=== PATIENT | female | born 1970 | race Hispanic/Latino ===

== ENCOUNTER 2018-12-07 20:52 | Emergency (ER) | payer BC, SELFPAY ==
[2018-12-07] MEDS ORDERED: ONDANSETRON 4 MG/2 ML VIAL ONE (22:19)
[2018-12-07] MEDS ORDERED: FENTANYL CITR 100 MCG/2 ML ONE (22:19)
[2018-12-07] MEDS ORDERED: NA CHLORIDE 0.9% 1,000 ML ONE (22:20)
[2018-12-07] MEDS ORDERED: FAMOTIDINE 20 MG/2 ML VIAL IV ONE (22:20)
[2018-12-07 22:30] LABS: Absolute Lymphocytes (CBC) 0.3 K/uL (0.7-4.9); Absolute Monocytes 0.6 K/uL (0.1-1.3); Absolute Neutrophil 9.1 K/uL (1.8-8.0); Basophils % 0.4 % (0-1.3); Eosinophils % 0.3 % (0-4.4); Hematocrit 34.6 % (36.0-45.0); MPV 9.3 fL (7.6-11.3); Monocytes % 6.3 % (3.3-12.3); RBC Red Blood Cell Count 4.16 M/uL (3.86-4.86)
[2018-12-07 22:50] LABS: Albumin 3.2 g/dL (3.4-5.0); Bilirubin Direct 0.2 mg/dL (0-0.2); Bilirubin Total 0.8 mg/dL (0.2-1.0); Potassium 3.6 mmol/L (3.5-5.1); Protein, Total 7.6 g/dL (6.4-8.2)
[2018-12-08] MEDS ORDERED: ONDANSETRON 4 MG/2 ML VIAL ONE (00:06)
[2018-12-08] MEDS ORDERED: FENTANYL CITR 100 MCG/2 ML ONE ×2 (00:06→05:44)
[2018-12-08 00:37] LABS: Urine Bacteria 20-50 /HPF (<20); Urine RBC NONE SEEN /HPF (NONE SEEN)
[2018-12-08 00:38] LABS: Urine Culture Reflex Order NOT NEEDED; Urine Mucus HEAVY /HPF (NONE SEEN)
[2018-12-08 00:49] LABS: Blood Morphology Comment NOT SEEN (NOT SEEN); Platelet Estimate ADEQ; Urine White Blood Cell Casts OK
[2018-12-08] MEDS ORDERED: NA CHLORIDE 0.9% 500 ML ONE (01:39)
[2018-12-08] MEDS ORDERED: NACHLORIDE 0.45% 1,000 ML IV ONE (01:39)
--- NOTE | 2018-12-08 02:53 | ER ---
Nurse's Notes [facility] Name: Marcela Jamison Age: 48 yrs Sex: Female : 1970 Arrival Date: 12/07/2018 Time: 20:58 Bed 7 Private MD: Diagnosis: Small bowel obstruction Presentation: 12/07 21:12 Presenting complaint: Patient states: Abd bloating, unable to pass gas or have BM since la1 hysterectomy on Sunday. Transition of care: patient was not received from another setting of care. Onset of symptoms was December 07, 2018. Risk Assessment: Do you want to hurt yourself or someone else? Patient reports no desire to harm self or others. Initial Sepsis Screen: Does the patient meet any 2 criteria? No. Patient's initial sepsis screen is negative. Does the patient have a suspected source of infection? No. Patient's initial sepsis screen is negative. Care prior to arrival: None. 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 - Social history:: Smoking status: Patient/guardian denies using tobacco. - Ebola Screening: : No symptoms or risks identified at this time. Screenin:27 Abuse screen: Denies threats or abuse. Nutritional screening: No deficits noted. ea Tuberculosis screening: No symptoms or risk factors identified. Fall Risk IV access (20 points). Assessment: 22:27 General: Appears uncomfortable, Behavior is calm, cooperative, appropriate for age. ea Pain: Complains of pain in abdomen. Neuro: Level of Consciousness is awake, alert, obeys commands, Oriented to person, place, time, situation. Cardiovascular: Patient's skin is warm and dry. Respiratory: Airway is patent Respiratory effort is even, unlabored, Respiratory pattern is regular, symmetrical. GI: Abdomen is distended, Bowel sounds present X 4 quads. Abdomen is tender to palpation X 4 quads. Derm: Skin is dry, Skin is pale, Skin temperature is warm. 23:35 Reassessment: complaints of severe abdominal pain. ED provider aware with order made rr5 and carried out. 23:35 Pain: Complains of pain in abdomen Pain does not radiate. Pain currently is 10 out of rr5 10 on a pain scale. Quality of pain is described as aching, Pain began gradually, Is intermittent. GI: Abdomen is distended. 12/08 00:35 Reassessment: Patient appears in no apparent distress at this time. Patient is alert, rr5 oriented x 3, equal unlabored respirations, skin warm/dry/pink. went to CT scan Patient states symptoms have improved. 01:30 Reassessment: Patient appears in no apparent distress at this time. No changes from rr5 previously documented assessment. Patient is alert, oriented x 3, equal unlabored respirations, skin warm/dry/pink. 01:45 Reassessment: inserted NGT at left nares draining bilus fluid connected to suction rr5 drain. 02:20 Reassessment: Patient appears in no apparent distress at this time. Patient is alert, rr5 oriented x 3, equal unlabored respirations, skin warm/dry/pink. Patient states feeling better. Patient states symptoms have improved. 03:13 Reassessment: Patient and/or family updated on plan of care and expected duration. Pain ea level reassessed. Patient is alert, oriented x 3, equal unlabored respirations, skin warm/dry/pink. 03:23 Reassessment: Report called to Francisco JONES at [facility]. ea 04:50 Reassessment: Patient and/or family updated on plan of care and expected duration. Pain ea level reassessed. Patient is alert, oriented x 3, equal unlabored respirations, skin warm/dry/pink. Awaiting for transport. 05:38 Reassessment: Report given to [facility]. Pt left ED via stretcher per EMS, pt ea tolerating well, pt accompanied by . Vital Signs: 12/07 21:15 Weight 53.07 kg; Height 5 ft. 1 in. (154.94 cm); la1 21:15 BP 104 / 64; la1 21:15 Pulse 60; Resp 16; Temp 97.0; Pulse Ox 98% on R/A; la1 22:30 BP 126 / 78; Pulse 64; Resp 18; Pulse Ox 99% on R/A; Pain 10/10; rr5 23:30 BP 124 / 87; Pulse 70; Resp 19; Temp 98; Pulse Ox 99% on R/A; rr5 12/08 00:00 BP 127 / 78; Pulse 60; Resp 16; Pulse Ox 98% on R/A; rr5 01:00 BP 128 / 74; Pulse 57; Resp 16; Pulse Ox 100% on R/A; rr5 02:00 BP 118 / 81; Pulse 60; Resp 15; Pulse Ox 98% on R/A; rr5 02:48 BP 142 / 83; Pulse 62; Resp 17; Temp 97.9; Pulse Ox 99% on R/A; rr5 03:30 BP 139 / 70; Pulse 63; Resp 16; Temp 98; Pulse Ox 98% on R/A; rr5 04:10 BP 135 / 88; Pulse 66; Resp 14; Temp 98.5; Pulse Ox 100% on 3 lpm NC; rr5 05:30 BP 128 / 72; Pulse 60; Resp 18; Temp 98.2; Pulse Ox 100% on 3 lpm NC; ea 12/07 21:15 Body Mass Index 22.11 (53.07 kg, 154.94 cm) la1 ED Course: 12/07 20:58 Patient arrived in ED. es 21:12 Arm band placed on left wrist. la1 21:13 Triage completed. la1 21:43 Shahid Angel PA is PHCP. cp 21:43 Maco Herzog MD is Attending Physician. cp 22:13 Gladys Small, ROBERT is Primary Nurse. ea 22:25 Inserted saline lock: 20 gauge in right antecubital area, using aseptic technique. ea Blood collected. 22:26 Patient has correct armband on for positive identification. Bed in low position. Call ea light in reach. Side rails up X2. Pulse ox on. NIBP on. 23:20 Radiology exam delayed due to Patient has been nauseous and has not been able to finish az oral contrast for CT exam. 12/08 01:06 Radiology exam delayed due to Patient did not finish oral contrast until 2340 due to az nausea. Will scan \T\ 0100. 01:16 CT Abd/Pelvis - W/Contrast In Process Unspecified. EDMS 01:18 X-ray completed. Portable x-ray completed in exam room. Patient tolerated procedure mh1 well. 01:19 XRAY Chest (1 view) In Process Unspecified. EDMS 01:45 NGT: inserted 14 Fr. via left nare. verified placement of air over stomach, verified rr5 return of gastric contents, to continuous suction. Returned gastric contents. Returned bile. Patient tolerated well. 03:39 No provider procedures requiring assistance completed. Patient transferred, IV remains ea in place. Administered Medications: 12/07 22:23 Drug: Zofran 4 mg Route: IVP; Site: right antecubital; ea 23:30 Follow up: Response: No adverse reaction rr5 22:25 Drug: NS 0.9% 1000 ml Route: IV; Rate: 1 bolus; Site: right antecubital; ea 23:30 Follow up: Response: No adverse reaction; IV Status: Completed infusion; IV Intake: rr5 1000ml 22:25 Drug: fentaNYL (PF) 25 mcg Route: IVP; Site: right antecubital; ea 23:30 Follow up: Response: No adverse reaction rr5 22:26 Drug: Pepcid 20 mg Route: IVP; Site: right antecubital; ea 23:30 Follow up: Response: No adverse reaction rr5 23:52 Drug: Zofran 4 mg Route: IVP; Site: right antecubital; rr5 12/08 01:00 Follow up: Response: No adverse reaction rr5 12/07 23:55 Drug: fentaNYL (PF) 25 mcg Route: IVP; Site: right antecubital; rr5 12/08 01:00 Follow up: Response: No adverse reaction rr5 01:14 CANCELLED (Physician Discretion): NS 0.9% 1000 ml IV at 1 bolus Per protocol; 1000 mL cp bolus 01:50 Drug: NS 0.9% 500 ml Route: IV; Rate: bolus; Site: right antecubital; rr5 03:00 Follow up: Response: No adverse reaction; IV Status: Completed infusion; IV Intake: rr5 500ml 01:50 Drug: NS 0.45 % 1000 ml Route: IV; Rate: 100 ml/hr; Site: right antecubital; rr5 03:29 Follow up: Response: No adverse reaction; IV Status: Infusion continued upon transfer; rr5 IV Intake: 150ml 03:04 Drug: metroNIDAZOLE 500 mg Volume: 100 ml; Route: IVPB; Infused Over: 30 mins; Site: ea right antecubital; 04:07 Follow up: Response: No adverse reaction; IV Status: Completed infusion ea 04:07 Drug: Ciprofloxacin 400 mg Volume: 200 ml; Route: IVPB; Infused Over: 60 mins; Site: ea right antecubital; 05:17 Follow up: Response: No adverse reaction; IV Status: Completed infusion ea 04:10 Drug: fentaNYL (PF) 25 mcg Route: IVP; Site: right antecubital; rr5 05:00 Follow up: Response: No adverse reaction; Pain is decreased ea 05:35 Drug: fentaNYL (PF) 25 mcg Route: IVP; Site: right antecubital; ea 05:38 Follow up: Response: medication administered at transfer ea Intake: 12/07 23:30 IV: 1000ml; Total: 1000ml. rr5 12/08 03:00 IV: 500ml; Total: 1500ml. rr5 03:29 IV: 150ml; Total: 1650ml. rr5 Output: 05:25 Gastric: 600ml (NGT); Total: 600ml. rr5 Outcome: 02:52 ER care complete, transfer ordered by MD. cp 03:00 Instructed on the need for transfer. ea 05:21 Transferred by ground EMS to [facility], Transfer form completed. ea 05:21 Condition: stable 05:40 Patient left the ED. ea Signatures: Dispatcher [employer] Hilda Null Martha [facility] Phill Neal RN RN serina1 Shahid Angel PA PA cp Antunez, Elena, RN RN ea Zavala, Araceli az Roque, Raymond RN RN rr5 Corrections: (The following items were deleted from the chart) 12/07 21:16 21:12 Acuity: KAMI 3 la1 la1 12/08 03:29 02:50 Response: No adverse reaction; IV Status: Completed infusion; IV Intake: 500ml [id number] 05:40 05:31 Reassessment: Report given to [facility]. Pt left ED via stretcher per EMS, ea pt tolerating well, pt accompanied by ea
--- NOTE | 2018-12-08 02:54 | EDPHYS ---
Physician Documentation [facility] Name: Marcela Jamison Age: 48 yrs Sex: Female : 1970 Arrival Date: 12/07/2018 Time: 20:58 Bed 7 Private MD: ED Physician Maco Herzog HPI: 12/07 21:55 This 48 yrs old Female presents to ER via Wheelchair with complaints of cp Constipation, Fever, Weakness. 21:55 The patient presents with abdominal pain that is diffuse, abdominal distention that is cp diffuse. 21:55 Onset: The symptoms/episode began/occurred gradually, and became worse today. cp Associated signs and symptoms: Pertinent positives: constipation, fever, nausea, vomiting, Pertinent negatives: blood in stools, vomiting blood. Patient reports having total hysterectomy performed by DR Lehman \T\[facility] in [place] this past Sunday. Patient reports she was discharged from hospital on . Patient c/o constipation and no bowel movement since surgery. 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 - Social history:: Smoking status: Patient/guardian denies using tobacco. - Ebola Screening: : No symptoms or risks identified at this time. ROS: 22:00 Constitutional: Negative for body aches, chills, fever, poor PO intake. cp 22:00 Eyes: Negative for injury, pain, redness, and discharge. cp 22:00 ENT: Negative for drainage from ear(s), ear pain, sore throat, difficulty swallowing, difficulty handling secretions. 22:00 Cardiovascular: Negative for chest pain, edema, palpitations. 22:00 Respiratory: Negative for cough, shortness of breath, wheezing. 22:00 Abdomen/GI: Positive for abdominal pain, nausea, constipation, abdominal distension. 22:00 Back: Negative for pain at rest, pain with movement, radiated pain. 22:00 : Negative for urinary symptoms. 22:00 Neuro: Positive for general weakness, Negative for altered mental status, headache. 22:00 All other systems are negative. Exam: 22:10 Constitutional: The patient appears in no acute distress, alert, awake, cp non-diaphoretic, non-toxic, well developed, well nourished. 22:10 Head/Face: Normocephalic, atraumatic. cp 22:10 Eyes: Periorbital structures: appear normal, Conjunctiva: normal, no exudate, no injection, Sclera: no appreciated abnormality, Lids and lashes: appear normal, bilaterally. 22:10 ENT: External ear(s): are unremarkable, Nose: is normal, Mouth: Lips: moist, Oral mucosa: dry, Posterior pharynx: Airway: no evidence of obstruction, patent. 22:10 Neck: ROM/movement: is normal, is supple, without pain, no range of motions limitations, no nuchal rigidity. 22:10 Chest/axilla: Inspection: normal, Palpation: is normal, no crepitus, no tenderness. 22:10 Cardiovascular: Rate: normal, Rhythm: regular, Edema: is not appreciated, JVD: is not appreciated. 22:10 Respiratory: the patient does not display signs of respiratory distress, Respirations: normal, no use of accessory muscles, no retractions, no splinting, no tachypnea, labored breathing, is not present, Breath sounds: are clear throughout, no decreased breath sounds, no stridor, no wheezing. 22:10 Abdomen/GI: Inspection: distension, that is moderate, Bowel sounds: active, all quadrants, Palpation: soft, in all quadrants, moderate abdominal tenderness, in the abdomen diffusely, rebound tenderness, is not appreciated, involuntary guarding, is elicited in all quadrants. 22:10 Skin: no rash present. 22:10 Neuro: Orientation: to person, place \T\ time. Mentation: is normal, Motor: moves all fours, strength is normal. Vital Signs: 21:15 Weight 53.07 kg; Height 5 ft. 1 in. (154.94 cm); la1 21:15 BP 104 / 64; la1 21:15 Pulse 60; Resp 16; Temp 97.0; Pulse Ox 98% on R/A; la1 22:30 BP 126 / 78; Pulse 64; Resp 18; Pulse Ox 99% on R/A; Pain 10/10; rr5 23:30 BP 124 / 87; Pulse 70; Resp 19; Temp 98; Pulse Ox 99% on R/A; rr5 12/08 00:00 BP 127 / 78; Pulse 60; Resp 16; Pulse Ox 98% on R/A; rr5 01:00 BP 128 / 74; Pulse 57; Resp 16; Pulse Ox 100% on R/A; rr5 02:00 BP 118 / 81; Pulse 60; Resp 15; Pulse Ox 98% on R/A; rr5 02:48 BP 142 / 83; Pulse 62; Resp 17; Temp 97.9; Pulse Ox 99% on R/A; rr5 03:30 BP 139 / 70; Pulse 63; Resp 16; Temp 98; Pulse Ox 98% on R/A; rr5 04:10 BP 135 / 88; Pulse 66; Resp 14; Temp 98.5; Pulse Ox 100% on 3 lpm NC; rr5 05:30 BP 128 / 72; Pulse 60; Resp 18; Temp 98.2; Pulse Ox 100% on 3 lpm NC; ea 12/07 21:15 Body Mass Index 22.11 (53.07 kg, 154.94 cm) la1 MDM: 12/07 21:43 Patient medically screened. cp 22:00 Differential diagnosis: bowel obstruction, non-specific abd pain, Ureterolithiasis, cp urinary tract infection, pneumonia. 12/08 02:30 Data reviewed: vital signs, nurses notes, lab test result(s), radiologic studies, CT cp scan, plain films, I have discussed the patient's presentation/case with the attending Emergency Department Physician;. 02:30 Response to treatment: the patient's symptoms have markedly improved after treatment. cp 12/07 21:50 Order name: Basic Metabolic Panel cp 12/07 21:50 Order name: CBC with Diff; Complete Time: 02:28 cp 12/07 21:50 Order name: Hepatic Function; Complete Time: 00:09 cp 12/07 21:50 Order name: Lipase; Complete Time: 00:09 cp 12/07 21:50 Order name: Urine Microscopic Only; Complete Time: 02:28 cp 12/07 21:50 Order name: CT Abd/Pelvis - W/Contrast cp 12/07 21:53 Order name: Basic Metabolic Panel; Complete Time: 00:09 EDMS 12/08 00:31 Order name: XRAY Chest (1 view) cp 12/08 00:49 Order name: CBC Smear Scan; Complete Time: 02:28 EDMS 12/07 21:50 Order name: IV Saline Lock; Complete Time: 22:29 cp 12/07 21:50 Order name: Labs collected and sent; Complete Time: 22:29 cp 12/07 21:50 Order name: Urine Dipstick-Ancillary (obtain specimen); Complete Time: 00:10 cp 12/08 01:07 Order name: NG Tube; Complete Time: 02:04 cp 12/08 02:44 Order name: Vital Signs: please update; Complete Time: 02:50 cp Administered Medications: 12/07 22:23 Drug: Zofran 4 mg Route: IVP; Site: right antecubital; ea 23:30 Follow up: Response: No adverse reaction rr5 22:25 Drug: NS 0.9% 1000 ml Route: IV; Rate: 1 bolus; Site: right antecubital; ea 23:30 Follow up: Response: No adverse reaction; IV Status: Completed infusion; IV Intake: rr5 1000ml 22:25 Drug: fentaNYL (PF) 25 mcg Route: IVP; Site: right antecubital; ea 23:30 Follow up: Response: No adverse reaction rr5 22:26 Drug: Pepcid 20 mg Route: IVP; Site: right antecubital; ea 23:30 Follow up: Response: No adverse reaction rr5 23:52 Drug: Zofran 4 mg Route: IVP; Site: right antecubital; rr5 12/08 01:00 Follow up: Response: No adverse reaction rr5 12/07 23:55 Drug: fentaNYL (PF) 25 mcg Route: IVP; Site: right antecubital; rr5 12/08 01:00 Follow up: Response: No adverse reaction rr5 01:14 CANCELLED (Physician Discretion): NS 0.9% 1000 ml IV at 1 bolus Per protocol; 1000 mL cp bolus 01:50 Drug: NS 0.9% 500 ml Route: IV; Rate: bolus; Site: right antecubital; rr5 03:00 Follow up: Response: No adverse reaction; IV Status: Completed infusion; IV Intake: rr5 500ml 01:50 Drug: NS 0.45 % 1000 ml Route: IV; Rate: 100 ml/hr; Site: right antecubital; rr5 03:29 Follow up: Response: No adverse reaction; IV Status: Infusion continued upon transfer; rr5 IV Intake: 150ml 03:04 Drug: metroNIDAZOLE 500 mg Volume: 100 ml; Route: IVPB; Infused Over: 30 mins; Site: ea right antecubital; 04:07 Follow up: Response: No adverse reaction; IV Status: Completed infusion ea 04:07 Drug: Ciprofloxacin 400 mg Volume: 200 ml; Route: IVPB; Infused Over: 60 mins; Site: ea right antecubital; 05:17 Follow up: Response: No adverse reaction; IV Status: Completed infusion ea 04:10 Drug: fentaNYL (PF) 25 mcg Route: IVP; Site: right antecubital; rr5 05:00 Follow up: Response: No adverse reaction; Pain is decreased ea 05:35 Drug: fentaNYL (PF) 25 mcg Route: IVP; Site: right antecubital; ea 05:38 Follow up: Response: medication administered at transfer ea Disposition: 06:30 Co-signature as Attending Physician, Maco Herzog MD. [email or web address] Disposition: 12/08/18 02:52 Transfer ordered to Other Acute Care Facility. Diagnosis is Small bowel obstruction. - Reason for transfer: Higher level of care. - Accepting physician is DR Monroy. - Condition is Stable. - Problem is new. - Symptoms have improved. Signatures: Dispatcher [employer] EDRI Maco Herzog MD MD pkl Phill Neal RN RN la1 Shahid Angel PA PA cp Antunez, Elena, Marito Lopez RN, ea, RN RN rr5 Corrections: (The following items were deleted from the chart) 12/07 23:15 21:53 Creatinine for Radiology+C.LAB.BRZ ordered. [facility] EDRI 12/08 00:30 12/07 22:00 This 48 yrs old Female presents to ER via Wheelchair with cp complaints of Constipation, Fever, Weakness. cp 12/08 01:14 01:13 NS 0.9% 1000 ml IV at 1 bolus Per protocol; 1000 mL bolus ordered. cp cp 05:40 02:52 12/08/2018 02:52 Transfer ordered to Other Acute Care Facility. Diagnosis is ea Small bowel obstruction. Reason for transfer: Higher level of care. Accepting physician is DR Monroy. Condition is Stable. Problem is new. Symptoms have improved. cp
[2018-12-08] MEDS ORDERED: CIPROFLOXACIN 400mg IV 400 MG/200 ML BAG IV ONE (03:06)
[2018-12-08] MEDS ORDERED: METRONIDAZOLE 500mg IVPB 500 MG/100 ML BAG IV ONE (03:06)
[2018-12-08 06:12] VITALS: O2SAT 100
[2018-12-08 06:14] VITALS: BP 128/72; TEMP 98.2
--- NOTE | 2018-12-08 08:17 | RAD REPORT ---
EXAM DESCRIPTION: RAD - Chest Single View - 12/08/2018 1:17 am CLINICAL HISTORY: Abdominal bloating, abdominal pain and distention COMPARISON: None. TECHNIQUE: AP portable chest image was obtained 0116 hours . FINDINGS: Lung volumes are low. No focal lung parenchymal process. Heart and vasculature are normal. No measurable pleural effusion and no pneumothorax. No acute bony abnormality seen. No acute aortic findings suspected. IMPRESSION: No acute cardiopulmonary process.
--- NOTE | 2018-12-10 10:56 | RAD REPORT ---
EXAM DESCRIPTION: CT - Abdomen Pelvis W Contrast - 12/08/2018 1:15 am CLINICAL HISTORY: The patient is 48 years old and is Female; Abdominal distention;Abd pain;Constipat ion TECHNIQUE: Axial computed tomography images of the abdomen and pelvis with intravenous contrast. S agittal and coronal reformatted images were created and reviewed. This CT exam was performed using one or more of the following dose reduction techniques: automated exposure control, adjustment of t he mA and/or kV according to patient size, and/or use of iterative reconstruction technique. COMPARISON: No relevant prior studies available. FINDINGS: LUNG BASES: Unremarkable. No mass. No consolidation. ABDOMEN: LIVER: Unremarkable. No mass. GALLBLADDER AND BILE DUCTS: No calcified stones. No ductal dilation. PANCREAS: No ductal dilation. No mass. SPLEEN: Unremarkable. ADRENALS: Unremarkable. No mass. KIDNEYS AND URETERS: Unremarkable. No solid mass. No hydronephrosis. STOMACH AND BOWEL: The stomach is significantly distended with oral contrast. Multiple dilated f luid-filled small bowel loops are present throughout majority of the abdomen. A definite transition p oint is not seen; however, is felt to be in the right lower quadrant. The distal small bowel is tameka l in caliber. Stool is present throughout the colon. PELVIS: APPENDIX: The appendix is normal in caliber without surrounding inflammation. BLADDER: Unremarkable. No mass. REPRODUCTIVE: Unremarkable as visualized. ABDOMEN and PELVIS: INTRAPERITONEAL SPACE: Free fluid is present within the right upper quadrant. Fluid and edema throughout the mesentery and within the right upper quadrant is present. No free air. BONES/JOINTS: No acute fracture. SOFT TISSUES: The soft tissues are normal. VASCULATURE: Unremarkable. No abdominal aortic aneurysm. LYMPH NODES: Unremarkable. No enlarged lymph nodes. IMPRESSION: Findings consistent with a small bowel obstruction. Reactive inflammatory changes with f at stranding and fluid throughout the abdomen and pelvis is noted. Electronically signed by: Cecilia Sifuentes MD 12/08/2018 1:24 AM CDT Due to temporary technical issues with the PACS/Fluency reporting system, reports are being signed by the in house radiologist as a courtesy to ensure prompt reporting. The interpreting radiologist is f quangly responsible for the content of the report.
== END 2018-12-08 05:40 ==
LOC: ER 20:52
DX: K56.609 Unspecified intestinal obstruction, unspecified as to partial versus complete obstruction (principal)
CPT/HCPCS: 36415; 71045; 74177; 80048; 80076; 81015; 83690; 85025; 96361; 96365; 96367; 96375; 99285; J0744; J2405; J3010; J7030; Q9967

== ENCOUNTER 2018-12-28 11:10 | Emergency (ER) | payer BC ==
--- OUTSIDE RECORDS SUMMARY | 2018-12-28 11:18 | XMS REPORT | Continuity of Care Document ---
:1970 Author Organization Interface Problems Problem Status Onset Classification Date Comments Source Date Reported HPI Active 12/08/19 [facility] 19 [place] SBO Active 12/08/19 [facility] 19 [place] UNK Active 10/16/19 [facility] 19 [place] TOTAL ABD Active 10/16/19 [facility] HYSTERECTOMY 19 [place] UTERINE Active 10/16/19 [facility] FIBROIDE, 19 [place] MEORRHAGIA R92.8 - OTH ABN Active 11/02/19 [facility] INCONCLUSIVE 18 [place] FINDI Encounter for 10/28/19 01/31/2018 [facility] screening 18 [place] mammogram for malignant neoplasm of breast Z12.31 - ENCNTR Active 09/12/19 [facility] SCREEN MAMMOGRAM [address] [place] [address] FOR [place] Chicken pox Resolved Problem 10/22/2018 [facility] Chicken pox Resolved Problem 12/23/2018 [facility] 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 of water, X Solution 7 day, # 255 gm, [Miralax] 1 Refill(s), Pharmacy: [facility] [id number] Dicyclomine 20 mg=1 tab, PO, Active Hydrochloride 20 QID-Before 2019 [place] MG Oral Tablet Meals, PRN [Bentyl] Abdominal Pain, # 15 tab, 0 Refill(s), Pharmacy: [facility] [place] [id number] simethicone 80 mg 160 mg=2 tab, Active oral tablet, CHEW, TID, PRN 2019 [place] chewable Gas, X 5 day, # 15 tab, 0 Refill(s), Pharmacy: [facility] [id number] Bentyl 20 mg, 1 tab, Inactive Route: PO, Drug 2019 [place] form: TAB, ONCE, Dosing Weight 50, kg, Priority: NOW, Start date: 12/21/18 11:10:00 CDT, Stop date: 12/21/18 11:10:00 CDTNotes: (Same as: Bentyl) Simethicone 160 mg, 2 tab, Inactive Route: CHEW, 2019 [place] Drug form: CHEWTAB, TID, Dosing Weight 50, kg, PRN Gas, Priority: NOW, Start date: 12/21/18 11:10:00 CDT, Duration: 30 day, Stop date: 01/20/19 11:09:00 CDTNotes: (Same as: Mylicon) Adult Parenteral 1,850 mL, Rate: No Longer Nutrition Custom 75 ml/hr, Infuse Active 2018 [place] - [facility] ([facility]) over: 24.7 hr, 1,850 mL Dosing Weight 50, kg, Route: IV, Total Volume: 1,850 mL, Start Date: 12/19/18 22:00:00 CDT, Duration: 24 hr, Stop date: 12/20/18 21:59:00 CDT, Replace Every: 24 hrNotes: Central line only Must use 1.2 micron filter AND Lipids should not be administered to patients who are allergic to soy, fish, egg or peanuts. Protonix 40 mg, Route: Inactive IVP, Drug form: 2019 [place] INJ, Before Dinner, Start date: 12/19/18 17:23:00 CDT, Duration: 1 doses or times, Stop date: 12/19/18 17:23:00 CDTNotes: For IV push reconstitute with 10 ml 0.9% sodium chloride and push over 2 minutes. (Same as: Protonix) Acetaminophen 650 mg, 2 tab, No Longer Route: PO, Drug Active 2018 [place] form: TAB, Q6H, Dosing Weight 50, kg, PRN Pain 1-3/Temp > 100.4 F, Start date: 12/19/18 14:52:00 CDT, Duration: 30 day, Stop date: 01/18/19 14:51:00 CDTNotes: Do not exceed 4 gm/day. (Same as: Tylenol) Adult Parenteral 2,050 mL, Rate: No Longer Nutrition Custom 83.3ml/hr, Active 2019 [place] - [facility] ([facility]) Dosing Weight 2,050 mL 50, kg, Route: IV, Total Volume: 2,050 mL, Start Date: 12/18/18 22:00:00 CDT, Duration: 24 hr, Stop date: 12/19/18 21:59:00 CDT, Replace Every: 24 hrNotes: Central line only Must use 1.2 micron filter AND Lipids should not be administered to patients who are allergic to soy, fish, egg or peanuts. Adult Parenteral 2,050 mL, Rate: No Longer Nutrition Custom 83.3 ml/hr, Active 2019 [place] - [facility] ([facility]) Infuse over: 2,050 mL 24.6 hr, Dosing Weight 50, kg, Route: IV, Total Volume: 2,050 mL, Start Date: 12/17/18 22:00:00 CDT, Duration: 24 hr, Stop date: 12/18/18 21:59:00 CDT, Replace Every: 24 hrNotes: Central line only Must use 1.2 micron filter AND Lipids should not be administered to patients who are allergic to soy, fish, egg or peanuts. Adult Parenteral 2,050 mL, Rate: No Longer Nutrition Custom 83.3 ml/hr, Active 2019 [place] - [facility] ([facility]) Infuse over: 2,050 mL 24.6 hr, Dosing Weight 50, kg, Route: IV, Total Volume: 2,050 mL, Start Date: 12/16/18 22:00:00 CDT, Duration: 24 hr, Stop date: 12/17/18 21:59:00 CDT, Replace Every: 24 hrNotes: Central line only Must use 1.2 micron filter AND Lipids should not be administered to patients who are allergic to soy, fish, egg or peanuts. Molasses AR Molasses AR, 240 Inactive mL, Drug form: 2019 [place] MISC, Route: AR, ONCE, 12/16/18 12:21:00 CDT, Stop date: 12/16/18 12:21:00 CDT molasses 240 mL, Route: Inactive AR, Dosing 2019 [place] Weight 50, kg, ONCE, Milk of Molasses Enema, Start date: 12/16/18 12:08:00 CDT, Stop date: 12/16/18 12:08:00 CDT Adult Parenteral 1 mL, Rate: No Longer Nutrition Custom Titrate, Dosing Active 2019 [place] - Central (TPN) 1 Weight 50, kg, mL Route: IV, Total Volume: 1 mL, Start Date: 12/15/18 22:00:00 CDT, Duration: 24 hr, Stop date: 12/16/18 21:59:00 CDT, Replace Every: 24 hrNotes: Central line only Must use 1.2 micron filter AND Lipids should not be administered to patients who are allergic to soy, fish, egg or peanuts. Adult Parenteral 2,050 mL, Rate: No Longer Nutrition Custom 83.3, Dosing Active 2019 [facility] Central (TPN) Weight 50, kg, 2,050 mL Route: IV, Total Volume: 2,050 mL, Start Date: 12/14/18 22:00:00 CDT, Duration: 24 hr, Stop date: 12/15/18 21:59:00 CDT, Replace Every: 24 hrNotes: Central line only Must use 1.2 micron filter AND Lipids should not be administered to patients who are allergic to soy, fish, egg or peanuts. Potassium 20 mEq, 100 mL, Inactive Chloride Route: IVPB, 2019 [place] Drug form: INJ, Q2H, Dosing Weight 50, kg, Total dose=60 mEq, Start date: 12/14/18 8:00:00 CDT, Duration: 3 doses or times, Stop date: 12/14/18 12:00:00 CDT, Central LineNotes: (Same as: KCL) Infuse no faster than 10 mEq/hr if given peripherally. Adult Parenteral 2,050 mL, Rate: No Longer Nutrition Custom 83.3 ml/hr, Active 2019 [place] - Central (TPN) Infuse over: 2,050 mL 24.6 hr, Dosing Weight 50, kg, Route: IV, Total Volume: 2,050 mL, Start Date: 12/13/18 22:00:00 CDT, Duration: 24 hr, Stop date: 12/14/18 21:59:00 CDT, Replace Every: 24 hrNotes: Central line only Must use 1.2 micron filter AND Lipids should not be administered to patients who are allergic to soy, fish, egg or peanuts. tramadol 50 mg, 1 tab, No Longer hydrochloride 50 Route: PO, Drug Active 2019 [place] MG Oral Tablet form: TAB, Q6H, [Ultram] Dosing Weight 50, kg, PRN Pain Score 1-3, Start date: 12/13/18 21:50:00 CDT, Duration: 30 day, Stop date: 01/12/19 21:49:00 CDTNotes: Not to exceed 400mg/day. (Same As: Ultram) Protonix 40 mg, Route: No Longer IVP, Drug form: Active 2019 [place] INJ, Before Dinner, Start date: 12/13/18 16:30:00 CDT, Duration: 7 day, Stop date: 12/19/18 16:30:00 CDTNotes: For IV push reconstitute with 10 ml 0.9% sodium chloride and push over 2 minutes. (Same as: Protonix) Nexium 40 mg, Route: Inactive IVP, Daily, 2018 [place] Dosing Weight 50, kg, Start date: 12/13/18 12:00:00 CDT, Duration: 7 day, Stop date: 12/20/18 9:00:00 CDT acetaminophen 1,000 mg, 100 Inactive mL, Route: IV, 2019 [place] Drug form: INJ, Q8Hnow, Dosing Weight 50, kg, Start date: 12/13/18 8:00:00 CDT, Duration: 2 doses or times, Stop date: 12/13/18 16:00:00 CDTNotes: Infuse over 15 minutes Do not exceed 4gm/day of acetaminophen MEDICATION WASTE Product Size: 1000 mg Product Wasted: ___ mg Potassium 20 mEq, 100 mL, Inactive Chloride Route: IVPB, 2018 [place] Drug form: INJ, Q2H, Dosing Weight 50, kg, Total dose=60 mEq, Start date: 12/13/18 8:00:00 CDT, Duration: 3 doses or times, Stop date: 12/13/18 12:00:00 CDT, Central LineNotes: (Same as: KCL) Infuse no faster than 10 mEq/hr if given peripherally. Phenergan 12.5 mg, 0.5 mL, No Longer Route: IVPB, Active 2018 [place] Q4H, Dosing Weight 50, kg, PRN Nausea & Vomiting, Start date: 12/12/18 18:52:00 CDT, Duration: 30 day, Stop date: 01/11/19 18:51:00 CDTNotes: Do not give IV push. (Same as: Phenergan) Phenergan 12.5 mg, 0.5 mL, Inactive Route: IVPB, 2018 [place] Q6H, Dosing Weight 50, kg, PRN Nausea & Vomiting, Start date: 12/12/18 18:03:00 CDT, Duration: 30 day, Stop date: 01/11/19 18:02:00 CDTNotes: Do not give IV push. (Same as: Phenergan) Saline Flush 0.9% 10 mL, Route: No Longer IVP, Drug Form: Active 2018 [place] INJ, Dosing Weight 50, kg, Q8H, Start date: 12/12/18 16:00:00 CDT, Duration: 30 day, Stop date: 01/11/19 8:00:00 CDTNotes: Same as: BD Posiflush Sterile Lidocaine 5 mL, Route: No Longer Hydrochloride 10 INTRADERM, Drug Active 2018 [place] MG/ML Injectable Form: INJ, Solution Dosing Weight 50, kg, ONCALL, For PICC line insertion., Start date: 12/12/18 14:00:00 CDT, Duration: 30 day, Stop date: 01/11/19 13:59:00 CDTNotes: Preservative free. (Same as: Xylocaine MPF) Saline Flush 0.9% 10 mL, Route: No Longer IVP, Drug Form: Active 2019 [place] INJ, Dosing Weight 50, kg, PRN, PRN Line Flush, Start date: 12/12/18 13:57:00 CDT, Duration: 30 day, Stop date: 01/11/19 13:56:00 CDTNotes: preservative free. Lovenox 40 mg, 0.4 mL, No Longer Route: SUB-Q, Active 2019 [place] Drug form: INJ, [id number], Dosing Weight 50, kg, Start date: 12/12/18 13:00:00 CDT, Duration: 30 day, Stop date: 01/10/19 13:00:00 CDTNotes: (Same as: Lovenox) potassium 40 mEq, 2 tab, Inactive chloride 20 mEq Route: PO, Drug 2019 [place] oral tablet, form: ERTAB, extended release Q4H, Dosing Weight 50, kg, Start date: 12/12/18 8:00:00 CDT, Duration: 2 doses or times, Stop date: 12/12/18 12:00:00 CDT Potassium 10 mEq, 100 mL, Inactive Chloride Route: IVPB, 2019 [place] Drug form: INJ, Q1H, Dosing Weight 50, kg, Total Dose=60 meq, Start date: 12/12/18 6:00:00 CDT, Duration: 6 doses or times, Stop date: 12/12/18 11:00:00 CDT, Peripheral LineNotes: Infuse at a rate of 10 mEq/hr. (Same as: KCL) potassium 2 pkt, Route: No Longer phosphate-sodium PO, Drug Form: Active 2019 [place] phosphate 250 PDR/REC, Dosing mg-280 mg-160 mg Weight 50, kg, oral powder for PRN, PRN reconstitution Abnormal Lab Result, For NON-ICU Patients Only, Start date: 12/11/18 8:02:00 CDT, Duration: 30 day, Stop date: 01/10/19 8:01:00 CDTNotes: (Same as: Phos-NaK) Each 1.5 gm pkt has 250mg phosphorous. Mix w/2.5oz water and stir. potassium 15 mmol, 5 mL, No Longer phosphate Route: IVPB, Active 2018 [place] PRN, Dosing Weight 50, kg, PRN Abnormal Lab Result, For NON-ICU Patients Only., Start date: 12/11/18 8:02:00 CDT, Duration: 30 day, Stop date: 01/10/19 8:01:00 CDTNotes: (Same as: K Phosphate.) Do not infuse phosphorous concurrently in the same line as TPN or IVF that contains calcium. For double lumen central lines, phosphorous may be infused in a separate lumen from TPN. 1 mMol phoshate has 1.47 mEq potassium Infuse over 4 hours sodium phosphate 15 mmol, 5 mL, No Longer Route: IVPB, Active 2018 [place] PRN, Dosing Weight 50, kg, PRN Abnormal Lab Result, For NON-ICU Patients Only., Start date: 12/11/18 8:02:00 CDT, Duration: 30 day, Stop date: 01/10/19 8:01:00 CDTNotes: Infuse over 4 hour. Do not infuse phosphorous concurrently in the same line as TPN or IVF that contains calcium. For double lumen central lines, phosphorous may be infused in a separate lumen from TPN. Magnesium Sulfate 1 gm, 100 mL, No Longer Route: IVPB, Active 2018 [place] Drug form: INJ, PRN, Dosing Weight 50, kg, PRN Abnormal Lab Result, For NON-ICU Patients Only., Start date: 12/11/18 8:02:00 CDT, Duration: 30 day, Stop date: 01/10/19 8:01:00 CDTNotes: WASTE: F/P - Sink; E - Municipal Trash Bin Magnesium Oxide 800 mg, 2 tab, No Longer Route: PO, Drug Active 2018 [place] form: TAB, PRN, Dosing Weight 50, kg, PRN Abnormal Lab Result, For NON-ICU Patients Only., Start date: 12/11/18 8:02:00 CDT, Duration: 30 day, Stop date: 01/10/19 8:01:00 CDTNotes: (Same as: Mag-Ox 400) Magnesium oxide [id number] elemental magnesium Dose=____mg magnesium oxide (___mg elemental magnesium) Calcium Gluconate 2 gm, 20 mL, No Longer Route: IVPB, Active 2018 [place] PRN, Dosing Weight 50, kg, PRN Abnormal Lab Result, For NON-ICU Patients Only., Start date: 12/11/18 8:02:00 CDT, Duration: 30 day, Stop date: 01/10/19 8:01:00 CDTNotes: WASTE: F/P - Sink; E - Municipal Trash Bin Potassium 20 mEq, 1 tab, No Longer Chloride Route: PO, Drug Active 2018 [place] form: ERTAB, PRN, Dosing Weight 50, kg, PRN Abnormal Lab Result, For NON-ICU Patients Only, Start date: 12/11/18 8:02:00 CDT, Duration: 30 day, Stop date: 01/10/19 8:01:00 CDTNotes: (Same as: K-Dur 20) "Do Not Crush" Give with food and full glass of water For patients unable to swallow tablet, dissolve in one half glass of water. Allow about 2 minutes for the tablets to disintegrate. Stir before giving to prepare slurry and administer. Please exclude Patients with feeding tube less than 14 Japanese (Dobhoff, J-tube etc) and pediatric and patients. Dextrose 50% in 50 mL, Route: Inactive Water IV IVP, Start date: 2018 [place] 12/11/18 6:44:00 CDT, Stop date: 12/11/18 6:44:00 CDT Dextrose 5% with 1,000 mL, Rate: No Longer 0.9% NaCl IV 125 ml/hr, Active 2018 [place] 1,000 mL Infuse over: 8 hr, Route: IV, Dosing Weight 50 kg, Total Volume: 1,000, Start date: 12/11/18 6:38:00 CDT, Duration: 30 day, Stop date: 01/10/19 6:37:00 CDT, 1.49, m2 Dextrose 25 gm, Route: Inactive IVPB, ONCE, 2018 [place] Dosing Weight 50, kg, Start date: 12/11/18 6:38:00 CDT, Stop date: 12/11/18 6:38:00 CDT D50W (bolus) IV 25 gm, 50 mL, No Longer Route: IVP, Drug Active 2018 [place] Form: INJ, Dosing Weight 50, kg, PRN, PRN Blood Glucose Results, Start date: 12/11/18 6:38:00 CDT, Duration: 30 day, Stop date: 01/10/19 6:37:00 CDT, Pediatric dosing Acetaminophen 1,000 mg, 100 No Longer mL, Route: IV, Active 2018 [place] Drug form: INJ, Q8Hnow, Dosing Weight 50, kg, Start date: 12/10/18 14:00:00 CDT, Duration: 3 day, Stop date: 12/13/18 6:00:00 CDTNotes: Infuse over 15 minutes Do not exceed 4gm/day of acetaminophen MEDICATION WASTE Product Size: 1000 mg Product Wasted: ___ mg Acetaminophen 1,000 mg, Route: Inactive IV, Drug form: 2018 [place] INJ, Q8Hnow, Dosing Weight 50, kg, Priority: NOW, Start date: 12/10/18 10:10:00 CDT, Duration: 3 day, Stop date: 12/13/18 2:10:00 CDT Morphine 2 mg, 1 mL, No Longer Route: IV, Drug Active 2018 [place] form: SOLN, Q4H, Dosing Weight 50, kg, PRN Pain Score 7-10, Start date: 12/09/18 11:21:00 CDT, Duration: 30 day, Stop date: 01/08/19 11:20:00 CDT Acetaminophen 1,000 mg, 100 No Longer mL, Route: IV, Active 2018 [place] Drug form: INJ, Q8Hnow, Dosing Weight 50, kg, Start date: 12/09/18 11:00:00 CDT, Duration: 1 day, Stop date: 12/10/18 3:00:00 CDTNotes: Infuse over 15 minutes Do not exceed 4gm/day of acetaminophen MEDICATION WASTE Product Size: 1000 mg Product Wasted: ___ mg Miralax 17 gm, 1 pkt, No Longer Route: PO, Drug Active 2018 [place] form: PWDR, Q12H, Dosing Weight 50, kg, Start date: 12/08/18 21:00:00 CDT, Duration: 30 day, Stop date: 01/07/19 9:00:00 CDTNotes: Dissolve in 8 oz of water or juice. (Same as: Miralax) Dulcolax Laxative 10 mg, 1 supp, No Longer Route: AR, Drug Active 2018 [place] form: SUPP, Bedtime, Dosing Weight 50, kg, Start date: 12/08/18 21:00:00 CDT, Duration: 30 day, Stop date: 01/06/19 21:00:00 CDTNotes: (Same As: Dulcolax, Bisco-Lax) Xylocaine Viscous 15 mL, Route: No Longer 2% mucous PO, Q4H, Drug Active 2018 [place] membrane solution form: SOLN, PRN Sore Throat, Start date: 12/08/18 11:04:00 CDT, Duration: 30 day, Stop date: 01/07/19 11:03:00 CDTNotes: (Same as: Xylocaine) Al hydroxide/Mg 30 mL, Route: No Longer hydroxide/simethi PO, Drug Form: Active 2019 [place] cone SUSP, Q4H, PRN Sore Throat, Start date: 12/08/18 11:03:00 CDT, Duration: 30 day, Stop date: 01/07/19 11:02:00 CDTNotes: (aluminum hydroxide-magnes ium hyd-simethicone [id number]/5ml 30 ml ud REMBERTO) GI cocktail 30 ml, Route: Inactive (aluminum PO, Drug Form: 2019 [place] hydroxide/magnesi SUSP, Dosing um Weight 50, kg, hydroxide/lidocai Q4H, PRN Sore ne/simethicone) Throat, Routine, Start date: 12/08/18 10:52:00 CDT, Duration: 30 day, Stop date: 01/07/19 10:51:00 CDT phenol 1 spray, Route: No Longer TOP, Q4H, Drug Active 2018 [place] form: SPRY, PRN Sore Throat, Start date: 12/08/18 10:52:00 CDT, Duration: 30 day, Stop date: 01/07/19 10:51:00 CDTNotes: Chloraseptic [place] (Same as: Chloraseptic, Sore Throat [place]) WASTE: F/P - Black; E - Municipal Trash Bin Morphine 2 mg, 1 mL, No Longer Route: IVP, Drug Active 2019 [place] form: SOLN, Q4H, Dosing Weight 53.182, kg, PRN Pain Score 7-10, Start date: 12/08/18 7:56:00 CDT, Duration: 30 day, Stop date: 01/07/19 7:55:00 CDT Sodium Chloride 1,000 mL, Rate: No Longer 0.9% IV 1,000 mL 125 ml/hr, Active 2019 [place] Infuse over: 8 hr, Route: IV, Dosing Weight 53.182 kg, Total Volume: 1,000, Start date: 12/08/18 7:56:00 CDT, Duration: 30 day, Stop date: 01/07/19 7:55:00 CDT, 1.54, m2 Ondansetron 4 mg, 2 mL, No Longer Route: IVP, Drug Active 2019 [place] form: INJ, Q4H, Dosing Weight 53.182, kg, PRN Nausea & Vomiting, Start date: 12/08/18 7:56:00 CDT, Duration: 30 day, Stop date: 01/07/19 7:55:00 CDTNotes: (Same as: Jeanettefran) MEDICATION WASTE Product Size: 4 mg Product Wasted: ___ mg Acetaminophen 650 mg, 1 supp, No Longer Route: AR, Drug Active 2019 [place] form: SUPP, Q4H, Dosing Weight 53.182, kg, PRN For Temp > 100.4 F, Start date: 12/08/18 7:56:00 CDT, Duration: 30 day, Stop date: 01/07/19 7:55:00 CDTNotes: Max acetaminophen=40 00 mg/day (4 gm/day). (Same as: Tylenol) Acetaminophen 325 1 tab, Route: No Longer MG / Hydrocodone PO, Drug Form: Active 2019 [place] Bitartrate 5 MG TAB, Dosing Oral Tablet Weight 53.182, kg, Q4H, PRN Pain Score 1-3, Start date: 12/08/18 7:56:00 CDT, Duration: 30 day, Stop date: 01/07/19 7:55:00 CDTNotes: (Same as: [place] 325/5) Do not exceed 4gm/day of acetaminophen. ibuprofen 600 mg 600 mg=1 tab, Active oral tablet PO, Q6H, PRN 2019 [place] Pain Score 1-3, # 30 tab, 0 Refill(s) Docusate Sodium 100 mg=1 cap, Active 100 MG Oral PO, BID, PRN 2019 [place] Capsule Constipation, # 60 cap, 0 Refill(s) Acetaminophen 300 1 tab, PO, Q6H, Active MG / Codeine PRN Pain 2019 [place] Phosphate 30 MG 4-6/Temp > 100.4 Oral Tablet F, # 28 tab, 0 [Tylenol with Refill(s) Codeine #3] sennosides, [facility] 17.2 mg=2 tab, Active 8.6 MG Oral PO, Bedtime, PRN 2019 [place] Tablet Constipation, X 10 day, # 20 tab, 0 Refill(s) Simethicone 80 mg, 1 tab, No Longer Route: CHEW, Active 2019 [place] Drug form: CHEWTAB, TID, Dosing Weight 53.182, kg, PRN Gas, Start date: 12/04/18 8:29:00 CDT, Duration: 30 day, Stop date: 01/03/19 8:28:00 CDTNotes: (Same as: Mylicon) Docusate 100 mg, 1 cap, No Longer Route: PO, Drug Active 2019 [place] form: CAP, BID, Dosing Weight 53.182, kg, PRN Constipation, Start date: 12/04/18 8:29:00 CDT, Duration: 30 day, Stop date: 01/03/19 8:28:00 CDTNotes: (Same as: Colace) (Do Not Crush) Acetaminophen 300 2 tab, Route: No Longer MG / Codeine PO, Drug Form: Active 2019 [place] Phosphate 30 MG TAB, Dosing Oral Tablet Weight 53.182, [Tylenol with kg, Q6H, PRN Codeine #3] Pain 4-6/Temp > 100.4 F, Start date: 12/04/18 8:22:00 CDT, Duration: 30 day, Stop date: 01/03/19 8:21:00 CDTNotes: Do not exceed 4gm/day of acetaminophen. (Same as: Tylenol with Codeine # 3) Ibuprofen 600 mg, 1 tab, No Longer Route: PO, Drug Active 2019 [place] form: TAB, Q6H, Dosing Weight 53.182, kg, PRN Pain Score 1-3, Start date: 12/04/18 8:22:00 CDT, Duration: 30 day, Stop date: 01/03/19 8:21:00 CDTNotes: (Same as: Motrin) "Do Not Crush" Take with food. acetaminophen 1,000 mg, 2 tab, Inactive Route: PO, Drug 2019 [place] form: TAB, Q6H, Start date: 12/04/18 4:00:00 CDT, Duration: 3 doses or times, Stop date: 12/04/18 18:00:00 CDTNotes: Max acetaminophen 4000 mg/day (4 gm/day). (Same as: Tylenol Extra Strength) Saline Flush 0.9% 5 ml, Route: No Longer IVP, Drug Form: Active 2019 [place] INJ, Dosing Weight 53.324, kg, Q12H, Start date: 12/03/18 21:00:00 CDT, Duration: 30 day, Stop date: 01/02/19 9:00:00 CDTNotes: Same as: BD Posiflush Sterile Zofran 4 mg, 1 tab, No Longer Route: PO, Drug Active 2019 [place] form: TAB, Q8H, Dosing Weight 53.324, kg, PRN Nausea, Start date: 12/03/18 16:06:00 CDT, Duration: 30 day, Stop date: 01/02/19 16:05:00 CDTNotes: (Same as: Zofran) Ofirmev 1,000 mg, 100 Inactive 05/21/ MH mL, Route: IV, 2019 [place] Drug form: INJ, Q6H, Dosing Weight 53.324, kg, for > or=50 kg, Start date: 12/03/18 12:00:00 CDT, Duration: 1 doses or times, Stop date: 12/03/18 12:00:00 CDTNotes: Infuse over 15 minutes Do not exceed 4gm/day of acetaminophen MEDICATION WASTE Product Size: 1000 mg Product Wasted: ___ mg Acetaminophen 1,000 mg, 100 No Longer mL, Route: IVPB, Active 2018 [place] Drug form: INJ, Q6Hnow, Dosing Weight 53.324, kg, Start date: 12/03/18 10:00:00 CDT, Duration: 30 day, Stop date: 01/02/19 4:00:00 CDTNotes: Infuse over 15 minutes Do not exceed 4gm/day of acetaminophen MEDICATION WASTE Product Size: 1000 mg Product Wasted: ___ mg Ketorolac 30 mg, 1 mL, Active Route: IVP, Drug 2018 [place] form: INJ, Q6Hnow, Dosing Weight 53.324, kg, Start date: 12/03/18 10:00:00 CDT, Duration: 24 hr, Stop date: 12/04/18 4:00:00 CDTNotes: (Same as:Toradol) IV bolus must be given >15 seconds. Give IM administration slowly and deeply into the muscle. Not for use > 4 days MEDICATION WASTE Product Size: 30 mg Product Wasted: ___ mg neostigmine Route: IV, Drug Inactive (ANES) form: INJ, ONCE, 2018 [place] Stop date: 12/03/18 9:36:00 CDT ketOROLAC (ANES) IV, ONCE Inactive 2018 [place] glycopyrrolate Route: IV, Drug Inactive (ANES) form: INJ, ONCE, 2018 [place] Stop date: 12/03/18 9:36:00 CDT ondansetron Route: IV, Drug Inactive (ANES) form: INJ, ONCE, 2018 [place] Stop date: 12/03/18 9:30:00 CDT Dilaudid (ANES) Route: IV, Drug Inactive form: INJ, ONCE, 2019 [place] Stop date: 12/03/18 9:30:00 CDT Oxycodone 10 mg, 2 tab, No Longer Hydrochloride 5 Route: PO, Drug Active 2019 [place] MG Oral Tablet form: TAB, Q4H, Dosing Weight 53.324, kg, PRN Pain Score 7-10, Start date: 12/03/18 9:07:00 CDT, Duration: 30 day, Stop date: 01/02/19 9:06:00 CDTNotes: (Same as: Roxicodone) Morphine 30 mg, 30 mL, No Longer Route: IV, MAJOR [employer]IF[employer] DIRECTOR Active 2018 [place] Dose: 1 mg, MAJOR GIFTS DIRECTOR Lockout: 15 minutes, Continuous Basal Rate: 0 mg, 4 Hour Limit (In MG): 16, Drug Form: INJ, Continuous, Start date: 12/03/18 9:07:00 CDT, Duration: 30 day, Stop date: 01/02/19 9:06:00 CDTNotes: Dose: Delay: Basal rate: 4hr limit: (Same as:Gutierrez) Naloxone 0.04 mg, 0.1 mL, No Longer Route: IVP, Drug Active 2018 [place] form: INJ, Q2MIN, Dosing Weight 53.324, kg, PRN Narcotic Reversal, Start date: 12/03/18 9:07:00 CDT, Duration: 30 day, Stop date: 01/02/19 9:06:00 CDTNotes: Same as Narcan Saline Flush 0.9% 5 ml, Route: No Longer IVP, Drug Form: Active 2019 [place] INJ, Dosing Weight 53.324, kg, PRN, PRN Line Flush, Start date: 12/03/18 9:07:00 CDT, Duration: 30 day, Stop date: 01/02/19 9:06:00 CDTNotes: Same as: BD Posiflush Sterile Calcium Chloride 1,000 mL, Rate: No Longer 0.002 MEQ/ML / 125 ml/hr, Active 2019 [place] Glucose 50 MG/ML Infuse over: 8 / Potassium hr, Route: IV, Chloride 0.004 Dosing Weight MEQ/ML / Sodium 53.324 kg, Total Chloride 0.147 Volume: 1,000, MEQ/ML Injectable Start date: Solution 12/03/18 9:07:00 CDT, Duration: 30 day, Stop date: 01/02/19 9:06:00 CDT, 1.54, m2 Meperidine 12.5 mg, Route: Inactive 12/[facility] IVP, Q30Min, 2019 [place] Dosing Weight 53.324, kg, PRN Other -See Comment, For shivering, Start date: 12/03/18 8:44:00 CDT, Duration: 2 doses or times, Stop date: Limited # of times Naloxone 0.1 mg, Route: Inactive SUB-Q, Q6H, 2019 [place] Dosing Weight 53.324, kg, PRN Itching, Start date: 12/03/18 8:44:00 CDT, Duration: 30 day, Stop date: 01/02/19 8:43:00 CDT Promethazine 6.25 mg, Route: Inactive IVPB, ONCE, 2019 [place] Dosing Weight 53.324, kg, PRN Nausea & Vomiting, Start date: 12/03/18 8:44:00 CDT Ondansetron 4 mg, Route: Inactive IVP, ONCE, 2019 [place] Dosing Weight 53.324, kg, PRN Nausea & Vomiting, Start date: 12/03/18 8:44:00 CDT Diphenhydramine 12.5 mg, Route: Inactive 12/03[facility] IVP, Drug form: 2019 [place] INJ, Q6H, Dosing Weight 53.324, kg, PRN Itching, Start date: 12/03/18 8:44:00 CDT, Duration: 30 day, Stop date: 01/02/19 8:43:00 CDT Albuterol 0.83 2.49 mg, Route: Inactive MG/ML Inhalant NEB, Q20Min, 2019 [place] Solution Dosing Weight 53.324, kg, PRN Wheezing, Priority: Routine, Start date: 12/03/18 8:44:00 CDT, Duration: 30 day, Stop date: 01/02/19 8:43:00 CDT Hydromorphone 0.5 mg, Route: Inactive IVP, Q5Min, 2019 [place] Dosing Weight 53.324, kg, PRN Pain Score 7-10, Start date: 12/03/18 8:44:00 CDT, Duration: 4 doses or times, Stop date: Limited # of times Flumazenil 0.2 mg, Route: Inactive IVP, PRN, Dosing 2019 [place] Weight 53.324, kg, PRN Benzodiazepine Reversal, Initial dose, Start date: 12/03/18 8:44:00 CDT, Duration: 30 day, Stop date: 01/02/19 8:43:00 CDT Fentanyl 50 microgram, Inactive Route: IVP, 2018 [place] Q5Min, Dosing Weight 53.324, kg, PRN Pain Score 7-10, Priority: Routine, Start date: 12/03/18 8:44:00 CDT, Duration: 2 doses or times, Stop date: Limited # of times Acetaminophen 1,000 mg, Route: Inactive PO, Drug form: [address] [place] [address] TAB, ONCE, Dosing Weight 53.324, kg, PRN Pain Score 1-3, Start date: 12/03/18 8:44:00 CDT Oxycodone 5 mg, Route: PO, Inactive Drug form: TAB, 2019 [place] Q4H, Dosing Weight 53.324, kg, PRN Pain Score 4-6, Start date: 12/03/18 8:44:00 CDT, Duration: 30 day, Stop date: 01/02/19 8:43:00 CDT Labetalol 10 mg, Route: Inactive IVP, Q5Min, 2019 [place] Dosing Weight 53.324, kg, PRN Elevated BP, Start date: 12/03/18 8:44:00 CDT, Duration: 5 doses or times, Stop date: Limited # of times Hydralazine 10 mg, Route: Inactive IVP, Q20Min, 2019 [place] Dosing Weight 53.324, kg, PRN Elevated BP, Start date: 12/03/18 8:44:00 CDT, Duration: 2 doses or times, Stop date: Limited # of times Ketorolac 30 mg, Route: Inactive IVP, ONCE, 2018 [place] Dosing Weight 53.324, kg, Start date: 12/03/18 8:44:00 CDT, Stop date: 12/03/18 8:44:00 CDT ceFAZolin (ANES) Route: IV, Drug Inactive form: INJ, ONCE, 2018 [place] Stop date: 12/03/18 8:21:00 CDT dexamethasone Route: IV, Drug Inactive (ANES) form: INJ, ONCE, 2018 [place] Stop date: 12/03/18 8:21:00 CDT propofol (ANES) Route: IV, Drug Inactive form: INJ, ONCE, 2018 [place] Stop date: 12/03/18 8:15:00 CDT rocuronium (ANES) Route: IV, Drug Inactive form: INJ, ONCE, 2018 [place] Stop date: 12/03/18 8:15:00 CDT fentaNYL (ANES) Route: IV, Drug Inactive form: INJ, ONCE, 2018 [place] Stop date: 12/03/18 8:15:00 CDT midazolam (ANES) Route: IV, Drug Inactive form: SOLN, 2018 [place] ONCE, Stop date: 12/03/18 8:10:00 CDT ceFAZolin + 1 gm, Route: IV, No Longer sterile water 10 ONCALL, Start Active 2018 [place] mL date: 12/03/18 7:00:00 CDT, Duration: 1 day, Stop date: 12/04/18 6:59:00 CDT, ABX Indication: Surgical ProphylaxisNotes : (Same As: Ancef, Kefzol) MEDICATION WASTE Product Size: 1000 mg Product Wasted: ___ mg Lactated Ringers Route: IV, Total Inactive Injection IV Volume: 1,000, 2018 [place] (ANES) 1000 mL Start date: 12/03/18 6:15:00 CDT, Stop date: 12/03/18 7:15:00 CDT Sodium Chloride 1,000 mL, Rate: Inactive 0.9% IV 1,000 mL 25 ml/hr, Infuse 2019 [place] over: 40 hr, Route: IV, Dosing Weight 53.835 kg, Total Volume: 1,000, Start date: 12/03/18 5:42:00 CDT, Duration: 30 day, Stop date: 01/02/19 5:41:00 CDT, 1.55, m2 Calcium Chloride 1,000 mL, Rate: Inactive 0.0014 MEQ/ML / 25 ml/hr, Infuse 2018 [place] Potassium over: 40 hr, Chloride 0.004 Route: IV, MEQ/ML / Sodium Dosing Weight Chloride 0.103 53.835 kg, Total MEQ/ML / Sodium Volume: 1,000, Lactate 0.028 Start date: MEQ/ML Injectable 12/03/18 5:42:00 Solution CDT, Duration: 30 day, Stop date: 01/02/19 5:41:00 CDT, 1.55, m2 Vitamin C Daily, 0 Active Refill(s) 2018 [place] Iron Chews 15 mg, PO, Active Daily, 0 2019 [place] Refill(s) Allergies, Adverse Reactions, Alerts Substance Category Reaction Severity Reaction Status Date Comments Source type Reported No Known Assertion Drug Medication allergy [place] Allergies Immunizations Immunization Date Site Status Last Comments Source Given Updated influenza virus Left completed Esquivel Result Comment: [facility] [address]- 417-88 LOT# [id number] EXP 01/12/2018 IM needle 25 G 1" sanofi pasteur left deltoid OPID vaccine, 8 Deltoid [facility] inactivated<sup> no adverse reaction at time of visit Medical 1</sup> Group influenza virus Left completed Esquivel Result Comment: [facility] [address]17- 417-88 LOT# [id number] EXP 01/12/2018 IM needle 25 G 1" sanofi pasteur left deltoid OPID vaccine, 8 Deltoid [facility] inactivated<sup> no adverse reaction at time of visit [place] 1</sup> influenza virus Right completed [place] Result OPID vaccine, 6 Deltoid Comment: [place]: [facility] inactivated<sup> [id number] Medical 2</sup> Group influenza virus Right completed [place] Result OPID vaccine, 6 Deltoid Comment: N[facility]: Shweta, inactivated<sup> [id number] [place] 2</sup> Results Order Name Results Value Reference Date Interpretation Comments Source Range CHEM PANEL Phosphorus 2.9 mg/dL 2.5 - 4.5 12/20 [place] CHEM PANEL Magnesium 2.1 mg/dL 1.8 - 2.4 12/20 Lv [place] ELECTROLYTE AGAP 9.6 meq/L 10.0 - 12/20 S 20.0 [place] ELECTROLYTE eGFR 110 12/20 Result Comment: The eGFR is calculated using the CKD-EPI formula. In most young, healthy individuals the eGFR will be > 90 mL/min/1.73m2. The eGFR declines with age. An eGFR of 60-89 may be normal in S mL/min/1.7 some populations, particularly the elderly, for whom the CKD-EPI formula has not been extensively validated. Use of the eGFR is not recommended in the following populations: [address] Individuals with unstable creatinine concentrations, including patients and those with serious co-morbid conditions. Patients with extremes in muscle mass or diet. The data above are obtained from the National Kidney Disease Education Program (NKDEP) which additionally recommends that when the eGFR is used in patients with extremes of body mass index for purposes of drug dosing, the eGFR should be multiplied by the estimated BMI. ELECTROLYTE CO2 28 meq/L 24 - 32 12/20 S [place] ELECTROLYTE Calcium Lvl 9.1 mg/dL 8.5 - 10.5 12/20 S [place] ELECTROLYTE BUN 12 mg/dL 7 - 22 12/20 S [place] ELECTROLYTE Glucose Lvl 105 mg/dL 70 - 99 12/20 S [place] ELECTROLYTE Potassium 3.6 meq/L 3.5 - 5.1 12/20 S Lvl [place] ELECTROLYTE Sodium Lvl 139 meq/L 135 - 145 12/20 S [place] ELECTROLYTE Creatinine 0.57 mg/dL 0.50 - 12/20 S Lvl 1.40 [place] ELECTROLYTE Chloride Lvl 105 meq/L 95 - 109 12/20 S [place] HEMATOLOGY MCV 81.3 fL 80.0 - 12/20 MH 98.0 [place] HEMATOLOGY MCH 26.5 pg 27.0 - 12/20 MH 31.0 [place] HEMATOLOGY MPV 7.9 fL 7.4 - 10.4 12/20 [place] HEMATOLOGY MCHC 32.7 g/dL 32.0 - 12/20 MH 36.0 [place] HEMATOLOGY Platelet 560 K/CMM 133 - 450 12/20 [place] HEMATOLOGY RDW 14.3 % 11.5 - 12/20 MH 14.5 [place] HEMATOLOGY RBC 3.61 M/CMM 4.20 - 12/20 MH 5.40 [place] HEMATOLOGY Hgb 9.6 g/dL 12.0 - 12/20 MH 16.0 [place] HEMATOLOGY Hct 29.4 % 36.0 - 12/20 MH 48.0 [place] HEMATOLOGY WBC 5.2 K/CMM 3.7 - 10.4 12/20 [place] HEMATOLOGY Eosinophils 0.3 K/CMM 0.0 - 0.5 12/20 MH # [place] HEMATOLOGY Basophils # 0.1 K/CMM 0.0 - 0.2 12/20 [place] HEMATOLOGY Segs 60.2 % 45.0 - 06 MH 75.0 [place] HEMATOLOGY Monocytes # 0.7 K/CMM 0.0 - 0.8 12/20 [place] HEMATOLOGY Neutrophils 3.1 K/CMM 1.5 - 8.1 12/20 MH [place] HEMATOLOGY Lymphocytes 20.0 % 20.0 - 12/20 MH 40.0 [place] HEMATOLOGY Lymphocytes 1.0 K/CMM 1.0 - 5.5 12/20 MH [place] HEMATOLOGY Basophils 2.1 % 0.0 - 1.0 12/20 [place] HEMATOLOGY Monocytes 12.8 % 2.0 - 12.0 / [place] HEMATOLOGY Eosinophils 4.9 % 0.0 - 4.0 12/20 [place] CHEM PANEL Magnesium 2.2 mg/dL 1.8 - 2.4 12/19 Lvl [place] CHEM PANEL eGFR 107 12/19 Result Comment: The eGFR is calculated using the CKD-EPI formula. In most young, healthy individuals the eGFR will be >90 mL/ min/1.73m2. The eGFR declines with age. An eGFR of 60-89 may be normal in MH mL/min/1.7 some populations, particularly the elderly, for whom the CKD-EPI formula has not been extensively validated. Use of the eGFR is not recommended in the following populations: [place] [address] Individuals with unstable creatinine concentrations, including patients and those with serious co-morbid conditions. Patients with extremes in muscle mass or diet. The data above are obtained from the National Kidney Disease Education Program (NKDEP) which additionally recommends that when the eGFR is used in patients with extremes of body mass index for purposes of drug dosing, the eGFR should be multiplied by the estimated BMI. CHEM PANEL CO2 26 meq/L 24 - 32 12/19 [place] CHEM PANEL Chloride Lvl 104 meq/L 95 - 109 12/19 [place] CHEM PANEL Potassium 3.8 meq/L 3.5 - 5.1 12/19 Lvl [place] CHEM PANEL Sodium Lvl 139 meq/L 135 - 145 12/19 [place] CHEM PANEL Creatinine 0.61 mg/dL 0.50 - 12/19 MH Lvl 1. [place] CHEM PANEL Calcium Lvl 9.7 mg/dL 8.5 - 10.5 12/19 [place] CHEM PANEL BUN 16 mg/dL 7 - 22 12/19 [place] CHEM PANEL Glucose Lvl 104 mg/dL 70 - 99 12/19 [place] CHEM PANEL AGAP 12.8 meq/L 10.0 - 12/19 MH 20. [place] CHEM PANEL Phosphorus 4.4 mg/dL 2.5 - 4.5 12/19 [place] HEMATOLOGY WBC 6.7 K/CMM 3.7 - 10.4 12/19 [place] HEMATOLOGY MPV 7.7 fL 7.4 - 10.4 12/19 [place] HEMATOLOGY RBC 3.81 M/CMM 4.20 - 12/19 MH 5. [place] HEMATOLOGY Hgb 10.2 g/dL 12.0 - 12/19 MH 16. [place] HEMATOLOGY MCH 26.8 pg 27.0 - 12/19 MH 31.0 [place] HEMATOLOGY Hct 30.7 % 36.0 - 12/19 MH 48.0 [place] HEMATOLOGY MCV 80.6 fL 80.0 - 12/19 MH 98.0 [place] HEMATOLOGY MCHC 33.3 g/dL 32.0 - 12/19 MH 36.0 [place] HEMATOLOGY RDW 14.7 % 11.5 - 06 MH 14.5 [place] HEMATOLOGY Platelet 588 K/CMM 133 - 450 12/19 [place] HEMATOLOGY Neutrophils 4.5 K/CMM 1.5 - 8.1 12/19 MH [place] HEMATOLOGY Lymphocytes 1.1 K/CMM 1.0 - 5.5 12/19 MH [place] HEMATOLOGY Monocytes # 0.8 K/CMM 0.0 - 0.8 12/19 [place] HEMATOLOGY Eosinophils 0.2 K/CMM 0.0 - 0.5 12/19 [place] HEMATOLOGY Basophils # 0.1 K/CMM 0.0 - 0.2 12/19 [place] HEMATOLOGY Segs 66.7 % 45.0 - 12/19 MH 75.0 [place] HEMATOLOGY Monocytes 11.8 % 2.0 - 12.0 12/19 [place] HEMATOLOGY Eosinophils 3.7 % 0.0 - 4.0 12/19 [place] HEMATOLOGY Basophils 1.4 % 0.0 - 1.0 12/19 [place] HEMATOLOGY Lymphocytes 16.4 % 20.0 - 12/19 MH 40.0 [place] CHEM PANEL Glucose Lvl 101 mg/dL 70 - 99 12/18 [place] CHEM PANEL BUN 11 mg/dL 7 - 22 12/18 [place] CHEM PANEL Creatinine 0.60 mg/dL 0.50 - 12/18 MH Lvl 1.40 [place] CHEM PANEL Chloride Lvl 105 meq/L 95 - 109 12/18 [place] CHEM PANEL CO2 27 meq/L 24 - 32 12/18 [place] CHEM PANEL Calcium Lvl 9.2 mg/dL 8.5 - 10.5 12/18 [place] CHEM PANEL Potassium 3.9 meq/L 3.5 - 5.1 12/18 MH Lvl /2018 [place] CHEM PANEL Sodium Lvl 138 meq/L 135 - 145 12/18 [place] CHEM PANEL eGFR 108 12/18 Result Comment: The eGFR is calculated using the CKD-EPI formula. In most young, healthy individuals the eGFR will be >90 mL/ min/1.73m2. The eGFR declines with age. An eGFR of 60-89 may be normal in MH mL/min/1.7 some populations, particularly the elderly, for whom the CKD-EPI formula has not been extensively validated. Use of the eGFR is not recommended in the following populations: [place] [address] Individuals with unstable creatinine concentrations, including patients and those with serious co-morbid conditions. Patients with extremes in muscle mass or diet. The data above are obtained from the National Kidney Disease Education Program (NKDEP) which additionally recommends that when the eGFR is used in patients with extremes of body mass index for purposes of drug dosing, the eGFR should be multiplied by the estimated BMI. CHEM PANEL AGAP 9.9 meq/L 10.0 - 06 MH 20.0 [place] HEMATOLOGY Basophils # 0.1 K/CMM 0.0 - 0.2 12/18 [place] HEMATOLOGY Eosinophils 0.2 K/CMM 0.0 - 0.5 12/18 [place] HEMATOLOGY Monocytes # 0.7 K/CMM 0.0 - 0.8 12/18 [place] HEMATOLOGY Lymphocytes 0.8 K/CMM 1.0 - 5.5 12/18 [place] HEMATOLOGY Neutrophils 4.1 K/CMM 1.5 - 8.1 12/18 [place] HEMATOLOGY Basophils 1.3 % 0.0 - 1.0 12/18 [place] HEMATOLOGY Eosinophils 3.9 % 0.0 - 4.0 12/18 [place] HEMATOLOGY Lymphocytes 14.1 % 20.0 - 06 MH 40.0 [place] HEMATOLOGY Segs 68.9 % 45.0 - 06 MH 75.0 [place] HEMATOLOGY Monocytes 11.8 % 2.0 - 12.0 12/18 [place] HEMATOLOGY MCH 27.4 pg 27.0 - 06 MH 31.0 [place] HEMATOLOGY MCV 80.5 fL 80.0 - 12/18 MH 98.0 [place] HEMATOLOGY Hct 28.0 % 36.0 - 06 MH 48.0 [facility] MCHC 34.0 g/dL 32.0 - 06 MH 36.0 [place] HEMATOLOGY RDW 14.4 % 11.5 - 12/18 14.5 [place] HEMATOLOGY Hgb 9.5 g/dL 12.0 - 12/18 16.0 [place] HEMATOLOGY Platelet 493 K/CMM 133 - 450 12/18 [place] HEMATOLOGY MPV 7.9 fL 7.4 - 10.4 12/18 [place] HEMATOLOGY WBC 6.0 K/CMM 3.7 - 10.4 12/18 [place] HEMATOLOGY RBC 3.47 M/CMM 4.20 - 12/18 5.40 /2018 [place] Small bowel Small bowel Patient Name: FRAN SUTTON 12/18 - [facility] series DX series DX - [place] : 1970; Age: 48 years Female MR: [id number] Read by: Bc Valentin MD Dictated Date/time: 12/18/18 13:47 Study: Small bowel series DX Order Time: 12/18/2018 8:17 CDT Electronically Signed by: Bc Valentin MD 12/18/18 13 :54 FINAL REPORT CLINICAL HISTORY: -Small bowel obstruction; COMPARISON: None TECHNIQUE: Serial overhead images of the abdomen were performed at 15 to 30 minute intervals following ingestion of water-soluble contrast (Omnipaque). 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 Nasogastric tube projects over the stomach body. No delay in passage of contrast from the stomach into the small bowel and subsequently into the colon. The normal feathery pattern of the jejunum is preserved. The ileum demonstrates normal morphology. No obstructing masses, strictures or other significant mucosal abnormality is noted. Contrast is seen within the colon within 90 minutes. IMPRESSION: Unremarkable small bowel series. SL: [id number] CHEM PANEL Magnesium 2.2 mg/dL 1.8 - 2.4 12/17 Lv [place] CHEM PANEL Phosphorus 3.5 mg/dL 2.5 - 4.5 12/17 [place] Abdomen AP Abdomen AP Patient Name: FRAN SUTTON 12/17 - [facility] DX DX /2018 - [place] : 1970; Age: 48 years Female MR: [id number] Read by: Bc Valentin MD Dictated Date/time: 12/17/18 08:11 Study: Abdomen AP DX 12/17/2018 3:00 CDT Electronically Signed by: Bc Valentin MD 12/17/18 08:11 FINAL REPORT CLINICAL INDICATION: - Small bowel obstruction COMPARISON: 12/16/2018 FINDINGS: Nonspecific bowel gas pattern without evidence of dilatation, pneumatosis, or pneumoperitoneum. Nasogastric tube tip projects over the stomach body. No significant osseous abnormalities. IMPRESSION: Nonobstructive bowel gas pattern. SL: [id number] Abdomen AP Abdomen AP Patient Name: FRAN SUTTON 12/16 - [facility] DX DX - [place] : 1970; Age: 48 years Female MR: [id number] Read by: Bc Valentin MD Dictated Date/time: 12/16/18 08:13 Study: Abdomen AP DX 12/16/2018 3:00 CDT Electronically Signed by: Bc Valentin MD 12/16/18 08:15 FINAL REPORT CLINICAL INDICATION: - sbo COMPARISON: 12/15/2018 FINDINGS: Few dilated loops of small bowel within the upper abdomen. Contrast from the earlier CT opacifies the colon. Nasogastric tube tip projects over the stomach body. No significant osseous abnormalities. IMPRESSION: Few dilated loops of small bowel within the upper abdomen may represent partial small bowel obstruction or ileus. SL: [id number] Abdomen AP Abdomen AP Patient Name: FRAN SUTTON 12/15 - [facility] DX DX - [place] : 1970; Age: 48 years y/o Female MR: [id number] Read by: Eric Aguayo MD Dictated Date/time: 12/15/18 12:03 Electronically Signed by: Eric Aguayo MD 12/15/18 12:05 FINAL REPORT Study: Abdomen AP DX 12/15/2018 3:00 CDT Ordering Physician: Bernie Ortega MD Clinical Indication: - sbo; Comparison: 12/14/2018 Abdomen one view Nasogastric tube terminates within the stomach. Nearly gasless abdomen, as before. A single nonpathologically dilated small bowel loop is seen in the upper abdomen. No pathologic calcifications are seen. IMPRESSION: Nasogastric tube in place. Nearly gasless abdomen as before. Correlate clinically for persistent small bowel obstruction. SL: [id number] Abdomen AP Abdomen AP ABDOMEN, ONE VIEW 12/14 [facility] DX /2018 - [place] HISTORY: Small bowel obstruction; - sbo; Read by: Lanre Marr MD Dictated Date/time: 12/14/18 16:36 Electronically Signed by: Lanre Marr MD 12/14/18 16:38 FINAL REPORT COMPARISON: Abdominal radiography dated 12/13/2018, 12/12/2018, and [address] abdomen/pelvis dated 12/10/2018 FINDINGS: Single frontal view of the abdomen submitted. Evaluation for persistent bowel obstruction severely limited due to lack of bowel gas; similar to prior radiographic examinations. No evidence of pneumoperitoneum on this limited single probable supine image. Nasogastric tube terminates in the stomach. Osseous structures normal. IMPRESSION: Evaluation for persistent bowel obstruction severely limited due to lack of bowel gas; similar to prior radiographic examinations. SL: [id number] LIPIDS Trig 143 mg/dL <=149 12/13 MH mg/dL /2018 [place] Abdomen AP Abdomen AP Patient Name: FRAN SUTTON 12/13 - [facility] DX - [place] : 1970; Age: 48 years y/o Female MR: [id number] Read by: Perry Patel MD Dictated Date/time: 12/13/18 09:43 Electronically Signed by: Perry Patel MD 12/13/18 09:45 FINAL REPORT * ABDOMEN, 1 view HISTORY: Small bowel obstruction. COMPARISON: Yesterday. Studies of 12/11/2018, 12/09/2018, and 12/08/2018 and a computed tomography scan of the abdomen and pelvis from 12/02/2018 were reviewed. TECHNIQUE: A supine radiograph of the abdomen was obtained. IMPRESSION: 1. The abdomen is essentially gasless. Therefore, the bowel gas pattern is difficult to evaluate. However, as noted the abdominal CT scan of 12/10/2018 demonstrated dilated fluid-filled small bowel loop s with decompressed loops distally consistent with a small bowel obstruction. There is suggestion that some of these dilated loops can be visualized on this study but again, the study is limited due to essentially complete absence of bowel gas. 2. No gas or fecal material is appreciated in the colon. 3. The nasogastric tube extends into the stomach. 4. The regional skeleton is unremarkable. SL: [id number] Abdomen AP Abdomen AP CLINICAL INDICATION: Nasogastric tube placement. - [facility] DX DX - [place] COMPARISON: None. Read by: Wilberto Freed MD Dictated Date/time: 12/12/18 18:43 Electronically Signed by: Wilberto Freed MD 12/12/18 18:44 FINAL REPORT FINDINGS: The AP supine view of the abdomen shows a nonspecific bowel gas pattern. The nasogastric tube terminates in the fundus of the stomach. Central line is partially imaged terminating at the atriocaval junction. IMPRESSION: The nasogastric tube terminates in the fundus of the stomach. SL: IRIS Chest 1 v Chest 1 v Chest 1 v for Placement DX 12/12/2018 13:45 CDT 12/12 - [facility] for - [place] Placement Placement DX Ordering Physician: Esteban Richards DO DX Read by: Porfirio Dias MD Dictated Date/time: 12/12/18 14:15 CLINICAL HISTORY: - PICC placement confirmation; Electronically Signed by: Porfirio Dias MD 12/12/18 14:16 FINAL REPORT TECHNIQUE: A single AP view of the chest was obtained. COMPARISON: 03/10/2019. FINDINGS: No focal consolidation or pleural effusion is seen. No radiographically detectable pneumothorax is present. The cardiomediastinal silhouette and its contours are normal. Right arm PICC line tip is at the cavoatrial junction. NG tube side port is at the stomach. No acute osseous abnormality is evident. IMPRESSION: 1. Right arm PICC line tip at the cavoatrial junction. 2. NG tube side port at the stomach. SL: [id number] HEMATOLOGY PT 15.7 s 12.0 - 12/12 MH 14.7 /2019 [place] HEMATOLOGY INR 1.28 0.85 - 12/12 MH 1.17 [place] Abdomen AP Abdomen AP Patient Name: FRAN SUTTON : 1970 12/11 - [facility] DX DX - [place] Age: 48 years, Female MR: [id number] Read by: Gurpreet Boyer MD Dictated Date/time: 12/11/18 10:28 Study: Abdomen AP DX 12/11/2018 9:16 CDT Electronically Signed by: Gurpreet Boyer MD 12/11/18 10:31 FINAL REPORT Indication: - SBO vs ileus. Comparison: CT abdomen and pelvis 12/10/2018 Findings: Lines/tubes: Enteric feeding catheter is present with the tip projecting over the expected region of the gastric fundus. Bowel: No air-fluid levels. Multiple fluid-filled loops of small bowel are present. No pneumoperitoneum. Moderate amount of retained feces and air are noted in the colon and rectum. Calcifications: No calcifications project over the renal shadows, expected course of the ureters bilaterally, and urinary bladder. Soft tissues: Normal. Bones: No acute osseous abnormality. IMPRESSION: Multiple fluid-filled loops of small bowel may represent an ileus versus partial small bowel obstruction. SL: [id number] CHEM PANEL Lipase Lvl 104 unit/L 73 - 393 12/11 [place] CHEM PANEL Amylase Lvl 40 unit/L 25 - 115 12/11 [place] Abdomen/Pel Abdomen/Pelv PROCEDURE: 12/10 - [facility] - [place] contrast CT contrast CT CT abdomen pelvis with contrast. Reconstruction images. Read by: Porfirio Dias MD Dictated Date/time: 12/10/18 15:32 INDICATION: Hysterectomy one week prior, now with nausea. Electronically Signed by: Porfirio Dias MD 12/10/18 15 :41 FINAL REPORT TECHNIQUE: GI CONTRAST: 50 cc of standard Omnipaque 300 contrast mixture. IV CONTRAST: 100 cc of Omnipaque-300 Axial post-contrast images were obtained from the lower chest to the symphysis pubis. Coronal and sagittal reconstruction images were performed. CT imaging performed at this location utilizes radiation dose optimization techniques which include one or more of the following: -Automated exposure control -Adjustment of the mA and/or kV according to patient size -Use of iterative reconstruction technique Total CT radiation dose: ROR=324.77 mGy-cm COMPARISON: Outside CT 12/08/2018. FINDINGS: LOWER CHEST: Trace bilateral pleural effusions are seen with bilateral lower lobe subsegmental atelectasis. SOLID ORGANS: No focal hepatic lesion or intrahepatic biliary ductal dilatation is seen. No calcified gallstone is noted. The spleen, pancreas, and adrenal glands are normal in appearance. Both kidneys demonstrate normal corticomedullary phase of enhancement. Small nonobstructing left renal calculus is seen. No ureteral calculus or hydronephrosis is noted. No renal mass or cyst is identified. BOWEL: Mild dilatation of the small bowel is noted measuring up to 2.8 cm. Transition point to normal caliber distal small bowel is seen in the mid pelvis on series 2, image 118. No pneumatosis or kvng l venous gas is seen. NG tube is within the stomach. No bowel contrast is seen within the distal small bowel. The distal small bowel and colon are normal in caliber without wall thickening. A normal appendix is identified. PERITONEUM: No free intraperitoneal air is seen. Mild ascites is noted. No ventral wall defects. RETROPERITONEUM: Normal caliber of the abdominal aorta is noted. No lymphadenopathy is seen. PELVIS: The visualized urinary bladder wall is normal thickness. The uterus is absent. 2.5 x 1.5 cm heterogeneous collection is seen with tiny air bubbles is noted. MUSCULOSKELETAL: No acute osseous abnormality is seen. No destructive lytic or blastic osseous lesion is noted. IMPRESSION: 1. Small bowel obstruction with transition point identified at the mid pelvis. 2. NG tube within the stomach. 3. Small heterogeneous collection at the hysterectomy bed measuring 2.5 x 1.5 cm, not significant changed since outside CT of 12/08/2018. Given the hysterectomy performed one week prior, this may be postoperative in etiology. 4. Trace bilateral pleural effusions with bilateral lower lobe subsegmental atelectasis. 5. Mild amount of ascites. 6. Nonobstructing left nephrolithiasis. SL: [id number] CHEM PANEL Lipase Lvl 94 unit/L 73 - 393 12/10 [place] CHEM PANEL Amylase Lvl 34 unit/L 25 - 115 12/10 [place] CHEM PANEL A/G Ratio 0.7 0.7 - 1.6 12/10 [place] CHEM PANEL Globulin 3.5 g/dL 2.7 - 4.2 12/10 [place] CHEM PANEL B/C Ratio 19 6 - 25 12/10 [place] CHEM PANEL Bili Total 0.4 mg/dL 0.2 - 1.3 12/10 [place] CHEM PANEL Total 5.9 g/dL 6.4 - 8.4 12/10 [place] CHEM PANEL Alk Phos 42 unit/L 39 - 136 12/10 [place] CHEM PANEL ALT 11 unit/L 0 - 65 12/10 [place] CHEM PANEL Albumin Lvl 2.4 g/dL 3.5 - 5.0 12/10 [place] CHEM PANEL AST 9 unit/L 0 - 37 12/10 [place] Abdomen 1 v Abdomen 1 v Clinical Indication: - NG Tube placement verification 12/09 [facility] - [place] Placement Placement DX Comparison: None DX Read by: Christie Sorensen MD Dictated Date/time: 12/09/18 23:38 FINDINGS: Electronically Signed by: Christie Sorensen MD 12/09/18 23:39 FINAL REPORT The AP supine view of the abdomen shows a non-obstructive bowel gas pattern. There is no abnormal dilatation of bowel loops. There is no pneumatosis or mass effect. There is no gross evidence for pneumo peritoneum. There are no radiopaque densities noted. There are no clinically significant osseous abnormalities noted. There is a nasogastric tube terminates in the left upper quadrant of the abdomen. IMPRESSION: 1. Nasogastric tube terminates overlying the gastric air bubble. SL: [id number] CHEM PANEL Lipase Lvl 50 unit/L 73 - 393 12/09 [place] CHEM PANEL Globulin 3.6 g/dL 2.7 - 4.2 12/09 [place] CHEM PANEL A/G Ratio 0.6 0.7 - 1.6 12/09 [place] CHEM PANEL B/C Ratio 17 6 - 25 12/09 [place] CHEM PANEL Alk Phos 46 unit/L 39 - 136 12/09 [place] CHEM PANEL AST 11 unit/L 0 - 37 12/09 [place] CHEM PANEL Bili Total 0.4 mg/dL 0.2 - 1.3 12/09 [place] CHEM PANEL Total 5.9 g/dL 6.4 - 8.4 12/09 [place] CHEM PANEL ALT 13 unit/L 0 - 65 12/09 [place] CHEM PANEL Albumin Lvl 2.3 g/dL 3.5 - 5.0 12/09 [place] CHEM PANEL Amylase Lvl 24 unit/L 25 - 115 12/09 [place] Abdomen AP Abdomen AP Study: Abdomen AP DX portable 12/09/2018 0503 hours 12/09 - [facility] /2018 - [place] Clinical Indication: -Abdominal pain and SBO; Read by: David Suarez MD Dictated Date/time: 12/09/18 08:45 Comparison: Abdomen 12/08/2018 Electronically Signed by: David Suarez MD 12/09/18 08:46 FINAL REPORT FINDINGS: Supine image was obtained. Nasogastric tube has been removed. There is a small amount of gas within the intestinal tract. Slightly prominent small bowel segment is noted in the left mid abdomen. No gross abnormal soft tissue mass or calcification is seen. SL: [id number] HEMATOLOGY PTT 35.7 s 22.9 - 12/08 MH 35.8 /2018 [place] HEMATOLOGY PT 14.4 s 12.0 - 12/08 MH 14.7 /2018 [place] HEMATOLOGY INR 1.14 0.85 - 12/08 MH 1.17 /2018 [place] Abdomen AP Abdomen AP Abdomen AP DX 12/08 - [facility] [place] Female 48 years old Read by: Chemo Duque MD Dictated Date/time: 12/08/18 13:15 Clinical Indication: - advanced the NG to 70cm; Electronically Signed by: Chemo Duque MD 12/08/18 13:16 FINAL REPORT Comparison: None FINDINGS: The AP supine view of the abdomen shows a non-obstructive bowel gas pattern.. There is no abnormal dilatation of bowel loops. There is no pneumatosis or mass effect. The NG tube is advanced with the tip extending to the distal stomach. There are no clinically significant osseous abnormalities noted. IMPRESSION: NG tube now in the distal stomach. SL: [id number] Abdomen AP Abdomen AP Exam: Abdomen AP DX 12/08 - [facility] [place] Clinical Indication: - check placement of NGT. Comparison: None. Read by: Tj Mueller MD Dictated Date/time: 12/08/18 12:27 Electronically Signed by: Tj Mueller MD 12/08/18 12:28 FINAL REPORT FINDINGS: AP supine view of the abdomen is performed. NG tube in place with tip in the proximal stomach and side port at the GE junction. Nonobstructive bowel gas pattern. No abnormal dilatation of bowel loops. No pneumatosis or mass effect. No suspicious calcifications noted. No acute osseous abnormalities noted. IMPRESSION: NG tube in place with tip in the proximal stomach and side port at the GE junction. Further advancement into the stomach is advised. SL: [id number] HEMATOLOGY WBC 7.4 K/CMM 3.7 - 10.4 12/04 [place] HEMATOLOGY Hgb 9.8 g/dL 12.0 - 12/04 MH 16.0 [place] HEMATOLOGY RBC 3.51 M/CMM 4.20 - 12/04 MH 5.40 [place] HEMATOLOGY Hct 29.2 % 36.0 - 12/04 MH 48.0 [place] HEMATOLOGY Platelet 202 K/CMM 133 - 450 12/04 [place] HEMATOLOGY MPV 9.1 fL 7.4 - 10.4 12/04 [place] HEMATOLOGY MCHC 33.4 g/dL 32.0 - 12/04 36.0 [place] HEMATOLOGY MCH 27.8 pg 27.0 - 12/04 MH 31.0 [place] HEMATOLOGY RDW 13.9 % 11.5 - 12/04 MH 14. [place] HEMATOLOGY MCV 83.2 fL 80.0 - 12/04 MH 98.0 [place] HEMATOLOGY Lymphocytes 14.5 % 20.0 - 12/04 MH 40.0 [place] HEMATOLOGY Basophils 0.7 % 0.0 - 1.0 12/04 [place] HEMATOLOGY Neutrophils 5.6 K/CMM 1.5 - 8.1 12/04 [place] HEMATOLOGY Eosinophils 0.4 % 0.0 - 4.0 12/04 [place] HEMATOLOGY Monocytes 8.8 % 2.0 - 12.0 12/04 [place] HEMATOLOGY Monocytes # 0.7 K/CMM 0.0 - 0.8 12/04 [place] HEMATOLOGY Lymphocytes 1.1 K/CMM 1.0 - 5.5 12/04 [place] HEMATOLOGY Basophils # 0.1 K/CMM 0.0 - 0.2 12/04 [place] HEMATOLOGY Segs 75.6 % 45.0 - 12/04 MH 75.0 [place] HEMATOLOGY RDW 13.6 % 11.5 - 12/03 MH 14. [place] HEMATOLOGY Platelet 254 K/CMM 133 - 450 12/03 [place] HEMATOLOGY MPV 9.0 fL 7.4 - 10.4 05 MH /2018 [place] HEMATOLOGY WBC 5.0 K/CMM 3.7 - 10.4 12/03 MH /2018 [place] HEMATOLOGY Hgb 11.2 g/dL 12.0 - 12/03 MH 16.0 [place] HEMATOLOGY RBC 4.02 M/CMM 4.20 - 12/03 MH 5.40 /2018 [place] HEMATOLOGY MCV 81.5 fL 80.0 - 12/03 MH 98.0 [place] HEMATOLOGY Hct 32.8 % 36.0 - 12/03 MH 48.0 [place] HEMATOLOGY MCH 27.7 pg 27.0 - 12/03 MH 31.0 [place] HEMATOLOGY MCHC 34.0 g/dL 32.0 - 12/03 MH 36.0 [place] HEMATOLOGY Eosinophils 0.1 K/CMM 0.0 - 0.5 12/03 MH # /2018 [place] HEMATOLOGY Monocytes # 0.4 K/CMM 0.0 - 0.8 12/03 [place] HEMATOLOGY Lymphocytes 1.1 K/CMM 1.0 - 5.5 12/03 MH # /2018 [place] HEMATOLOGY Basophils # 0.1 K/CMM 0.0 - 0.2 12/03 /2018 [place] HEMATOLOGY Lymphocytes 21.5 % 20.0 - 12/03 MH 40.0 [place] HEMATOLOGY Segs 66.5 % 45.0 - 12/03 MH 75.0 [place] HEMATOLOGY Monocytes 9.0 % 2.0 - 12.0 12/03 [place] HEMATOLOGY Eosinophils 1.9 % 0.0 - 4.0 12/03 [place] HEMATOLOGY Basophils 1.1 % 0.0 - 1.0 12/03 [place] HEMATOLOGY Neutrophils 3.3 K/CMM 1.5 - 8.1 12/03 MH # /2018 [place] URINE CHEM U Preg Negative Negative 12/03 [place] (12/03/18 5:45 AM) BLOOD BANK Antibody Negative 11/27 RESULTS Scrn [place] (11/27/18 11:13 AM) BLOOD BANK ABO/Rh AB POS 11/27 RESULTS /2018 [place] ENDOCRINOLO S Preg Negative Negative 11/27 MH GY [place] *NA* (5/15/19 11:13 AM) Breast Breast Mammo 11/13 - [facility] Mammo Diag Diag UNI /2017 - [facility] incl incl CAD MA CAD MA Read by: Luana Fisher MD Dictated Date/time: 11/13/17 11:49 UNILATERAL RIGHT DIGITAL DIAGNOSTIC MAMMOGRAM: 11/13/2017 Electronically Signed by: Luana Fisher MD 11/13/17 11 :49 FINAL REPORT CLINICAL: R92.8 Other Abnormal And Inconclusive Findings On Diagnostic Imaging Of Breast/R92.8 Other Abnormal And Inconclusive Findings On Diagnostic Imaging Of Breast. COMPARISON:Comparison is made to exam dated: 10/25/2017 mammogram - [facility]. TECHNIQUE: Mammographic views were obtained using digital acquisition. FINDINGS: The tissue of right breast is heterogeneously dense, which could obscure detection of small masses. There is an 0.8 cm round mass in the right breast at 3 o'clock middle depth 5 cm from the nipple. No other significant masses or calcifications are seen in the breast. IMPRESSION: INCOMPLETE: NEEDS ADDITIONAL IMAGING EVALUATION RECOMMENDATION:The 0.8 cm round mass in the right breast is indeterminate. An ultrasound is recommended. This exam was interpreted at [id number] for Shweta, SL 15. SUMMARY: Ultrasound will be performed at this time; please see dedicated separate report. Professional services are provided by the [facility] of Diagnostic Imaging. Luana triplett/stefani:11/13/2017 11:49:14 Reed Maker(s): Soraya Pierson, [facility] Mammogram BI-RADS: 0 Indeterminate Breast Breast 11/13 - [facility] Complete Complete Uni - [facility] US US Read by: Luana Fisher MD Dictated Date/time: 11/13/17 11:51 COMPLETE ULTRASOUND OF RIGHT BREAST AND AXILLA: 11/13/2017 Electronically Signed by: Luana Fisher MD 11/13/17 11 :51 FINAL REPORT CLINICAL: R92.8 Other Abnormal And Inconclusive Findings On Diagnostic Imaging Of Breast/R92.8 Other Abnormal And Inconclusive Findings On Diagnostic Imaging Of Breast. COMPARISON:Comparison is made to exams dated: 11/13/2017 mammogram and 2017 mammogram - [facility]. TECHNIQUE: Ultrasound of the right breast four quadrants, retroareolar, and axilla regions was performed. FINDINGS: There is a benign 0.8 cm oval cyst in the right breast at 4 o'clock middle depth 3 cm from the nipple. This oval cyst is anechoic. This correlates with mammography findings. A few additional scattered cysts are noted throughout the right breast. No suspicious sonographic findings are identified. IMPRESSION: BENIGN RECOMMENDATION:There is no sonographic evidence of malignancy. The 0.8 cm oval cyst in the right breast is benign. Return to annual mammogram screening schedule is recommended.(10/25/2018) This exam was interpreted at [id number] for SABINE Rock, 15. SUMMARY: Dr. Fisher discussed the above findings with the patient at the time of the examination. Professional services [facility]. Luana triplett/stefani:11/13/2017 11:51:45 Reed Maker(s): Lorelei Leigh letter sent: BI-RADS 1/2 Ultrasound BI-RADS: 2 Benign Breast Breast Mammo 10/25 - [facility] Mammo Scrn Scrn VERO /2017 - [place] VERO incl incl CAD MA CAD MA Read by: Lyric Montenegro MD Dictated Date/time: 10/26/17 08:37 BILATERAL DIGITAL SCREENING MAMMOGRAM WITH CAD: 10/25/2017 Electronically Signed by: Lyric Montenegro MD 10/26/17 08 :37 FINAL REPORT Current study was evaluated with a Computer Aided Detection (CAD) system. COMPARISON:No prior exams were available for comparison. TECHNIQUE: Mammographic views were obtained using digital acquisition. Current study was also evaluated with a Computer Aided Detection (CAD) system. FINDINGS: The tissue of both breasts is heterogeneously dense, which could obscure detection of small masses. There is an 8 mm round nodule with an indistinct margin in the right breast at 3 o'clock middle depth 5 cm from the nipple. No other significant masses, calcifications, or other findings are seen in either breast. IMPRESSION: INCOMPLETE: NEEDS ADDITIONAL IMAGING EVALUATION RECOMMENDATION:The 8 mm round nodule in the right breast is indeterminate. Diagnostic mammography with possible ultrasound are recommended. This exam was interpreted at [id number] at [facility] [place] Location. Professional services are provided by the [facility] Diagnostic Imaging. Lyric mandel/penrad:10/26/2017 08:37:23 Reed Maker(s): Lorelei [place] letter sent: BI-RADS 0 Mammogram BI-RADS: 0 Indeterminate Vital Signs Vital Sign Value Date Comments Source Respitory Rate 16 12/22/2018 [facility] Systolic (mm Hg) 124 12/22/2018 [facility] Diastolic (mm Hg) 78 12/22/2018 [facility] Heart Rate 74 12/22/2018 [facility] Temperature Oral (F) 98.2 F 12/22/2018 [facility] Temperature Oral (F) 98.7 F 12/21/2018 [facility] Systolic (mm Hg) 96 12/21/2018 [facility] Diastolic (mm Hg) 60 12/21/2018 [facility] Heart Rate 69 12/21/2018 [facility] Respitory Rate 16 12/21/2018 [facility] Temperature Oral (F) 98.2 F 12/21/2018 [facility] Systolic (mm Hg) 110 12/21/2018 [facility] Diastolic (mm Hg) 60 12/21/2018 [facility] Heart Rate 71 12/21/2018 [facility] Respitory Rate 15 12/21/2018 [facility] Height 157.48 cm 12/08/2018 [facility] Weight 50 12/08/2018 [facility] BMI Calculated 20.16 12/08/2018 [facility] Respitory Rate 18 12/05/2018 [facility] Systolic (mm Hg) 113 12/05/2018 [facility] Diastolic (mm Hg) 66 12/05/2018 [facility] Temperature Oral (F) 98.0 F 12/05/2018 [facility] Heart Rate 56 12/05/2018 [facility] Respitory Rate 20 12/05/2018 [facility] Systolic (mm Hg) 90 12/05/2018 [facility] Diastolic (mm Hg) 52 12/05/2018 [facility] Respitory Rate 16 12/05/2018 [facility] Temperature Oral (F) 98.1 F 12/05/2018 [facility] Heart Rate 54 12/05/2018 [facility] Systolic (mm Hg) 108 12/05/2018 [facility] Diastolic (mm Hg) 69 12/05/2018 [facility] Heart Rate 65 12/05/2018 [facility] Temperature Oral (F) 98.7 F 12/05/2018 [facility] BMI Calculated 21.44 12/03/2018 [facility] Height 157.48 cm 12/03/2018 [facility] Weight 53.182 12/03/2018 [facility] BMI Calculated 21.5 12/03/2018 [facility] Weight 53.324 12/03/2018 [facility] Height 157.48 cm 11/27/2018 [facility] Systolic (mm Hg) 125 04/04/2018 [facility] Diastolic (mm Hg) 88 04/04/2018 [facility] Heart Rate 65 04/04/2018 [facility] BMI Calculated 21.85 04/04/2018 [facility] Weight 52.455 04/04/2018 [facility] Temperature Oral (F) 98.2 F 04/04/2018 [facility] Height 154.94 cm 04/04/2018 [facility] Height 157.48 cm 09/10/2017 [facility] Weight 51 09/10/2017 [facility] BMI Calculated 20.56 09/10/2017 [facility] Temperature Oral (F) 98.0 F 09/10/2017 [facility] Heart Rate 56 09/10/2017 [facility] Systolic (mm Hg) 113 09/10/2017 [facility] Diastolic (mm Hg) 61 09/10/2017 [facility] Encounters Location Location Encounter Encounter Reason Attending ADM DC Status Source Details Type Number For Provider Date Date Visit Outpatient [id number] 08/01 [facility] Ambulatory [id number] 08/01 [facility] Outpatient [id number] 09/10 [facility] Outpatient [id number] 09/10 [facility] Outpt Diag [id number] Wilberto 10/25 10/26 [facility] Outpt Diag [id number] Wilberto 11/13 11/14 [facility] Outpatient [id number] WILBERTO04/04 [facility] Outpatient [id number] Wilberto 04/04 04/05 Primary [place] /2017 [facility] [id number] Christal 12/03 12/05 Patrick Quevedo /2018 [facility] Inpatient [id number] Bernie 12/08 12/22 Patrick Ortega /2018 [facility] Outpatient [id number] Barbie 01/02 [facility] [place] Outpatient [id number] 01/10 [facility] [place] Procedures Procedure Code Date Perfomer Comments Source Bilateral tubal [id number] [facility] ligation [place] Bilateral tubal [id number] [facility] Bilateral tubal [id number] [facility] ligation Caesarean [id number] [facility] section
--- OUTSIDE RECORDS SUMMARY | 2018-12-28 11:19 | XMS REPORT | Summary of Care ---
:1970 Author Organization [facility] Address [address] [place] [id number] Encounter HQ Eric(TODD) [id number] Date(s): 12/08/18 - 12/21/[address] [phone] Discharge Disposition: Home or Self Care Attending Physician: Damian Clifford MD Admitting Physician: Damian Clifford MD Referring Physician: Bernie Ortega MD Referring Physician: Nayeli Thacker MD Vital Signs Most recent to oldest 1 2 3 [Reference Range]: Height 157.48 cm (12/08/18 10:06 AM) Temperature Oral [96.4-99.1 98.2 DegF 98.7 DegF 98.2 DegF DegF] (12/21/18 7:14 PM) (12/21/18 4:24 PM) (12/21/18 12:29 PM) Blood Pressure [90-140/60-90 124/78 mmHg 96/60 mmHg 110/60 mmHg mmHg] (12/21/18 7:14 PM) (12/21/18 4:24 PM) (12/21/18 12:29 PM) Respiratory Rate [14-20 BRMIN] 16 BRMIN 16 BRMIN 15 BRMIN (12/21/18 7:14 PM) (12/21/18 4:24 PM) (12/21/18 12:29 PM) Peripheral Pulse Rate [60-100 74 bpm 69 bpm 71 bpm bpm] (12/21/18 7:14 PM) (12/21/18 4:24 PM) (12/21/18 12:29 PM) Weight 50 kg (5/26/19 10:06 AM) Body Mass Index 20.16 m2 (12/08/18 10:06 AM) Problem List Condition Effective Dates Status Health Status Informant Chicken pox(Confirmed) Resolved Allergies, Adverse Reactions, Alerts No Known Medication Allergies Medications acetaminophen 650 mg, 1 supp, Route: OK, Drug form: SUPP, Q4H, Dosing Weight 53.182, kg, PRN For Temp > 100.4 F, Start date: 12/08/18 7:56:00 CDT, Duration: 30 day, Stop date: 01/07/19 7:55:00 CDT Notes: Max adktmumrfjbrc=6871 mg/day (4 gm/day). (Same as: Tylenol) Start Date: 12/08/18 Stop Date: 12/09/18 Status: Discontinuedacetaminophen 1,000 mg, 100 mL, Route: IV, Drug form: INJ, Q8Hnow, Dosing Weight 50, kg, Start date: 12/10/18 14:00:00 CDT, Duration: 3 day, Stop date: 12/13/18 6:00:00 CDT Notes: Infuse over 15 minutesDo not exceed 4gm/day of acetaminophen MEDICATION WASTE ProductSize: 1000 mgProduct Wasted: ___ mg Start Date: 12/10/18 Stop Date: 12/13/18 Status: Completedacetaminophen 1,000 mg, 100 mL, Route: IV, Drug form: INJ, Q8Hnow, Dosing Weight 50, kg, Start date: 12/13/18 8:00:00 CDT, Duration: 2 doses or times, Stop date: 16:00:00 CDT Notes: Infuse over 15 minutesDo not exceed 4gm/day of acetaminophen MEDICATION WASTE ProductSize: 1000 mgProduct Wasted: ___ mg Start Date: 12/13/18 Stop Date: 12/13/18 Status: Completedacetaminophen 650 mg, 2 tab, Route: PO, Drug form: TAB, Q6H, Dosing Weight 50, kg, PRN Pain 1- 3/Temp > 100.4 F,Start date: 12/19/18 14:52:00 CDT, Duration: 30 day, Stop date: 01/18/19 14:51:00 CDT Notes: Do not exceed 4 gm/day. (Same as: Tylenol) Start Date: 12/19/18 Stop Date: 12/21/18 Status: Discontinuedacetaminophen 1,000 mg, Route: IV, Drug form: INJ, Q8Hnow, Dosing Weight 50, kg, Priority: NOW , Start date: 12/10/18 10:10:00 CDT, Duration: 3 day, Stop date: 12/13/18 2:10: 00 CDT Start Date: 12/10/18 Stop Date: 12/10/18 Status: Discontinuedacetaminophen 1,000 mg, 100 mL, Route: IV, Drug form: INJ, Q8Hnow, Dosing Weight 50, kg, Start date: 12/09/18 11:00:00 CDT, Duration: 1 day, Stop date: 12/10/18 3:00:00 CDT Notes: Infuse over 15 minutesDo not exceed 4gm/day of acetaminophen MEDICATION WASTE ProductSize: 1000 mgProduct Wasted: ___ mg Start Date: 12/09/18 Stop Date: 12/10/18 Status: Completedacetaminophen-hydrocodone 325 mg-5 mg oral tablet 1 tab, Route: PO, Drug Form: TAB, Dosing Weight 53.182, kg, Q4H, PRN Pain Score 1-3, Start date: 12/08/18 7:56:00 CDT, Duration: 30 day, Stop date: 01/07/19 7: 55:00 CDT Notes: (Same as: Malone 325/5) Do not exceed 4gm/day of acetaminophen. Start Date: 12/08/18 Stop Date: 12/09/18 Status: DiscontinuedAdult Parenteral Nutrition Custom - Central (TPN) 1 mL 1 mL, Rate: Titrate, Dosing Weight 50, kg, Route: IV, Total Volume: 1 mL, Start Date: 12/15/18 22:00:00 CDT, Duration: 24 hr, Stop date: 12/16/18 21:59:00 CDT, Replace Every: 24 hr Notes: Central line only Must use 1.2 micron filter AND Lipids should not be administered to patients who are allergic to soy, fish, egg or peanuts. Start Date: 12/15/18 Stop Date: 12/16/18 Status: CompletedAdult Parenteral Nutrition Custom - Central (TPN) 1,850 mL 1,850 mL, Rate: 75 ml/hr, Infuse over: 24.7 hr, Dosing Weight 50, kg, Route: IV , Total Volume: 1,850mL, Start Date: 12/19/18 22:00:00 CDT, Duration: 24 hr, Stop date: 12/20/18 21:59:00 CDT, Replace Every: 24 hr Notes: Central line only Must use 1.2 micron filter AND Lipids should not be administered to patients who are allergic to soy, fish, egg or peanuts. Start Date: 12/19/18 Stop Date: 12/20/18 Status: CompletedAdult Parenteral Nutrition Custom - Central (TPN) 2,050 mL 2,050 mL, Rate: 83.3 ml/hr, Infuse over: 24.6 hr, Dosing Weight 50, kg, Route: IV, Total Volume: 2,050 mL, Start Date: 12/16/18 22:00:00 CDT, Duration: 24 hr, Stop date: 12/17/18 21:59:00 CDT, Replace Every: 24 hr Notes: Central line only Must use 1.2 micron filter AND Lipids should not be administered to patients who are allergic to soy, fish, egg or peanuts. Start Date: 12/16/18 Stop Date: 12/17/18 Status: CompletedAdult Parenteral Nutrition Custom - Central (TPN) 2,050 mL 2,050 mL, Rate: 83.3 ml/hr, Infuse over: 24.6 hr, Dosing Weight 50, kg, Route: IV, Total Volume: 2,050 mL, Start Date: 12/13/18 22:00:00 CDT, Duration: 24 hr, Stop date: 12/14/18 21:59:00 CDT, Replace Every: 24 hr Notes: Central line only Must use 1.2 micron filter AND Lipids should not be administered to patients who are allergic to soy, fish, egg or peanuts. Start Date: 12/13/18 Stop Date: 12/14/18 Status: CompletedAdult Parenteral Nutrition Custom - Central (TPN) 2,050 mL 2,050 mL, Rate: 83.3, Dosing Weight 50, kg, Route: IV, Total Volume: 2,050 mL, Start Date: 12/14/18 22:00:00 CDT, Duration: 24 hr, Stop date: 12/15/18 21:59: 00 CDT, Replace Every: 24 hr Notes: Central line only Must use 1.2 micron filter AND Lipids should not be administered to patients who are allergic to soy, fish, egg or peanuts. Start Date: 12/14/18 Stop Date: 12/15/18 Status: DiscontinuedAdult Parenteral Nutrition Custom - Central (TPN) 2,050 mL 2,050 mL, Rate: 83.3 ml/hr, Infuse over: 24.6 hr, Dosing Weight 50, kg, Route: IV, Total Volume: 2,050 mL, Start Date: 12/17/18 22:00:00 CDT, Duration: 24 hr, Stop date: 12/18/18 21:59:00 CDT, Replace Every: 24 hr Notes: Central line only Must use 1.2 micron filter AND Lipids should not be administered to patients who are allergic to soy, fish, egg or peanuts. Start Date: 12/17/18 Stop Date: 12/18/18 Status: CompletedAdult Parenteral Nutrition Custom - Central (TPN) 2,050 mL 2,050 mL, Rate: 83.3ml/hr, Dosing Weight 50, kg, Route: IV, Total Volume: 2,050 mL, Start Date: 12/18/18 22:00:00 CDT, Duration: 24 hr, Stop date: 12/19/18 21: 59:00 CDT, Replace Every: 24 hr Notes: Central line only Must use 1.2 micron filter AND Lipids should not be administered to patients who are allergic to soy, fish, egg or peanuts. Start Date: 12/18/18 Stop Date: 12/19/18 Status: CompletedAl hydroxide/Mg hydroxide/simethicone 30 mL, Route: PO, Drug Form: SUSP, Q4H, PRN Sore Throat, Start date: 12/08/18 11 :03:00 CDT, Duration: 30 day, Stop date: 01/07/19 11:02:00 CDT Notes: (aluminum hydroxide-magnesium hyd-simethicone [id number]/5ml 30 ml ud REMBERTO) Start Date: 12/08/18 Stop Date: 12/21/18 Status: DiscontinuedBentyl 20 mg, 1 tab, Route: PO, Drug form: TAB, ONCE, Dosing Weight 50, kg, Priority: NOW, Start date: 12/21/18 11:10:00 CDT, Stop date: 12/21/18 11:10:00 CDT Notes: (Same as: Bentyl) Start Date: 12/21/18 Stop Date: 12/21/18 Status: CompletedBentyl 20 mg oral tablet 20 mg=1 tab, PO, QID-Before Meals, PRN Abdominal Pain, # 15 tab, 0 Refill(s), Pharmacy: [facility] [id number] Start Date: 12/21/18 Status: Orderedcalcium gluconate + Sodium Chloride 0.9% IV 100 mL 2 gm, 20 mL, Route: IVPB, PRN, Dosing Weight 50, kg, PRN Abnormal Lab Result, For NON-ICU Patients Only., Start date: 12/11/18 8:02:00 CDT, Duration: 30 day, Stop date: 01/10/19 8:01:00 CDT Notes: WASTE: F/P - Sink; E - Municipal Trash Bin Start Date: 12/11/18 Stop Date: 12/21/18 Status: Discontinuedcalcium gluconate + Sodium Chloride 0.9% IV 100 mL 3 gm, 30 mL, Route: IVPB, PRN, Dosing Weight 50, kg, PRN Abnormal Lab Result, For NON-ICU Patients Only., Start date: 12/11/18 8:02:00 CDT, Duration: 30 day, Stop date: 01/10/19 8:01:00 CDT Notes: WASTE: F/P - Sink; E - Municipal Trash Bin Start Date: 12/11/18 Stop Date: 12/21/18 Status: DiscontinuedChloraseptic 1.4% spray 1 spray, Route: TOP, Q4H, Drug form: SPRY, PRN Sore Throat, Start date: 10:52:00 CDT, Duration: 30 day, Stop date: 01/07/19 10:51:00 CDT Notes: Chloraseptic [facility](Same as: Chloraseptic, Sore Throat [facility])WASTE: F/P - Black; E - MunicipalTrash Bin Start Date: 12/08/18 Stop Date: 12/21/18 Status: [id number] (bolus) IV 25 gm, 50 mL, Route: IVP, Drug Form: INJ, Dosing Weight 50, kg, PRN, PRN Blood Glucose Results, Start date: 12/11/18 6:38:00 CDT, Duration: 30 day, Stop date: 01/10/19 6:37:00 CDT, Pediatric dosing Start Date: 12/11/18 Stop Date: 12/21/18 Status: DiscontinuedDextrose 25 gm, Route: IVPB, ONCE, Dosing Weight 50, kg, Start date: 12/11/18 6:38:00 CDT , Stop date: 12/11/18 6:38:00 CDT Start Date: 12/11/18 Stop Date: 12/11/18 Status: DeletedDextrose 5% with 0.9% NaCl IV 1,000 mL 1,000 mL, Rate: 125 ml/hr, Infuse over: 8 hr, Route: IV, Dosing Weight 50 kg, Total Volume: 1,000, Start date: 12/11/18 6:38:00 CDT, Duration: 30 day, Stop date: 01/10/19 6:37:00 CDT, 1.49, m2 Start Date: 12/11/18 Stop Date: 12/21/18 Status: DiscontinuedDextrose 50% in Water IV 50 mL, Route: IVP, Start date: 12/11/18 6:44:00 CDT, Stop date: 12/11/18 6:44: 00 CDT Start Date: 12/11/18 Stop Date: 12/11/18 Status: Completeddocusate sodium 100 mg oral capsule 100 mg=1 cap, PO, BID, # 60 cap, 0 Refill(s), Pharmacy: [facility] [id number] Start Date: 12/21/18 Status: OrderedDulcolax Laxative 10 mg, 1 supp, Route: OK, Drug form: SUPP, Bedtime, Dosing Weight 50, kg, Start date: 12/08/18 21:00:00 CDT, Duration: 30 day, Stop date: 01/06/19 21:00:00 CDT Notes: (Same As: Dulcolax, Bisco-Lax) Start Date: 12/08/18 Stop Date: 12/21/18 Status: DiscontinuedGI cocktail (aluminum hydroxide/magnesium hydroxide/ lidocaine/simethicone) 30 ml, Route: PO, Drug Form: SUSP, Dosing Weight 50, kg, Q4H, PRN Sore Throat, Routine, Start date: 12/08/18 10:52:00 CDT, Duration: 30 day, Stop date: 10:51:00 CDT Start Date: 12/08/18 Stop Date: 12/08/18 Status: Deletedlidocaine 1% 5 mL, Route: INTRADERM, Drug Form: INJ, Dosing Weight 50, kg, ONCALL, For PICC line insertion., Start date: 12/12/18 14:00:00 CDT, Duration: 30 day, Stop date : 01/11/19 13:59:00 CDT Notes: Preservative free. (Same as: Xylocaine MPF) Start Date: 12/12/18 Stop Date: 12/21/18 Status: DiscontinuedLovenox 40 mg, 0.4 mL, Route: SUB-Q, Drug form: INJ, [id number], Dosing Weight 50, kg, Start date: 12/12/18 13:00:00 CDT, Duration: 30 day, Stop date: 01/10/19 13:00: 00 CDT Notes: (Same as: Lovenox) Start Date: 12/12/18 Stop Date: 12/21/18 Status: Discontinuedmagnesium oxide 800 mg, 2 tab, Route: PO, Drug form: TAB, PRN, Dosing Weight 50, kg, PRN Abnormal Lab Result, For NON-ICU Patients Only., Start date: 12/11/18 8:02:00 CDT, Duration: 30 day, Stop date: 01/10/19 8:01:00CDT Notes: (Same as: Mag-Ox 400)Magnesium oxide [id number] elemental magnesiumDose= ____mg magnesium oxide (___mg elemental magnesium) Start Date: 12/11/18 Stop Date: 12/21/18 Status: Discontinuedmagnesium sulfate 1 gm, 100 mL, Route: IVPB, Drug form: INJ, PRN, Dosing Weight 50, kg, PRN Abnormal Lab Result, For NON-ICU Patients Only., Start date: 12/11/18 8:02:00 CDT, Duration: 30 day, Stop date: 01/10/19 8:01:00 CDT Notes: WASTE: F/P - Sink; E - Municipal Trash Bin Start Date: 12/11/18 Stop Date: 12/21/18 Status: Discontinuedmagnesium sulfate 2 gm, 50 mL, Route: IVPB, Drug form: INJ, PRN, Dosing Weight 50, kg, PRN Abnormal Lab Result, For NON-ICU Patients Only., Start date: 12/11/18 8:02:00 CDT, Duration: 30 day, Stop date: 01/10/19 8:01:00CDT Notes: WASTE: F/P - Sink; E - Municipal Trash Bin Start Date: 12/11/18 Stop Date: 12/21/18 Status: DiscontinuedMiraLax 17 gm, 1 pkt, Route: PO, Drug form: PWDR, Q12H, Dosing Weight 50, kg, Start date : 12/08/18 21:00:00 CDT, Duration: 30 day, Stop date: 01/07/19 9:00:00 CDT Notes: Dissolve in 8 oz of water or juice.(Same as: Miralax) Start Date: 12/08/18 Stop Date: 12/21/18 Status: DiscontinuedMiraLax oral powder for reconstitution 17 gm, PO, BID, Dissolve in 8 oz. of water, X 7 day, # 255 gm, 1 Refill(s), Pharmacy: [facility] [id number] Start Date: 12/21/18 Stop Date: 01/04/19 Status: Orderedmolasses 240 mL, Route: OK, Dosing Weight 50, kg, ONCE, Milk of Molasses Enema, Start date: 12/16/18 12:08:00CDT, Stop date: 12/16/18 12:08:00 CDT Start Date: 12/16/18 Stop Date: 12/16/18 Status: DeletedMolasses OK Molasses OK, 240 mL, Drug form: MISC, Route: OK, ONCE, 12/16/18 12:21:00 CDT, Stop date: 12/16/18 12:21:00 CDT Start Date: 12/16/18 Stop Date: 12/16/18 Status: Completedmorphine Sulfate 2 mg, 1 mL, Route: IVP, Drug form: SOLN, Q4H, Dosing Weight 53.182, kg, PRN Pain Score 7-10, Start date: 12/08/18 7:56:00 CDT, Duration: 30 day, Stop date: 01/07/19 7:55:00 CDT Start Date: 12/08/18 Stop Date: 12/09/18 Status: Discontinuedmorphine Sulfate 2 mg, 1 mL, Route: IV, Drug form: SOLN, Q4H, Dosing Weight 50, kg, PRN Pain Score 7-10, Start date: 12/09/18 11:21:00 CDT, Duration: 30 day, Stop date: 11:20:00 CDT Start Date: 12/09/18 Stop Date: 12/21/18 Status: DiscontinuedNexIUM 40 mg, Route: IVP, Daily, Dosing Weight 50, kg, Start date: 12/13/18 12:00:00 CDT, Duration: 7 day, Stop date: 12/20/18 9:00:00 CDT Start Date: 12/13/18 Stop Date: 12/13/18 Status: Deletedondansetron 4 mg, 2 mL, Route: IVP, Drug form: INJ, Q4H, Dosing Weight 53.182, kg, PRN Nausea & Vomiting, Start date: 12/08/18 7:56:00 CDT, Duration: 30 day, Stop date: 01/07/19 7:55:00 CDT Notes: (Same as: Zofran) MEDICATION WASTE Product Size: 4 mgProduct Wasted: ___ mg Start Date: 12/08/18 Stop Date: 12/21/18 Status: DiscontinuedPhenergan + Sodium Chloride 0.9% IV 50 mL 12.5 mg, 0.5 mL, Route: IVPB, Q6H, Dosing Weight 50, kg, PRN Nausea & Vomiting, Start date: 12/12/18 18:03:00 CDT, Duration: 30 day, Stop date: 18:02:00 CDT Notes: Do not give IV push. (Same as: Phenergan) Start Date: 12/12/18 Stop Date: 12/12/18 Status: DiscontinuedPhenergan + Sodium Chloride 0.9% IV 50 mL 12.5 mg, 0.5 mL, Route: IVPB, Q4H, Dosing Weight 50, kg, PRN Nausea & Vomiting, Start date: 12/12/18 18:52:00 CDT, Duration: 30 day, Stop date: 18:51:00 CDT Notes: Do not give IV push. (Same as: Phenergan) Start Date: 12/12/18 Stop Date: 12/21/18 Status: Discontinuedpotassium chloride 10 mEq, 100 mL, Route: IVPB, Drug form: INJ, Q1H, Dosing Weight 50, kg, Total Dose=60 meq, Start date: 12/12/18 6:00:00 CDT, Duration: 6 doses or times, Stop date: 12/12/18 11:00:00 CDT, Peripheral Line Notes: Infuse at a rate of 10 mEq/hr.(Same as: KCL) Start Date: 12/12/18 Stop Date: 12/12/18 Status: Completedpotassium chloride 20 mEq, 1 tab, Route: PO, Drug form: ERTAB, PRN, Dosing Weight 50, kg, PRN Abnormal Lab Result, For NON-ICU Patients Only, Start date: 12/11/18 8:02:00 CDT , Duration: 30 day, Stop date: 01/10/19 8:01:00 CDT Notes: (Same as: K-Dur 20)"Do Not Crush" Give with food and full glass of waterFor patients unable to swallow tablet, dissolve in one half glass of water. Allow about 2 minutes for the tablets to disintegrate. Stir before giving to prepare slurry and administer.Please exclude Patients with feedingtube less than 14 Upper [place] (Dobhoff, J-tube etc) and pediatric and patients. Start Date: 12/11/18 Stop Date: 12/21/18 Status: Discontinuedpotassium chloride 10 mEq, 100 mL, Route: IVPB, Drug form: INJ, PRN, Dosing Weight 50, kg, PRN Abnormal Lab Result, ForNON-ICU Patients Only, Start date: 12/11/18 8:02:00 CDT , Duration: 30 day, Stop date: 01/10/19 8:01:00 CDT Notes: Infuse at a rate of 10 mEq/hr.(Same as: KCL) Start Date: 12/11/18 Stop Date: 12/21/18 Status: Discontinuedpotassium chloride 20 mEq, 1 tab, Route: NJ, Drug form: ERTAB, PRN, Dosing Weight 50, kg, PRN Abnormal Lab Result, For NON-ICU Patients Only, Start date: 12/11/18 8:02:00 CDT , Duration: 30 day, Stop date: 01/10/19 8:01:00 CDT Notes: (Same as: K-Dur 20)"Do Not Crush" Give with food and full glass of waterFor patients unable to swallow tablet, dissolve in one half glass of water. Allow about 2 minutes for the tablets to disintegrate. Stir before giving to prepare slurry and administer.Please exclude Patients with feedingtube less than 14 [place] (Dobhoff, J-tube etc) and pediatric and patients. Start Date: 12/11/18 Stop Date: 12/21/18 Status: Discontinuedpotassium chloride 20 mEq, 100 mL, Route: IVPB, Drug form: INJ, Q2H, Dosing Weight 50, kg, Total dose=60 mEq, Start date: 12/13/18 8:00:00 CDT, Duration: 3 doses or times, Stop date: 12/13/18 12:00:00 CDT, Central Line Notes: (Same as: KCL) Infuse no faster than 10 mEq/hr if given peripherally. Start Date: 12/13/18 Stop Date: 12/13/18 Status: Completedpotassium chloride 20 mEq, 100 mL, Route: IVPB, Drug form: INJ, Q2H, Dosing Weight 50, kg, Total dose=60 mEq, Start date: 12/14/18 8:00:00 CDT, Duration: 3 doses or times, Stop date: 12/14/18 12:00:00 CDT, Central Line Notes: (Same as: KCL) Infuse no faster than 10 mEq/hr if given peripherally. Start Date: 12/14/18 Stop Date: 12/14/18 Status: Completedpotassium chloride 20 mEq oral tablet, extended release 40 mEq, 2 tab, Route: PO, Drug form: ERTAB, Q4H, Dosing Weight 50, kg, Start date: 12/12/18 8:00:00 CDT, Duration: 2 doses or times, Stop date: 12/12/18 12: 00:00 CDT Start Date: 12/12/18 Stop Date: 12/12/18 Status: Canceledpotassium phosphate + Sodium Chloride 0.9% IV 250 mL 15 mmol, 5 mL, Route: IVPB, PRN, Dosing Weight 50, kg, PRN Abnormal Lab Result, For NON-ICU PatientsOnly., Start date: 12/11/18 8:02:00 CDT, Duration: 30 day, Stop date: 01/10/19 8:01:00 CDT Notes: (Same as: K Phosphate.)Do not infuse phosphorous concurrently in the same line as TPN or IVF that contains calcium. For double lumen central lines, phosphorous may be infused in a separate lumenfrom TPN. 1 mMol phoshate has 1.47 mEq potassium Infuse over 4 hours Start Date: 12/11/18 Stop Date: 12/21/18 Status: Discontinuedpotassium phosphate + Sodium Chloride 0.9% IV 250 mL 30 mmol, 10 mL, Route: IVPB, PRN, Dosing Weight 50, kg, PRN Abnormal Lab Result , For NON-ICU Patients Only., Start date: 12/11/18 8:02:00 CDT, Duration: 30 day , Stop date: 01/10/19 8:01:00 CDT Notes: (Same as: K Phosphate.)Do not infuse phosphorous concurrently in the same line as TPN or IVF that contains calcium. For double lumen central lines, phosphorous may be infused in a separate lumenfrom TPN. 1 mMol phoshate has 1.47 mEq potassium Infuse over 4 hours Start Date: 12/11/18 Stop Date: 12/21/18 Status: Discontinuedpotassium phosphate-sodium phosphate 250 mg-280 mg-160 mg oral powder for reconstitution 2 pkt, Route: PO, Drug Form: PDR/REC, Dosing Weight 50, kg, PRN, PRN Abnormal Lab Result, For NON-ICU Patients Only, Start date: 12/11/18 8:02:00 CDT, Duration: 30 day, Stop date: 01/10/19 8:01:00 CDT Notes: (Same as: Phos-NaK) Each 1.5 gm pkt has 250mg phosphorous. Mix w/2.5oz water and stir. Start Date: 12/11/18 Stop Date: 12/21/18 Status: DiscontinuedProtonix 40 mg, Route: IVP, Drug form: INJ, Before Dinner, Start date: 12/19/18 17:23:00 CDT, Duration: 1 doses or times, Stop date: 12/19/18 17:23:00 CDT Notes: For IV push reconstitute with 10 ml 0.9% sodium chloride and push over 2 minutes. (Same as: Protonix) Start Date: 12/19/18 Stop Date: 12/19/18 Status: CompletedProtonix 40 mg, Route: IVP, Drug form: INJ, Before Dinner, Start date: 12/13/18 16:30:00 CDT, Duration: 7 day, Stop date: 12/19/18 16:30:00 CDT Notes: For IV push reconstitute with 10 ml 0.9% sodium chloride and push over 2 minutes. (Same as: Protonix) Start Date: 12/13/18 Stop Date: 12/19/18 Status: CompletedSaline Flush 0.9% 10 mL, Route: IVP, Drug Form: INJ, Dosing Weight 50, kg, Q8H, Start date: 16:00:00 CDT, Duration: 30 day, Stop date: 01/11/19 8:00:00 CDT Notes: Same as: BD Posiflush Sterile Start Date: 12/12/18 Stop Date: 12/21/18 Status: DiscontinuedSaline Flush 0.9% 10 mL, Route: IVP, Drug Form: INJ, Dosing Weight 50, kg, PRN, PRN Line Flush, Start date: 12/12/18 13:57:00 CDT, Duration: 30 day, Stop date: 01/11/19 13:56: 00 CDT Notes: preservative free. Start Date: 12/12/18 Stop Date: 12/21/18 Status: Discontinuedsimethicone 160 mg, 2 tab, Route: CHEW, Drug form: CHEWTAB, TID, Dosing Weight 50, kg, PRN Gas, Priority: NOW, Start date: 12/21/18 11:10:00 CDT, Duration: 30 day, Stop date: 01/20/19 11:09:00 CDT Notes: (Same as: Mylicon) Start Date: 12/21/18 Stop Date: 12/21/18 Status: Discontinuedsimethicone 80 mg oral tablet, chewable 160 mg=2 tab, CHEW, TID, PRN Gas, X 5 day, # 15 tab, 0 Refill(s), Pharmacy: [facility] [id number] Start Date: 12/21/18 Stop Date: 12/26/18 Status: OrderedSodium Chloride 0.9% IV 1,000 mL 1,000 mL, Rate: 125 ml/hr, Infuse over: 8 hr, Route: IV, Dosing Weight 53.182 kg , Total Volume: 1,000, Start date: 12/08/18 7:56:00 CDT, Duration: 30 day, Stop date: 01/07/19 7:55:00 CDT, 1.54, m2 Start Date: 12/08/18 Stop Date: 12/21/18 Status: Discontinuedsodium phosphate + Dextrose 5% in Water IV 250 mL 15 mmol, 5 mL, Route: IVPB, PRN, Dosing Weight 50, kg, PRN Abnormal Lab Result, For NON-ICU PatientsOnly., Start date: 12/11/18 8:02:00 CDT, Duration: 30 day, Stop date: 01/10/19 8:01:00 CDT Notes: Infuse over 4 hour. Do not infuse phosphorous concurrently in the same line as TPN or IVF that contains calcium. For double lumen central lines, phosphorous may be infused in a separate lumen from TPN. Start Date: 12/11/18 Stop Date: 12/21/18 Status: Discontinuedsodium phosphate + Dextrose 5% in Water IV 250 mL 30 mmol, 10 mL, Route: IVPB, PRN, Dosing Weight 50, kg, PRN Abnormal Lab Result , For NON-ICU Patients Only., Start date: 12/11/18 8:02:00 CDT, Duration: 30 day , Stop date: 01/10/19 8:01:00 CDT Notes: Infuse over 4 hour. Do not infuse phosphorous concurrently in the same line as TPN or IVF that contains calcium. For double lumen central lines, phosphorous may be infused in a separate lumen from TPN. Start Date: 12/11/18 Stop Date: 12/21/18 Status: DiscontinuedUltram 50 mg oral tablet 50 mg, 1 tab, Route: PO, Drug form: TAB, Q6H, Dosing Weight 50, kg, PRN Pain Score 1-3, Start date: 12/13/18 21:50:00 CDT, Duration: 30 day, Stop date: 01/12 21:49:00 CDT Notes: Not to exceed 400mg/day. (Same As: Ultram) Start Date: 12/13/18 Stop Date: 12/21/18 Status: DiscontinuedXylocaine Viscous 2% mucous membrane solution 15 mL, Route: PO, Q4H, Drug form: SOLN, PRN Sore Throat, Start date: 12/08/18 11 :04:00 CDT, Duration: 30 day, Stop date: 01/07/19 11:03:00 CDT Notes: (Same as: Xylocaine) Start Date: 12/08/18 Stop Date: 12/21/18 Status: Discontinued Results Most recent to oldest 1 2 3 [Reference Range]: Neutrophils # [1.5-8.1 3.1 K/CMM 4.5 K/CMM 4.1 K/CMM K/CMM] (12/20/18 4:33 AM) (12/19/18 4:36 AM) (12/18/18 6:27 AM) Lymphocytes # [1.0-5.5 1.0 K/CMM 1.1 K/CMM 0.8 K/CMM K/CMM] (12/20/18 4:33 AM) (12/19/18 4:36 AM) *LOW* (12/18/18 6:27 AM) Monocytes # [0.0-0.8 K/CMM] 0.7 K/CMM 0.8 K/CMM 0.7 K/CMM (12/20/18 4:33 AM) (12/19/18 4:36 AM) (12/18/18 6:27 AM) Eosinophils # [0.0-0.5 0.3 K/CMM 0.2 K/CMM 0.2 K/CMM K/CMM] (12/20/18 4:33 AM) (12/19/18 4:36 AM) (12/18/18 6:27 AM) Basophils # [0.0-0.2 K/CMM] 0.1 K/CMM 0.1 K/CMM 0.1 K/CMM (12/20/18 4:33 AM) (12/19/18 4:36 AM) (12/18/18 6:27 AM) eGFR 110 mL/min/1.73m2 1 107 mL/min/1.73m2 2 108 mL/min/1.73m2 3 *NA* *NA* *NA* (12/20/18 4:33 AM) (12/19/18 4:36 AM) (12/18/18 6:27 AM) A/G Ratio [0.7-1.6] 0.7 0.6 (12/10/18 4:23 AM) *LOW* (12/09/18 4:50 AM) Albumin Lvl [3.5-5.0 g/dL] 2.4 g/dL 2.3 g/dL *LOW* *LOW* (12/10/18 4:23 AM) (12/09/18 4:50 AM) Alk Phos [39-136 unit/L] 42 unit/L 46 unit/L (12/10/18 4:23 AM) (12/09/18 4:50 AM) ALT [0-65 unit/L] 11 unit/L 13 unit/L (12/10/18 4:23 AM) (12/09/18 4:50 AM) Amylase Lvl [25-115 unit/L] 40 unit/L 34 unit/L 24 unit/L (12/11/18 3:44 AM) (12/10/18 4:23 AM) *LOW* (12/09/18 4:50 AM) AGAP [10.0-20.0 mEq/L] 9.6 mEq/L 12.8 mEq/L 9.9 mEq/L *LOW* (12/19/18 4:36 AM) *LOW* (12/20/18 4:33 AM) (12/18/18 6:27 AM) AST [0-37 unit/L] 9 unit/L 11 unit/L (12/10/18 4:23 AM) (12/09/18 4:50 AM) B/C Ratio [6-25] 19 17 (12/10/18 4:23 AM) (12/09/18 4:50 AM) Basophils [0.0-1.0 %] 2.1 % 1.4 % 1.3 % *HI* *HI* *HI* (12/20/18 4:33 AM) (12/19/18 4:36 AM) (12/18/18 6:27 AM) BUN [7-22 mg/dL] 12 mg/dL 16 mg/dL 11 mg/dL (12/20/18 4:33 AM) (12/19/18 4:36 AM) (12/18/18 6:27 AM) Calcium Lvl [8.5-10.5 9.1 mg/dL 9.7 mg/dL 9.2 mg/dL mg/dL] (12/20/18 4:33 AM) (12/19/18 4:36 AM) (12/18/18 6:27 AM) Chloride Lvl [95-109 mEq/L] 105 mEq/L 104 mEq/L 105 mEq/L (12/20/18 4:33 AM) (12/19/18 4:36 AM) (12/18/18 6:27 AM) CO2 [24-32 mEq/L] 28 mEq/L 26 mEq/L 27 mEq/L (12/20/18 4:33 AM) (12/19/18 4:36 AM) (12/18/18 6:27 AM) Creatinine Lvl [0.50-1.40 0.57 mg/dL 0.61 mg/dL 0.60 mg/dL mg/dL] (12/20/18 4:33 AM) (12/19/18 4:36 AM) (12/18/18 6:27 AM) Eosinophils [0.0-4.0 %] 4.9 % 3.7 % 3.9 % *HI* (12/19/18 4:36 AM) (12/18/18 6:27 AM) (12/20/18 4:33 AM) Globulin [2.7-4.2 g/dL] 3.5 g/dL 3.6 g/dL (12/10/18 4:23 AM) (12/09/18 4:50 AM) Glucose Lvl [70-99 mg/dL] 105 mg/dL 104 mg/dL 101 mg/dL *HI* *HI* *HI* (12/20/18 4:33 AM) (12/19/18 4:36 AM) (12/18/18 6:27 AM) Hct [36.0-48.0 %] 29.4 % 30.7 % 28.0 % *LOW* *LOW* *LOW* (12/20/18 4:33 AM) (12/19/18 4:36 AM) (12/18/18 6:27 AM) Hgb [12.0-16.0 g/dL] 9.6 g/dL 10.2 g/dL 9.5 g/dL *LOW* *LOW* *LOW* (12/20/18 4:33 AM) (12/19/18 4:36 AM) (12/18/18 6:27 AM) INR [0.85-1.17] 1.28 1.14 *HI* (12/08/18 10:29 AM) (12/12/18 3:51 AM) Potassium Lvl [3.5-5.1 3.6 mEq/L 3.8 mEq/L 3.9 mEq/L mEq/L] (12/20/18 4:33 AM) (12/19/18 4:36 AM) (12/18/18 6:27 AM) Lipase Lvl [73-393 unit/L] 104 unit/L 94 unit/L 50 unit/L (12/11/18 3:44 AM) (12/10/18 4:23 AM) *LOW* (12/09/18 4:50 AM) Lymphocytes [20.0-40.0 %] 20.0 % 16.4 % 14.1 % (12/20/18 4:33 AM) *LOW* *LOW* (12/19/18 4:36 AM) (12/18/18 6:27 AM) MCH [27.0-31.0 pg] 26.5 pg 26.8 pg 27.4 pg *LOW* *LOW* (12/18/18 6:27 AM) (12/20/18 4:33 AM) (12/19/18 4:36 AM) MCHC [32.0-36.0 g/dL] 32.7 g/dL 33.3 g/dL 34.0 g/dL (12/20/18 4:33 AM) (12/19/18 4:36 AM) (12/18/18 6:27 AM) MCV [80.0-98.0 fL] 81.3 fL 80.6 fL 80.5 fL (12/20/18 4:33 AM) (12/19/18 4:36 AM) (12/18/18 6:27 AM) Magnesium Lvl [1.8-2.4 2.1 mg/dL 2.2 mg/dL 2.2 mg/dL mg/dL] (12/20/18 4:33 AM) (12/19/18 4:36 AM) (12/17/18 4:25 AM) Monocytes [2.0-12.0 %] 12.8 % 11.8 % 11.8 % *HI* (12/19/18 4:36 AM) (12/18/18 6:27 AM) (12/20/18 4:33 AM) MPV [7.4-10.4 fL] 7.9 fL 7.7 fL 7.9 fL (12/20/18 4:33 AM) (12/19/18 4:36 AM) (12/18/18 6:27 AM) Sodium Lvl [135-145 mEq/L] 139 mEq/L 139 mEq/L 138 mEq/L (12/20/18 4:33 AM) (12/19/18 4:36 AM) (12/18/18 6:27 AM) Phosphorus [2.5-4.5 mg/dL] 2.9 mg/dL 4.4 mg/dL 3.5 mg/dL (12/20/18 4:33 AM) (12/19/18 4:36 AM) (12/17/18 4:25 AM) Platelet [133-450 K/CMM] 560 K/CMM 588 K/CMM 493 K/CMM *HI* *HI* *HI* (12/20/18 4:33 AM) (12/19/18 4:36 AM) (12/18/18 6:27 AM) Segs [45.0-75.0 %] 60.2 % 66.7 % 68.9 % (12/20/18 4:33 AM) (12/19/18 4:36 AM) (12/18/18 6:27 AM) Total Protein [6.4-8.4 5.9 g/dL 5.9 g/dL g/dL] *LOW* *LOW* (12/10/18 4:23 AM) (12/09/18 4:50 AM) PT [12.0-14.7 seconds] 15.7 seconds 14.4 seconds *HI* (12/08/18 10:29 AM) (12/12/18 3:51 AM) PTT [22.9-35.8 seconds] 35.7 seconds (12/08/18 10:29 AM) RBC [4.20-5.40 M/CMM] 3.61 M/CMM 3.81 M/CMM 3.47 M/CMM *LOW* *LOW* *LOW* (12/20/18 4:33 AM) (12/19/18 4:36 AM) (12/18/18 6:27 AM) RDW [11.5-14.5 %] 14.3 % 14.7 % 14.4 % (12/20/18 4:33 AM) *HI* (12/18/18 6:27 AM) (12/19/18 4:36 AM) Bili Total [0.2-1.3 mg/dL] 0.4 mg/dL 0.4 mg/dL (12/10/18 4:23 AM) (12/09/18 4:50 AM) Trig [<=149 mg/dL] 143 mg/dL (12/13/18 5:25 AM) WBC [3.7-10.4 K/CMM] 5.2 K/CMM 6.7 K/CMM 6.0 K/CMM (12/20/18 4:33 AM) (12/19/18 4:36 AM) (12/18/18 6:27 AM) 1Result Comment: The eGFR is calculated using the CKD-EPI formula. In most young , healthy individualsthe eGFR will be >90 mL/min/1.73m2. The eGFR declines with age. An eGFR of 60-89 may be normal insome populations, particularly the elderly, for whom the CKD-EPI formula has not been extensively validated. Use of the eGFR is not recommended in the following populations: Individuals with unstable creatinine concentrations, including patients and those with serious co-morbid conditions. Patients with extremes in muscle mass or diet. The data above are obtained from the National Kidney Disease Education Program ( NKDEP) which additionally recommends that when the eGFR is used in patients with extremes of body mass index for purposesof drug dosing, the eGFR should be multiplied by the estimated BMI.2Result Comment: The eGFR is calculated using the CKD-EPI formula. In most young, healthy individualsthe eGFR will be >90 mL/min/1.73m2. The eGFR declines with age. An eGFR of 60-89 may be normal insome populations, particularly the elderly, for whom the CKD-EPI formula has not been extensively validated. Use of the eGFR is not recommended in the following populations: Individuals with unstable creatinine concentrations, including patients and those with serious co-morbid conditions. Patients with extremes in muscle mass or diet. The data above are obtained from the National Kidney Disease Education Program ( NKDEP) which additionally recommends that when the eGFR is used in patients with extremes of body mass index for purposesof drug dosing, the eGFR should be multiplied by the estimated BMI.3Result Comment: The eGFR is calculated using the CKD-EPI formula. In most young, healthy individualsthe eGFR will be >90 mL/min/1.73m2. The eGFR declines with age. An eGFR of 60-89 may be normal insome populations, particularly the elderly, for whom the CKD-EPI formula has not been extensively validated. Use of the eGFR is not recommended in the following populations: Individuals with unstable creatinine concentrations, including patients and those with serious co-morbid conditions. Patients with extremes in muscle mass or diet. The data above are obtained from the National Kidney Disease Education Program ( NKDEP) which additionally recommends that when the eGFR is used in patients with extremes of body mass index for purposesof drug dosing, the eGFR should be multiplied by the estimated BMI. Immunizations Given and Recorded Vaccine Date Status Refusal Reason influenza virus vaccine, inactivated1 09/10/17 Given influenza virus vaccine, inactivated2 05/01/16 Given 1Result Comment: [facility] 70376-555-65 LOT# [id number] EXP 01/12/2018 IM needle 25 G 1" sanofi pasteur left deltoid no adverse reaction at time of [id number] Comment: [facility]: [id number] Procedures Procedure Date Related Diagnosis Body Site Status Bilateral tubal ligation Completed Caesarean section Completed Social History Social History Type Response Substance Abuse Use: None. Exercise Exercise frequency: 3-4 times/week. Exercise type: Walking, Yoga. Alcohol Current, Type Wine. Frequency: 1-2 times per month. Smoking Status Never smoker; Exposure to Tobacco Smoke None; Cigarette Smoking Last 365 Days No; Reg Smoking Cessation Counseling No1 entered on: 12/08/18 1pt denies smoking Assessment and Plan Extracted from: Title: Discharge Summary * Author: Damian Clifford MD Date: 12/21/18 Discharge Plan Discharge Summary Plan Discharge Status: improved. Discharge instructions given: to patient. Discharge disposition: discharge to home self care. Prescriptions: continue same medications, written and given to patient. Diagnosis Anemia (XOI74-CP D64.9, Working, Medical). Hypokalemia (CAS92-GF E87.6, Working, Medical). SBO (small bowel obstruction) (CNP50-NC K56.609, Working, Medical). Course Improving. Education and Follow-up Counseled: patient. Extracted from: Title: [facility] HOSP Progress Note * Author: Damian Clifford MD Date: 12/21/18 Impression and Plan Patient is a 48-year-old female with past medical history of hysterectomy presented to the ED with complaints of significant abdominal pain. Patient recently had a hysterectomy performed earlier in the week since then has not had a bowel movement. She is been feeling nauseous and has been vomiting for the past few days and not even passing gas. Patient had a CAT scan done of the abdomen and pelvis which showed signs of a small bowel obstruction with dilation back to the stomach. Patient was seen by surgery started conservative measures management for the time being with NG tube to decompress and recommended patient to ambulate. Patient still with persistent small bowel obstruction and undergone small bowel follow-through today. Continue conservative management as recommended by surgery. Vag inal bleeding which DENITRATOR was consulted at which time no concern for any acute pathology. Assessment: Persistent small bowel obstruction Recent total abdominal hysterectomy with bilateral salpingectomy History of dysfunctional uterine bleeding Hypophosphatemia Hypokalemia Anemia Plan: FLD advance as tolerated once pt passes flatus PRN pain medications Transfuse to maintain hemoglobin levels greater than 7 IV fluid hydration with TPN; will stop TPN tomorrow if able to tolerate FLD today PRN antiemetics DVT prophylaxis: Ambulation Disposition: Continue current management follow clinical course; possible dc today Extracted from: Title: Consult Note Author: Barbie Srinivasan MD Date: 12/08/18 48-year-old female with recent hysterectomytransabdominalnow with postop ileus versus small bowel obstruction. CT from OSH reviewed. Given the Patient is afebrile, no leukocytosis, we will hold of on repeat CT for now as postop complications (ex: abscess) is unlikely with normal vital signs and labs and benign abdominal exam. Continue with NG decompression, NPO, IVF. OOB, PT/OT Minimize narcotics If fails to improve over the next 24 hours or if clinically worsen then will repeat the CT and obtain IV and PO contrast. SBO (small bowel obstruction)(K56.609)
--- OUTSIDE RECORDS SUMMARY | 2018-12-28 11:19 | XMS REPORT | Summary of Care ---
:1970 Author Organization [facility] [place] Address [address] [place] [address]- Encounter HQ Encntr_alidaev(FIN) [id number] Date(s): 08/01/17 - 08/01/17 [facility] [address] [place] [address] [phone] Attending Physician: Wilberto Robin MD Vital Signs No data available for this section Problem List Condition Effective Dates Status Health Status Informant Chicken pox(Confirmed) Resolved Allergies, Adverse Reactions, Alerts Substance Reaction Severity Status NKDA Active Medications No data available for this section Results No data available for this section Immunizations Given and Recorded Vaccine Date Status Refusal Reason influenza virus vaccine, inactivated1 09/10/17 Given influenza virus vaccine, inactivated2 05/01/16 Given 1Result Comment: [facility] 85183-355-96 LOT# [id number] EXP 01/12/2018 IM needle 25 G 1" sanofi pasteur left deltoid no adverse reaction at time of [id number] Comment: [facility]: [id number] Procedures Procedure Date Related Diagnosis Body Site Status Bilateral tubal ligation Completed Social History Social History Type Response Substance Abuse Use: None. Exercise Exercise frequency: 3-4 times/week. Exercise type: Walking, Yoga. Alcohol Current, Type Wine. Frequency: 1-2 times per month. Smoking Status Never smoker; Exposure to Tobacco Smoke None; Cigarette Smoking Last 365 Days No; Reg Smoking Cessation Counseling No entered on: 09/10/17 Assessment and Plan No data available for this section
--- OUTSIDE RECORDS SUMMARY | 2018-12-28 11:19 | XMS REPORT | Summary of Care ---
:1970 Author Organization [facility] [place] Address [address] [place] [address]- Encounter HQ Shonar_jennifer(FIN) [id number] Date(s): 09/10/17 - 09/10/17 [facility] [place] [address] [place] [address] [phone] Discharge Disposition: Home or Self Care Attending Physician: Wilberto Robin MD Vital Signs Most recent to oldest [Reference Range]: 1 Height 157.48 cm (09/10/17 10:39 AM) Temperature Oral [96.4-99.1 DegF] 98.0 DegF (09/10/17 10:39 AM) Blood Pressure [90-140/60-90 mmHg] 113/61 mmHg (09/10/17 10:39 AM) Peripheral Pulse Rate [60-100 bpm] 56 bpm *LOW* (09/10/17 10:39 AM) Weight 51 kg (09/10/17 10:39 AM) Body Mass Index 20.56 m2 (09/10/17 10:39 AM) Problem List Condition Effective Dates Status Health Status Informant Chicken pox(Confirmed) Resolved Allergies, Adverse Reactions, Alerts Substance Reaction Severity Status NKDA Active Medications No Known Medications Results No data available for this section Immunizations Given and Recorded Vaccine Date Status Refusal Reason influenza virus vaccine, inactivated1 09/10/17 Given influenza virus vaccine, inactivated2 05/01/16 Given 1Result Comment: [facility] 67196-480-52 LOT# [id number] EXP 01/12/2018 IM needle 25 G 1" sanofi pasteur left deltoid no adverse reaction at time of [id number] Comment: [facility]: [id number] Procedures Procedure Date Related Diagnosis Body Site [...]
--- OUTSIDE RECORDS SUMMARY | 2018-12-28 11:19 | XMS REPORT | Summary of Care ---
:1970 Author Organization [facility] [place] Address [address] [place], [place] [address]- Encounter HQ Encntr_alias(FIN) [id number] Date(s): 11/13/17 - 11/13/17 [facility] Outpatient Imaging [address], [address] [place] [phone] Discharge Disposition: Home or Self Care Attending [...] Given 1Result Comment: [facility] 44280-008-84 LOT# [id number] EXP 01/12/2018 IM needle 25 G 1" sanofi pasteur left deltoid no adverse reaction at time of [id number] Comment: [facility]: [id number] Procedures Procedure Date Related Diagnosis Body Site [...]
--- OUTSIDE RECORDS SUMMARY | 2018-12-28 11:19 | XMS REPORT | Summary of Care ---
:1970 Author Organization [facility] [place] Address [address] [place] [address]- Encounter HQ Encntr_alias(FIN) [id number] Date(s): 10/25/17 - 10/25/17 [facility] Outpatient Imaging [address], [facility] [address] [place] [address]- [phone] Encounter Diagnosis Encounter for screening mammogram for malignant neoplasm of breast (Final) - Discharge Disposition: Home or Self Care Attending [...] vaccine, inactivated2 05/01/16 Given 1Result Comment: [facility] 55268-279-99 LOT# [id number] EXP 01/12/2018 IM needle 25 G 1" sanofi pasteur left deltoid no adverse reaction at time of [id number] Comment: [facility]: [id number] Procedures Procedure Date Related Diagnosis Body Site [...]
--- OUTSIDE RECORDS SUMMARY | 2018-12-28 11:19 | XMS REPORT | Summary of Care ---
:1970 Author Organization [facility] Out[facility] [place] Address [address] [place], [place] [address]- Encounter HQ Encntr_alias(FIN) [id number] Date(s): 10/25/17 - 10/25/17 [facility] Outpatient Imaging [address], [address] [place] [address]- [phone] Encounter Diagnosis Encounter for screening mammogram for [...] virus vaccine, inactivated2 05/01/16 Given 1Result Comment: [facility] 47842-164-84 LOT# [id number] EXP 01/12/2018 IM needle 25 G 1" sanofi pasteur left deltoid no adverse reaction at time of [id number] Comment: [facility]: [id number] Procedures Procedure Date Related Diagnosis Body Site [...]
--- OUTSIDE RECORDS SUMMARY | 2018-12-28 11:19 | XMS REPORT | Summary of Care ---
:1970 Author Organization [facility] [place] Address [address] [place] [address]- Encounter HQ Shonar_jennifer(FIN) [id number] Date(s): 04/04/18 - 04/04/18 [facility] [place] [address] [place] [address]- Discharge Disposition: Home or Self Care Attending Physician: Wilberto Robin MD Vital Signs Most recent to oldest [Reference Range]: 1 Height 154.94 cm (04/04/18 3:23 PM) Temperature Oral [96.4-99.1 DegF] 98.2 DegF (04/04/18 3:23 PM) Blood Pressure [90-140/60-90 mmHg] 125/88 mmHg (04/04/18 3:23 PM) Peripheral Pulse Rate [60-100 bpm] 65 bpm (04/04/18 3:23 PM) Weight 52.455 kg (04/04/18 3:23 PM) Body Mass Index 21.85 m2 (04/04/18 3:23 PM) Problem List Condition Effective Dates Status Health Status Informant Chicken pox(Confirmed) Resolved Allergies, Adverse Reactions, Alerts Substance Reaction Severity Status NKDA Active Medications No Known Medications Results No data available for this section Immunizations Given and Recorded Vaccine Date Status Refusal Reason influenza virus vaccine, inactivated1 09/10/17 Given influenza virus vaccine, inactivated2 05/01/16 Given 1Result Comment: [facility] 31942-195-61 LOT# [id number] EXP 01/12/2018 IM needle 25 G 1" sanofi pasteur left deltoid no adverse reaction at time of [id number] Comment: [facility]: [id number] Procedures Procedure Date Related Diagnosis Body Site Status Bilateral tubal ligation Completed Social History Social History Type Response Substance Abuse Use: None. Exercise Exercise frequency: 3-4 times/week. Exercise type: Walking, Yoga. Alcohol Current, Type Wine. Frequency: 1-2 times per month. Smoking Status Never smoker; Exposure to Tobacco Smoke None; Cigarette Smoking Last 365 Days No; Reg Smoking Cessation Counseling No entered on: 04/04/18 Assessment and Plan No data available for this section
--- OUTSIDE RECORDS SUMMARY | 2018-12-28 11:20 | XMS REPORT | Summary of Care ---
:1970 Author Organization [facility] Address [address] [place] [id number] Encounter HQ Eric(TODD) [id number] Date(s): 12/03/18 - 12/05/[address] [phone] [phone] Discharge Disposition: Home or Self Care Attending Physician: Christal Quevedo MD Admitting Physician: Christal Quevedo MD Referring Physician: Christal Quevedo MD Vital Signs Most recent to oldest 1 2 3 [Reference Range]: Height 157.48 cm 157.48 cm (12/03/18 5:55 PM) (11/27/18 11:09 AM) Temperature Oral [96.4-99.1 98.0 DegF 98.1 DegF 98.7 DegF DegF] (12/05/18 7:49 AM) (12/05/18 3:15 AM) (12/04/18 11:27 PM) Blood Pressure [90-140/60-90 113/66 mmHg 90/52 mmHg 108/69 mmHg mmHg] (12/05/18 7:49 AM) (12/05/18 3:15 AM) (12/04/18 11:27 PM) Respiratory Rate [14-20 18 BRMIN 20 BRMIN 16 BRMIN BRMIN] (12/05/18 7:49 AM) (12/05/18 7:45 AM) (12/05/18 3:15 AM) Peripheral Pulse Rate [60-100 56 bpm 54 bpm 65 bpm bpm] *LOW* *LOW* (12/04/18 11:27 PM) (12/05/18 7:49 AM) (12/05/18 3:15 AM) Weight 53.182 kg 53.324 kg (12/03/18 5:55 PM) (12/03/18 6:00 AM) Body Mass Index 21.44 m2 21.5 m2 (12/03/18 5:55 PM) (12/03/18 6:00 AM) Problem List Condition Effective Dates Status Health Status Informant Chicken pox(Confirmed) Resolved Allergies, Adverse Reactions, Alerts No Known Medication Allergies Medications acetaminophen 1,000 mg, 100 mL, Route: IVPB, Drug form: INJ, Q6Hnow, Dosing Weight 53.324, kg , Start date: 12/03/18 10:00:00 CDT, Duration: 30 day, Stop date: 01/02/19 4:00: 00 CDT Notes: Infuse over 15 minutesDo not exceed 4gm/day of acetaminophen MEDICATION WASTE ProductSize: 1000 mgProduct Wasted: ___ mg Start Date: 12/03/18 Stop Date: 12/04/18 Status: Discontinuedacetaminophen 1,000 mg, 2 tab, Route: PO, Drug form: TAB, Q6H, Start date: 12/04/18 4:00:00 CDT, Duration: 3 dosesor times, Stop date: 12/04/18 18:00:00 CDT Notes: Max acetaminophen 4000 mg/day (4 gm/day). (Same as: Tylenol Extra Strength) Start Date: 12/04/18 Stop Date: 12/04/18 Status: CompletedANES acetaminophen 1,000 mg, Route: PO, Drug form: TAB, ONCE, Dosing Weight 53.324, kg, PRN Pain Score 1-3, Start date:12/03/18 8:44:00 CDT Start Date: 12/03/18 Stop Date: 12/03/18 Status: DiscontinuedANES albuterol 0.083% inhalation solution 2.49 mg, Route: NEB, Q20Min, Dosing Weight 53.324, kg, PRN Wheezing, Priority: Routine, Start date: 12/03/18 8:44:00 CDT, Duration: 30 day, Stop date: 8:43:00 CDT Start Date: 12/03/18 Stop Date: 12/03/18 Status: DiscontinuedANES diphenhydrAMINE 12.5 mg, Route: IVP, Drug form: INJ, Q6H, Dosing Weight 53.324, kg, PRN Itching , Start date: 12/03/18 8:44:00 CDT, Duration: 30 day, Stop date: 01/02/19 8:43: 00 CDT Start Date: 12/03/18 Stop Date: 12/03/18 Status: DiscontinuedANES fentaNYL 50 microgram, Route: IVP, Q5Min, Dosing Weight 53.324, kg, PRN Pain Score 7-10, Priority: Routine, Start date: 12/03/18 8:44:00 CDT, Duration: 2 doses or times , Stop date: Limited # of times Start Date: 12/03/18 Stop Date: 12/03/18 Status: DiscontinuedANES fentaNYL 25 microgram, Route: IVP, Q5Min, Dosing Weight 53.324, kg, PRN Pain Score 4-6, Priority: Routine, Start date: 12/03/18 8:44:00 CDT, Duration: 4 doses or times , Stop date: Limited # of times Start Date: 12/03/18 Stop Date: 12/03/18 Status: DiscontinuedANES flumazenil 0.2 mg, Route: IVP, PRN, Dosing Weight 53.324, kg, PRN Benzodiazepine Reversal, Initial dose, Start date: 12/03/18 8:44:00 CDT, Duration: 30 day, Stop date: 8:43:00 CDT Start Date: 12/03/18 Stop Date: 12/03/18 Status: DiscontinuedANES hydrALAZINE 10 mg, Route: IVP, Q20Min, Dosing Weight 53.324, kg, PRN Elevated BP, Start date : 12/03/18 8:44:00 CDT, Duration: 2 doses or times, Stop date: Limited # of times Start Date: 12/03/18 Stop Date: 12/03/18 Status: DiscontinuedANES HYDROmorphone 0.5 mg, Route: IVP, Q5Min, Dosing Weight 53.324, kg, PRN Pain Score 7-10, Start date: 12/03/18 8:44:00 CDT, Duration: 4 doses or times, Stop date: Limited # of times Start Date: 12/03/18 Stop Date: 12/03/18 Status: DiscontinuedANES ketOROLAC 30 mg, Route: IVP, ONCE, Dosing Weight 53.324, kg, Start date: 12/03/18 8:44:00 CDT, Stop date: 12/03/18 8:44:00 CDT Start Date: 12/03/18 Stop Date: 12/03/18 Status: DiscontinuedANES labetalol 10 mg, Route: IVP, Q5Min, Dosing Weight 53.324, kg, PRN Elevated BP, Start date : 12/03/18 8:44:00 CDT, Duration: 5 doses or times, Stop date: Limited # of times Start Date: 12/03/18 Stop Date: 12/03/18 Status: DiscontinuedANES meperidine 12.5 mg, Route: IVP, Q30Min, Dosing Weight 53.324, kg, PRN Other -See Comment, For shivering, Start date: 12/03/18 8:44:00 CDT, Duration: 2 doses or times, Stop date: Limited # of times Start Date: 12/03/18 Stop Date: 12/03/18 Status: DiscontinuedANES naloxone 0.1 mg, Route: SUB-Q, Q6H, Dosing Weight 53.324, kg, PRN Itching, Start date: 8:44:00 CDT, Duration: 30 day, Stop date: 01/02/19 8:43:00 CDT Start Date: 12/03/18 Stop Date: 12/03/18 Status: DiscontinuedANES naloxone 0.4 mg, Route: IVP, Q2MIN, Dosing Weight 53.324, kg, PRN Narcotic Reversal, Start date: 12/03/18 8:44:00 CDT, Duration: 8 doses or times, Stop date: Limited # of times Start Date: 12/03/18 Stop Date: 12/03/18 Status: DiscontinuedANES ondansetron 4 mg, Route: IVP, ONCE, Dosing Weight 53.324, kg, PRN Nausea & Vomiting, Start date: 12/03/18 8:44:00 CDT Start Date: 12/03/18 Stop Date: 12/03/18 Status: DiscontinuedANES oxyCODONE 5 mg, Route: PO, Drug form: TAB, Q4H, Dosing Weight 53.324, kg, PRN Pain Score 4 -6, Start date: 12/03/18 8:44:00 CDT, Duration: 30 day, Stop date: 01/02/19 8:43 :00 CDT Start Date: 12/03/18 Stop Date: 12/03/18 Status: DiscontinuedANES oxyCODONE 10 mg, Route: PO, Drug form: TAB, Q4H, Dosing Weight 53.324, kg, PRN Pain Score 7-10, Start date: 12/03/18 8:44:00 CDT, Duration: 30 day, Stop date: 01/02/19 8: 43:00 CDT Start Date: 12/03/18 Stop Date: 12/03/18 Status: DiscontinuedANES promethazine 6.25 mg, Route: IVPB, ONCE, Dosing Weight 53.324, kg, PRN Nausea & Vomiting , Start date: 12/03/18 8:44:00 CDT Start Date: 12/03/18 Stop Date: 12/03/18 Status: DiscontinuedceFAZolin (ANES) Route: IV, Drug form: INJ, ONCE, Stop date: 12/03/18 8:21:00 CDT Start Date: 12/03/18 Stop Date: 12/03/18 Status: CompletedceFAZolin + sterile water 10 mL 1 gm, Route: IV, ONCALL, Start date: 12/03/18 7:00:00 CDT, Duration: 1 day, Stop date: 12/04/18 6:59:00 CDT, ABX Indication: Surgical Prophylaxis Notes: (Same As: Gilberto Melissa) MEDICATION WASTE Product Size: 1000 mgProduct Wasted: ___ mg Start Date: 12/03/18 Stop Date: 12/05/18 Status: Discontinueddexamethasone (ANES) Route: IV, Drug form: INJ, ONCE, Stop date: 12/03/18 8:21:00 CDT Start Date: 12/03/18 Stop Date: 12/03/18 Status: CompletedDextrose 5% in Lactated Ringers IV 1,000 mL 1,000 mL, Rate: 125 ml/hr, Infuse over: 8 hr, Route: IV, Dosing Weight 53.324 kg , Total Volume: 1,000, Start date: 12/03/18 9:07:00 CDT, Duration: 30 day, Stop date: 01/02/19 9:06:00 CDT, 1.54, m2 Start Date: 12/03/18 Stop Date: 12/05/18 Status: DiscontinuedDilaudid (ANES) Route: IV, Drug form: INJ, ONCE, Stop date: 12/03/18 9:30:00 CDT Start Date: 12/03/18 Stop Date: 12/03/18 Status: Completeddocusate 100 mg, 1 cap, Route: PO, Drug form: CAP, BID, Dosing Weight 53.182, kg, PRN Constipation, Start date: 12/04/18 8:29:00 CDT, Duration: 30 day, Stop date: 8:28:00 CDT Notes: (Same as: Colace) (Do Not Crush) Start Date: 12/04/18 Stop Date: 12/05/18 Status: Discontinueddocusate sodium 100 mg oral capsule 100 mg=1 cap, PO, BID, PRN Constipation, # 60 cap, 0 Refill(s) Start Date: 12/05/18 Status: OrderedfentaNYL (ANES) Route: IV, Drug form: INJ, ONCE, Stop date: 12/03/18 8:15:00 CDT Start Date: 12/03/18 Stop Date: 12/03/18 Status: Completedglycopyrrolate (ANES) Route: IV, Drug form: INJ, ONCE, Stop date: 12/03/18 9:36:00 CDT Start Date: 12/03/18 Stop Date: 12/03/18 Status: Completedibuprofen 600 mg, 1 tab, Route: PO, Drug form: TAB, Q6H, Dosing Weight 53.182, kg, PRN Pain Score 1-3, Start date: 12/04/18 8:22:00 CDT, Duration: 30 day, Stop date: 01/03/19 8:21:00 CDT Notes: (Same as: Motrin)"Do Not Crush" Take with food. Start Date: 12/04/18 Stop Date: 12/05/18 Status: Discontinuedibuprofen 600 mg oral tablet 600 mg=1 tab, PO, Q6H, PRN Pain Score 1-3, # 30 tab, 0 Refill(s) Start Date: 12/05/18 Stop Date: 12/28/18 Status: OrderedIron Chews 15 mg, PO, Daily, 0 Refill(s) Start Date: 11/27/18 Status: OrderedketOROLAC 30 mg, 1 mL, Route: IVP, Drug form: INJ, Q6Hnow, Dosing Weight 53.324, kg, Start date: 12/03/18 10:00:00 CDT, Duration: 24 hr, Stop date: 12/04/18 4:00:00 CDT Notes: (Same as:Toradol) IV bolus must be given >15 seconds. Give IM administration slowly and deeply into the muscle.Not for use > 4 days MEDICATION WASTE Product Size: 30 mgProduct Wasted: ___ mg Start Date: 12/03/18 Stop Date: 12/04/18 Status: Pending CompleteketOROLAC (ANES) IV, ONCE Start Date: 12/03/18 Stop Date: 12/03/18 Status: CompletedLactated Ringers Injection IV (ANES) 1000 mL Route: IV, Total Volume: 1,000, Start date: 12/03/18 6:15:00 CDT, Stop date: 7:15:00 CDT Start Date: 12/03/18 Stop Date: 12/03/18 Status: CompletedLactated Ringers Injection IV 1,000 mL 1,000 mL, Rate: 25 ml/hr, Infuse over: 40 hr, Route: IV, Dosing Weight 53.835 kg , Total Volume: 1,000, Start date: 12/03/18 5:42:00 CDT, Duration: 30 day, Stop date: 01/02/19 5:41:00 CDT, 1.55, m2 Start Date: 12/03/18 Stop Date: 12/03/18 Status: Discontinuedmidazolam (ANES) Route: IV, Drug form: SOLN, ONCE, Stop date: 12/03/18 8:10:00 CDT Start Date: 12/03/18 Stop Date: 12/03/18 Status: Completedmorphine 1 mg/ml CREW ATTENDANT (30 mg/30 mL) INJ Syringe 30 mg 30 mg, 30 mL, Route: IV, CREW ATTENDANT Dose: 1 mg, CREW ATTENDANT Lockout: 15 minutes, Continuous Basal Rate: 0 mg, 4 Hour Limit (In MG): 16, Drug Form: INJ, Continuous, Start date: 12/03/18 9:07:00 CDT, Duration: 30 day,Stop date: 01/02/19 9:06:00 CDT Notes: Dose: Delay: Basal rate: 4hr limit:( Same as:Gutierrez) Start Date: 12/03/18 Stop Date: 12/04/18 Status: Discontinuedmorphine 1 mg/ml CREW ATTENDANT (30 mg/30 mL) INJ Syringe 30 mg 30 mg, 30 mL, Route: IV, Initial Loading Dose: 2 mg, CREW ATTENDANT Dose: 1 mg, CREW ATTENDANT Lockout: 10 minutes, Continuous Basal Rate: 0 mg, 4 Hour Limit (In MG): 30, Drug Form: INJ, Continuous, Start date: 12/03/18 9:07:00 CDT, Duration: 30 day, Stop date: 01/02/19 9... Notes: Dose: Delay: Basal rate: 4hr limit:( Same as:Gutierrez) Start Date: 12/03/18 Stop Date: 12/04/18 Status: Discontinuednaloxone 0.04 mg, 0.1 mL, Route: IVP, Drug form: INJ, Q2MIN, Dosing Weight 53.324, kg, PRN Narcotic Reversal,Start date: 12/03/18 9:07:00 CDT, Duration: 30 day, Stop date: 01/02/19 9:06:00 CDT Notes: Same as Narcan Start Date: 12/03/18 Stop Date: 12/05/18 Status: Discontinuedneostigmine (ANES) Route: IV, Drug form: INJ, ONCE, Stop date: 12/03/18 9:36:00 CDT Start Date: 12/03/18 Stop Date: 12/03/18 Status: CompletedOfirmev 1,000 mg, 100 mL, Route: IV, Drug form: INJ, Q6H, Dosing Weight 53.324, kg, for > or=50 kg, Startdate: 12/03/18 12:00:00 CDT, Duration: 1 doses or times, Stop date: 12/03/18 12:00:00 CDT Notes: Infuse over 15 minutesDo not exceed 4gm/day of acetaminophen MEDICATION WASTE ProductSize: 1000 mgProduct Wasted: ___ mg Start Date: 12/03/18 Stop Date: 12/03/18 Status: Deletedondansetron (ANES) Route: IV, Drug form: INJ, ONCE, Stop date: 12/03/18 9:30:00 CDT Start Date: 12/03/18 Stop Date: 12/03/18 Status: CompletedoxyCODONE 5 mg immediate release 10 mg, 2 tab, Route: PO, Drug form: TAB, Q4H, Dosing Weight 53.324, kg, PRN Pain Score 7-10, Start date: 12/03/18 9:07:00 CDT, Duration: 30 day, Stop date: 01/02/19 9:06:00 CDT Notes: (Same as: Roxicodone) Start Date: 12/03/18 Stop Date: 12/05/18 Status: DiscontinuedoxyCODONE 5 mg immediate release 5 mg, 1 tab, Route: PO, Drug form: TAB, Q4H, Dosing Weight 53.324, kg, PRN Pain Score 4-6, Start date: 12/03/18 9:07:00 CDT, Duration: 30 day, Stop date: 9:06:00 CDT Notes: (Same as: Roxicodone) Start Date: 12/03/18 Stop Date: 12/05/18 Status: Discontinuedpropofol (ANES) Route: IV, Drug form: INJ, ONCE, Stop date: 12/03/18 8:15:00 CDT Start Date: 12/03/18 Stop Date: 12/03/18 Status: Completedrocuronium (ANES) Route: IV, Drug form: INJ, ONCE, Stop date: 12/03/18 8:15:00 CDT Start Date: 12/03/18 Stop Date: 12/03/18 Status: CompletedSaline Flush 0.9% 5 ml, Route: IVP, Drug Form: INJ, Dosing Weight 53.324, kg, PRN, PRN Line Flush , Start date: 12/03/18 9:07:00 CDT, Duration: 30 day, Stop date: 01/02/19 9:06: 00 CDT Notes: Same as: BD Posiflush Sterile Start Date: 12/03/18 Stop Date: 12/05/18 Status: DiscontinuedSaline Flush 0.9% 5 ml, Route: IVP, Drug Form: INJ, Dosing Weight 53.324, kg, Q12H, Start date: 21:00:00 CDT,Duration: 30 day, Stop date: 01/02/19 9:00:00 CDT Notes: Same as: BD Posiflush Sterile Start Date: 12/03/18 Stop Date: 12/05/18 Status: Discontinuedsenna 8.6 mg oral tablet 17.2 mg=2 tab, PO, Bedtime, PRN Constipation, X 10 day, # 20 tab, 0 Refill(s) Start Date: 12/05/18 Stop Date: 12/15/18 Status: Orderedsimethicone 80 mg, 1 tab, Route: CHEW, Drug form: CHEWTAB, TID, Dosing Weight 53.182, kg, PRN Gas, Start date: 12/04/18 8:29:00 CDT, Duration: 30 day, Stop date: 8:28:00 CDT Notes: (Same as: Mylicon) Start Date: 12/04/18 Stop Date: 12/05/18 Status: DiscontinuedSodium Chloride 0.9% IV 1,000 mL 1,000 mL, Rate: 25 ml/hr, Infuse over: 40 hr, Route: IV, Dosing Weight 53.835 kg , Total Volume: 1,000, Start date: 12/03/18 5:42:00 CDT, Duration: 30 day, Stop date: 01/02/19 5:41:00 CDT, 1.55, m2 Start Date: 12/03/18 Stop Date: 12/03/18 Status: DiscontinuedTylenol with Codeine #3 oral tablet 2 tab, Route: PO, Drug Form: TAB, Dosing Weight 53.182, kg, Q6H, PRN Pain 4-6/ Temp > 100.4 F, Start date: 12/04/18 8:22:00 CDT, Duration: 30 day, Stop date : 01/03/19 8:21:00 CDT Notes: Do not exceed 4gm/day of acetaminophen. (Same as: Tylenol with Codeine # 3) Start Date: 12/04/18 Stop Date: 12/05/18 Status: DiscontinuedTylenol with Codeine #3 oral tablet 1 tab, PO, Q6H, PRN Pain 4-6/Temp > 100.4 F, # 28 tab, 0 Refill(s) Start Date: 12/05/18 Stop Date: 12/28/18 Status: OrderedVitamin C Daily, 0 Refill(s) Start Date: 11/27/18 Status: OrderedZofran 4 mg, 1 tab, Route: PO, Drug form: TAB, Q8H, Dosing Weight 53.324, kg, PRN Nausea, Start date: 12/03/18 16:06:00 CDT, Duration: 30 day, Stop date: 16:05:00 CDT Notes: (Same as: Zofran) Start Date: 12/03/18 Stop Date: 12/05/18 Status: DiscontinuedZofran 4 mg, 2 mL, Route: IVP, Drug form: INJ, ONCE, Dosing Weight 53.324, kg, Start date: 12/03/18 16:06:00 CDT, Stop date: 12/03/18 16:06:00 CDT Notes: (Same as: Zofran) MEDICATION WASTE Product Size: 4 mgProduct Wasted: ___ mg Start Date: 12/03/18 Stop Date: 12/03/18 Status: Completed Results Most recent to oldest [Reference Range]: 1 2 Neutrophils # [1.5-8.1 K/CMM] 5.6 K/CMM 3.3 K/CMM (12/04/18 3:20 AM) (12/03/18 7:07 AM) Lymphocytes # [1.0-5.5 K/CMM] 1.1 K/CMM 1.1 K/CMM (12/04/18 3:20 AM) (12/03/18 7:07 AM) Monocytes # [0.0-0.8 K/CMM] 0.7 K/CMM 0.4 K/CMM (12/04/18 3:20 AM) (12/03/18 7:07 AM) Eosinophils # [0.0-0.5 K/CMM] 0.1 K/CMM (12/03/18 7:07 AM) Basophils # [0.0-0.2 K/CMM] 0.1 K/CMM 0.1 K/CMM (12/04/18 3:20 AM) (12/03/18 7:07 AM) ABO/Rh AB POS *Unknown* (11/27/18 11:13 AM) Antibody Scrn Negative (11/27/18 11:13 AM) Basophils [0.0-1.0 %] 0.7 % 1.1 % (12/04/18 3:20 AM) *HI* (12/03/18 7:07 AM) Eosinophils [0.0-4.0 %] 0.4 % 1.9 % (12/04/18 3:20 AM) (12/03/18 7:07 AM) Hct [36.0-48.0 %] 29.2 % 32.8 % *LOW* *LOW* (12/04/18 3:20 AM) (12/03/18 7:07 AM) Hgb [12.0-16.0 g/dL] 9.8 g/dL 11.2 g/dL *LOW* *LOW* (12/04/18 3:20 AM) (12/03/18 7:07 AM) Lymphocytes [20.0-40.0 %] 14.5 % 21.5 % *LOW* (12/03/18 7:07 AM) (12/04/18 3:20 AM) MCH [27.0-31.0 pg] 27.8 pg 27.7 pg (12/04/18 3:20 AM) (12/03/18 7:07 AM) MCHC [32.0-36.0 g/dL] 33.4 g/dL 34.0 g/dL (12/04/18 3:20 AM) (12/03/18 7:07 AM) MCV [80.0-98.0 fL] 83.2 fL 81.5 fL (12/04/18 3:20 AM) (12/03/18 7:07 AM) Monocytes [2.0-12.0 %] 8.8 % 9.0 % (12/04/18 3:20 AM) (12/03/18 7:07 AM) MPV [7.4-10.4 fL] 9.1 fL 9.0 fL (12/04/18 3:20 AM) (12/03/18 7:07 AM) Platelet [133-450 K/CMM] 202 K/CMM 254 K/CMM (12/04/18 3:20 AM) (12/03/18 7:07 AM) Segs [45.0-75.0 %] 75.6 % 66.5 % *HI* (12/03/18 7:07 AM) (12/04/18 3:20 AM) RBC [4.20-5.40 M/CMM] 3.51 M/CMM 4.02 M/CMM *LOW* *LOW* (12/04/18 3:20 AM) (12/03/18 7:07 AM) RDW [11.5-14.5 %] 13.9 % 13.6 % (12/04/18 3:20 AM) (12/03/18 7:07 AM) S Preg [Negative] Negative *NA* (11/27/18 11:13 AM) U Preg [Negative] Negative (12/03/18 5:45 AM) WBC [3.7-10.4 K/CMM] 7.4 K/CMM 5.0 K/CMM (12/04/18 3:20 AM) (12/03/18 7:07 AM) Immunizations Given and Recorded Vaccine Date Status Refusal Reason influenza virus vaccine, inactivated1 09/10/17 Given influenza virus vaccine, inactivated2 05/01/16 Given 1Result Comment: [facility] [id number] LOT# [id number] EXP 01/12/2018 IM needle 25 G 1" sanofi pasteur left deltoid no adverse reaction at time of [id number] Comment: [facility]: [id number] Procedures Procedure Date Related Diagnosis Body Site [...] Reg Smoking Cessation Counseling No entered on: 12/03/18 Assessment and Plan Extracted from: Title: Gynecology Progress Note *POD#2 Author: Bernie Ortega MD Date: Impression and Plan Diagnosis: Fibroid, uterine ([id number] D25.9, Working, Medical), Menorrhagia ( [id number] N92.0, Working, Medical), Menorrhagia with irregular cycle ([id number] N92.0, Working, Medical), S/P total abdominal h ysterectomy ([id number] Z90.710, Working, Medical), Uterine leiomyoma ([id number] D25.9, Working, Medical). Course: Progressing as expected. Educated pt regarding incision care as well as the importance of adhering to a bowel regimen postoperatively. All questions answered. Plan on discharge to home today with follow-up in two weeks. Extracted from: Title: JEB/salpingectomy Procedure note Author: Christal Quevedo MD Date: ligasure Impression and Plan Diagnosis Menorrhagia with irregular cycle ([id number]-SK N92.0, Working, Medical). S/P total abdominal hysterectomy ([id number] Z90.710, Working, Medical). Uterine leiomyoma ([id number] D25.9, Working, Medical). Orders Christal Quevedo MD. Course: Progressing as expected. Orders Admit to 3 L and D for postooperative care. Extracted from: Title: Preop History and Physical Author: Christal Quevedo MD Date: 12/03/18 CC: Scheduled surgery HPI: 47 yo here for scheduled ysterectomy due to symptomatic fibroids and menorrhagia, plan for total abdominal hysterectomy with bilateral salpingectomy. Pelvic usg showed large multifibroid ut erus 15cm with two largest fibroids measuring 7cm. MRI lumbosacral area also done and showed moderate compromise of spinal canal L4-L5. Pt continues to have lower pelvic pain and pressure with mild reli ef from OTC midol. Irregular heavy cycles lasting 10 days with fatigue and weakness. Pt is sexually active but c.o discomfort w/ coitus ,Pt also reports hx of right sided lower back pain with radiation to her right leg. Denies any hx of back injury denies vaginal discharge. ROS: Standard: GENERAL/ CONSTITUTIONAL: weight gain, weight loss, denies fever, chills. HEENT denies headaches, visual changes, tinitus, neck lumps, denies congestion, rhinorrhea, dysphagia. RESPIRATORY: milad es cough, denies wheezing, denies shortness of breath. BREAST: denies skin changes, lumps, and retractions. CARDIOVASCULAR: denies chest pain and palpitations. GASTROINTESTINAL: denies changes in bow el movements, pain, or masses. GENITOURINARY: SEE A/P and HPI. MUSCULOSKELETAL: denies joint swelling, pain, or stiffness, denies muscle aches , no loss of motor strength. SKIN: denies edema, erythema , or rashes. NEURO Denies headaches, neuralgia, paresthesia, pain. PSYCH Denies feeling depressed, anxious, disoriented. EYES Denies visual changes, double vision, ocular halos, loss of vision, Denie s ocular lesions or masses, Denies abnl discharge or irritation. Medical History: Uterine fibroid, Dysmenorrhea, Menorrhagia. Audiology Assistant History: Menstruation: Menarche 10, Duration: 7 Days, Intervals: regularly/ monthly, Character of period: normal. marital status Marital status . STD History: No. Contraception: Method : BTL, Yes. Pap History: Hx Abnormal Pap: no, Last pap smear: 07/2017. Health Maintenance: Last Mammogram: 11/07/2017, LMP: 09/12/2018. Sexual activity Current Number of Partners: 1, Sexual Preference: Men, Currently sexually active Yes. OB History: # 1: 1987, Spontaneous . # 2: 1988 , Primary ft female. # 3 1993, ft male. / Para : G 3, P 2011. Surgical History: 1988, bilateral tubal ligation (BTL) 2001. Hospitalization/Major Diagnostic Procedure: Denies Past Hospitalization. Family History: Mother: alive, diabetes. Father: alive. Maternal Grandmother: 68 yrs, breast cancer, diagnosed with Malignant neoplasm. Social History: Alcohol: socially . no Drugs . no Regular exercise . New since last visit: none. Occupation: unemployed. no Travel outside [place]. Tobacco Use Are you a: never smoker. Medications: None Allergies: N.K.D.A. Objective: Vitals: Ht 62, Wt 117, BMI 21.40, BP 116/62. Examination: complete exam: GENERAL APPEARANCE: No acute distress, Well nourished, Well developed . NEURO: no focal deficits, Normal sensation to touch . HEENT: Unremarkable. Normocephalic, atraumatic. EOMI, cranial nerves grossly intact. No conjunctival injection or scleral icterus. . NECK: supple without masses . CHEST: symmetrical . LUNGS: Respirations unlabored on room air . ABDOMEN: soft, no masses palpated, non-tender/non-distended, normal active bowel sounds, no hepatosplenomegaly, no CVA tenderness, no abdominal hernia . EXTREMITIES: no clubbing, cyanosis, edema, +2 distal pulses throughout, normal gait, normal range of motion bilat upper ext and bilat lower ext, normal muscle strength and tone all 4 extremities . SKIN: no rashes, no lesions, no induration or subcut nodules . External genitalia Normal external female genitalia . VAGINA Lookout, well rugated, normal estrogen effect, no lesions, no cystocele or rectocele, normal pelvic support . CERVIX 2X2 cm, no lesions, no CMT, no discharge . UTERUS Enlarged 14-15cm irregular shape with fibroids palp, ant fibroid palp, large post fibroid filling post cul de sac, discomfort to post movement and palpation.. Adenexa No adnexal masses or tenderness, no lympadenopathy or nodularity . Rectum no hemorrhoids, no lesions, normal sphincer tone, no masses, no fissures . PSYCH Alert and oriented to time, place, person, Normal mood and affect . Assessment: Assessment: 1. Uterine fibroid - D25.9 (Primary) 2. Menorrhagia - N92.0 3. Dysmenorrhea - N94.6 4. Back pain - M54.9 5. Encounter to discuss x-ray results - Z71.2 Plan: 1. Uterine fibroid Notes: Scheduled to Total abdominal hysterectomy with bilateral salpingectomy. Discussed risks/benefits/alternatives to procedure. Discussed risk of pain, infection, bleeding possibly requiring blood tr ansfusion, VTE, , injury to surrounding structures (nerves, blood vessels , muscles, bowel, bladder, ureters, vagina), risk of ex-lap/open incision infection, wound breakdown, wound seroma,, risk of incision extension due to size of uterus, vaginal cuff infection, denovo abdominal and vaginal cuff adhesions, postop of dyspareunia. All patient's questions answered; she verbalized understanding and desires to proceed
--- OUTSIDE RECORDS SUMMARY | 2018-12-28 11:20 | XMS REPORT ---
:1970 [facility] Address [address] [place] [address] [place] [id number] Care Team Providers Name Role Phone Unavailable Unavailable Unavailable Problems This patient has no known problems. Allergies, Adverse Reactions, Alerts This patient has no known allergies or adverse reactions. Medications This patient has no known medications. Encounters Start End Encounter Admission Attending Care Care Encounter Date/Time Date/Time Type Type Clinicians Facility Department ID 2018-12-08 Inpatient [id number] 06:40:00 2018-12-03 Inpatient [id number] 05:30:00
--- NOTE | 2018-12-28 12:05 | RAD REPORT ---
EXAM DESCRIPTION: CT - Head Brain Wo Cont - 12/28/2018 11:56 am CLINICAL HISTORY: SYNCOPE Headache, drowsiness, syncope COMPARISON: No comparisons TECHNIQUE: All CT scans are performed using dose optimization technique as appropriate and may inclu de automated exposure control or mA/KV adjustment according to patient size. FINDINGS: No intracranial hemorrhage, hydrocephalus or extra-axial fluid collection.No areas of brai n edema or evidence of midline shift. The paranasal sinuses and mastoids are clear. The calvarium is intact. IMPRESSION: No acute intracranial abnormality.
--- NOTE | 2018-12-28 12:10 | RAD REPORT ---
EXAM DESCRIPTION: CT - Abdomen Pelvis Wo Contrast - 12/28/2018 12:00 pm CLINICAL HISTORY: Abdominal pain. ABD PAIN COMPARISON: Abdomen Pelvis W Contrast dated 12/08/2018 TECHNIQUE: CT imaging of the abdomen and pelvis was performed without contrast. Solid organ, bowel a nd vascular assessment is limited due to lack of IV and oral contrast. All CT scans are performed using dose optimization technique as appropriate and may include automated exposure control or mA/KV adjustment according to patient size. FINDINGS: The lower lung jacques are clear. The liver, spleen, pancreas, adrenal glands and right kidney are within normal limits for a limited n on-contrast examination.Punctate calculus is present in left kidney inferiorly. Multiple dilated small bowel loops are seen in the central abdomen compatible with moderately severe mechanical small bowel obstruction. A clear point of transition is not seen. No free air or abscess. The appendix is normal. The osseous structures are within normal limits. IMPRESSION: Moderate mechanical small-bowel obstruction. A limited non-contrast examination was performed as detailed.
--- NOTE | 2018-12-28 12:22 | RAD REPORT ---
EXAM DESCRIPTION: RAD - Chest Single View - 12/28/2018 12:17 pm CLINICAL HISTORY: syncope Chest pain. COMPARISON: Chest Single View dated 12/08/2018 FINDINGS: Portable technique limits examination quality. The lungs are grossly clear. The heart is normal in size. No displaced fractures. IMPRESSION: No acute intrathoracic process suspected.
[2018-12-28] MEDS ORDERED: NA CHLORIDE 0.9% 1,000 ML ONE ×2 (12:24→14:56)
[2018-12-28 12:27] LABS: Absolute Lymphocytes (CBC) 0.9 K/uL (0.7-4.9); Absolute Monocytes 0.4 K/uL (0.1-1.3); Absolute Neutrophil 6.9 K/uL (1.8-8.0); Hematocrit 38.8 % (36.0-45.0); MPV 8.7 fL (7.6-11.3); Monocytes % 4.9 % (3.3-12.3); RBC Red Blood Cell Count 4.81 M/uL (3.86-4.86)
[2018-12-28 12:29] LABS: Protime INR 1.15
[2018-12-28 12:46] LABS: ALT/SGPT 29 U/L (12-78); AST/SGOT 15 U/L (15-37); Albumin 4.2 g/dL (3.4-5.0); Alkaline Phosphatase 85 U/L (45-117); BUN Blood Urea Nitrogen 6 mg/dL (7-18); Bicarbonate 27 mmol/L (21-32); Bilirubin Direct 0.2 mg/dL (0-0.2); Bilirubin Total 0.8 mg/dL (0.2-1.0); Glucose Level 99 mg/dL (74-106); Magnesium 2.2 mg/dL (1.8-2.4); NT PRO-BNP 45 pg/mL (<125); Potassium 4.2 mmol/L (3.5-5.1); Protein, Total 8.8 g/dL (6.4-8.2); Sodium Level 140 mmol/L (136-145); Troponin (Emerg Dept Use Only) < 0.02 ng/mL (0.0-0.045)
[2018-12-28] MEDS ORDERED: FENTANYL CITR 100 MCG/2 ML ONE ×2 (12:52→13:50)
[2018-12-28] MEDS ORDERED: ONDANSETRON 4 MG/2 ML VIAL ONE ×2 (12:53→16:20)
--- NOTE | 2018-12-28 14:03 | ER ---
Nurse's Notes [facility] Name: Marcela Jamison Age: 48 yrs Sex: Female : 1970 Arrival Date: 12/28/2018 Time: 11:12 Bed 3 Private MD: out of town, doctor Diagnosis: Other intestinal obstruction;Postprocedural intestinal obstruction Presentation: 12/28 11:31 Presenting complaint: Child states: pt has hx of recent hysterectomy and bowel iw obsturction s/p surgery, was at [facility] 2 weeks for treatment, has been feeling very nauseous, not able to eat, upper abd pain, almost fainted today, appears drowsy, weak, able to stand with assistance to get into stretcher. Transition of care: patient was not received from another setting of care. Onset of symptoms was December 25, 2018. Risk Assessment: Do you want to hurt yourself or someone else? Patient reports no desire to harm self or others. Initial Sepsis Screen: Does the patient meet any 2 criteria? No. Patient's initial sepsis screen is negative. Does the patient have a suspected source of infection? No. Patient's initial sepsis screen is negative. Care prior to arrival: None. 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 - Social history:: The patient lives with family, at home, Smoking status: Patient/guardian denies using tobacco. - Ebola Screening: : Patient negative for fever greater than or equal to 101.5 degrees Fahrenheit, and additional compatible Ebola Virus Disease symptoms Patient denies exposure to infectious person Patient denies travel to an Ebola-affected area in the 21 days before illness onset No symptoms or risks identified at this time. Screenin:52 Abuse screen: Denies threats or abuse. Denies injuries from another. Nutritional ph screening: No deficits noted. Tuberculosis screening: No symptoms or risk factors identified. Fall Risk None identified. Assessment: 11:45 General: Appears in no apparent distress. uncomfortable, slender, well groomed, ph Behavior is cooperative, appropriate for age, anxious, crying. Pain: Complains of pain in abdomen Pain currently is 10 out of 10 on a pain scale. Neuro: Level of Consciousness is awake, alert, obeys commands, Oriented to person, place, time, situation. Cardiovascular: Capillary refill < 3 seconds in bilateral fingers Patient's skin is warm and dry. Respiratory: Airway is patent Respiratory effort is even, unlabored, Respiratory pattern is regular, symmetrical. GI: Abdomen is flat, Bowel sounds present X 4 quads. Abdomen is tender to palpation X 4 quads. Reports lower abdominal pain, upper abdominal pain, nausea, Patient currently denies constipation, diarrhea, vomiting. Derm: Skin is intact, is healthy with good turgor, Skin is pink, warm \T\ dry. Musculoskeletal: Circulation, motion, and sensation intact. Range of motion: intact in all extremities. 12:59 Reassessment: Patient appears in no apparent distress at this time. Patient and/or ph family updated on plan of care and expected duration. Pain level reassessed. Patient is alert, oriented x 3, equal unlabored respirations, skin warm/dry/pink. Pt reports that pain has decreased to 2/10 after IV pain medication. 13:00 Reassessment: Patient appears in no apparent distress at this time. No changes from previously documented assessment. Patient and/or family updated on plan of care and expected duration. Pain level reassessed. Patient is alert, oriented x 3, equal unlabored respirations, skin warm/dry/pink. 14:00 Reassessment: Patient appears in no apparent distress at this time. Patient and/or ph family updated on plan of care and expected duration. Pain level reassessed. Patient is alert, oriented x 3, equal unlabored respirations, skin warm/dry/pink. Pt again complaining of pain in abdomen 03/25, ERP notified, explained to pt need to place NGT to decompress stomach, pt agrees to NGT placement, family at bedside, VSS. 15:10 Reassessment: Patient appears in no apparent distress at this time. Patient and/or ph family updated on plan of care and expected duration. Pain level reassessed. Patient is alert, oriented x 3, equal unlabored respirations, skin warm/dry/pink. NGT placed per ERP order, pt tolerated well, approx 400 cc gastric contents to bedside suction, pt reports that pain has improved to 5/10, family at bedside, awaiting transfer. 15:45 Reassessment: Patient appears in no apparent distress at this time. No changes from ph previously documented assessment. Patient and/or family updated on plan of care and expected duration. Pain level reassessed. Patient is alert, oriented x 3, equal unlabored respirations, skin warm/dry/pink. Report called to Byron at [facility], awaiting EMS. 16:05 Reassessment: Patient appears in no apparent distress at this time. Patient is alert, ph oriented x 3, equal unlabored respirations, skin warm/dry/pink. [facility] at bedside, report given to EMT-P, pt medicated for pain and nausea prior to transfer, see AR. Vital Signs: 11:30 BP 112 / 83; Pulse 71; Resp 16; Temp 97.7(O); Pulse Ox 100% on R/A; iw 12:59 BP 106 / 80; Pulse 62; Resp 18; Pulse Ox 98% on R/A; Pain 2/10; ph 14:00 BP 104 / 78; Pulse 74; Resp 18; Pulse Ox 99% on R/A; ph 15:18 BP 124 / 94; Pulse 80; Resp 18; Temp 98.4; Pulse Ox 99% on R/A; ph 16:00 BP 123 / 87; Pulse 82; Resp 18; Temp 97.9; Pulse Ox 99% on R/A; ph ED Course: 11:12 Patient arrived in ED. dl4 11:13 out of town, doctor is Private Physician. dl4 11:30 Rosas Escobedo MD is Attending Physician. gs 11:38 Triage completed. iw 11:40 Arm band placed on. iw 11:43 Kerrie Michaels, RN is Primary Nurse. ph 11:57 Head Brain Wo Cont CT In Process Unspecified. EDMS 11:59 CT completed. Patient tolerated procedure well. mw3 12:02 CT Abd/Pelvis - Without Contrast In Process Unspecified. EDMS 12:03 Patient moved to radiology. mw3 12:15 Inserted saline lock: 20 gauge in right antecubital area, using aseptic technique. ph Blood collected. 12:19 XRAY Chest (1 view) In Process Unspecified. EDMS 12:30 Patient has correct armband on for positive identification. Placed in gown. Bed in low ph position. Call light in reach. Side rails up X2. Pulse ox on. NIBP on. Door closed. Noise minimized. Warm blanket given. Head of bed elevated. 12:59 EKG done, by ED staff, reviewed by Rosas Escobedo MD. kj1 15:00 NGT: inserted 16 Fr. via left nare. verified placement of air over stomach, verified ph return of gastric contents, Placement verified by X-ray, to intermittent suction. Returned gastric contents. Amount of gastric contents removed by suction 400ml. Patient tolerated well. 15:11 Abdomen 1 View XRAY In Process Unspecified. EDMS 16:00 No provider procedures requiring assistance completed. Patient transferred, IV remains ph in place. Administered Medications: 12:30 Drug: NS 0.9% 1000 ml Route: IV; Rate: 1 bolus; Site: right antecubital; ph 13:30 Follow up: Response: No adverse reaction; IV Status: Completed infusion ph 12:45 Drug: fentaNYL (PF) 50 mcg Route: IVP; Site: right antecubital; ph 13:30 Follow up: Response: No adverse reaction; Pain is decreased ph 13:40 Drug: fentaNYL (PF) 50 mcg Route: IVP; Site: right antecubital; ph 14:15 Follow up: Response: No adverse reaction; Pain is decreased ph 15:18 Drug: NS 0.9% 1000 ml Route: IV; Rate: 175 ml/hr; Site: right antecubital; ph 20:10 Follow up: Response: No adverse reaction; IV Status: Infusion continued upon transfer ph 16:07 Drug: Zofran 4 mg Route: IVP; Site: right antecubital; ph 16:10 Follow up: Response: No adverse reaction ph 16:09 Drug: fentaNYL (PF) 50 mcg Route: IVP; Site: right antecubital; ph 16:10 Follow up: Response: No adverse reaction; Pain is decreased ph Point of Care Testing: Blood Glucose: 11:30 Blood Glucose: 93 mg/dL; iw Ranges: Outcome: 14:03 ER care complete, transfer ordered by . 16:11 Patient left the ED. ph 16:11 Transferred by ground EMS [place]. to [facility], Transfer form ph completed. X-rays sent w/ patient. 16:11 Condition: stable 16:11 Instructed on the need for transfer. Signatures: Dispatcher [employer] Carolina Garvin RN RN Kerrie Michaels RN RN Rosas Escobedo MD MD gs Willis, Michelle mw3 Randy Xiao dl4 Socorro Valle kj1 Corrections: (The following items were deleted from the chart) 11:40 11:31 Presenting complaint: Child states: pt has hx of recent bowel obsturction, has iw been feeling very nauseous, not able to eat, upper abd pain iw 11:41 11:31 Presenting complaint: Child states: pt has hx of recent hysterectomy and bowel iw obsturction s/p surgery, was at [facility] 2 weeks for treatment, has been feeling very nauseous, not able to eat, upper abd pain iw 11:52 11:39 Home Meds: None; iw 12:04 11:59 Patient moved back from [place]. mw3 mw3 15:34 15:24 Inserted ph ph
--- NOTE | 2018-12-28 14:03 | EDPHYS ---
Physician Documentation [facility] Name: Marcela Jamison Age: 48 yrs Sex: Female : 1970 Arrival Date: 12/28/2018 Time: 11:12 Bed 3 Private MD: out of town, doctor ED Physician Rosas Escobedo HPI: 12/28 13:53 This 48 yrs old Female presents to ER via Wheelchair with complaints of gs Abdominal Pain. 13:53 The patient presents with abdominal pain abdominal distention. Onset: The gs symptoms/episode began/occurred yesterday. The symptoms do not radiate. Associated signs and symptoms: Pertinent positives: nausea. The symptoms are described as crampy, sharp. Modifying factors: The symptoms are alleviated by nothing, the symptoms are aggravated by food. Severity of pain: At its worst the pain was severe in the emergency department the pain is unchanged. The patient has experienced similar episodes in the past, a few times. The patient has been recently seen by a physician: pablo. 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 - Social history:: The patient lives with family, at home, Smoking status: Patient/guardian denies using tobacco. - Ebola Screening: : Patient negative for fever greater than or equal to 101.5 degrees Fahrenheit, and additional compatible Ebola Virus Disease symptoms Patient denies exposure to infectious person Patient denies travel to an Ebola-affected area in the 21 days before illness onset No symptoms or risks identified at this time. ROS: 13:53 All other systems are negative. gs Exam: 13:53 Head/Face: Normocephalic, atraumatic. Eyes: Pupils equal round and reactive to light, gs extra-ocular motions intact. Lids and lashes normal. Conjunctiva and sclera are non-icteric and not injected. Cornea within normal limits. Periorbital areas with no swelling, redness, or edema. ENT: Nares patent. No nasal discharge, no septal abnormalities noted. Tympanic membranes are normal and external auditory canals are clear. Oropharynx with no redness, swelling, or masses, exudates, or evidence of obstruction, uvula midline. Mucous membranes moist. Neck: Trachea midline, no thyromegaly or masses palpated, and no cervical lymphadenopathy. Supple, full range of motion without nuchal rigidity, or vertebral point tenderness. No Meningismus. Chest/axilla: Normal chest wall appearance and motion. Nontender with no deformity. No lesions are appreciated. Cardiovascular: Regular rate and rhythm with a normal S1 and S2. No gallops, murmurs, or rubs. Normal PMI, no JVD. No pulse deficits. Respiratory: Lungs have equal breath sounds bilaterally, clear to auscultation and percussion. No rales, rhonchi or wheezes noted. No increased work of breathing, no retractions or nasal flaring. Back: No spinal tenderness. No costovertebral tenderness. Full range of motion. Skin: Warm, dry with normal turgor. Normal color with no rashes, no lesions, and no evidence of cellulitis. MS/ Extremity: Pulses equal, no cyanosis. Neurovascular intact. Full, normal range of motion. Neuro: Awake and alert, GCS 15, oriented to person, place, time, and situation. Cranial nerves II-XII grossly intact. Motor strength 5/5 in all extremities. Sensory grossly intact. Cerebellar exam normal. Normal gait. 13:53 Constitutional: The patient appears alert, awake. 13:53 Abdomen/GI: Inspection: distension, that is moderate, Palpation: moderate abdominal tenderness, in all quadrants. Vital Signs: 11:30 BP 112 / 83; Pulse 71; Resp 16; Temp 97.7(O); Pulse Ox 100% on R/A; iw 12:59 BP 106 / 80; Pulse 62; Resp 18; Pulse Ox 98% on R/A; Pain 2/10; ph 14:00 BP 104 / 78; Pulse 74; Resp 18; Pulse Ox 99% on R/A; ph 15:18 BP 124 / 94; Pulse 80; Resp 18; Temp 98.4; Pulse Ox 99% on R/A; ph 16:00 BP 123 / 87; Pulse 82; Resp 18; Temp 97.9; Pulse Ox 99% on R/A; ph MDM: 11:30 Patient medically screened. 13:53 Differential diagnosis: bowel obstruction, diverticulitis, gastritis, pancreatitis. Data reviewed: vital signs, nurses notes, lab test result(s). Counseling: I had a detailed discussion with the patient and/or guardian regarding: the historical points, exam findings, and any diagnostic results supporting the discharge/admit diagnosis. Response to treatment: the patient's symptoms have mildly improved after treatment. ED course: pt request transfer continuity of care. 12/28 11:33 Order name: Basic Metabolic Panel 12/28 11:33 Order name: CBC with Diff 12/28 11:33 Order name: LFT's 12/28 11:33 Order name: Magnesium; Complete Time: 13:04 12/28 11:33 Order name: NT PRO-BNP 12/28 11:33 Order name: PT-INR; Complete Time: 13:04 12/28 11:33 Order name: Troponin (emerg Dept Use Only); Complete Time: 13:04 12/28 11:33 Order name: XRAY Chest (1 view); Complete Time: 12:28 12/28 11:33 Order name: Head Brain Wo Cont CT; Complete Time: 12:28 12/28 11:34 Order name: Basic Metabolic Panel; Complete Time: 13:04 [facility] 12/28 11:35 Order name: CBC with Automated Diff; Complete Time: 12:28 [facility] 12/28 11:35 Order name: Liver (Hepatic) Function; Complete Time: 13:04 [facility] 12/28 11:35 Order name: NT PRO-BNP; Complete Time: 13:04 [facility] 12/28 11:46 Order name: CT Abd/Pelvis - Without Contrast; Complete Time: 12:28 12/28 11:33 Order name: EKG; Complete Time: 11:35 12/28 11:33 Order name: Cardiac monitoring; Complete Time: 12:44 12/28 11:33 Order name: EKG - Nurse/Tech; Complete Time: 12:45 12/28 11:33 Order name: IV Saline Lock; Complete Time: 12:06 12/28 11:33 Order name: Labs collected and sent; Complete Time: 12: 12/28 11:33 Order name: O2 Per Protocol; Complete Time: 12: 12/28 11:33 Order name: O2 Sat Monitoring; Complete Time: 12: 12/28 14:03 Order name: NG Tube; Complete Time: 15:09 12/28 14:57 Order name: Abdomen 1 View XRAY gs Administered Medications: 12:30 Drug: NS 0.9% 1000 ml Route: IV; Rate: 1 bolus; Site: right antecubital; ph 13:30 Follow up: Response: No adverse reaction; IV Status: Completed infusion ph 12:45 Drug: fentaNYL (PF) 50 mcg Route: IVP; Site: right antecubital; ph 13:30 Follow up: Response: No adverse reaction; Pain is decreased ph 13:40 Drug: fentaNYL (PF) 50 mcg Route: IVP; Site: right antecubital; ph 14:15 Follow up: Response: No adverse reaction; Pain is decreased ph 15:18 Drug: NS 0.9% 1000 ml Route: IV; Rate: 175 ml/hr; Site: right antecubital; ph 20:10 Follow up: Response: No adverse reaction; IV Status: Infusion continued upon transfer ph 16:07 Drug: Zofran 4 mg Route: IVP; Site: right antecubital; ph 16:10 Follow up: Response: No adverse reaction ph 16:09 Drug: fentaNYL (PF) 50 mcg Route: IVP; Site: right antecubital; ph 16:10 Follow up: Response: No adverse reaction; Pain is decreased ph Point of Care Testing: Blood Glucose: 11:30 Blood Glucose: 93 mg/dL; iw Ranges: Critical Glucose Levels:Adult <50 mg/dl or >400 mg/dl <40 mg/dl or >180 mg/dl Disposition: 12/28/18 14:03 Transfer ordered to Other Acute Care Facility. Diagnosis are Other intestinal obstruction, Postprocedural intestinal obstruction. - Reason for transfer: Higher level of care. - Accepting physician is paula. - Condition is Stable. - Problem is an acute exacerbation. - Symptoms are unchanged. Critical care time excluding procedures: 13:53 Critical care time: Bedside Care: 10 minutes, Consultation: 10 minutes, Family gs Intervention: 10 minutes. Total time: 30 minutes Signatures: Dispatcher [employer] Carolina Garvin RN RN Kerrie Michaels RN RN EscobedoRosas MD MD gs Corrections: (The following items were deleted from the chart) 11:52 11:39 Home Meds: None; [facility] 16:11 14:03 12/28/2018 14:03 Transfer ordered to Other Acute Care Facility. Diagnosis is ph Other intestinal obstruction; Postprocedural intestinal obstruction. Reason for transfer: Higher level of care. Accepting physician is paula. Condition is Stable. Problem is an acute exacerbation. Symptoms are unchanged. gs
[2018-12-28] MEDS ORDERED: LIDOCAINE VISCOUS 2% SOLN 15 ML UDC ONE (14:56)
--- NOTE | 2018-12-28 16:14 | RAD REPORT ---
EXAM DESCRIPTION: RAD - Abdomen Single View - 12/28/2018 3:11 pm CLINICAL HISTORY: POST NG PLACEMENT Pain COMPARISON: <Comparisons> FINDINGS: The enteric tube tip is in the stomach.
[2018-12-28 16:53] VITALS: BP 124/94; TEMP 98.4; O2SAT 99
--- NOTE | 2018-12-29 10:38 | EKG ---
Test Date: 2018-12-28 Test Time: 12:55:05 Payroll Human Resources Assistant: KAYA MEASUREMENT RESULTS: Intervals: Rate: 59 WY: 156 QRSD: 78 QT: 424 QTc: 419 [place]: P: 66 WY: 156 QRS: 75 T: 62 INTERPRETIVE STATEMENTS: Sinus bradycardia Otherwise normal ECG No previous ECG available for comparison Electronically Signed On 12-29-18 10:37:28 CDT by Benoit Delgadillo
== END 2018-12-28 16:11 ==
LOC: ER 11:10
DX: K91.30 Postprocedural intestinal obstruction, unspecified as to partial versus complete (principal)
CPT/HCPCS: 36415; 70450; 71045; 74018; 74176; 80048; 80076; 82962; 83735; 83880; 84484; 85025; 85610; 93005; 96361; 96374; 96375; 99285; J2405; J3010; J7030

== ENCOUNTER 2019-06-24 18:09 | Emergency (ER) | payer BC ==
--- OUTSIDE RECORDS SUMMARY | 2019-06-24 18:13 | XMS REPORT ---
:1970 [facility] Address [address] [place] [address] [place] [id number] Care Team Providers Name Role Phone Unavailable Unavailable Unavailable Problems This patient has no known problems. Allergies, Adverse Reactions, Alerts This patient has no known allergies or adverse reactions. Medications This patient has no known medications. Encounters Start End Encounter Admission Attending Care Care Encounter Date/Time Date/Time Type Type Clinicians Facility Department ID 2018-12-28 Inpatient [facility] [id number] 17:06:00 2018-12-08 Inpatient [facility] [id number] 06:40:00 2018-12-03 Inpatient [id number] 05:30:00 2019-05-28 2019-05-28 Emergency E [facility] [id number] 12:11:00 12:11:00 2019-02-14 2019-02-14 Outpatient [facility] [id number] 08:04:00 08:04:00
[2019-06-24] MEDS ORDERED: NA CHLORIDE 0.9% 1,000 ML ONE (19:31)
[2019-06-24] MEDS ORDERED: MAGNE/ALUM HYDROXD 30 ML UCUP ONE (19:31)
[2019-06-24] MEDS ORDERED: LIDOCAINE VISCOUS 2% SOLN 15 ML UDC ONE (19:32)
[2019-06-24 19:49] LABS: Absolute Lymphocytes (CBC) 1.4 K/uL (0.7-4.9); Hematocrit 40.3 % (36.0-45.0); Lymphocytes % 28.1 % (15.3-44.8); MPV 9.2 fL (7.6-11.3); RBC Red Blood Cell Count 4.55 M/uL (3.86-4.86)
[2019-06-24 20:04] LABS: Albumin 3.9 g/dL (3.4-5.0); Bilirubin Total 1.1 mg/dL (0.2-1.0); Potassium 3.7 mmol/L (3.5-5.1); Protein, Total 7.3 g/dL (6.4-8.2)
--- NOTE | 2019-06-24 21:01 | RAD REPORT ---
EXAM DESCRIPTION: CT - Abdomen Pelvis W Contrast - 06/24/2019 8:27 pm CLINICAL HISTORY: Abdominal pain COMPARISON: December 2018 TECHNIQUE: Computed axial tomography of the abdomen pelvis was obtained. 100 cc Isovue-300 was admin istered intravenously. Oral contrast was not requested which limits evaluation of bowel. All CT scans are performed using dose optimization technique as appropriate and may include automated exposure control or mA/KV adjustment according to patient size. FINDINGS: The liver, spleen, pancreas, adrenal and left kidney appear unremarkable Small right renal cyst is present .. There is no evidence of diverticulitis. Normal appendix Fluid is present within nondilated small bowel. The wall of the distal stomach appears mildly thickened IMPRESSION: Fluid in nondilated small bowel may indicate an enteritis Apparent mild thickening of the wall of the stomach may indicate a gastritis or be secondary to incom plete distention
--- NOTE | 2019-06-24 21:30 | ER ---
Nurse's Notes [facility] Name: Marcela Jamison Age: 48 yrs Sex: Female : 1970 Arrival Date: 06/24/2019 Time: 18:12 Bed 6 Private MD: Diagnosis: Enteritis;Peptic ulcer disease Presentation: 06/24 18:14 Presenting complaint: Patient states: left sided abd pain x 2 weeks, nausea, dizziness sv x 2 days. Transition of care: patient was not received from another setting of care. Onset of symptoms was May 2019. Risk Assessment: Do you want to hurt yourself or someone else? Patient reports no desire to harm self or others. Care prior to arrival: Medication(s) given: Motrin, taken this morning. 18:14 Method Of Arrival: Ambulatory sv 18:14 Acuity: KAMI 3 sv 21:40 Initial Sepsis Screen: Does the patient meet any 2 criteria? No. Patient's initial ak1 sepsis screen is negative. Does the patient have a suspected source of infection? No. Patient's initial sepsis screen is negative. Historical: - Allergies: 18:15 No Known Allergies; sv - PMHx: 18:15 fibroids; bowel obstruction; sv - PSHx: 18:15 Hysterectomy; sv - Immunization history:: Adult Immunizations up to date. - Social history:: Smoking status: unknown. - Ebola Screening: : No symptoms or risks identified at this time. Screenin:28 Abuse screen: Denies threats or abuse. Denies injuries from another. Nutritional aj1 screening: No deficits noted. Tuberculosis screening: No symptoms or risk factors identified. 21:40 Fall Risk None identified. ak1 Assessment: 18:28 General: Appears in no apparent distress. uncomfortable, Behavior is calm, cooperative, aj1 appropriate for age. Pain: Complains of pain in epigastric area and right lower quadrant. Neuro: Level of Consciousness is awake, alert, obeys commands, Oriented to person, place, time, situation. Cardiovascular: Patient's skin is warm and dry. Respiratory: Airway is patent Respiratory effort is even, unlabored, Respiratory pattern is regular, symmetrical. GI: Abdomen is flat, non-distended, Bowel sounds present X 4 quads. Abd is soft X 4 quads Abdomen is tender to palpation in epigastric area Reports nausea, Patient currently denies diarrhea, vomiting. : No signs and/or symptoms were reported regarding the genitourinary system. EENT: No signs and/or symptoms were reported regarding the EENT system. Derm: No signs and/or symptoms reported regarding the dermatologic system. Skin is pink, warm \T\ dry. normal. Musculoskeletal: No signs and/or symptoms reported regarding the musculoskeletal system. Circulation, motion, and sensation intact. 19:15 Reassessment: Patient appears in no apparent distress at this time. Patient and/or cc3 family updated on plan of care and expected duration. Pain level reassessed. Patient is alert, oriented x 3, equal unlabored respirations, skin warm/dry/pink. Received this female patient from morning shift RN Ml as a case of abdominal pain, nausea, dizziness. No IV cannula in situ. General: Appears in no apparent distress. uncomfortable, Behavior is calm, cooperative, appropriate for age. Pain: Complains of pain in epigastric area. Neuro: Level of Consciousness is awake, alert, obeys commands, Oriented to person, place, time, situation, Appropriate for age. Cardiovascular: Denies chest pain, Heart tones S1 S2 present Capillary refill < 3 seconds in bilateral fingers Patient's skin is warm and dry. Respiratory: Airway is patent Respiratory effort is even, unlabored, Respiratory pattern is regular, symmetrical, Breath sounds are clear bilaterally. GI: Abdomen is flat, Bowel sounds present X 4 quads. Abd is soft X 4 quads Abdomen is tender to palpation in epigastric area. : No signs and/or symptoms were reported regarding the genitourinary system. EENT: No signs and/or symptoms were reported regarding the EENT system. Derm: Skin is intact, is healthy with good turgor, Skin is pink, warm \T\ dry. normal. Musculoskeletal: Circulation, motion, and sensation intact. Range of motion: intact in all extremities. 20:12 Reassessment: Patient appears in no apparent distress at this time. Patient and/or cc3 family updated on plan of care and expected duration. Pain level reassessed. Patient is alert, oriented x 3, equal unlabored respirations, skin warm/dry/pink. 21:40 Reassessment: Patient appears in no apparent distress at this time. Patient and/or cc3 family updated on plan of care and expected duration. Pain level reassessed. Patient is alert, oriented x 3, equal unlabored respirations, skin warm/dry/pink. Dr. France discharged the patient home with prescriptions given. IV cannula removed and patient left Er vitally stable and ambulatory. No valuables left in the patient's room. Patient denies pain at this time. Patient states feeling better. Patient states symptoms have improved. Vital Signs: 18:15 BP 132 / 88; Pulse 63; Resp 16; Temp 98.5(O); Pulse Ox 100% ; Weight 47.17 kg; Height 5 sv ft. 2 in. (157.48 cm); 19:20 BP 129 / 87; Pulse 61; Resp 15 S; Temp 98.3(O); Pulse Ox 100% on R/A; cc3 20:25 BP 130 / 80; Pulse 63; Resp 16 S; Pulse Ox 99% on R/A; cc3 21:39 BP 132 / 81; Pulse 56; Resp 16; Temp 98.5; Pulse Ox 100% on R/A; ak1 18:15 Body Mass Index 19.02 (47.17 kg, 157.48 cm) sv ED Course: 18:12 Patient arrived in ED. mr 18:14 Triage completed. sv 18:16 Arm band placed on. sv 18:28 Ml Gomez, RN is Primary Nurse. aj1 18:28 Patient has correct armband on for positive identification. Bed in low position. Call aj1 light in reach. Side rails up X 1. 18:28 No provider procedures requiring assistance completed. aj1 18:30 Ash France MD is Attending Physician. ps1 19:20 Inserted saline lock: 20 gauge in right antecubital area, using aseptic technique. cc3 Blood collected. 20:28 CT Abd/Pelvis - IV Contrast Only In Process Unspecified. EDMS 21:41 IV discontinued, intact, bleeding controlled, No redness/swelling at site. Pressure ak1 dressing applied. Administered Medications: 19:20 Drug: NS 0.9% 1000 ml Route: IV; Rate: 1 bolus; Site: right antecubital; cc3 21:41 Follow up: IV Status: Completed infusion; IV Intake: 1000ml ak1 19:25 Drug: GI Cocktail without - (Maalox Suspension 30 ml, Lidocaine Liquid 2 % 15 cc3 ml) Route: PO; 21:41 Follow up: Response: No adverse reaction ak1 Intake: 21:41 IV: 1000ml; Total: 1000ml. ak1 Outcome: 21:29 Discharge ordered by . ps1 21:40 Discharged to home ambulatory, with family. ak1 21:40 Condition: improved 21:40 Discharge instructions given to patient, Instructed on discharge instructions, follow up and referral plans. no drinking with medication, no driving heavy equipment, medication usage, safe sex practices, Demonstrated understanding of instructions, follow-up care, medications, Prescriptions given X 3. 21:54 Patient left the ED. ak1 Signatures: Dispatcher [employer] EDMS Ml Gomez RN RN ajToshia Moncada RN Gabriela Mendoza, Gena RN RN ak1 Ash France MD MD ps1 Cordel, Charlene cc3 Corrections: (The following items were deleted from the chart) 18:16 18:14 Care prior to arrival: None. sv sv 18:16 18:15 Pulse 63bpm; Resp 16bpm; Pulse Ox 100%; Temp 98.5F Oral; 47.17 kg; Height 5 ft. 2 sv in.; BMI: 19.0; sv
--- NOTE | 2019-06-24 21:30 | EDPHYS ---
Physician Documentation [facility] Name: Marcela Jamison Age: 48 yrs Sex: Female : 1970 Arrival Date: 06/24/2019 Time: 18:12 Bed 6 Private MD: ED Physician Ash France HPI: 06/24 18:44 This 48 yrs old Female presents to ER via Ambulatory with complaints of ps1 Abdominal Pain, Nausea, Dizziness. 18:44 patient has a 4 day history of abdominal pain localized to epigastric area and LLQ no ps1 blood in stools. Patient has a complicated history of small bowel obstructions and adhesions from hyst additionally had a cervical dehiscence requiring revision. Since then has been ok. Started having pain and taking ibuprofen but now has epigastric pain. Pain rated as moderate to severe. Had a BM today, loose. No vomiting or fever. . Historical: - Allergies: 18:15 No Known Allergies; sv - PMHx: 18:15 fibroids; bowel obstruction; sv - PSHx: 18:15 Hysterectomy; sv - Immunization history:: Adult Immunizations up to date. - Social history:: Smoking status: unknown. - Ebola Screening: : No symptoms or risks identified at this time. ROS: 18:44 Constitutional: Negative for fever, chills, and weight loss, Eyes: Negative for injury, ps1 pain, redness, and discharge, Cardiovascular: Negative for chest pain, palpitations, and edema, Respiratory: Negative for shortness of breath, cough, wheezing, and pleuritic chest pain, MS/Extremity: Negative for injury and deformity, Skin: Negative for injury, rash, and discoloration, Neuro: Negative for headache, weakness, numbness, tingling, and seizure. 18:44 Abdomen/GI: Positive for abdominal pain, diarrhea, abdominal cramps. Exam: 18:55 Constitutional: This is a well developed, well nourished patient who is awake, alert, ps1 and in no acute distress. Head/Face: Normocephalic, atraumatic. Eyes: Pupils equal round and reactive to light, extra-ocular motions intact. Lids and lashes normal. Conjunctiva and sclera are non-icteric and not injected. Chest/axilla: Normal chest wall appearance and motion. Nontender with no deformity. No lesions are appreciated. Cardiovascular: Regular rate and rhythm. No gallops, murmurs, or rubs. Normal PMI, no JVD. No pulse deficits. Respiratory: Lungs have equal breath sounds bilaterally, clear to auscultation and percussion. No rales, rhonchi or wheezes noted. No increased work of breathing, no retractions or nasal flaring. Skin: Warm, dry with normal turgor. Normal color with no rashes, no lesions, and no evidence of cellulitis. MS/ Extremity: Pulses equal, no cyanosis. Neurovascular intact. Full, normal range of motion. Neuro: Awake and alert, GCS 15, oriented to person, place, time, and situation. Cranial nerves II-XII grossly intact. Sensory grossly intact. 18:55 Abdomen/GI: Inspection: abdomen appears normal, Bowel sounds: normal, Palpation: mild abdominal tenderness, in the left lower quadrant. Vital Signs: 18:15 BP 132 / 88; Pulse 63; Resp 16; Temp 98.5(O); Pulse Ox 100% ; Weight 47.17 kg; Height 5 sv ft. 2 in. (157.48 cm); 19:20 BP 129 / 87; Pulse 61; Resp 15 S; Temp 98.3(O); Pulse Ox 100% on R/A; cc3 20:25 BP 130 / 80; Pulse 63; Resp 16 S; Pulse Ox 99% on R/A; cc3 21:39 BP 132 / 81; Pulse 56; Resp 16; Temp 98.5; Pulse Ox 100% on R/A; ak1 18:15 Body Mass Index 19.02 (47.17 kg, 157.48 cm) sv MDM: 18:56 Patient medically screened. ps1 21:32 Data reviewed: vital signs, nurses notes, lab test result(s), radiologic studies, and ps1 as a result, I will discharge patient. Counseling: I had a detailed discussion with the patient and/or guardian regarding: the historical points, exam findings, and any diagnostic results supporting the discharge/admit diagnosis, lab results, radiology results, the need for outpatient follow up, to return to the emergency department if symptoms worsen or persist or if there are any questions or concerns that arise at home. 06/24 18:44 Order name: CBC with Diff; Complete Time: 20:02 ps1 06/24 18:44 Order name: CMP; Complete Time: 20:22 ps1 06/24 18:44 Order name: CT Abd/Pelvis - IV Contrast Only; Complete Time: 21:13 ps1 06/24 18:44 Order name: Urine Dipstick-Ancillary (obtain specimen); Complete Time: 20:05 ps1 Administered Medications: 19:20 Drug: NS 0.9% 1000 ml Route: IV; Rate: 1 bolus; Site: right antecubital; cc3 21:41 Follow up: IV Status: Completed infusion; IV Intake: 1000ml ak1 19:25 Drug: GI Cocktail without - (Maalox Suspension 30 ml, Lidocaine Liquid 2 % 15 cc3 ml) Route: PO; 21:41 Follow up: Response: No adverse reaction ak1 Disposition: 06/24/19 21:29 Discharged to Home. Impression: Enteritis, Peptic ulcer disease. - Condition is Stable. - Discharge Instructions: Peptic Ulcer, Viral Gastroenteritis, Adult, Fjel-re-Liox, Food Choices for Peptic Ulcer Disease. - Prescriptions for Bentyl 10 mg Oral Capsule - take 1 capsule by ORAL route every 6 hours As needed; 40 capsule. Protonix 40 mg Oral Tablet - take 1 tablet by ORAL route once daily; 30 tablet. Carafate 1 gram Oral Tablet - take 2 tablet by ORAL route every 12 hours take on an empty stomach, beginning on waking and last dose at bedtime; 100 tablet. - Medication Reconciliation Form, Thank You Letter, Antibiotic Education, Prescription Opioid Use form. - Follow up: Private Physician; When: As needed; Reason: Further diagnostic work-up, Recheck today's complaints, Continuance of care, Re-evaluation by your physician. Follow up: Emergency Department; When: As needed; Reason: Fever > 102 F, Worsening of condition. - Problem is new. - Symptoms have improved. Signatures: Dispatcher [employer] EDMl Hammond RN RN [email or web address] Toshia Evans RN RN Gena Colindres RN RN ak1 Ash France MD MD ps1 Apple Lerma cc3 Corrections: (The following items were deleted from the chart) 21:54 21:29 06/24/2019 21:29 Discharged to Home. Impression: Enteritis; Peptic ulcer disease. ak1 Condition is Stable. Forms are Medication Reconciliation Form, Thank You Letter, Antibiotic Education, Prescription Opioid Use. Follow up: Private Physician; When: As needed; Reason: Further diagnostic work-up, Recheck today's complaints, Continuance of care, Re-evaluation by your physician. Follow up: Emergency Department; When: As needed; Reason: Fever > 102 F, Worsening of condition. Problem is new. Symptoms have improved. ps1
[2019-06-24 22:39] VITALS: TEMP 98.5; O2SAT 100
[2019-06-24 23:01] VITALS: BP 130/72
== END 2019-06-24 21:54 | disposition home or self-care (01) ==
LOC: ER 18:09
DX: K52.9 Noninfective gastroenteritis and colitis, unspecified (principal); K27.9 Peptic ulcer, site unspecified, unspecified as acute or chronic, without hemorrhage or perforation
CPT/HCPCS: 96361; 85025; 36415; 80053; 74177; 96360; 99284; Q9967; J7030

== ENCOUNTER 2019-07-13 04:06 | Emergency (ER) | payer BC ==
--- OUTSIDE RECORDS SUMMARY | 2019-07-13 04:09 | XMS REPORT ---
:1970 [facility] Address [address] [place] [address] [place] [id number] Care Team Providers Name Role Phone Unavailable [...]
[2019-07-13] MEDS ORDERED: HYDROCODONE/CHLORPHEN 5 ML/OSYR ONE (04:26)
--- NOTE | 2019-07-13 05:43 | ER ---
Nurse's Notes [facility] Name: Marcela Jamison Age: 48 yrs Sex: Female : 1970 Arrival Date: 07/13/2019 Time: 04:07 Bed 4 Private MD: Diagnosis: Acute laryngopharyngitis Presentation: 07/13 04:19 Presenting complaint: Patient states: dry cough x 5 days. Denies fever. Transition of aa1 care: patient was not received from another setting of care. Onset of symptoms was July 07, 2019. Risk Assessment: Do you want to hurt yourself or someone else? Patient reports no desire to harm self or others. Initial Sepsis Screen: Does the patient meet any 2 criteria? No. Patient's initial sepsis screen is negative. Does the patient have a suspected source of infection? No. Patient's initial sepsis screen is negative. Care prior to arrival: None. 04:19 Method Of Arrival: Ambulatory aa1 04:19 Acuity: KAMI 3 aa1 Triage Assessment: 04:20 General: Appears in no apparent distress. uncomfortable, Behavior is calm, cooperative, aa1 appropriate for age. 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 - Social history:: Smoking status: Patient/guardian denies using tobacco. - Ebola Screening: : No symptoms or risks identified at this time. - Family history:: not pertinent. - Hospitalizations: : No recent hospitalization is reported. Screenin:18 Abuse screen: Denies threats or abuse. Denies injuries from another. Nutritional lp1 screening: No deficits noted. Tuberculosis screening: No symptoms or risk factors identified. Fall Risk None identified. Assessment: 04:16 General: Appears in no apparent distress. Behavior is appropriate for age. Pain: lp1 Complains of pain in chest Pain does not radiate. Pain began gradually, Aggravated by Coughing. Neuro: No deficits noted. Cardiovascular: Patient's skin is warm and dry. Respiratory: Reports cough that is dry, persistent Airway is patent Trachea midline Respiratory effort is even, Respiratory pattern is regular, symmetrical, Breath sounds are clear bilaterally. GI: No signs and/or symptoms were reported involving the gastrointestinal system. : No signs and/or symptoms were reported regarding the genitourinary system. EENT: No signs and/or symptoms were reported regarding the EENT system. Derm: Skin is pink, warm \T\ dry. Musculoskeletal: No deficits noted. 05:10 Reassessment: Patient appears in no apparent distress at this time. Patient and/or rr5 family updated on plan of care and expected duration. Pain level reassessed. awaiting for results. 05:50 Reassessment: Patient appears in no apparent distress at this time. Patient is alert, rr5 oriented x 3, equal unlabored respirations, skin warm/dry/pink. discharge instruction given and explained without complaints made. verbalized understanding. Patient states feeling better. Patient states symptoms have improved. Vital Signs: 04:20 BP 103 / 83; Pulse 105; Resp 18; Temp 98.2; Pulse Ox 100% on R/A; Weight 47.63 kg; aa1 Height 5 ft. 2 in. (157.48 cm); Pain 7/10; 05:00 BP 103 / 75; Pulse 85; Resp 19; Pulse Ox 98% on R/A; rr5 05:50 BP 102 / 85; Pulse 95; Resp 17; Temp 98; Pulse Ox 99% on R/A; rr5 04:20 Body Mass Index 19.20 (47.63 kg, 157.48 cm) aa1 ED Course: 04:07 Patient arrived in ED. ds1 04:10 Marito Garcia, ROBERT is Primary Nurse. rr5 04:15 Dandre Navarrete MD is Attending Physician. rn 04:17 Patient has correct armband on for positive identification. Placed in gown. Bed in low lp1 position. Pulse ox on. NIBP on. 04:18 Patient maintains SpO2 saturation greater than 95% on room air. lp1 04:20 Triage completed. aa1 04:20 Arm band placed on right wrist. aa1 04:31 Flu and/or RSV swab sent to lab. Strep swab sent to lab. rr5 04:33 XRAY Chest (1 view) In Process Unspecified. EDMS Administered Medications: 04:30 Drug: Tussionex Pennkinetic ER 5 ml Route: PO; lp1 05:40 Follow up: Response: Marked relief of symptoms lp1 Outcome: 05:42 Discharge ordered by . rn 05:57 Patient left the ED. rr5 Signatures: Dispatcher [employer] EDMS Naila De Leon RN RN aa1 Corrie Flannery ds1 Dandre Navarrete MD MD rn Pena, Laura, RN RN lp1 Marito Garcia RN RN rr5
--- NOTE | 2019-07-13 05:44 | EDPHYS ---
Physician Documentation [facility] – [place], [place] Name: Marcela Jamison Age: 48 yrs Sex: Female : 1970 Arrival Date: 07/13/2019 Time: 04:07 Bed 4 Private MD: ED Physician Dandre Navarrete HPI: 07/13 05:39 This 48 yrs old Female presents to ER via Ambulatory with complaints of Cough, rn Chest Wall Pain. 05:39 The patient or guardian reports cough, flu symptoms. rn 05:39 Onset: The symptoms/episode began/occurred 5 day(s) ago. Severity of symptoms: At their rn worst the symptoms were moderate, in the emergency department the symptoms are unchanged. Associated signs and symptoms: Pertinent positives: chest pain, fever, rhinorrhea, sore throat, Pertinent negatives: diarrhea, ear ache, nausea, vomiting. The patient has not experienced similar symptoms in the past. The patient has not recently seen a physician. 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 - Social history:: Smoking status: Patient/guardian denies using tobacco. - Ebola Screening: : No symptoms or risks identified at this time. - Family history:: not pertinent. - Hospitalizations: : No recent hospitalization is reported. 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 Exam: 05:39 Constitutional: This is a well developed, well nourished patient who is awake, alert, rn and in no acute distress. Ambulatory to room without difficulty or assistance Head/Face: Normocephalic, atraumatic. Eyes: Pupils equal round and reactive to light, extra-ocular motions intact. Lids and lashes normal. Conjunctiva and sclera are non-icteric and not injected. Cornea within normal limits. Periorbital areas with no swelling, redness, or edema. ENT: No stridor or oral swelling Neck: Trachea midline, no thyromegaly or masses palpated, and no cervical lymphadenopathy. Supple, full range of motion without nuchal rigidity, or vertebral point tenderness. No Meningismus. Cardiovascular: tachycardic, regular Respiratory: Lungs have equal breath sounds bilaterally, clear to auscultation. No increased work of breathing, no retractions or nasal flaring. Skin: Warm, dry with normal turgor. Normal color with no rashes, no lesions, and no evidence of cellulitis. MS/ Extremity: Pulses equal, no cyanosis. Neurovascular intact. Full, normal range of motion. Equal circumference. Neuro: Awake and alert, GCS 15, oriented to person, place, time, and situation. Cranial nerves II-XII grossly intact. Motor strength 5/5 in all extremities. Sensory grossly intact. Cerebellar exam normal. Normal gait. Vital Signs: 04:20 BP 103 / 83; Pulse 105; Resp 18; Temp 98.2; Pulse Ox 100% on R/A; Weight 47.63 kg; aa1 Height 5 ft. 2 in. (157.48 cm); Pain 7/10; 05:00 BP 103 / 75; Pulse 85; Resp 19; Pulse Ox 98% on R/A; rr5 05:50 BP 102 / 85; Pulse 95; Resp 17; Temp 98; Pulse Ox 99% on R/A; rr5 04:20 Body Mass Index 19.20 (47.63 kg, 157.48 cm) aa1 MDM: 04:15 Patient medically screened. rn 05:39 Differential Diagnosis: Bronchitis Influenza Upper Respiratory Infection Sinusitis rn Pharyngitis Viral Syndrome. Data reviewed: vital signs, nurses notes, lab test result(s), radiologic studies, plain films, and as a result, I will discharge patient. Counseling: I had a detailed discussion with the patient and/or guardian regarding: the historical points, exam findings, and any diagnostic results supporting the discharge/admit diagnosis, lab results, radiology results, the need for outpatient follow up, to return to the emergency department if symptoms worsen or persist or if there are any questions or concerns that arise at home. Response to treatment: the patient's symptoms have markedly improved after treatment, and as a result, I will discharge patient. Special discussion: I discussed with the patient/guardian in detail that at this point there is no indication for admission to the hospital. It is understood, however, that if the symptoms persist or worsen the patient needs to return immediately for re-evaluation. 07/13 04:20 Order name: Flu; Complete Time: 05:43 rn 07/13 04:20 Order name: Strep; Complete Time: 05:43 rn 07/13 04:20 Order name: XRAY Chest (1 view) rn 07/13 05:08 Order name: Throat Culture EDMS Administered Medications: 04:30 Drug: Tussionex Pennkinetic ER 5 ml Route: PO; lp1 05:40 Follow up: Response: Marked relief of symptoms lp1 Disposition: 07/13/19 05:42 Discharged to Home. Impression: Acute laryngopharyngitis. - Condition is Stable. - Discharge Instructions: Laryngitis, Pharyngitis. - Prescriptions for Zithromax Z- Norris 250 mg Oral Tablet - take 1 tablet by ORAL route as directed for 5 days Day 1 - take two (2) tablets one time. Day 2, 3, 4 , 5 take one (1) tablet once daily.; 6 tablet. Guaifenesin AC 10- 100 mg/5 mL Oral Liquid - take 10 milliliter by ORAL route every 4 hours As needed; 240 milliliter. - Medication Reconciliation Form, Thank You Letter, Antibiotic Education, Prescription Opioid Use form. - Follow up: Private Physician; When: As needed; Reason: Recheck today's complaints, Re-evaluation by your physician. - Problem is new. - Symptoms have improved. Signatures: Dispatcher [employer] EDMS Naila De Leon RN RN aa1 Dandre Navarrete MD MD rn Pena, Laura, RN RN lp1 Marito Garcia RN RN rr5 Corrections: (The following items were deleted from the chart) 05:57 05:42 07/13/2019 05:42 Discharged to Home. Impression: Acute laryngopharyngitis. rr5 Condition is Stable. Forms are Medication Reconciliation Form, Thank You Letter, Antibiotic Education, Prescription Opioid Use. Follow up: Private Physician; When: As needed; Reason: Recheck today's complaints, Re-evaluation by your physician. Problem is new. Symptoms have improved. rn
[2019-07-13 06:20] VITALS: BP 102/85; TEMP 98; O2SAT 99
--- NOTE | 2019-07-14 09:13 | RAD REPORT ---
EXAM DESCRIPTION: RAD - Chest Single View - 07/13/2019 4:34 am CLINICAL HISTORY: 48 years Female, COUGH COMPARISON: None. TECHNIQUE: Single portable x-ray view of the chest performed on 07/13/2019 at 4:30 AM FINDINGS: The lungs are well expanded and are clear. There is no evidence of a pneumothorax. The cardiac silhouette is normal in size and configuration. The mediastinal contours are normal. No acute osseous abnormality is identified. No focal soft tissue abnormalities are seen. Lines and tubes: None. IMPRESSION: No evidence of acute intrathoracic disease. Electronically signed by: Tonia Roy DO 07/13/2019 5:09 AM MARKER DELIVERY Due to temporary technical issues with the PACS/Fluency reporting system, reports are being signed by the in house radiologist as a courtesy to ensure prompt reporting. The interpreting radiologist is f ully responsible for the content of the report.
== END 2019-07-13 05:57 | disposition home or self-care (01) ==
LOC: ER 04:06
DX: J06.0 Acute laryngopharyngitis (principal)
CPT/HCPCS: 71045; 87070; 87081; 87804; 99284

== ENCOUNTER 2019-12-24 13:07 | Emergency (ER) | payer BC ==
--- OUTSIDE RECORDS SUMMARY | 2019-12-24 13:19 | XMS REPORT | Continuity of Care Document ---
:1970 Author Organization [facility] [employer] Information CoSchedule Care Team Providers Name Role Phone [facility] [place] Information CoSchedule Unavailable Un available Problems Problem Status Onset Classification Date Comments Sourc e Date Reported Unspecified 05/28/20 05/30/2019 [facility] land abdominal pain 19 LEFT SIDE PAIN Active 05/28/20 Mem[facility] ial 19 [place] UNK Active 02/06/20 [facility] 19 [place] LAPAROSCOPY Active 02/06/20 [facility] DIAGNOSTIC 19 [place] SBO Active 12/29/19 [facility] 19 [place] HPI Active 12/08/19 [place] [id number] Patrick TOTAL ABD Active 10/16/19 [facility] HYSTERECTOMY 19 [place] UTERINE Active 10/16/19 [facility] FIBROIDE, 19 [place] MEORRHAGIA R92.8 - OTH ABN Active 11/02/19 O PID AND INCONCLUSIVE 18 [place] FINDI Encounter for 10/28/19 01/31/2018 OP ID screening 18 [place] mammogram for malignant neoplasm of breast Z12.31 - ENCNTR Active 09/12/19 O PID SCREEN MAMMOGRAM 18 [place] FOR MA Varicella Resolved Problem 12/13/2019 [facility] l (disorder) Group, [place],M H OPID [place] Anemia Resolved Problem 12/13/2019 Medica l (disorder) Group,[facility] Dysfunctional Resolved Problem 12/13/2019 [facility] dical uterine bleeding Rashad up, (finding) [place] Small bowel Resolved Problem 12/13/2019 [facility] demond obstruction Group, (disorder) [place] LEIOMYOMA OF Active Memoria l UTERUS, [place] UNSPECIFIED EXCESSIVE AND Active Memori al FREQUENT Patrick MENSTRUATION WITH DYSMENORRHEA, Active Memori al UNSPECIFIED [place] OTHER INTESTNL Active Memor ial OBST UNSP TO Herm erum PARTIAL V Medications Medication Details Route Status Patient Ordering Order Source Instructions Provider Date sucralfate 1 g 1, Suppose every Active 12/02/ oral tablet 12 hours but now 2019 Med ical just taking when Group needed.., 0 Refill(s) Carbamide 5 drp, BID, 0 Active 11/21/ Peroxide Otic Refill(s) 2019 [facility] 6.5% solution Group Acetaminophen 300 1 tab, PO, Q6H, Active MG / Codeine PRN Pain, X 3 2019 [place] and Phosphate 30 MG day, # 9 tab, 0 Oral Tablet Refill(s) morphine 0.5 Notes: (Same Inactive mg/mL as:MORPhine 2019 [place] preservative-free Sulfate) injectable solution Saline Flush 0.9% Notes: (Same as: Inactive 05/16 BD Posiflush) 2019 [place] Dilaudid Notes: Same as: Inactive Dilaudid 2019 [place] Ondansetron Notes: (Same as: Inactive Zofran) 2019 [place] MEDICATION WASTE Product Size: 4 mg Product Wasted: ___ mg Fentanyl Notes: (Same as: Inactive Sublimaze) 2019 [place] Preservative free. Ketorolac 4 days Inactive MEDICATION WASTE 2019 [place] Product Size: 30 mg Product Wasted: ___ mg Flumazenil Notes: (Same as: Inactive Romazicon) 2019 [place] Naloxone Notes: Same as Inactive Narcan 2019 [place] Oxycodone Notes: (Same as: Inactive Hydrochloride 5 Roxicodone) 2019 [place] MG Oral Tablet ketOROLAC (ANES) IV, ONCE Inactive 2019 [place] tramadol 50 mg = 1 tab, Active hydrochloride 50 PO, Q6H, PRN 2019 [place] MG Oral Tablet Pain, X 5 day, # 20 tab, 0 Refill(s) ibuprofen 600 mg 600 mg = 1 tab, Active oral tablet PO, Q6H, X 14 2019 [place] day, # 56 tab, 1 Refill(s) dexamethasone Route: IV, Drug Inactive H (ANES) form: INJ, ONCE, 2018 [place] Stop date: 02/14/19 11:31:00 CDT glycopyrrolate Route: IV, Drug Inactive (ANES) form: INJ, ONCE, 2018 [place] Stop date: 02/14/19 11:31:00 CDT lidocaine (ANES) Route: IV, Drug Inactive form: INJ, ONCE, 2018 [place] Stop date: 02/14/19 11:21:00 CDT acetaminophen Route: IV, Drug Inactive 02/14/ M H (ANES) form: INJ, ONCE, 2018 [place] Stop date: 02/14/19 11:21:00 CDT ondansetron Route: IV, Drug Inactive MH (ANES) form: INJ, ONCE, 2018 [place] Stop date: 02/14/19 11:21:00 CDT rocuronium (ANES) Route: IV, Drug Inactive 02/14 form: INJ, ONCE, 2018 [place] Stop date: 02/14/19 11:16:00 CDT ePHEDrine (ANES) Route: IV, Drug Inactive form: INJ, ONCE, 2018 [place] Stop date: 02/14/19 11:11:00 CDT ceFAZolin (ANES) Route: IV, Drug Inactive form: INJ, ONCE, 2018 [place] Stop date: 02/14/19 11:01:00 CDT propofol (ANES) Route: IV, Drug Inactive form: INJ, ONCE, 2018 [place] Stop date: 02/14/19 11:01:00 CDT midazolam (ANES) Route: IV, Drug Inactive form: OLIVER 2019 [place] ONCE, Stop date: 02/14/19 11:01:00 CDT fentaNYL (ANES) Route: IV, Drug Inactive form: INJ, ONCE, 2018 [place] Stop date: 02/14/19 11:01:00 CDT Lactated Ringers Route: IV, Total Inactive 02/14 Injection IV Volume: 1,000, 2018 [place] (ANES) 1000 mL Start date: 02/14/19 10:24:00 CDT, Stop date: 02/14/19 11:24:00 CDT Calcium Chloride 1,000 mL, Rate: Inactive 0.0014 MEQ/ML / 75 ml/hr, Infuse 2018 [place] Potassium over: 13.3 hr, Chloride 0.004 Route: IV, MEQ/ML / Sodium Dosing Weight Chloride 0.103 46.818 kg, Total MEQ/ML / Sodium Volume: 1,000, Lactate 0.028 Start date: MEQ/ML Injectable 02/14/19 7:53:00 Solution CDT, Duration: 30 day, Stop date: 03/16/19 7:52:00 CDT, 1.44, m2, 0 Vitamin C Daily, 0 Active Refill(s) 2019 [place] Iron 100 Plus PO, Daily, 0 Active Refill(s) 2019 [place] Premarin PO, Daily, 0 Active Refill(s) 2019 [place] Amoxicillin 400 See Active MG / Clavulanate Instructions, 2019 [place] 57 MG Chewable 400 mg CHEW and G roup Tablet swallow one tablet by mouth three times a day until all taken, 0 Refill(s) Ondansetron 4 MG 4 mg = 1 tab, Active H Oral Tablet PO, Q8H, PRN 2019 [place] [Zofran] Nausea/vomiting, # 30 tab, 0 Refill(s), Pharmacy: [place] [address] POLYETHYLENE 17 gm, PO, BID, Active GLYCOL 3350 142 Dissolve in 8 2018 [place] MG/ML Oral oz. of water, X Solution 14 day, # 476 [Miralax] gm, 1 Refill(s), Pharmacy: [place] [address] Cefuroxime 500 MG PO, [id number], 0 Active Oral Tablet Refill(s) 2019 [place] Metronidazole Notes: (Same as: No Longer 0.0075 MG/MG Metrotop Active 2019 [place] Vaginal Gel GEL-Vaginal) Cefuroxime 500 MG Notes: (Do Not No Longer 12/30 Oral Tablet Crush) With Active 2018 [place] food. (Same As: Ceftin) Miralax Notes: Dissolve No Longer in 8 oz of water Active 2018 [place] or juice. (Same as: Miralax) Reglan Notes: (Same as: No Longer Reglan) Active 2019 [place] Pepcid Notes: (Same as: No Longer Pepcid) Can be Active 2018 [place] dilute in 5-10cc NS IVP: Slow IV push over at least 2 minutes. Lovenox Notes: (Same as: No Longer Lovenox) Active 2019 [place] Dextrose 50% 12.5 gm, 25 mL, No Longer H Syringe Route: IVP, Drug Active 2018 [facility] d Form: INJ, Dosing Weight 53.182, kg, PRN, PRN Blood Glucose Results, Start date: 12/28/18 21:08:00 CDT, Duration: 30 day, Stop date: 01/27/19 21:07:00 CDT Glucagon 1 mg, Route: IM, No Longer Drug form: Active 2018 [place] PDR/INJ, PRN, Dosing Weight 53.182, kg, PRN Blood Glucose Results, Start date: 12/28/18 21:08:00 CDT, Duration: 30 day, Stop date: 01/27/19 21:07:00 CDT Ondansetron Notes: (Same as: No Longer Zofran) Active 2018 [place] MEDICATION WASTE Product Size: 4 mg Product Wasted: ___ mg Bisacodyl Notes: (Same As: No Longer Dulcolax, Active 2019 [place] Bisco-Lax) Melatonin Notes: (Same as: No Longer Melatonin) Active 2019 [place] Acetaminophen Notes: Do not No Longer exceed 4 gm/day. Active 2018 [place] (Same as: Tylenol) Hydromorphone Notes: Same as: No Longer Dilaudid Active 2019 [place] Tramadol Notes: Not to No Longer exceed Active 2019 [place] 400mg/day. (Same As: Ultram) Calcium Gluconate Notes: WASTE: No Longer F/P - Sink; E - Active 2019 [place] [employer] Trash Bin potassium Notes: (Same as: No Longer phosphate-sodium Phos-NaK) Each Active 2019 [place] phosphate 250 1.5 gm pkt has mg-280 mg-160 mg 250mg oral powder for phosphorous. Mix reconstitution w/2.5oz water and stir. potassium Notes: (Same as: No Longer phosphate K Phosphate.) Active 2018 [place] Do not infuse phosphorous concurrently in the same line as TPN or IVF that contains calcium. For double lumen central lines, phosphorous may be infused in a separate lumen from TPN. 1 mMol phoshate has 1.47 mEq potassium Infuse over 4 hours sodium phosphate Notes: Infuse No Longer over 4 hour. Do Active 2018 [place] not infuse phosphorous concurrently in the same line as TPN or IVF that contains calcium. For double lumen central lines, phosphorous may be infused in a separate lumen from TPN. Magnesium Sulfate Notes: WASTE: No Longer F/P - Sink; E - Active 2018 [place] [employer] Trash [employer] Magnesium Oxide Notes: (Same as: No Longer 12/29 Mag-Ox 400) Active 2018 [place] Magnesium oxide [id number] elemental magnesium Dose=____mg magnesium oxide (___mg elemental magnesium) Potassium Notes: (Same as: No Longer Chloride Potassium Active 2018 [place] Chloride) LR IV 1,000 mL 1,000 mL, Rate: No Longer 80 ml/hr, Infuse Active 2018 [place] over: 12.5 hr, Route: IV, Dosing Weight 53.182 kg, Total Volume: 1,000, Start date: 12/28/18 21:05:00 CDT, Duration: 30 day, Stop date: 01/27/19 21:05:00 CDT, 1.54, m2 NS 1000 mL 1,000 mL, Rate: Inactive 100 ml/hr, 2018 [place] Infuse over: 10 hr, Route: IV, Dosing Weight 53.182 kg, Total Volume: 1,000, Start date: 12/28/18 21:04:00 CDT, Duration: 30 day, Stop date: 01/27/19 21:03:00 CDT, 1.54, m2 NS (Bolus) IV 1,000 mL, 1000 Inactive ml/hr, Infuse 2019 [place] Over: 1 hr, Route: IV, 1,000, Drug form: INJ, ONCE, Dosing Weight 53.182 kg, Start date: 12/28/18 21:02:00 CDT, Stop date: 12/28/18 21:02:00 CDT Axetil Axetil, 500 mg Active =, PO, BID, 2019 [place] Refill(s) 0 Morphine 2 mg, 1 mL, No Longer Route: IVP, Drug Active 2018 [place] form: SOLN, Q4H, Dosing Weight 53.182, kg, PRN Pain Score 7-10, Start date: 12/28/18 18:18:00 CDT, Duration: 30 day, Stop date: 01/27/19 18:17:00 CDT simethicone 80 mg 80 mg = 1 tab, Active oral tablet, CHEW, QID, # 48 [place] chewable tab, 0 Refill(s) Docusate Sodium 100 mg = 1 cap, Active 100 MG Oral PO, BID, # 60 2019 [place] Capsule cap, 0 Refill(s), Pharmacy: [place] [address] POLYETHYLENE 17 gm, PO, BID, Active GLYCOL 3350 142 Dissolve in 8 2018 [place] MG/ML Oral oz. of water, X Solution 7 day, # 255 gm, [Miralax] 1 Refill(s), Pharmacy: [place] [address] Dicyclomine 20 mg = 1 tab, Active Hydrochloride 20 PO, QID-Before 2019 [place] MG Oral Tablet Meals, PRN [Bentyl] Abdominal Pain, # 15 tab, 0 Refill(s), Pharmacy: [place] [address] simethicone 80 mg 160 mg = 2 tab, Active oral tablet, CHEW, TID, PRN 2019 [place] chewable Gas, X 5 day, # 15 tab, 0 Refill(s), Pharmacy: [place] [address] Bentyl Notes: (Same as: Inactive Bentyl) 2019 [place] Simethicone Notes: (Same as: Inactive Mylicon) 2019 [place] Adult Parenteral Notes: Central No Longer Nutrition Custom line only Must Active 2018 [place] - Central (TPN) use 1.2 micron 1,850 mL filter AND Lipids should not be administered to patients who are allergic to soy, fish, egg or peanuts. Protonix Notes: For IV Inactive push 2019 [place] reconstitute with 10 ml 0.9% sodium chloride and push over 2 minutes. (Same as: Protonix) Acetaminophen Notes: Do not No Longer exceed 4 gm/day. Active 2019 [place] (Same as: Tylenol) Adult Parenteral Notes: Central No Longer Nutrition Custom line only Must Active 2019 [place] - Central (TPN) use 1.2 micron 2,050 mL filter AND Lipids should not be administered to patients who are allergic to soy, fish, egg or peanuts. Adult Parenteral Notes: Central No Longer Nutrition Custom line only Must Active 2019 [place] - Central (TPN) use 1.2 micron 2,050 mL filter AND Lipids should not be administered to patients who are allergic to soy, fish, egg or peanuts. Adult Parenteral Notes: Central No Longer Nutrition Custom line only Must Active 2019 [place] - Central (TPN) use 1.2 micron 2,050 mL filter AND Lipids should not be administered to patients who are allergic to soy, fish, egg or peanuts. Molasses IL Molasses IL, 240 Inactive mL, Drug form: 2019 [place] [facility], Route: IL, ONCE, 12/16/18 12:21:00 CDT, Stop date: 12/16/18 12:21:00 CDT molasses 240 mL, Route: Inactive IL, Dosing 2019 [place] Weight 50, kg, ONCE, Milk of Mol[place] Enema, Start date: 12/16/18 12:08:00 CDT, Stop date: 12/16/18 12:08:00 CDT Adult Parenteral Notes: Central No Longer Nutrition Custom line only Must Active 2019 [place] - Central (TPN) 1 use 1.2 micron mL filter AND Lipids should not be administered to patients who are allergic to soy, fish, egg or peanuts. Adult Parenteral Notes: Central No Longer Nutrition Custom line only Must Active 2019 [place] - Central (TPN) use 1.2 micron 2,050 mL filter AND Lipids should not be administered to patients who are allergic to soy, fish, egg or peanuts. Potassium Notes: (Same as: Inactive Chloride KCL) Infuse no 2019 [place] faster than 10 mEq/hr if given peripherally. Adult Parenteral Notes: Central No Longer Nutrition Custom line only Must Active 2018 [place] - Central (TPN) use 1.2 micron 2,050 mL filter AND Lipids should not be administered to patients who are allergic to soy, fish, egg or peanuts. tramadol Notes: Not to No Longer hydrochloride 50 exceed Active 2018 [place] MG Oral Tablet 400mg/day. (Same [Ultram] As: Ultram) Protonix Notes: For IV No Longer push Active 2018 [place] reconstitute with 10 ml 0.9% sodium chloride and push over 2 minutes. (Same as: Protonix) Nexium 40 mg, Route: Inactive IVP, Daily, 2018 [place] Dosing Weight 50, kg, Start date: 12/13/18 12:00:00 CDT, Duration: 7 day, Stop date: 12/20/18 9:00:00 CDT acetaminophen Notes: Infuse Inactive over 15 minutes 2018 [place] Do not exceed 4gm/day of acetaminophen MEDICATION WASTE Product Size: 1000 mg Product Wasted: ___ mg Potassium Notes: (Same as: Inactive Chloride KCL) Infuse no 2018 [place] faster than 10 mEq/hr if given peripherally. Phenergan Notes: Do not No Longer give IV push. Active 2018 [place] (Same as: Phenergan) Phenergan Notes: Do not Inactive give IV push. 2019 [place] (Same as: Phenergan) Saline Flush 0.9% Notes: Same as: No Longer 11/15 BD Posiflush Active 2018 [place] Sterile Lidocaine Notes: No Longer Hydrochloride 10 Preservative Active 2018 [place] MG/ML Injectable free. (Same as: Solution Xylocaine MPF) Saline Flush 0.9% Notes: No Longer preservative Active 2018 [place] free. Lovenox Notes: (Same as: No Longer Lovenox) Active 2018 [place] potassium 40 mEq, 2 tab, Inactive chloride 20 mEq Route: PO, Drug 2019 [place] oral tablet, form: ERTAB, extended release Q4H, Dosing Weight 50, kg, Start date: 12/12/18 8:00:00 CDT, Duration: 2 doses or times, Stop date: 12/12/18 12:00:00 CDT Potassium Notes: Infuse at Inactive Chloride a rate of 10 2018 [place] mEq/hr. (Same as: KCL) potassium Notes: (Same as: No Longer phosphate-sodium Phos-NaK) Each Active 2018 [place] phosphate 250 1.5 gm pkt has mg-280 mg-160 mg 250mg oral powder for phosphorous. Mix reconstitution w/2.5oz water and stir. potassium Notes: (Same as: No Longer phosphate K Phosphate.) Active 2018 [place] Do not infuse phosphorous concurrently in the same line as TPN or IVF that contains calcium. For double lumen central lines, phosphorous may be infused in a separate lumen from TPN. 1 mMol phoshate has 1.47 mEq potassium Infuse over 4 hours sodium phosphate Notes: Infuse No Longer over 4 hour. Do Active 2018 [place] not infuse phosphorous concurrently in the same line as TPN or IVF that contains calcium. For double lumen central lines, phosphorous may be infused in a separate lumen from TPN. Magnesium Sulfate Notes: WASTE: No Longer F/P - Sink; E - Active 2018 [place] [employer] Trash Bin Magnesium Oxide Notes: (Same as: No Longer 12/11 Mag-Ox 400) Active 2018 [place] Magnesium oxide [id number] elemental magnesium Dose=____mg magnesium oxide (___mg elemental magnesium) Calcium Gluconate Notes: WASTE: No Longer F/P - Sink; E - Active 2019 [place] [employer] Trash Bin Potassium Notes: (Same as: No Longer Chloride K-Dur 20) "Do Active 2018 [place] Not Crush" Give with food and full glass of water For patients unable to swallow tablet, dissolve in one half glass of water. Allow about 2 minutes for the tablets to disintegrate. Stir before giving to prepare slurry and administer. Please exclude Patient’s with feeding tube less than 14 Cuban (Dobhoff, J-tube etc) and pediatric and patients. Dextrose 50% in 50 mL, Route: Inactive H Water IV IVP, Start date: 2018 [place] 12/11/18 6:44:00 CDT, Stop date: 12/11/18 6:44:00 CDT Dextrose 5% with 1,000 mL, Rate: No Longer 12/11 0.9% NaCl IV 125 ml/hr, Active 2018 [place] 1,000 mL Infuse over: 8 hr, Route: IV, Dosing Weight 50 kg, Total Volume: 1,000, Start date: 12/11/18 6:38:00 CDT, Duration: 30 day, Stop date: 01/10/19 6:37:00 CDT, 1.49, m2 Dextrose 25 gm, Route: Inactive IVPB, ONCE, 2018 [place] Dosing Weight 50, kg, Start date: 12/11/18 6:38:00 CDT, Stop date: 12/11/18 6:38:00 CDT D50W (bolus) IV 25 gm, 50 mL, No Longer Route: IVP, Drug Active 2018 [place] Form: INJ, Dosing Weight 50, kg, PRN, PRN Blood Glucose Results, Start date: 12/11/18 6:38:00 CDT, Duration: 30 day, Stop date: 01/10/19 6:37:00 CDT, Pediatric dosing Acetaminophen Notes: Infuse No Longer over 15 minutes Active 2018 [place] Do not exceed 4gm/day of acetaminophen MEDICATION WASTE Product Size: 1000 mg Product Wasted: ___ mg Acetaminophen 1,000 mg, Route: Inactive IV, Drug form: 2018 [place] INJ, Q8Hnow, Dosing Weight 50, kg, Priority: NOW, Start date: 12/10/18 10:10:00 CDT, Duration: 3 day, Stop date: 12/13/18 2:10:00 CDT Morphine 2 mg, 1 mL, No Longer Route: IV, Drug Active 2018 [place] form: SOLN, Q4H, Dosing Weight 50, kg, PRN Pain Score 7-10, Start date: 12/09/18 11:21:00 CDT, Duration: 30 day, Stop date: 01/08/19 11:20:00 CDT Acetaminophen Notes: Infuse No Longer over 15 minutes Active 2018 [place] Do not exceed 4gm/day of acetaminophen MEDICATION WASTE Product Size: 1000 mg Product Wasted: ___ mg Miralax Notes: Dissolve No Longer in 8 oz of water Active 2018 [place] or juice. (Same as: Miralax) Dulcolax Laxative Notes: (Same As: No Longer Dulcolax, Active 2018 [place] Bisco-Lax) Xylocaine Viscous Notes: (Same as: No Longer 2% mucous Xylocaine) Active 2018 [place] membrane solution Al hydroxide/Mg Notes: (aluminum No Longer 12/08 hydroxide/simethi hydroxide-magnes Active 2018 [place] cone ium hyd-simethicone [id number] 30 ml ud REMBERTO) GI cocktail 30 ml, Route: Inactive (aluminum PO, Drug Form: 2019 [place] hydroxide/magnesi SUSP, Dosing um Weight 50, kg, hydroxide/lidocai Q4H, PRN Sore ne/simethicone) Throat, Routine, Start date: 12/08/18 10:52:00 CDT, Duration: 30 day, Stop date: 01/07/19 10:51:00 CDT phenol Notes: No Longer Chloraseptic Active 2018 [place] (Same as: Chloraseptic, Sore Throat [place]) WASTE: F/P - Black; E - Municipal Trash Bin Morphine 2 mg, 1 mL, No Longer Route: IVP, Drug Active 2018 [place] form: SOLN, Q4H, Dosing Weight 53.182, kg, PRN Pain Score 7-10, Start date: 12/08/18 7:56:00 CDT, Duration: 30 day, Stop date: 01/07/19 7:55:00 CDT Sodium Chloride 1,000 mL, Rate: No Longer 0.9% IV 1,000 mL 125 ml/hr, Active 2018 [place] Infuse over: 8 hr, Route: IV, Dosing Weight 53.182 kg, Total Volume: 1,000, Start date: 12/08/18 7:56:00 CDT, Duration: 30 day, Stop date: 01/07/19 7:55:00 CDT, 1.54, m2 Ondansetron Notes: (Same as: No Longer Zofran) Active 2019 [place] MEDICATION WASTE Product Size: 4 mg Product Wasted: ___ mg Acetaminophen Notes: Max No Longer acetaminophen = Active 2019 [place] 4000 mg/day (4 gm/day). (Same as: Tylenol) Acetaminophen 325 Notes: (Same as: No Longer MG / Hydrocodone [place] 325/5) Do Active 2019 [place] Bitartrate 5 MG not exceed Oral Tablet 4gm/day of acetaminophen. ibuprofen 600 mg 600 mg = 1 tab, Active oral tablet PO, Q6H, PRN 2019 [place] Pain Score 1-3, # 30 tab, 0 Refill(s) Docusate Sodium 100 mg = 1 cap, Active 100 MG Oral PO, BID, PRN 2019 [place] Capsule Constipation, # 60 cap, 0 Refill(s) Acetaminophen 300 100.4 F, # 28 Active MG / Codeine tab, 0 Refill(s) 2019 [place] Phosphate 30 MG Oral Tablet [Tylenol with Codeine #3] sennosides, ASSISTED 17.2 mg = 2 tab, Active 8.6 MG Oral PO, Bedtime, PRN 2019 [place] Tablet Constipation, X 10 day, # 20 tab, 0 Refill(s) Simethicone Notes: (Same as: No Longer Mylicon) Active 2019 [place] Docusate Notes: (Same as: No Longer Colace) (Do Not Active 2018 [place] Crush) Acetaminophen 300 Notes: Do not No Longer MG / Codeine exceed 4gm/day Active 2019 [place] Phosphate 30 MG of Oral Tablet acetaminophen. [Tylenol with (Same as: Codeine #3] Tylenol with Codeine # 3) Ibuprofen Notes: (Same as: No Longer Motrin) "Do Not Active 2019 [place] Crush" Take with food. acetaminophen Notes: Max Inactive acetaminophen 2019 [place] 4000 mg/day (4 gm/day). (Same as: Tylenol Extra Strength) Saline Flush 0.9% Notes: Same as: No Longer 11/14 BD Posiflush Active 2018 [place] Sterile Zofran Notes: (Same as: No Longer Zofran) Active 2018 [place] [facility] Notes: Infuse Inactive over 15 minutes 2019 [place] Do not exceed 4gm/day of acetaminophen MEDICATION WASTE Product Size: 1000 mg Product Wasted: ___ mg Acetaminophen Notes: Infuse No Longer over 15 minutes Active 2018 [place] Do not exceed 4gm/day of acetaminophen MEDICATION WASTE Product Size: 1000 mg Product Wasted: ___ mg Ketorolac 4 days Active MEDICATION WASTE 2019 [place] Product Size: 30 mg Product Wasted: ___ mg neostigmine Route: IV, Drug Inactive (ANES) form: INJ, ONCE, 2018 [place] Stop date: 12/03/18 9:36:00 CDT ketOROLAC (ANES) IV, ONCE Inactive 2018 [place] glycopyrrolate Route: IV, Drug Inactive (ANES) form: INJ, ONCE, 2018 [place] Stop date: 12/03/18 9:36:00 CDT ondansetron Route: IV, Drug Inactive (ANES) form: INJ, ONCE, 2018 [place] Stop date: 12/03/18 9:30:00 CDT Dilaudid (ANES) Route: IV, Drug Inactive form: INJ, ONCE, 2018 [place] Stop date: 12/03/18 9:30:00 CDT Oxycodone Notes: (Same as: No Longer Hydrochloride 5 Roxicodone) Active 2018 [place] MG Oral Tablet Morphine Notes: Dose: No Longer Delay: Active 2018 [place] Basal rate: 4hr limit: (Same as:Radha-Darrin) Naloxone Notes: Same as No Longer Narcan Active 2018 [place] Saline Flush 0.9% Notes: Same as: No Longer 11/14 BD Posiflush Active 2018 [place] Sterile Calcium Chloride 1,000 mL, Rate: No Longer 12/03 0.002 MEQ/ML / 125 ml/hr, Active 2018 [facility] nd Glucose 50 MG/ML Infuse over: 8 / Potassium hr, Route: IV, Chloride 0.004 Dosing Weight MEQ/ML / Sodium 53.324 kg, Total Chloride 0.147 Volume: 1,000, MEQ/ML Injectable Start date: Solution 12/03/18 9:07:00 CDT, Duration: 30 day, Stop date: 01/02/19 9:06:00 CDT, 1.54, m2 Meperidine 12.5 mg, Route: Inactive IVP, Q30Min, 2019 [place] Dosing Weight 53.324, kg, PRN Other -See Comment, For shivering, Start date: 12/03/18 8:44:00 CDT, Duration: 2 doses or times, Stop date: Limited # of times Naloxone 0.1 mg, Route: Inactive SUB-Q, Q6H, 2019 [place] Dosing Weight 53.324, kg, PRN Itching, Start date: 12/03/18 8:44:00 CDT, Duration: 30 day, Stop date: 01/02/19 8:43:00 CDT Promethazine 6.25 mg, Route: Inactive IVPB, ONCE, 2019 [place] Dosing Weight 53.324, kg, PRN Nausea & Vomiting, Start date: 12/03/18 8:44:00 CDT Ondansetron 4 mg, Route: Inactive IVP, ONCE, 2019 [place] Dosing Weight 53.324, kg, PRN Nausea & Vomiting, Start date: 12/03/18 8:44:00 CDT Diphenhydramine 12.5 mg, Route: Inactive IVP, Drug form: 2019 [place] INJ, Q6H, Dosing Weight 53.324, kg, PRN Itching, Start date: 12/03/18 8:44:00 CDT, Duration: 30 day, Stop date: 01/02/19 8:43:00 CDT Albuterol 0.83 2.49 mg, Route: Inactive MG/ML Inhalant NEB, Q20Min, 2019 [facility] Solution Dosing Weight 53.324, kg, PRN Wheezing, Priority: Routine, Start date: 12/03/18 8:44:00 CDT, Duration: 30 day, Stop date: 01/02/19 8:43:00 CDT Hydromorphone 0.5 mg, Route: Inactive IVP, Q5Min, 2018 [place] Dosing Weight 53.324, kg, PRN Pain Score 7-10, Start date: 12/03/18 8:44:00 CDT, Duration: 4 doses or times, Stop date: Limited # of times Flumazenil 0.2 mg, Route: Inactive IVP, PRN, Dosing 2019 [place] Weight 53.324, kg, PRN Benzodiazepine Reversal, Initial dose, Start date: 12/03/18 8:44:00 CDT, Duration: 30 day, Stop date: 01/02/19 8:43:00 CDT Fentanyl 50 microgram, Inactive Route: IVP, 2019 [facility] Q5Min, Dosing Weight 53.324, kg, PRN Pain Score 7-10, Priority: Routine, Start date: 12/03/18 8:44:00 CDT, Duration: 2 doses or times, Stop date: Limited # of times Acetaminophen 1,000 mg, Route: Inactive PO, Drug form: 2018 [place] TAB, ONCE, Dosing Weight 53.324, kg, PRN Pain Score 1-3, Start date: 12/03/18 8:44:00 CDT Oxycodone 5 mg, Route: PO, Inactive Drug form: TAB, 2019 [place] Q4H, Dosing Weight 53.324, kg, PRN Pain Score 4-6, Start date: 12/03/18 8:44:00 CDT, Duration: 30 day, Stop date: 01/02/19 8:43:00 CDT Labetalol 10 mg, Route: Inactive IVP, Q5Min, 2018 [place] Dosing Weight 53.324, kg, PRN Elevated BP, Start date: 12/03/18 8:44:00 CDT, Duration: 5 doses or times, Stop date: Limited # of times Hydralazine 10 mg, Route: Inactive IVP, Q20Min, 2018 [facility] Dosing Weight 53.324, kg, PRN Elevated BP, Start date: 12/03/18 8:44:00 CDT, Duration: 2 doses or times, Stop date: Limited # of times Ketorolac 30 mg, Route: Inactive IVP, ONCE, 2018 [facility] Dosing Weight 53.324, kg, Start date: 12/03/18 8:44:00 CDT, Stop date: 12/03/18 8:44:00 CDT ceFAZolin (ANES) Route: IV, Drug Inactive form: INJ, ONCE, 2018 [place] peguero Stop date: 12/03/18 8:21:00 CDT dexamethasone Route: IV, Drug Inactive H (ANES) form: INJ, ONCE, 2018 [place] d Stop date: 12/03/18 8:21:00 CDT propofol (ANES) Route: IV, Drug Inactive form: INJ, ONCE, 2018 [place] d Stop date: 12/03/18 8:15:00 CDT rocuronium (ANES) Route: IV, Drug Inactive 12/03 form: INJ, ONCE, 2018 [place] d Stop date: 12/03/18 8:15:00 CDT fentaNYL (ANES) Route: IV, Drug Inactive form: INJ, ONCE, 2018 [place] d Stop date: 12/03/18 8:15:00 CDT midazolam (ANES) Route: IV, Drug Inactive form: SOLN, 2018 [place] ONCE, Stop date: 12/03/18 8:10:00 CDT ceFAZolin + Notes: (Same As: No Longer H sterile water 10 Ancef, Kefzol) Active 2018 [facility] mL MEDICATION WASTE Product Size: 1000 mg Product Wasted: ___ mg Lactated Ringers Route: IV, Total Inactive 12/03 Injection IV Volume: 1,000, 2018 [facility] (ANES) 1000 mL Start date: 12/03/18 6:15:00 CDT, Stop date: 12/03/18 7:15:00 CDT Sodium Chloride 1,000 mL, Rate: Inactive 0.9% IV 1,000 mL 25 ml/hr, Infuse 2019 [place] over: 40 hr, Route: IV, Dosing Weight 53.835 kg, Total Volume: 1,000, Start date: 12/03/18 5:42:00 CDT, Duration: 30 day, Stop date: 01/02/19 5:41:00 CDT, 1.55, m2 Calcium Chloride 1,000 mL, Rate: Inactive 0.0014 MEQ/ML / 25 ml/hr, Infuse 2018 [facility] Potassium over: 40 hr, Chloride 0.004 Route: IV, MEQ/ML / Sodium Dosing Weight Chloride 0.103 53.835 kg, Total MEQ/ML / Sodium Volume: 1,000, Lactate 0.028 Start date: MEQ/ML Injectable 12/03/18 5:42:00 Solution CDT, Duration: 30 day, Stop date: 01/02/19 5:41:00 CDT, 1.55, m2 Vitamin C Daily, 0 Active Refill(s) 2018 [facility] Iron Chews 15 mg, PO, Active Daily, 0 2019 [facility] Refill(s) Allergies, Adverse Reactions, Alerts Substance Category Reaction Severity Reaction Status Date Comments S ource type Reported No Known Assertion Drug Medication allergy Medic al Allergies Group Immunizations Immunization Date Site Status Last Comments Source Given Updated influenza virus Right completed [place] Result Co mment: Patient was given Fluzone 0.5ml IM right deltoid Needle 25Gx1 Medical vaccine, 9 Deltoid Group inactivated<sup> [facility]:[id number] 1</sup> LOT:[id number] EXP:December Patient showed no re action at the tiem of visit. influenza virus Left completed [place] Result Co mment: [facility] 05341-571-25 LOT# [id number] EXP 01/12/2018 IM needle 25 G 1" sanofi pasteur left deltoid Medical vaccine, 8 Deltoid Group,MH inactivated<sup> no adverse re action at time of visit Shweta 1</sup> OPID [place] influenza virus Left completed [place] Result Co mment: [facility] 66822-611-81 LOT# [id number] EXP 01/12/2018 IM needle 25 G 1" sanofi pasteur left deltoid Medical vaccine, 8 Deltoid Group inactivated<sup> no adverse re action at time of visit 2</sup> influenza virus Right completed [place] Result M edical vaccine, 6 Deltoid Comment: NDC: Group, inactivated<sup> [id number] P [place], 2</sup> OPID [place] influenza virus Right completed [place] Result M edical vaccine, 6 Deltoid Comment: NDC: Group inactivated<sup> [id number]</sup> Results Order Name Results Value Reference Date Interpretation Comments Mariela rce Range CHEM PANEL Glucose Lvl 130 70 - 99 05/28 [place] CHEM PANEL BUN 7 7 - 22 05/28 [place] CHEM PANEL Creatinine 0.83 0.50 - 05/28 Lvl 1.40 [facility] CHEM PANEL Sodium Lvl 139 135 - 145 05/28 [place] CHEM PANEL Potassium 4.0 3.5 - 5.1 05/28 Lvl [place] CHEM PANEL Chloride Lvl 105 95 - 109 05/28 [place] CHEM PANEL CO2 28 24 - 32 05/28 [place] CHEM PANEL Calcium Lvl 9.3 8.5 - 10.5 05/28 [place] CHEM PANEL Total 7.6 6.4 - 8.4 05/28 [place] CHEM PANEL Albumin Lvl 3.8 3.5 - 5.0 05/28 [place] CHEM PANEL ALT 20 0 - 65 05/28 [place] CHEM PANEL AST 21 0 - 37 05/28 [place] CHEM PANEL Alk Phos 53 39 - 136 05/28 [place] CHEM PANEL Bili Total 1.0 0.2 - 1.3 05/28 [place] CHEM PANEL eGFR 84 05/28 Result Comment: The [place] eGFR is calculated using the CKD-EPI formula. In most young, healthy individuals the eGFR will be >90 mL/min/1.73m2 . The eGFR declines with age. An eGFR of 60-89 may be normal in some populations, particularly the elderly, for whom the CKD-EPI formula has not been extensively validated. Use of the eGFR is not recommended in the following populations:< br/>
Mitra viduals with unstable creatinine concentration s, including patients and those with serious co-morbid conditions.<b r/>
Patie nts with extremes in muscle mass or diet.

The data above are obtained from the National Kidney Disease Education Program (NKDEP) which additionally recommends that when the eGFR is used in patients with extremes of body mass index for purposes of drug dosing, the eGFR should be multiplied by the estimated BMI. CHEM PANEL AGAP 10.0 10.0 - 05/28 MH 20.0 [place] CHEM PANEL B/C Ratio 8 6 - 25 05/28 [place] CHEM PANEL Globulin 3.8 2.7 - 4.2 05/28 [place] CHEM PANEL A/G Ratio 1.0 0.7 - 1.6 05/28 [place] CHEM PANEL Lipase Lvl 245 73 - 393 05/28 [facility] HEMATOLOGY WBC 4.5 3.7 - 10.4 05/28 [place] HEMATOLOGY RBC 4.82 4.20 - 05/28 MH 5.40 /2018 [place] HEMATOLOGY Hgb 14.4 12.0 - 05/28 MH 16.0 [place] HEMATOLOGY Hct 42.2 36.0 - 05/28 MH 48.0 [place] HEMATOLOGY MCV 87.5 80.0 - 05/28 MH 98.0 [place] HEMATOLOGY MCH 29.9 27.0 - 05/28 MH 31.0 [place] HEMATOLOGY MCHC 34.1 32.0 - 05/28 MH 36.0 [place] HEMATOLOGY RDW 14.7 11.5 - 05/28 MH 14.5 [place] HEMATOLOGY Platelet 222 133 - 450 05/28 [place] HEMATOLOGY MPV 8.2 7.4 - 10.4 05/28 [place] HEMATOLOGY Segs 62.3 45.0 - 05/28 MH 75.0 [place] HEMATOLOGY Lymphocytes 28.3 20.0 - 05/28 MH 40.0 [place] HEMATOLOGY Monocytes 7.5 2.0 - 12.0 05/28 [place] HEMATOLOGY Eosinophils 0.8 0.0 - 4.0 05/28 [place] HEMATOLOGY Basophils 1.1 0.0 - 1.0 05/28 [place] HEMATOLOGY Neutrophils 2.8 1.5 - 8.1 05/28 # /2018 [place] HEMATOLOGY Lymphocytes 1.3 1.0 - 5.5 05/28 # /2018 [place] HEMATOLOGY Monocytes # 0.3 0.0 - 0.8 05/28 [place] HEMATOLOGY Basophils # 0.1 0.0 - 0.2 05/28 [place] URINE AND UA Color Yellow Yellow 05/28 STOOL *NA* /2018 [place] (05/28/19 1:29 PM) URINE AND UA Turbidity Clear Clear 05/28 [facility] (05/28/19 1:29 PM) /2018 [place] and URINE AND UA Spec Grav 1.005 <=1.030 05/28 STOOL [place] URINE AND UA pH 6.0 5.0 - 8.0 05/28 STOOL [place] URINE AND UA Protein Negative Negative 05/28 [facility] mg/dL mg/dL [place] URINE AND UA Glucose Negative Negative 05/28 [facility] mg/dL mg/dL [place] URINE AND UA Ketones Negative Negative 05/28 [facility] mg/dL mg/dL [place] URINE AND UA Bili Negative Negative 05/28 [facility] *NA* /2018 [place] (05/28/19 1:29 PM) URINE AND UA Blood Negative Negative 05/28 [facility] (05/28/19 1:29 PM) [place] and URINE AND UA Nitrite Negative Negative 05/28 [facility] (05/28/19 1:29 PM) [place] and URINE AND UA Leuk Est Negative Negative 05/28 [facility] (05/28/19 1:29 PM) [place] and URINE AND UA Sq Epi Occasional Few /LPF 05/28 [facility] /LPF /2018 [place] URINE AND UA WBC <1 0 - 5 05/28 STOOL [place] URINE AND UA RBC 4 0 - 2 05/28 STOOL [place] URINE AND UA Mucus Few /LPF None Seen 05/28 [facility]OOL /LPF [place] URINE AND UA <=1.0 0.1 - 1.0 05/28 [facility] Urobilinogen mg/dL [place] BLOOD BANK Antibody Negative 02/11 RESULTS Scrn (7/30/19 1:28 PM) /2018 [facility] BLOOD BANK ABO/Rh AB POS 02/11 MH RESULTS /2018 [place] ELECTROLYTE AGAP 11.1 10.0 - 02/11 MH S 20.0 [place] ELECTROLYTE eGFR 110 02/11 Result MH S Comment: The [place] eGFR is calculated using the CKD-EPI formula. In most young, healthy individuals the eGFR will be >90 mL/min/1.73m2 . The eGFR declines with age. An eGFR of 60-89 may be normal in some populations, particularly the elderly, for whom the CKD-EPI formula has not been extensively validated. Use of the eGFR is not recommended in the following populations:< br/>
Mitra viduals with unstable creatinine concentration s, including patients and those with serious co-morbid conditions.<b r/>
Patie nts with extremes in muscle mass or diet.

The data above are obtained from the National Kidney Disease Education Program (NKDEP) which additionally recommends that when the eGFR is used in patients with extremes of body mass index for purposes of drug dosing, the eGFR should be multiplied by the estimated BMI. ELECTROLYTE Calcium Lvl 9.4 8.5 - 10.5 02/11 MH S /2018 [place] ELECTROLYTE Chloride Lvl 109 95 - 109 02/11 MH S [place] ELECTROLYTE Potassium 4.1 3.5 - 5.1 02/11 MH S Lvl /2018 [place] ELECTROLYTE CO2 26 24 - 32 02/11 MH S [place] ELECTROLYTE Sodium Lvl 142 135 - 145 02/11 MH S [place] ELECTROLYTE Creatinine 0.57 0.50 - 02/11 MH S Lvl 1.40 /2018 [place] ELECTROLYTE BUN 7 7 - 22 02/11 MH S /2018 [place] ELECTROLYTE Glucose Lvl 91 70 - 99 /30 MH S [place] HEMATOLOGY MPV 8.2 7.4 - 10.4 02/11 /2018 [place] HEMATOLOGY Platelet 260 133 - 450 02/11 /2018 [place] HEMATOLOGY RDW 17.1 11.5 - 02/11 MH 14.5 [place] HEMATOLOGY MCHC 33.9 32.0 - 02/11 MH 36.0 [place] HEMATOLOGY Hgb 12.2 12.0 - 02/11 MH 16.0 [place] HEMATOLOGY WBC 3.6 3.7 - 10.4 02/11 [place] HEMATOLOGY RBC 4.51 4.20 - 02/11 MH 5.40 [place] HEMATOLOGY MCH 27.1 27.0 - 02/11 MH 31.0 [place] HEMATOLOGY MCV 80.0 80.0 - 02/11 MH 98.0 [place] HEMATOLOGY Hct 36.1 36.0 - 02/11 MH 48.0 [place] HEMATOLOGY Basophils # 0.1 0.0 - 0.2 02/11 [place] HEMATOLOGY Lymphocytes 1.2 1.0 - 5.5 02/11 MH [place] HEMATOLOGY Monocytes # 0.4 0.0 - 0.8 02/11 [place] HEMATOLOGY Neutrophils 1.9 1.5 - 8.1 02/11 MH [place] HEMATOLOGY Basophils 1.4 0.0 - 1.0 02/11 [place] HEMATOLOGY Eosinophils 0.9 0.0 - 4.0 02/11 [place] HEMATOLOGY Lymphocytes 32.9 20.0 - 02/11 MH 40.0 [place] HEMATOLOGY Monocytes 11.7 2.0 - 12.0 02/11 [place] HEMATOLOGY Segs 53.1 45.0 - 02/11 MH 75.0 [place] CHEM PANEL Magnesium 1.7 1.8 - 2.4 12/31 MH Lvl [place] CHEM PANEL eGFR 109 12/31 Result Comment: The [place] eGFR is calculated using the CKD-EPI formula. In most young, healthy individuals the eGFR will be >90 mL/min/1.73m2 . The eGFR declines with age. An eGFR of 60-89 may be normal in some populations, particularly the elderly, for whom the CKD-EPI formula has not been extensively validated. Use of the eGFR is not recommended in the following populations:< br/>
Mitra viduals with unstable creatinine concentration s, including patients and those with serious co-morbid conditions.<b r/>
Patie nts with extremes in muscle mass or diet.

The data above are obtained from the National Kidney Disease Education Program (NKDEP) which additionally recommends that when the eGFR is used in patients with extremes of body mass index for purposes of drug dosing, the eGFR should be multiplied by the estimated BMI. CHEM PANEL Glucose Lvl 76 70 - 99 12/31 [place] CHEM PANEL Potassium 3.7 3.5 - 5.1 12/31 MH Lvl /2018 [place] CHEM PANEL Sodium Lvl 143 135 - 145 12/31 [place] CHEM PANEL Creatinine 0.58 0.50 - 18 MH Lvl 1.40 [place] CHEM PANEL Chloride Lvl 109 95 - 109 12/31 [place] CHEM PANEL CO2 29 24 - 32 12/31 [place] CHEM PANEL Albumin Lvl 2.8 3.5 - 5.0 12/31 [place] CHEM PANEL Total 6.1 6.4 - 8.4 12/31 MH Protein [place] CHEM PANEL Calcium Lvl 8.6 8.5 - 10.5 12/31 [place] CHEM PANEL AST 15 0 - 37 12/31 [place] CHEM PANEL Alk Phos 54 39 - 136 12/31 [place] CHEM PANEL Bili Total 0.5 0.2 - 1.3 12/31 [place] CHEM PANEL BUN 4 7 - 22 12/31 [place] CHEM PANEL ALT 18 0 - 65 12/31 [place] CHEM PANEL AGAP 8.7 10.0 - 12/31 MH 20.0 [place] CHEM PANEL A/G Ratio 0.8 0.7 - 1.6 12/31 [place] CHEM PANEL Globulin 3.3 2.7 - 4.2 12/31 [place] CHEM PANEL B/C Ratio 7 6 - 25 12/31 [place] CHEM PANEL Phosphorus 2.5 2.5 - 4.5 12/31 [place] HEMATOLOGY Monocytes 12.1 2.0 - 12.0 12/31 [place] HEMATOLOGY Eosinophils 10.1 0.0 - 4.0 12/31 [place] HEMATOLOGY Basophils 1.0 0.0 - 1.0 12/31 [place] HEMATOLOGY Neutrophils 1.4 1.5 - 8.1 18 MH # /2019 [place] HEMATOLOGY Lymphocytes 1.4 1.0 - 5.5 12/31 MH # /2019 [place] HEMATOLOGY Monocytes # 0.5 0.0 - 0.8 18 MH /2018 [place] HEMATOLOGY Eosinophils 0.4 0.0 - 0.5 / MH # /2019 [place] HEMATOLOGY Segs 38.3 45.0 - 12/31 MH 75.0 [place] HEMATOLOGY Lymphocytes 38.5 20.0 - 12/31 MH 40.0 [place] HEMATOLOGY MPV 8.4 7.4 - 10.4 12/31 [place] HEMATOLOGY Hct 28.6 36.0 - 12/31 MH 48.0 [place] HEMATOLOGY Hgb 9.5 12.0 - 12/31 MH 16.0 [place] HEMATOLOGY RDW 14.3 11.5 - 12/31 MH 14.5 [place] HEMATOLOGY MCHC 33.2 32.0 - 12/31 MH 36.0 [place] HEMATOLOGY MCH 26.5 27.0 - 12/31 MH 31.0 [place] HEMATOLOGY RBC 3.57 4.20 - 12/31 MH 5.40 [place] HEMATOLOGY Platelet 252 133 - 450 12/31 [place] HEMATOLOGY WBC 3.7 3.7 - 10.4 12/31 [place] HEMATOLOGY MCV 80.0 80.0 - 12/31 MH 98.0 [place] CHEM PANEL Phosphorus 2.2 2.5 - 4.5 12/30 [place] CHEM PANEL eGFR 110 12/30 Result Comment: The [place] eGFR is calculated using the CKD-EPI formula. In most young, healthy individuals the eGFR will be >90 mL/min/1.73m2 . The eGFR declines with age. An eGFR of 60-89 may be normal in some populations, particularly the elderly, for whom the CKD-EPI formula has not been extensively validated. Use of the eGFR is not recommended in the following populations:< br/>
Mitra viduals with unstable creatinine concentration s, including patients and those with serious co-morbid conditions.<b r/>
Patie nts with extremes in muscle mass or diet.

The data above are obtained from the National Kidney Disease Education Program (NKDEP) which additionally recommends that when the eGFR is used in patients with extremes of body mass index for purposes of drug dosing, the eGFR should be multiplied by the estimated BMI. CHEM PANEL CO2 23 24 - 32 12/30 [place] CHEM PANEL Calcium Lvl 8.5 8.5 - 10.5 12/30 [place] CHEM PANEL Potassium 3.7 3.5 - 5.1 12/30 MH Lvl /2018 [place] CHEM PANEL Chloride Lvl 108 95 - 109 12/30 [place] CHEM PANEL Sodium Lvl 142 135 - 145 12/30 [place] CHEM PANEL Creatinine 0.58 0.50 - 06 MH Lvl 1.40 /2018 [place] CHEM PANEL BUN 6 7 - 22 12/30 [place] CHEM PANEL Alk Phos 61 39 - 136 12/30 [place] CHEM PANEL AST 13 0 - 37 12/30 [place] CHEM PANEL Albumin Lvl 2.8 3.5 - 5.0 12/30 [place] CHEM PANEL ALT 18 0 - 65 12/30 [place] CHEM PANEL Total 6.4 6.4 - 8.4 12/30 [place] CHEM PANEL Bili Total 0.8 0.2 - 1.3 12/30 [place] CHEM PANEL Glucose Lvl 64 70 - 99 12/30 [place] CHEM PANEL Globulin 3.6 2.7 - 4.2 12/30 [place] CHEM PANEL A/G Ratio 0.8 0.7 - 1.6 12/30 [place] CHEM PANEL B/C Ratio 10 6 - 25 12/30 [place] CHEM PANEL AGAP 14.7 10.0 - 12/30 MH 20.0 [place] CHEM PANEL Magnesium 1.8 1.8 - 2.4 12/30 MH Lvl [place] HEMATOLOGY Basophils # 0.1 0.0 - 0.2 12/30 [place] HEMATOLOGY Basophils 1.9 0.0 - 1.0 12/30 [place] HEMATOLOGY Lymphocytes 1.5 1.0 - 5.5 12/30 MH # /2018 [place] HEMATOLOGY Neutrophils 1.6 1.5 - 8.1 12/30 MH # /2018 [place] HEMATOLOGY Monocytes # 0.4 0.0 - 0.8 12/30 [place] HEMATOLOGY Eosinophils 0.2 0.0 - 0.5 12/30 MH # /2018 [place] HEMATOLOGY Lymphocytes 40.0 20.0 - 12/30 MH 40.0 [place] HEMATOLOGY Segs 43.9 45.0 - 12/30 MH 75.0 [place] HEMATOLOGY Eosinophils 4.3 0.0 - 4.0 12/30 [place] HEMATOLOGY Monocytes 9.9 2.0 - 12.0 12/30 [facility] HEMATOLOGY RDW 14.4 11.5 - 12/30 MH 14.5 [place] HEMATOLOGY MCHC 32.6 32.0 - 12/30 MH 36.0 [place] HEMATOLOGY MPV 8.5 7.4 - 10.4 12/30 [place] HEMATOLOGY Platelet 287 133 - 450 12/30 [place] HEMATOLOGY MCV 80.3 80.0 - 12/30 MH 98.0 [place] HEMATOLOGY Hct 30.2 36.0 - 12/30 MH 48.0 [place] HEMATOLOGY WBC 3.6 3.7 - 10.4 12/30 [place] HEMATOLOGY MCH 26.2 27.0 - 12/30 MH 31.0 [place] HEMATOLOGY Hgb 9.9 12.0 - 12/30 MH 16.0 [place] HEMATOLOGY RBC 3.76 4.20 - 12/30 MH 5.40 [place] CHEM PANEL eGFR 107 12/29 Comment: The [facility] eGFR is calculated using the CKD-EPI formula. In most young, healthy individuals the eGFR will be >90 mL/min/1.73m2 . The eGFR declines with age. An eGFR of 60-89 may be normal in some populations, particularly the elderly, for whom the CKD-EPI formula has not been extensively validated. Use of the eGFR is not recommended in the following populations:< br/>
Mitra viduals with unstable creatinine concentration s, including patients and those with serious co-morbid conditions.<b r/>
Patie nts with extremes in muscle mass or diet.

The data above are obtained from the National Kidney Disease Education Program (NKDEP) which additionally recommends that when the eGFR is used in patients with extremes of body mass index for purposes of drug dosing, the eGFR should be multiplied by the estimated BMI. CHEM PANEL Alk Phos 63 39 - 136 12/29 [place] CHEM PANEL Bili Total 0.7 0.2 - 1.3 12/29 [facility] CHEM PANEL Creatinine 0.62 0.50 - 0616 MH Lvl 1.40 /2018 [place] CHEM PANEL BUN 8 7 - 22 12/29 [facility] CHEM PANEL Potassium 4.0 3.5 - 5.1 12/29 MH Lvl /2018 [place] CHEM PANEL Sodium Lvl 143 135 - 145 12/29 [place] CHEM PANEL Glucose Lvl 73 70 - 99 12/29 [place] CHEM PANEL ALT 19 0 - 65 12/29 [place] CHEM PANEL Total 6.5 6.4 - 8.4 12/29 MH [place] CHEM PANEL Calcium Lvl 8.7 8.5 - 10.5 12/29 [place] CHEM PANEL Albumin Lvl 2.9 3.5 - 5.0 12/29 [place] CHEM PANEL Chloride Lvl 110 95 - 109 12/29 [place] CHEM PANEL AST 14 0 - 37 12/29 [place] CHEM PANEL CO2 23 24 - 32 12/29 [place] CHEM PANEL AGAP 14.0 10.0 - 12/29 MH 20.0 [place] CHEM PANEL B/C Ratio 13 6 - 25 12/29 [place] CHEM PANEL Globulin 3.6 2.7 - 4.2 12/29 [place] CHEM PANEL A/G Ratio 0.8 0.7 - 1.6 12/29 [place] CHEM PANEL Magnesium 1.9 1.8 - 2.4 12/29 MH Lv [facility] HEMATOLOGY MCH 26.4 27.0 - 12/29 MH 31.0 [place] HEMATOLOGY Hct 30.4 36.0 - 12/29 MH 48.0 2019 [place] HEMATOLOGY Hgb 9.9 12.0 - 12/29 MH 16.0 [place] HEMATOLOGY MCV 80.8 80.0 - 12/29 MH 98.0 [place] HEMATOLOGY MPV 8.4 7.4 - 10.4 12/29 [place] HEMATOLOGY Platelet 313 133 - 450 12/29 [place] HEMATOLOGY MCHC 32.6 32.0 - 06 MH 36.0 [place] HEMATOLOGY RDW 14.4 11.5 - 0616 MH 14.5 /2019 [place] HEMATOLOGY RBC 3.76 4.20 - 0616 MH 5.40 /2019 [place] HEMATOLOGY WBC 5.8 3.7 - 10.4 0616 MH /2018 [place] HEMATOLOGY PTT 32.5 22.9 - 06 MH 35.8 [place] HEMATOLOGY PT 15.5 12.0 - 06 MH 14.7 [place] HEMATOLOGY INR 1.25 0.85 - 06 MH 1. [place] HEMATOLOGY Eosinophils 1.1 0.0 - 4.0 0616 /2018 [place] HEMATOLOGY Monocytes 9.4 2.0 - 12.0 /16 /2018 [place] HEMATOLOGY Neutrophils 3.8 1.5 - 8.1 16 MH # /2018 [place] HEMATOLOGY Basophils 0.8 0.0 - 1.0 12/29 [place] HEMATOLOGY Eosinophils 0.1 0.0 - 0.5 16 MH # /2018 [place] HEMATOLOGY Monocytes # 0.5 0.0 - 0.8 12/29 [place] HEMATOLOGY Lymphocytes 1.3 1.0 - 5.5 16 MH # /2018 [place] HEMATOLOGY Lymphocytes 23.2 20.0 - 06 MH 40.0 2019 [place] HEMATOLOGY Segs 65.5 45.0 - 06 MH 75.0 /2019 [place] HEMATOLOGY PT 14.3 12.0 - 16 MH 14. [facility] HEMATOLOGY PTT 32.3 22.9 - 0616 MH 35.8 [place] HEMATOLOGY INR 1.13 0.85 - 12/29 MH 1. [place] CHEM PANEL Phosphorus 2.9 2.5 - 4.5 12/20 [place] CHEM PANEL Magnesium 2.1 1.8 - 2.4 06 Lvl [place] ELECTROLYTE AGAP 9.6 10.0 - 06 MH S 20.0 [place] ELECTROLYTE eGFR 110 12/[address] [facility] MH S Comment: The [place] eGFR is calculated using the CKD-EPI formula. In most young, healthy individuals the eGFR will be >90 mL/min/1.73m2 . The eGFR declines with age. An eGFR of 60-89 may be normal in some populations, particularly the elderly, for whom the CKD-EPI formula has not been extensively validated. Use of the eGFR is not recommended in the following populations:< br/>
Mitra viduals with unstable creatinine concentration s, including patients and those with serious co-morbid conditions.<b r/>
Patie nts with extremes in muscle mass or diet.

The data above are obtained from the National Kidney Disease Education Program (NKDEP) which additionally recommends that when the eGFR is used in patients with extremes of body mass index for purposes of drug dosing, the eGFR should be multiplied by the estimated BMI. ELECTROLYTE CO2 28 24 - 32 06/ MH S /2018 [place] ELECTROLYTE Calcium Lvl 9.1 8.5 - 10.5 / MH S /2018 [place] ELECTROLYTE BUN 12 7 - 22 / MH S [place] ELECTROLYTE Glucose Lvl 105 70 - 99 / MH S [place] ELECTROLYTE Potassium 3.6 3.5 - 5.1 / MH S Lvl /2018 [place] ELECTROLYTE Sodium Lvl 139 135 - 145 / MH S [place] ELECTROLYTE Creatinine 0.57 0.50 - 12/20 MH S Lvl 1.40 [place] ELECTROLYTE Chloride Lvl 105 95 - 109 / MH S /2018 [place] HEMATOLOGY MCV 81.3 80.0 - 06/ MH 98.0 /2018 [place] HEMATOLOGY MCH 26.5 27.0 - 06/ MH 31.0 [place] HEMATOLOGY MPV 7.9 7.4 - 10.4 12/20 MH /2018 [place] HEMATOLOGY MCHC 32.7 32.0 - 12/20 MH 36.0 /2018 [place] HEMATOLOGY Platelet 560 133 - 450 06/ MH /2018 [place] HEMATOLOGY RDW 14.3 11.5 - 06/ MH 14.5 /2019 [place] HEMATOLOGY RBC 3.61 4.20 - 06/ MH 5.40 /2019 [place] HEMATOLOGY Hgb 9.6 12.0 - 06/ MH 16.0 [place] HEMATOLOGY Hct 29.4 36.0 - 06/ MH 48.0 2019 [place] HEMATOLOGY WBC 5.2 3.7 - 10.4 / MH /2018 [place] HEMATOLOGY Eosinophils 0.3 0.0 - 0.5 06/07 MH # /2019 [place] HEMATOLOGY Basophils # 0.1 0.0 - 0.2 12/20 [place] HEMATOLOGY Segs 60.2 45.0 - 12/20 MH 75.0 [place] HEMATOLOGY Monocytes # 0.7 0.0 - 0.8 12/20 [place] HEMATOLOGY Neutrophils 3.1 1.5 - 8.1 12/20 MH [place] HEMATOLOGY Lymphocytes 20.0 20.0 - 12/20 MH 40.0 [place] HEMATOLOGY Lymphocytes 1.0 1.0 - 5.5 12/20 MH [place] HEMATOLOGY Basophils 2.1 0.0 - 1.0 12/20 [place] HEMATOLOGY Monocytes 12.8 2.0 - 12.0 12/20 [place] HEMATOLOGY Eosinophils 4.9 0.0 - 4.0 12/20 [place] CHEM PANEL Magnesium 2.2 1.8 - 2.4 12/19 Lvl [place] CHEM PANEL eGFR 107 12/[address] [facility] Comment: The [place] eGFR is calculated using the CKD-EPI formula. In most young, healthy individuals the eGFR will be >90 mL/min/1.73m2 . The eGFR declines with age. An eGFR of 60-89 may be normal in some populations, particularly the elderly, for whom the CKD-EPI formula has not been extensively validated. Use of the eGFR is not recommended in the following populations:< br/>
Mitra viduals with unstable creatinine concentration s, including patients and those with serious co-morbid conditions.<b r/>
Patie nts with extremes in muscle mass or diet.

The data above are obtained from the National Kid[employer] Disease Education Program (NKDEP) which additionally recommends that when the eGFR is used in patients with extremes of body mass index for purposes of drug dosing, the eGFR should be multiplied by the estimated BMI. CHEM PANEL CO2 26 24 - 32 12/19 [facility] CHEM PANEL Chloride Lvl 104 95 - 109 12/19 [facility] CHEM PANEL Potassium 3.8 3.5 - 5.1 12/19 [facility] Lvl [facility] CHEM PANEL Sodium Lvl 139 135 - 145 12/19 [facility] CHEM PANEL Creatinine 0.61 0.50 - 12/19 Lvl 1.40 [facility] CHEM PANEL Calcium Lvl 9.7 8.5 - 10.5 06/ /2018 [facility] CHEM PANEL BUN 16 7 - 22 06/ /2018 [facility] CHEM PANEL Glucose Lvl 104 70 - 99 06/ /2018 [facility] CHEM PANEL AGAP 12.8 10.0 - 06/ MH 20.0 /2018 [facility] CHEM PANEL Phosphorus 4.4 2.5 - 4.5 06/ /2018 [facility] HEMATOLOGY WBC 6.7 3.7 - 10.4 06/ /2018 [facility] HEMATOLOGY MPV 7.7 7.4 - 10.4 06/ /2018 [facility] HEMATOLOGY RBC 3.81 4.20 - 06/ MH 5.40 /2018 [facility] HEMATOLOGY Hgb 10.2 12.0 - 06 MH 16.0 [facility] HEMATOLOGY MCH 26.8 27.0 - 06/ MH 31.0 [facility] HEMATOLOGY Hct 30.7 36.0 - 06/ MH 48.0 [facility] HEMATOLOGY MCV 80.6 80.0 - 06 MH 98.0 [facility] HEMATOLOG[facility] MCHC 33.3 32.0 - 06/ MH 36.0 /2018 [facility] HEMATOLOGY RDW 14.7 11.5 - 06/ MH 14.5 [facility] HEMATOLOGY Platelet 588 133 - 450 06/ [facility] HEMATOLOGY Neutrophils 4.5 1.5 - 8.1 06/ MH # /2018 [facility] HEMATOLOGY Lymphocytes 1.1 1.0 - 5.5 06/ MH # /2018 [facility] HEMATOLOGY Monocytes # 0.8 0.0 - 0.8 06/ [facility] HEMATOLOGY Eosinophils 0.2 0.0 - 0.5 06/ MH # /2018 [facility] HEMATOLOGY Basophils # 0.1 0.0 - 0.2 06/06 [facility] HEMATOLOGY Segs 66.7 45.0 - 06/06 MH 75.0 [facility] HEMATOLOGY Monocytes 11.8 2.0 - 12.0 06/06 [facility] HEMATOLOGY Eosinophils 3.7 0.0 - 4.0 06/06 /2018 [facility] HEMATOLOGY Basophils 1.4 0.0 - 1.0 06/ /2018 [facility] HEMATOLOGY Lymphocytes 16.4 20.0 - 06/06 MH 40.0 [facility] CHEM PANEL Glucose Lvl 101 70 - 99 / [facility] CHEM PANEL BUN 11 7 - 22 12/18 [facility] CHEM PANEL Creatinine 0.60 0.50 - 06/ MH Lvl 1.40 /2018 [facility] CHEM PANEL Chloride Lvl 105 95 - 109 12/18 [facility] CHEM PANEL CO2 27 24 - 32 12/18 [facility] CHEM PANEL Calcium Lvl 9.2 8.5 - 10.5 12/18 [facility] CHEM PANEL Potassium 3.9 3.5 - 5.1 / MH Lvl /2018 [facility] CHEM PANEL Sodium Lvl 138 135 - 145 12/18 [facility] CHEM PANEL eGFR 108 / Result Comment: The [facility] eGFR is calculated using the CKD-EPI formula. In most young, healthy individuals the eGFR will be >90 mL/min/1.73m2 . The eGFR declines with age. An eGFR of 60-89 may be normal in some populations, particularly the elderly, for whom the CKD-EPI formula has not been extensively validated. Use of the eGFR is not recommended in the following populations:< br/>
Mitra viduals with unstable creatinine concentration s, including patients and those with serious co-morbid conditions.<b r/>
Patie nts with extremes in muscle mass or diet.

The data above are obtained from the National Kidney Disease Education Program (NKDEP) which additionally recommends that when the eGFR is used in patients with extremes of body mass index for purposes of drug dosing, the eGFR should be multiplied by the estimated BMI. CHEM PANEL AGAP 9.9 10.0 - 06/ MH 20.0 [facility] HEMATOLOGY Basophils # 0.1 0.0 - 0.2 12/18 [facility] HEMATOLOGY Eosinophils 0.2 0.0 - 0.5 12/18 MH # [facility] HEMATOLOGY Monocytes # 0.7 0.0 - 0.8 12/18 [facility] HEMATOLOGY Lymphocytes 0.8 1.0 - 5.5 12/18 MH # /2018 [facility] HEMATOLOGY Neutrophils 4.1 1.5 - 8.1 12/18 MH # /2018 [facility] HEMATOLOGY Basophils 1.3 0.0 - 1.0 12/18 [facility] HEMATOLOGY Eosinophils 3.9 0.0 - 4.0 06/05 /2018 [facility] HEMATOLOGY Lymphocytes 14.1 20.0 - 06/ MH 40.0 /2018 [facility] HEMATOLOGY Segs 68.9 45.0 - 06/05 MH 75.0 /2018 [facility] HEMATOLOGY Monocytes 11.8 2.0 - 12.0 06/ [facility] HEMATOLOGY MCH 27.4 27.0 - 12/18 MH 31.0 [facility] HEMATOLOGY MCV 80.5 80.0 - 06/05 MH 98.0 /2018 [facility] HEMATOLOGY Hct 28.0 36.0 - 06 MH 48.0 /2018 [facility] HEMATOLOGY MCHC 34.0 32.0 - 06 MH 36.0 /2018 [facility] HEMATOLOGY RDW 14.4 11.5 - 06 MH 14.5 [facility] HEMATOLOGY Hgb 9.5 12.0 - 12/18 MH 16.0 [facility] HEMATOLOGY Platelet 493 133 - 450 12/18 [facility] HEMATOLOGY MPV 7.9 7.4 - 10.4 06 [facility] HEMATOLOGY WBC 6.0 3.7 - 10.4 06 [facility] HEMATOLOGY RBC 3.47 4.20 - 12/18 MH 5.40 /2018 [facility] CHEM PANEL Magnesium 2.2 1.8 - 2.4 12/17 MH Lvl /2018 [facility] CHEM PANEL Phosphorus 3.5 2.5 - 4.5 12/17 [facility] LIPIDS Trig 143 <=149 12/13 mg/dL [facility] HEMATOLOGY PT 15.7 12.0 - 12/12 MH 14.7 [facility] HEMATOLOGY INR 1.28 0.85 - 12/12 MH 1.17 [facility] CHEM PANEL Lipase Lvl 104 73 - 393 12/11 [facility] CHEM PANEL Amylase Lvl 40 25 - 115 12/11 [facility] CHEM PANEL Lipase Lvl 94 73 - 393 12/10 [facility] CHEM PANEL Amylase Lvl 34 25 - 115 12/10 [facility] CHEM PANEL A/G Ratio 0.7 0.7 - 1.6 12/10 [facility] CHEM PANEL Globulin 3.5 2.7 - 4.2 12/10 [facility] CHEM PANEL B/C Ratio 19 6 - 25 12/10 [facility] CHEM PANEL Bili Total 0.4 0.2 - 1.3 12/10 [facility] CHEM PANEL Total 5.9 6.4 - 8.4 12/10 Protein [facility] CHEM PANEL Alk Phos 42 39 - 136 12/10 [facility] CHEM PANEL ALT 11 0 - 65 12/10 [facility] CHEM PANEL Albumin Lvl 2.4 3.5 - 5.0 12/10 [facility] CHEM PANEL AST 9 0 - 37 12/10 [facility] CHEM PANEL Lipase Lvl 50 73 - 393 12/09 [facility] CHEM PANEL Globulin 3.6 2.7 - 4.2 12/09 [facility] CHEM PANEL A/G Ratio 0.6 0.7 - 1.6 12/09 [facility] CHEM PANEL B/C Ratio 17 6 - 25 12/09 [facility] CHEM PANEL Alk Phos 46 39 - 136 12/09 [facility] CHEM PANEL AST 11 0 - 37 12/09 [facility] CHEM PANEL Bili Total 0.4 0.2 - 1.3 12/09 [facility] CHEM PANEL Total 5.9 6.4 - 8.4 12/09 Protein [facility] CHEM PANEL ALT 13 0 - 65 12/09 [facility] CHEM PANEL Albumin Lvl 2.3 3.5 - 5.0 12/09 [facility] CHEM PANEL Amylase Lvl 24 25 - 115 12/09 [facility] HEMATOLOGY PTT 35.7 22.9 - 12/08 MH 35.8 /2019 [facility] HEMATOLOGY PT 14.4 12.0 - 12/08 MH 14.7 /2018 [facility] HEMATOLOGY INR 1.14 0.85 - 12/08 MH 1.17 [facility] HEMATOLOGY WBC 7.4 3.7 - 10.4 12/04 [facility] HEMATOLOGY Hgb 9.8 12.0 - 12/04 MH 16.0 [facility] HEMATOLOGY RBC 3.51 4.20 - 12/04 MH 5.40 /2019 [facility] HEMATOLOGY Hct 29.2 36.0 - 12/04 MH 48.0 [facility] HEMATOLOGY Platelet 202 133 - 450 12/04 [facility] HEMATOLOGY MPV 9.1 7.4 - 10.4 12/04 MH /2018 [facility] HEMATOLOGY MCHC 33.4 32.0 - 12/04 MH 36.0 [facility] HEMATOLOGY MCH 27.8 27.0 - 12/04 MH 31.0 [facility] HEMATOLOGY RDW 13.9 11.5 - 12/04 MH 14. [facility] HEMATOLOGY MCV 83.2 80.0 - 12/04 MH 98.0 [facility] HEMATOLOGY Lymphocytes 14.5 20.0 - 12/04 MH 40.0 [facility] HEMATOLOGY Basophils 0.7 0.0 - 1.0 12/04 [facility] HEMATOLOGY Neutrophils 5.6 1.5 - 8.1 12/04 MH # [facility] HEMATOLOGY Eosinophils 0.4 0.0 - 4.0 12/04 [facility] HEMATOLOGY Monocytes 8.8 2.0 - 12.0 12/04 [facility] HEMATOLOGY Monocytes # 0.7 0.0 - 0.8 12/04 [facility] HEMATOLOGY Lymphocytes 1.1 1.0 - 5.5 12/04 MH # [facility] HEMATOLOG[facility] Basophils # 0.1 0.0 - 0.2 12/04 [facility] HEMATOLOGY Segs 75.6 45.0 - 12/04 MH 75.0 [facility] HEMATOLOGY RDW 13.6 11.5 - 12/03 MH 14. [facility] HEMATOLOG[facility] Platelet 254 133 - 450 12/03 [facility] HEMATOLOGY MPV 9.0 7.4 - 10.4 12/03 [facility] HEMATOLOGY WBC 5.0 3.7 - 10.4 12/03 [facility] HEMATOLOGY Hgb 11.2 12.0 - 12/03 MH 16.0 [facility] HEMATOLOGY RBC 4.02 4.20 - 12/03 MH 5.40 [facility] HEMATOLOGY MCV 81.5 80.0 - 12/03 MH 98.0 [facility] HEMATOLOGY Hct 32.8 36.0 - 12/03 MH 48.0 [facility] HEMATOLOGY MCH 27.7 27.0 - 12/03 MH 31.0 [facility] HEMATOLOGY MCHC 34.0 32.0 - 12/03 MH 36.0 [facility] HEMATOLOGY Eosinophils 0.1 0.0 - 0.5 12/03 MH # /2018 [facility] HEMATOLOGY Monocytes # 0.4 0.0 - 0.8 12/03 /2018 [facility] HEMATOLOGY Lymphocytes 1.1 1.0 - 5.5 12/03 MH # /2018 [facility] HEMATOLOGY Basophils # 0.1 0.0 - 0.2 12/03 /2018 [facility] HEMATOLOGY Lymphocytes 21.5 20.0 - 12/03 MH 40.0 /2018 [facility] HEMATOLOGY Segs 66.5 45.0 - 12/03 MH 75.0 [facility] HEMATOLOGY Monocytes 9.0 2.0 - 12.0 12/03 /2018 [facility] HEMATOLOGY Eosinophils 1.9 0.0 - 4.0 12/03 /2018 [facility] HEMATOLOGY Basophils 1.1 0.0 - 1.0 12/03 /2018 [facility] HEMATOLOGY Neutrophils 3.3 1.5 - 8.1 12/03 MH # /2018 [facility] URINE CHEM U Preg Negative Negative 12/03 (12/03/18 5:45 AM) /2018 [facility] BLOOD BANK Antibody Negative 11/27 RESULTS Scrn (11/27/18 11:13 AM) /2018 [facility] and BLOOD BANK ABO/Rh AB POS 11/27 RESULTS /2018 [facility] ENDOCRINOLO S Preg Negative Negative 11/27 GY *NA* /2018 [facility] (11/27/18 11:13 AM) Pathology Reports No Data Provided for This Section Diagnostic Reports Report Value Date Source ED Abdomen/Pelvis IV Radiation Dose CTDIVOL = 0 (mGy): DLP = 194.6 (mGy-cm) 05/28/2019 [facility] contrast only CT PROCEDURE INFORMATION: Exam: CT Abdomen And Pelvis With Contrast Exam date and time: 05/28/2019 4:46 PM Clinical history: 48 years old, female; Abdominal pain; Patient HX: Left sided abd pain x2 weeks, HX of 2 bowel obstructions th is year after hysterectomy. ; Additional info: /abdominal pain, HX sbo TECHNIQUE: Imaging protocol: Computed tomography of the abd omen and pelvis with intravenous contrast. Total DLP: 194.6 mGy-cm Radiation optimization: All CT scans at this facility use at least one of these dose optimization techniques: automated exposure control; mA and/or kV adjustment per patient size (includes targeted e xams where dose is matched to clinical indication); or iterative reconstructio n. Contrast material: [id number]; Contrast volume: 95 ml; Contrast route: 20G RIGHT AC; COMPARISON: ABDOMEN/PELVIS W IV CONTRAST CT 12/10/2018 2:53 P M FINDINGS: Lungs: The visualized portions of the lung bases are normal. Liver: The liver is normal. Gallbladder and bile ducts: The gallbladder is n ormal. Pancreas: The pancreas is normal. Spleen: The spleen is normal. Adrenals: The adrenal glands are normal. Kidneys and ureters: The kidneys are normal. Stomach and bowel: Unremarkable. No obstruction. No mucosal thickening. No air-fluid levels. Appendix: No evidence of appendicitis. Appendix not visualized. Intraperitoneal space: Unremarkable. No free air . No significant fluid collection. Vasculature: The aorta is normal. Lymph nodes: Unremarkable. No enlarged lymph nod es. Bladder: The bladder is normal. Reproductive: There has been a hysterectomy. Bones/joints: The spine is normal. Soft tissues: Unremarkable. IMPRESSION: 1. Previous hysterectomy. 2. Resolution of changes of bowel distraction an d ascites present on previous examination. 3. No acute abnormality identified. Chemo Duque MD On 05/28/2019 17:16:08; [facility] [id number] Outside consultation w Study: Outside consultation w report CT 0 12/29/2018 [facility] report CT Clinical Indication: Abdominal pain. Comparison: CT abdomen and pelvis from 9 TECHNIQUE: Multiple axial CT images of the abdomen/pelvis were acquired without the administration of intravenous contrast. Multiplanar reformatted images were performed. FINDINGS: The visualized lung bases are clear bi laterally. Liver, gallbladder, pancreas , spleen, and adrenal glands are within the normal limits imposed by the lack of intravenous contrast. 1 mm calyceal stones throughout the bilateral kidneys are seen, left gr eater than right. Urinary bl adder is under distended. Patient is status post hysterectomy. There are multiple moderate- severely dilated fluid-filled loops of small bowel with focal zone of transition in the right pelvis. Collapsed loops of small bowel are noted distally. The remaining visuali zed hollow viscera and appen ivan are unremarkable. No intraperitoneal free air, free fluid, or pathologic adenopathy is seen. No suspicious osseous lesion s are seen. Postsurgical scarring of the long the anterior subcutaneous soft tissues of the lower abdomen/pelvis is seen. IMPRESSION: 1. Findings compatible with small bowel obstruction with focal zone of transition in the right pelvis. 2. Nonobstructive bilateral nephrolithiasis. SL: [id number] Abdomen AP DX Clinical Indication: - ng tube verified placeme nt 12/28/2018 [facility] Comparison: None FINDINGS: The AP supine view of the ab domen shows a dilated bowel loop in the midabdomen and a nasogastric tube which terminates overlying the gastric air bubble. There is no pneumatosis or mass effect. There is no gross evidence for pneumo peritoneum. There are no radiopaque densities noted. There are no clinically significant osseous abnormalities noted. IMPRESSION: 1. Dilated bowel loop in the midabdomen. 2. Nasogastric tube terminates overlying the st omach. SL: [id number] Small bowel series DX Patient Name: FRAN SUTTON 11/2018 [facility] : 1970; Age: 48 years Female MR: [id number] Study: Small bowel series DX Order Time: 12/19/19 19 8:17 CDT CLINICAL HISTORY: -Small bowel obstruction; COMPARISON: None TECHNIQUE: Serial overhead i mages of the abdomen were performed at 15 to 30 minute intervals following ingestion of water-soluble contrast (Omnipaque). FINDINGS: Initial district scout executive study reveals demonstrates a nonobstructive bowel gas pattern. Nasogastric tube projects over the stomach body. No delay in passage of contr ast from the stomach into the small bowel and subsequently into the colon. The normal feathery pattern of the jejunum is preserved. The ileum demonstrates normal morphology. No obstructing masses, stric tures or other significant mucosal abnormality is noted. Contrast is seen within the colon within 90 minutes. IMPRESSION: Unremarkable small bowel series. SL: [id number] Abdomen AP DX Patient Name: FRAN SUTTON 9 [facility] : 1970; Age: 48 years Female MR: [id number] Study: Abdomen AP DX 12/17/2018 3:00 CDT CLINICAL INDICATION: - Small bowel obstruction COMPARISON: 12/16/2018 FINDINGS: Nonspecific bowel gas patter n without evidence of dilatation, pneumatosis, or pneumoperitoneum. Nasogastric tube tip projects over the stomach body. No significant osseous abnormalities. IMPRESSION: Nonobstructive bowel gas pattern. SL: [id number] Abdomen AP DX Patient Name: FRAN SUTTON 9 [facility] : 1970; Age: 48 years Female MR: [id number] Study: Abdomen AP DX 12/16/2018 3:00 CDT CLINICAL INDICATION: - sbo COMPARISON: 12/15/2018 FINDINGS: Few dilated loops of small b owel within the upper abdomen. Contrast from the earlier CT opacifies the colon. Nasogastric tube tip projects over the stomach body. No significant osseous abnormalities. IMPRESSION: Few dilated loops of small b owel within the upper abdomen may represent partial small bowel obstruction or ileus. SL: [id number] Abdomen AP DX Patient Name: FRAN SUTTON 9 [facility] : 1970; Age: 48 years y/o Female MR: [id number] Study: Abdomen AP DX 12/15/2018 3:00 CDT Ordering Physician: Bernie Ortega MD Clinical Indication: - sbo; Comparison: 12/14/2018 Abdomen one view Nasogastric tube terminates within the stomach. Nearly gasless abdomen, as before. A single nonpathologically dilated small bowel loop is seen in the upper abdomen. No pathologic calcifications are seen. IMPRESSION: Nasogastric tube in place. Nearly gasless abdomen as be fore. Correlate clinically for persistent small bowel obstruction. SL: [id number] Abdomen AP DX ABDOMEN, ONE VIEW 12/14/2018 [facility] HISTORY: Small bowel obstruction; - sbo; COMPARISON: Abdominal radiog chris dated 12/13/2018, 12/12/2018, and 12/11/[address] abdomen/pelvis dated 12/10/2018 FINDINGS: Single frontal view of the abdomen submitted. Evaluation for persistent lauren wel obstruction severely limited due to lack of bowel gas; similar to prior radiographic examinations. No evidence of pneumoperiton eum on this limited single probable supine image. Nasogastric tube terminates in the stomach. Osseous structures normal. IMPRESSION: Evaluation for persistent lauren wel obstruction severely limited due to lack of bowel gas; similar to prior radiographic examinations. SL: [id number] Abdomen AP DX Patient Name: FRAN SUTTON 9 [facility] : 1970; Age: 48 years y/o Female MR: [id number] * ABDOMEN, 1 view HISTORY: Small bowel obstruction. COMPARISON: Yesterday. Studi es of 12/11/2018, 12/09/2018, and 12/08/2018 and a computed tomography scan of the abdomen and pelvis from 12/02/2018 were reviewed. TECHNIQUE: A supine radiograph of the abdomen wa s obtained. IMPRESSION: 1. The abdomen is essentiall y gasless. Therefore, the bowel gas pattern is difficult to evaluate. However, as noted the abdominal CT scan of 12/10/2018 demonstrated dilated fluid-filled small bowel loop s with decompressed loops di stally consistent with a small bowel obstruction. There is suggestion that some of these dilated loops can be visualized on this study but again, the study is limited due to essentially complete absence of bowel gas. 2. No gas or fecal material is appreciated in th e colon. 3. The nasogastric tube extends into the stomach . 4. The regional skeleton is unremarkable. SL: [id number] Abdomen AP DX CLINICAL INDICATION: Nasogastric tube placement. 12/12/2018 [facility] COMPARISON: None. FINDINGS: The AP supine view of the ab domen shows a nonspecific bowel gas pattern. The nasogastric tube terminates in the fundus of the stomach. Central line is partially imaged terminating at the atriocaval junction. IMPRESSION: The nasogastric tube terminates in the fundus of the stomach. SL: IRIS Chest 1 v for Placement Chest 1 v for Placement DX 12/12/2018 13:45 CDT 12/12/2018 [facility] DX Ordering Physician: Esteban Richards DO CLINICAL HISTORY: - PICC placement confirmation ; TECHNIQUE: A single AP view of the chest was obt ained. COMPARISON: 03/10/2019. FINDINGS: No focal consolidation or pl eural effusion is seen. No radiographically detectable pneumothorax is present. The cardiomediastinal silhou ette and its contours are normal. Right arm PICC line tip is at the cavoatrial junction. NG tube side port is at the stomach. No acute osseous abnormality is evident. IMPRESSION: 1. Right arm PICC line tip at the cavoatrial dread ction. 2. NG tube side port at the stomach. SL: [id number] Abdomen AP DX Patient Name: FRAN SUTTON : [birth year]2018 [facility] Age: 48 years, Female MR: [id number] Study: Abdomen AP DX 12/11/2018 9:16 CDT Indication: - SBO vs ileus. Comparison: CT abdomen and pelvis 12/10/2018 Findings: Lines/tubes: Enteric feedin g catheter is present with the tip projecting over the expected region of the gastric fundus. Bowel: No air-fluid levels. Multiple fluid-filled loops of small bowel are present. No pneumoperitoneum. Moderate amount of retained feces and air are no paty in the colon and rectum. Calcifications: No calcific ations project over the renal shadows, expected course of the ureters bilaterally, and urinary bladder. Soft tissues: Normal. Bones: No acute osseous abnormality. IMPRESSION: Multiple fluid-filled loops of small bowel may represent an ileus versus partial small bowel obstruction. SL: [id number] Abdomen/Pelvis w IV PROCEDURE: 12/10/2018 [facility] contrast CT CT abdomen pelvis with contrast. Reconstruction images. INDICATION: Hysterectomy one week prior, now wit h nausea. TECHNIQUE: GI CONTRAST: 50 cc of standard Omnipaque 300 con trast mixture. IV CONTRAST: 100 cc of Omnipaque-300 Axial post-contrast images w ere obtained from the lower chest to the symphysis pubis. Coronal and sagittal reconstruction images were performed. CT imaging performed at this location utilizes radiation dose optimization techniques which include one or more of the following: -Automated exposure control -Adjustment of the mA and/or kV according to pat ient size -Use of iterative reconstruction technique Total CT radiation dose: DLP = 502.77 mGy-cm COMPARISON: Outside CT 12/08/2018. FINDINGS: LOWER CHEST: Trace bilateral pleural effusions are seen with bilateral lower lobe subsegmental atelectasis. SOLID ORGANS: No focal hepat ic lesion or intrahepatic biliary ductal dilatation is seen. No calcified gallstone is noted. The spleen, pancreas, and adrenal glands are nor mal in appearance. Both kidneys demonstrate nor mal corticomedullary phase of enhancement. Small nonobstructing left renal calculus is seen. No ureteral calculus or hydronephrosis is noted. No renal mass or cyst is identified. BOWEL: Mild dilatation of th e small bowel is noted measuring up to 2.8 cm. Transition point to normal caliber distal small bowel is seen in the mid pelvis on series 2, image 118. No pneumatosis or kvng l venous gas is seen. NG tub e is within the stomach. No bowel contrast is seen within the distal small bowel. The distal small bowel and colon are normal in caliber without wall thickening. A normal appendix is identified. PERITONEUM: No free intraper itoneal air is seen. Mild ascites is noted. No ventral wall defects. RETROPERITONEUM: Normal maryam enio of the abdominal aorta is noted. No lymphadenopathy is seen. PELVIS: The visualized urina ry bladder wall is normal thickness. The uterus is absent. 2.5 x 1.5 cm heterogeneous collection is seen with tiny air bubbles is noted. MUSCULOSKELETAL: No acute os seous abnormality is seen. No destructive lytic or blastic osseous lesion is noted. IMPRESSION: 1. Small bowel obstruction with transiti on point identified at the mid pelvis. 2. NG tube within the stomach. 3. Small heterogeneous colle ction at the hysterectomy bed measuring 2.5 x 1.5 cm, not significant changed since outside CT of 12/08/2018. Given the hysterectomy performed one week prior, this may be postoperative in etiology. 4. Trace bilateral pleural e ffusions with bilateral lower lobe subsegmental atelectasis. 5. Mild amount of ascites. 6. Nonobstructing left nephrolithiasis. SL: [id number] Abdomen 1 v for Clinical Indication: - NG Tube placemen t verification 12/09/2018 [facility] Placement DX Comparison: None FINDINGS: The AP supine view of the ab domen shows a non-obstructive bowel gas pattern. There is no abnormal dilatation of bowel loops. There is no pneumatosis or mass effect. There is no gross evidence for pneumo peritoneum. There are no rad iopaque densities noted. There are no clinically significant osseous abnormalities noted. There is a nasogastric tube terminates in the left upper quadrant of the abdomen. IMPRESSION: 1. Nasogastric tube terminates overlying the ga stric air bubble. SL: [id number] Abdomen AP DX Study: Abdomen AP DX portable 12/09/2018 0503 ho urs 12/09/2018 [facility] Clinical Indication: -Abdominal pain and SBO; Comparison: Abdomen 12/08/2018 FINDINGS: Supine image was obtained. Nasogastric tube has been removed. There is a small amount of g as within the intestinal tract. Slightly prominent small bowel segment is noted in the left mid abdomen. No gross abnormal soft tissue mass or calcificat ion is seen. SL: [id number] Abdomen AP DX Abdomen AP DX 12/08/2018 [facility] Female 48 years old Clinical Indication: - advanced the NG to 70cm; Comparison: None FINDINGS: The AP supine view of the ab domen shows a non-obstructive bowel gas pattern.. There is no abnormal dilatation of bowel loops. There is no pneumatosis or mass effect. The NG tube is advanced with the tip extending t o the distal stomach. There are no clinically significant osseous abno rmalities noted. IMPRESSION: NG tube now in the distal stomach. SL: [id number] Abdomen AP DX Exam: Abdomen AP DX 12/08/2018 [facility] Clinical Indication: - check placement of NGT. Comparison: None. FINDINGS: AP supine view of the abdomen is performed. NG tube in place with tip in the proximal stomach and side port at the GE junction. Nonobstructive bowel gas pat tern. No abnormal dilatation of bowel loops. No pneumatosis or mass effect. No suspicious calcifications noted. No acute osseous abnormalities noted. IMPRESSION: NG tube in place with tip in the proximal stomach and side port at the GE junction. Further advancement into the stomach is advised. SL: [id number] Breast Mammo Diag UNI 11/13/2017 SABINE argueta incl CAD MA UNILATERAL RIGHT DIGITAL DIAGNOSTIC MAMMOGRAM: CLINICAL: R92.8 Other Abnorm al And Inconclusive Findings On Diagnostic Imaging Of Breast/R92.8 Other Abnormal And Inconclusive Findings On Diagnostic Imaging Of Breast. COMPARISON:Comparison is mad e to exam dated: 10/25/2017 mammogram - [facility]. TECHNIQUE: Mammographic views were obtained usin g digital acquisition. FINDINGS: The tissue of right breast i s heterogeneously dense, which could obscure detection of small masses. There is an 0.8 cm round mas s in the right breast at 3 o'clock middle depth 5 cm from the nipple. No other significant masses or calcifications ar e seen in the breast. IMPRESSION: INCOMPLETE: NEEDS ADDITIONAL IMAGING EVALUATION RECOMMENDATION:The 0.8 cm ro und mass in the right breast is indeterminate. An ultrasound is recommended. This exam was interpreted at [id number] for WILLA [place] [address]. SUMMARY: Ultrasound will be performed at this time; please see dedicated separate report. Professional services are pr ovided by the [facility] Diagnostic [facility]. Luana triplett/stefani:11/13/2017 11:49:14 Transplant Registered Nurse(s): Ok Gomes [facility] Mammogram BI-RADS: 0 Indeterminate Breast Complete Uni US 11/13/2017 SABINE HENDRICKS [place] COMPLETE ULTRASOUND OF RIGHT BREAST AND AXILLA: 11/13/2017 CLINICAL: R92.8 Other Abnorm al And Inconclusive Findings On Diagnostic Imaging Of Breast/R92.8 Other Abnormal And Inconclusive Findings On Diagnostic Imaging Of Breast. COMPARISON:Comparison is mad e to exams dated: 11/13/2017 mammogram and 10/25/2017 mammogram - [facility]. TECHNIQUE: Ultrasound of the right breast four quadrants, retroareolar, and axilla regions was performed. FINDINGS: There is a benign 0.8 cm ova l cyst in the right breast at 4 o'clock middle depth 3 cm from the nipple. This oval cyst is anechoic. This correlates with mammography findings. A few additional scattered c ysts are noted throughout the right breast. No suspicious sonographic findings are identified. IMPRESSION: BENIGN RECOMMENDATION:There is no sonographic evidence of malignancy. The 0.8 cm oval cyst in the right breast is kash gn. Return to annual mammogram s creening schedule is recommended.(10/25/2018) This [id number] SUMMARY: Dr. Fisher discussed the ab ove findings with the patient at the time of the examination. Professional services are pr ovided by the [facility] of Diagnostic Imaging. Luana triplett/stefani:11/13/2017 11:51:45 Transplant Registered Nurse(s): Luz Edgar [facility] letter sent: BI-RADS 1/2 Ultrasound BI-RADS: 2 Benign Breast Mammo Scrn VERO 10/25/2017 SABINE HENDRICKS [place] incl CAD MA BILATERAL DIGITAL SCREENING MAMMOGRAM WITH CAD: 10/25/2017 Current study was evaluated with a Rate Clerk d Detection (CAD) system. COMPARISON:No prior exams were available for [facility]. TECHNIQUE: Mammographic view s were obtained using digital acquisition. Current study was also evaluated with a Computer Aided Detection (CAD) system. FINDINGS: The tissue of both breasts i s heterogeneously dense, which could obscure detection of small masses. There is an 8 mm round nodul e with an indistinct margin in the right breast at 3 o'clock middle depth 5 cm from the nipple. No other significant masses, calcifications, or other findings are seen in either breast. IMPRESSION: INCOMPLETE: NEEDS ADDITIONAL IMAGING EVALUATION RECOMMENDATION:The 8 mm roun d nodule in the right breast is indeterminate. Diagnostic mammography with possible ultrasound are recommended. This exam was interpreted at [id number] at [facility] Location. Professional services are pr ovided by the [facility] Division of Diagnostic Imaging. Lyric Montenegro M.D. th/penrad:10/26/2017 08:37:23 Transplant Registered Nurse(s): Ok Fisher letter sent: BI-RADS 0 Mammogram BI-RADS: 0 Indeterminate Consultation Notes No Data Provided for This Section Discharge Summaries No Data Provided for This Section History and Physicals No Data Provided for This Section Vital Signs Vital Sign Value Date Comments Source Systolic (mm Hg) 119 06/05/2019 [facility] Diastolic (mm Hg) 80 06/05/2019 [facility] Heart Rate 62 06/05/2019 [facility] Temperature Oral (F) 97.8 F 06/05/2019 [facility] Height 154.94 cm 06/05/2019 [facility] Weight 47.727 06/05/2019 [facility] BMI Calculated 19.88 06/05/2019 [facility] Temperature Oral (F) 98.0 F 05/28/2019 [place] Heart Rate 78 05/28/2019 [place] Respitory Rate 18 05/28/2019 [place] Systolic (mm Hg) 107 05/28/2019 [place] Diastolic (mm Hg) 72 05/28/2019 [place] Systolic (mm Hg) 120 05/28/2019 [place] Diastolic (mm Hg) 68 05/28/2019 [place] Heart Rate 81 05/28/2019 [place] Respitory Rate 18 05/28/2019 [place] Temperature Oral (F) 97.8 F 05/28/2019 [place] Weight 46.364 05/28/2019 [place] Systolic (mm Hg) 117 03/10/2019 [facility] Diastolic (mm Hg) 74 03/10/2019 [facility] Heart Rate 65 03/10/2019 [facility] Temperature Oral (F) 98.4 F 03/10/2019 [facility] dem[facility] Group Height 154.94 cm 03/10/2019 [facility] Weight 46.909 03/10/2019 [facility] BMI Calculated 19.54 03/10/2019 [facility] Respitory Rate 16 02/14/2019 [facility] Systolic (mm Hg) 101 02/14/2019 [facility] Diastolic (mm Hg) 71 02/14/2019 [place] Rate 11 02/14/2019 [facility] Systolic (mm Hg) 92 02/14/2019 [facility] Diastolic (mm Hg) 59 02/14/2019 [place] Systolic (mm Hg) 93 02/14/2019 [facility] Diastolic (mm Hg) 60 02/14/2019 [place] Respitory Rate 15 02/14/2019 [facility] Height 157.48 cm 02/11/2019 [facility] Weight 46.818 02/11/2019 [facility] BMI Calculated 18.88 02/11/2019 [facility] Temperature Oral (F) 98.7 F 02/11/2019 [facility] Heart Rate 67 02/11/2019 [facility] Weight 46.818 02/11/2019 [facility] BMI Calculated 18.88 02/11/2019 [facility] Height 157.48 cm 02/11/2019 [facility] Weight 48.239 01/14/2019 [facility] BMI Calculated 19.45 01/14/2019 [facility] oup Height 157.48 cm 01/14/2019 [facility] Heart Rate 68 01/14/2019 [facility] Temperature Oral (F) 98.7 F 01/14/2019 [facility] Systolic (mm Hg) 109 01/14/2019 [facility] Diastolic (mm Hg) 73 01/14/2019 [facility] BMI Calculated 19.88 01/10/2019 [facility] Weight 47.727 01/10/2019 [facility] Height 154.94 cm 01/10/2019 [facility] Systolic (mm Hg) 115 01/10/2019 [facility] Diastolic (mm Hg) 76 01/10/2019 [facility] Temperature Oral (F) 98.5 F 01/10/2019 [facility] Heart Rate 64 01/10/2019 [facility] Systolic (mm Hg) 115 12/31/2018 [facility] Diastolic (mm Hg) 73 12/31/2018 [facility] [place] Respitory Rate 18 12/31/2018 [facility] [place] Heart Rate 64 12/31/2018 [facility] [place] Temperature Oral (F) 98.0 F 12/31/2018 [facility] [place] Systolic (mm Hg) 101 12/31/2018 [facility] [place] Diastolic (mm Hg) 63 12/31/2018 [facility] [place] Respitory Rate 18 12/31/2018 [facility] [place] Heart Rate 62 12/31/2018 [facility] [place] Temperature Oral (F) 98.5 F 12/31/2018 [facility] [place] Systolic (mm Hg) 103 12/31/2018 [facility] [place] Diastolic (mm Hg) 60 12/31/2018 [facility] [place] Temperature Oral (F) 98.5 F 12/31/2018 [facility] [place] Respitory Rate 18 12/31/2018 [facility] [place] Heart Rate 65 12/31/2018 [place] BMI Calculated 21.44 12/28/2018 [facility] Weight 53.182 12/28/2018 [facility] Height 157.48 cm 12/28/2018 [place] Respitory Rate 16 12/22/2018 [facility] [place] Systolic (mm Hg) 124 12/22/2018 [facility] [place] Diastolic (mm Hg) 78 12/22/2018 [place] Heart Rate 74 12/22/2018 [facility] [place] Temperature Oral (F) 98.2 F 12/22/2018 [facility] [place] Temperature Oral (F) 98.7 F 12/21/2018 [facility] [place] Systolic (mm Hg) 96 12/21/2018 [facility] [place] Diastolic (mm Hg) 60 12/21/2018 [place] Heart Rate 69 12/21/2018 [place] Respitory Rate 16 12/21/2018 [facility] [place] Temperature Oral (F) 98.2 F 12/21/2018 [facility] [place] Systolic (mm Hg) 110 12/21/2018 [facility] [place] Diastolic (mm Hg) 60 12/21/2018 [facility] [place] Heart Rate 71 12/21/2018 [facility] [place] Respitory Rate 15 12/21/2018 [facility] Height 157.48 cm 12/08/2018 [place] Weight 50 12/08/2018 [place] BMI Calculated 20.16 12/08/2018 [place] Respitory Rate 18 12/05/2018 [facility] [place] Systolic (mm Hg) 113 12/05/2018 [facility] [place] Diastolic (mm Hg) 66 12/05/2018 [place] Temperature Oral (F) 98.0 F 12/05/2018 [place] Heart Rate 56 12/05/2018 [place] Respitory Rate 20 12/05/2018 [place] Systolic (mm Hg) 90 12/05/2018 [place] Diastolic (mm Hg) 52 12/05/2018 [place] Resp[place] Rate 16 12/05/2018 [facility] Temperature Oral (F) 98.1 F 12/05/2018 [facility] Heart Rate 54 12/05/2018 [facility] Systolic (mm Hg) 108 12/05/2018 [facility] Diastolic (mm Hg) 69 12/05/2018 [place] Heart Rate 65 12/05/2018 [facility] Temperature Oral (F) 98.7 F 12/05/2018 [facility] BMI Calculated 21.44 12/03/2018 [facility] Height 157.48 cm 12/03/2018 [facility] Weight 53.182 12/03/2018 [facility] BMI Calculated 21.5 12/03/2018 [facility] Weight 53.324 12/03/2018 [facility] Height 157.48 cm 11/27/2018 [facility] Systolic (mm Hg) 125 04/04/2018 [facility] Diastolic (mm Hg) 88 04/04/2018 [facility] Heart Rate 65 04/04/2018 [facility] BMI Calculated 21.85 04/04/2018 [facility] Weight 52.455 04/04/2018 [facility] Temperature Oral (F) 98.2 F 04/04/2018 [facility] Height 154.94 cm 04/04/2018 [facility] Height 157.48 cm 09/10/2017 [facility] Weight 51 09/10/2017 [facility] BMI Calculated 20.56 09/10/2017 [facility] o[facility] Temperature Oral (F) 98.0 F 09/10/2017 [facility] Heart Rate 56 09/10/2017 [facility] Systolic (mm Hg) 113 09/10/2017 [facility] Diastolic (mm Hg) 61 09/10/2017 [facility] Encounters Location Location Encounter Encounter Reason Attending ADM [place] Stat us Source Details Type Number For Provider Date Date Visit Outpatient [id number] WILBERTO 08/01 [facility] Patrick [facility] Ambulatory [id number] Wilberto 08/01 08/01 MH Primary [facility] Outpatient [id number] WILBERTO09/10 Active [facility] [place] [facility] Outpatient [id number] Wilberto09/10 MH [facility] Outpt Diag [id number] Wilberto 10/25 10/26 [facility] [id number] Wilberto 11/13 11/14 MH [facility] Outpatient [id number] WILBERTO04/04 Active [facility] Patrick MG Outpatient [id number] Wilberto 04/04 04/05 MH [facility] [id number] Christal 12/03 12/05 Patrick Quevedo [facility] Inpatient [id number] Bernie 12/08 12/22 Patrick Ortega /2018 [facility] Inpatient [id number] [facility] 12/28 12/31 Patrick Ramirez [facility] Outpatient [id number] Barbie 01/02 Active [facility] [place] MG Ambulatory [id number] Barbie 01/02 01/02 General [facility]Reg [facility] Outpatient [id number] Wilberto 01/10 Active [facility] Patrick MG Outpatient [id number] Wilberto 01/10 01/11 MH [facility] Outpatient [id number] Barbie 01/14 Active [facility] Patrick MG Outpatient [id number] Barbie 01/14 01/15 MH General [facility] Day Surgery [id number] Starr 02/14 02/14 Patrick Boucher [facility] Outpatient [id number] Wilberto03/10 Active [facility] Outpatient [id number] Wil[place]to 03/10 03/11 Primary [place] /2018 [facility] Between [id number] 03/11 03/12 Primary Visit /2018 [facility] Emergency [id number] Geo 05/28 05/[address] [facility] /2018 [facility] Outpatient [id number] 06/05 Active [facility] Outpatient [id number] Wilberto 06/05 06/06 Primary [place] /2018 [facility] Outpatient [id number] Wilberto06/25 Active [facility] Ambulatory [id number] Wilberto06/25 Primary Pre-Reg [place] /2018 [facility] Outpatient [id number] Wilberto12/01 Active [facility] Ambulatory [id number] Wilberto 12/01 12/01 Primary Pre-Reg [place] /2019 [facility] Between [id number] 12/02 12/03 Primary Visit /2019 [facility] Outpatient [id number] Wilberto12/02 Active [facility] Between [id number] 12/04 12/05 Primary Visit /2019 [facility] Phone [id number] 12/08 12/10 Primary Message /2019 [facility] Procedures Procedure Code Date Perfomer Comments Source Removal impacted [id number] 06/05/2019 Medic al cerumen using Group irrigation/lavage, unilateral Hysterectomy [id number] 12/03/2018 Medical Group,[facility] Bilateral tubal [id number] Medica l ligation Group,[facility], [facility] [place] Caesarean section [id number] Medi [facility] Assessment and Plan Assessment and Plan Date Source Extracted from:Title: operative laparoscopy,lysis of adhesio ns, 02/14/2019 [facility] Author: Christal Quevedo MD Date: 02/14/19 Impression and Plan Diagnosis Status post laparoscopy (RAA30-GP Z98.890, Working, Medical) . Pelvic pain in female (WSL08-BI R10.2, Working, Medical). Postoperative female pelvic peritoneal a dhesions (LFW46-FO N99.4, Working, Medical). Vaginal cuff dehiscence (AKZ14-QZ T81.31XA, Working, Medical ). Course: Progressing as expected. Extracted from:Title: Preop History and Physical Author: Starr Boucher MD Date: 02/14/19 HPI: 48 year old s/p abdominal hysterectomy with bilateral salpingectomy 12/03/18. Postoperative course complicated by two episode of SBO managed inpatient nonoperatively as well as a partial v aginal cuff dehiscence. Conservative the rapy with premarin vaginal cream has not led to improvement with vaginal cuff healing so it was recommended that she proceed with vaginal cuff revision with diagn ostic laparoscopy to confirm no adhesion s at the vaginal cuff. She is scheduled for Dx laparoscopy and vaginal cuff revision with possible lysis of adhesions. ROS: Standard: GENERAL/ CONSTITUTIONAL: weight g ain, weight loss, denies fever, chills. HEENT denies headaches, visual changes, tinitus, neck lumps, denies congestion, rhinorrhea, dysphagia. RESPIRATORY: milad es cough, denies wheezing, denies shortn ess of breath. BREAST: denies skin changes, lumps, and retractions. CARDIOVASCULAR: denies chest pain and palpitations. GASTROINTESTINAL: denies changes in bow el movements, pain, or masses. GENITOUR INARY: SEE A/P and HPI. MUSCULOSKELETAL: denies joint swelling, pain, or stiffness, denies muscle aches, no loss of motor strength. SKIN: denies edema, erythema , or rashes. NEURO Denies headaches, ne uralgia, paresthesia, pain. PSYCH Denies feeling depressed, anxious, disoriented. EYES Denies visual changes, double vision, ocular halos, loss of vision, Denie s ocular lesions or masses, Denies abnl discharge or irritat ion. Medical History: Uterine fibroid, Dysmenorrhea, Menorrhagi a. 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 # 2: 1988, Primary ft female. # 3 1993, ft male. / Para: G 3 P 2011 Surgical History: 1988, bilat eral tubal ligation (BTL) 2001, JEB,Bilateral Salpingectomy 12/03/2018. Hospitalization/Major Diagnostic Proced ure: postop small bowel obstruction 11/2018. Family History: Mother: alive, diabete s. Father: alive. Maternal Grandmother: 68 yrs, breast cancer, diagnosed with Malignant neoplasm. Social History: Alcohol: socially . no Drugs . no Regular exercise . New since last visit: none. Occupation: unemployed. no Travel outside [place]. Alcohol Screening Did you have a drink containing alcohol in the past y ear? No Points 0 Interpretation Negative Sexual Hx Had sex in the last 12 months (vaginal, oral, or anal )? Yes with Men only Prevention Strategies discussed: Other Use protection? No Have you ever had an STD? No Tobacco Use Are you a: never smoker Medications: Taking Premarin 0.625 MG/G M Cream 1 gram topical at introitus Once a day, Discontinued Amoxicillin-Pot Clavulanate 400-57 MG Tablet Chewable 1 tablet Orally every 8 hrs, Medication List reviewed and reconciled with the patient Allergies: N.K.D.A. Objective: Vitals: Ht 62, Wt 103, BMI 18.84, BP 122/80. Examination: complete exam: GENERAL APPEARANCE: No acute distress. NEURO: no focal deficits, Normal sensation to touch. HEENT: unremarkable, NC/AT, EOMI, dentition normal. EXTREMITIES: normal gait, normal range of motion bilat upper ext and bilat lower ext, normal muscle strength and tone all 4 extremities. PSYCH Alert and oriented to time, place, person , Normal mood and affect. ABDOMEN: flat, non-distended, well-healed pfannenstie l incision noted VAGINA: right vaginal cuff angle with separation of the vaginal mucosa about 2 cm in length. Assessment: Assessment: 1. Dehiscence of vaginal cuff, subsequent encounter - T81.31 XD (Primary) 2. SBO (small bowel obstruction) - K56.609 Plan: 1. Dehiscence of vaginal cuff, subsequent encounter Continue Premarin Cream, 0.625 MG/GM, 1 gram, topical at introitus, Once a day . Notes: Discussed risks/benefits/alternat jeannie to procedure. Discussed risk of pain, infection, bleeding possibly requiring blood transfusion, VTE, , injury to surrounding structures (nerves, blood v essels, muscles, bowel, bladder, ureters , vagina), need to complete procedure through ex-lap/open incision, inability to completely resolve symptoms, recurrence of SBO or vaginal cuff dehiscence. All johanna lynch's questions answered; she verbaliz ed understanding and desires to proceed. Extracted from:Title: Discharge Summary * 12/31/2018 [place] Author: Deepak Herrera MD Date: 12/31/18 Discharge Information small bowel obstruction recent total hysterectomy chronic anemia Discharge Plan Discharge Summary Plan Discharge Status: improved. Discharge instructions given: to patient. Discharge disposition: discharge to home. Prescriptions: e prescribed. Orders time spent > 35 minutes. Extracted from:Title: Clinical Document Author: Barbie Srinivasan MD Date: 12/30/18 General surgery progress Note ATTENDING PHYSICIAN: Barbie Srinivasan (no surgical procedures documented) Subjective: Patient seen and examined. Chart review ed. Case discussed with the bedside nurse. Today, she clinically improved. Passing gas. NG clamped. Tolerating NG clamped for >24 hours. Allergies: No Known Medication Allergies OBJECTIVE: Vitals Tmp(F) Pulse BP RR SpO2 FIO2 12/30 11:20 98.3 73 117/70 20 100 --- 12/30 08:12 97.4 53 96/59 16 100 --- 12/30 03:27 98.2 45 97/59 18 100 --- 12/29 23:07 98.2 70 99/62 18 99 --- 12/29 19:29 98.1 58 113/78 18 100 --- 24 Hr Tmax: 98.3F (36.83c) at 12/30 11:2 0 Vital Signs are the last 5 in the past 48 hours. General appearance: Well-developed, and in no acute distress Skin: Integument intact without rashes or erythema HEENT: normocephalic, NG removed Heart: regular rate and rhythm without clicks/rubs or murmur s Vascular exam: 2+ pulses throughout with good capillary refill and no evidence of venous insufficiency Lungs: clear to auscultation bilaterally Abdomen: soft, no tenderness, nondistended, no hepato-spleno megaly Genitourinary: anatomy within normal limits Musculoskeletal: no limitation of passive/active motion Neurological: appropriately interactive; CN II-XII intact Labs: reviewed; pertinent findings are as follows: Clinic[facility]abs[facility] BUN: 6 mg/dL Low (12/30/18) Hct: 30.2 % Low (12/30/18) Hgb: 9.9 g/dL Low (12/30/18) MCH: 26.2 pg Low (12/30/18) MCHC: 32.6 g/dL (12/30/18) MCV: 80.3 fL (12/30/18) MPV: 8.5 fL (12/30/18) Platelet: 287 K/CMM (12/30/18) RBC: 3.76 M/CMM Low (12/30/18) RDW: 14.4 % (12/30/18) WBC: 3.6 K/CMM Low (12/30/18) Tri mg/dL (12/13/18) Images: I have reviewed the radiology re port, as well as the images myself and interpreted them independently. Imaging Studies (last 36 hours) Outside consultation w report CT 12/29/2018 14:39 Impression: 1. Findings compatible with small bowel obstruction with focal zone of transition in the right pelvis. 2. Nonobstructive bilateral nephrolithiasis. SL: [id number] Abdomen AP DX 12/29/2018 00:44 Impression: 1. Dilated bowel loop in the midabdomen. 2. Nasogastric tube terminates overlying the stomach. SL: [id number] Impression and Plan: Diagnoses: Partial small bowel obstruction, recurrent Chronic anemia Status post total abdominal hysterectomy for fibroid disease Plan: Patient clinically improving. Responding to nonsurgical man agement. Okay to advance diet as tolerated once have good return of b owel function. I discussed with the patient and her hus band that we will manage this episode conservatively given the recent surgery however this admission CT and prior CT shows transition point within the pelvis, whi ch usually indicate a fixed point of sca r tissue which may benefit from surgical intervention in the future. I would wait a minimum of 6 weeks postoperatively prior to any other surgical intervention g iven the significance of internal abdomi nal inflammatory changes in the first 6 weeks postoperatively which increased risk of intraoperative complications. Continue with aggressive bowel regimen, avoid constipation. Case discussed with the patient, her hus band, as well as the attending hospitalist. Extracted from:Title: Consult Note Author: Barbie Srinivasan MD Date: 12/29/18 Patient very known to al. returns with r ecurrent pSBO. NG output today is minimal and is clear- bile tinged. abdomen soft. CT from [facility] ER reviewed. Ok to clamp NG, if develops N/V/ Distention then can be plac ed on Sx NPO except for meds, aggressive bowel regimen. OOB IVF decreased to 80. continue at this ra te as no NG output replacement is needed at this point. 1.SBO (small bowel obstruction)(K56.609) 2.Status post total abdominal hysterectomy(Z90.710) 3.Chronic anemia(D64.9) Extracted from:Title: History and Physical Author: Ken Das MD Date: 12/28/18 1.SBO (small bowel obstruction)(K56.609) Recent small bowel obstruction. Probable adhesions in setting ofabdominal hysterectomy. IV fluid. NG tube. Surgical consult. 2.Status post total abdominal hysterectomy(Z90.710) Due to uterine fibroids. 3.Chronic anemia(D64.9) monitor CBC. lovenox. Inpatient. Extracted from:Title: Discharge Summary * 12/22/2018 [place] Author: Damian Clifford MD Date: 12/21/18 Discharge Plan Discharge Summary Plan Discharge Status: improved. Discharge instructions given: to patient. Discharge disposition: discharge to home self care. Prescriptions: continue same medications, written and given to patient. Diagnosis Anemia (HBU72-FC D64.9, Working, Medical). Hypokalemia (VIO22-TM E87.6, Working, Medical). SBO (small bowel obstruction) (DNY19-QY K56.609, Working, De dical). Course Improving. Education and Follow-up Counseled: patient. Extracted from:Title: [facility] HOSP Progress Note * Author: Damian Clifford MD Date: 12/21/18 Impression and Plan Patient is a 48-year-old female with pas t medical history of hysterectomy presented to the ED with complaints of significant abdominal pain. Patient recently had a hysterectomy performed earlier in the week since then has not had a bowel mov ement. She is been feeling nauseous and has been vomiting for the past few days and not even passing gas. Patient had a CAT scan done of the abdomen and pelvis which showed signs of a small bowel obst ruction with dilation back to the stomach. Patient was seen by surgery started conservative measures management for the time being with NG tube to decompress and recommended patient to ambulate. Patie nt still with persistent small bowel obstruction and undergone small bowel follow-through today. Continue conservative management as recommended by surgery. 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 Assessment: Persistent small bowel obstruction Recent total abdominal hysterectomy with bilateral salpingec [place] History of dysfunctional uterine bleeding Hypophosphatemia Hypokalemia Anemia Plan: FLD advance as tolerated once pt passes flatus PRN pain medications Transfuse to maintain hemoglobin levels greater than 7 IV fluid hydration with TPN; will stop T PN tomorrow if able to tolerate FLD today PRN antiemetics DVT prophylaxis: Ambulation Disposition: Continue current management follow clinical course; possible dc today Extracted from:Title: Consult Note Author: Barbie Srinivasan MD Date: 12/08/18 48-year-old female with recent hysterect omytransabdominalnow with postop ileus versus small bowel obstruction. CT from OSH reviewed. Given the Patient is afebrile, no leukocytosis, we will hold of on repeat CT for now as postop complications (ex: abscess) is unlikely with normal vital signs and labs and benign abdominal exam. Continue with NG decompression, NPO, IVF. OOB, PT/OT Minimize narcotics If fails to improve over the next 24 scot rs or if clinically worsen then will repeat the CT and obtain IV and PO contrast. SBO (small bowel obstruction)(K56.609) Extracted from:Title: Gynecology Progress Note *POD#2 2018 [place] Author: Bernie Ortega MD Date: 12/05/18 Impression and Plan Diagnosis: Fibroid, uterine (QST48-SW D2 5.9, Working, Medical), Menorrhagia (KHQ84-ZE N92.0, Working, Medical), Menorrhagia with irregular cycle (FPM40-CB N92.0, Working, Medical), S/P total abdominal h ysterectomy (QLZ65-GQ Z90.710, Working, Medical), Uterine leiomyoma (ZAZ57-UP D25.9, Working, Medical). Course: Progressing as expected. Educated pt regarding incision care as w ell as the importance of adhering to a bowel regimen postoperatively. All questions answered. Plan on discharge to home today with follow-up in two weeks. Extracted from:Title: JEB/salpingectomy Procedure note ligas ure Author: Christal Quevedo MD Date: 12/03/18 Impression and Plan Diagnosis Menorrhagia with irregular cycle (JPV91-DG N92.0, Working, M edical). S/P total abdominal hysterectomy (MEL05-UM Z90.710, Working, Medical). Uterine leiomyoma (BUY55-ZB D25.9, Working, Medical). Orders Christal Quevedo MD. Course: Progressing as expected. Orders Admit to 3 L [address] D for postooperative care. Extracted from:Title: Preop History and Physical Author: Christal Quevedo MD Date: 12/03/18 CC: Scheduled surgery HPI: 47 yo here for scheduled ys terectomy due to symptomatic fibroids and menorrhagia, plan for total abdominal hysterectomy with bilateral salpingectomy. Pelvic usg showed large multifibroid ut erus 15cm with two largest fibroids evelio uring 7cm. MRI lumbosacral area also done and showed moderate compromise of spinal canal L4-L5. Pt continues to have lower pelvic pain and pressure with mild reli ef from OTC midol. Irregular heavy cycle s lasting 10 days with fatigue and weakness. Pt is sexually active but c.o discomfort w/ coitus ,Pt also reports hx of right sided lower back pain with radiation to her right leg. Denies any hx of back injury denies vagina l discharge. ROS: Standard: GENERAL/ CONSTITUTIONAL: weight g ain, weight loss, denies fever, chills. HEENT denies headaches, visual changes, tinitus, neck lumps, denies congestion, rhinorrhea, dysphagia. RESPIRATORY: milad es cough, denies wheezing, denies shortn ess of breath. BREAST: denies skin changes, lumps, and retractions. CARDIOVASCULAR: denies chest pain and palpitations. GASTROINTESTINAL: denies changes in bow el movements, pain, or masses. GENITOUR INARY: SEE A/P and HPI. MUSCULOSKELETAL: denies joint swelling, pain, or stiffness, denies muscle aches, no loss of motor strength. SKIN: denies edema, erythema , or rashes. NEURO Denies headaches, ne uralgia, paresthesia, pain. PSYCH Denies feeling depressed, anxious, disoriented. EYES Denies visual changes, double vision, ocular halos, loss of vision, Denie s ocular lesions or masses, Denies abnl discharge or irritat ion. Medical History: Uterine fibroid, Dysmenorrhea, Menorrhagi a. 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 marital status Marital status . STD History: No. Contraception: Method : BTL, Yes. Pap History: Hx Abnormal Pap: no, Last pap smear: 07/2017. Health Maintenance: Last Mammogram: 11/07/2017, LMP: 09/12/2018. Sexual activity Current Number of Partners: 1, Sexual Preference: Men, Currently sexually active Yes. OB History: # 1: 1987, Spon taneous . # 2: 1988, Primary ft female. # 3 1993, ft male. / Para: G 3, P 2011. Surgical History: 1988, bilateral tubal ligation (BTL) 2001. Hospitalization/Major Diagnostic Procedure: Denies Past Hos pitalization. Family History: Mother: alive, diabete s. Father: alive. Maternal Grandmother: 68 yrs, breast [...] exam: GENERAL APPEARANCE: No acute distress, Well nourished , Well developed . NEURO: no focal deficits, Normal sensation to touch . HEENT: Unremarkable. Normocephali c, atraumatic. EOMI, cranial nerves grossly intact. No conjunctival injection or scleral icterus. . NECK: supple without masses . CHEST: symmetrical . LUNGS: Respirations unlabored on room air . ABDOMEN: soft, no masses palpated , non-tender/non-distended, normal active bowel sounds, no hepatosplenomegaly, no CVA tenderness, no abdominal hernia . EXTREMITIES: no clubbing, cyanosi s, edema, +2 distal pulses throughout, normal gait, normal range of motion bilat upper ext and bilat lower ext, normal muscle strength and tone all 4 extremities . SKIN: no rashes, no lesions, no induration or subcut nodules . External genitalia Normal external female genitalia . VAGINA [place], well rugated, normal estrogen effect, no lesions, no cystocele or rectocele, normal pelvic support . CERVIX 2X2 cm, no lesions, no CMT, no discharge . UTERUS Enlarged 14-15cm irregular shape with fibroids palp, ant fibroid palp, large post fibroid filling post cul de sac, discomfort to post movement and palpation.. [place] No adnexal masses or tend erness, no lympadenopathy or nodularity . Rectum no hemorrhoids, no lesions , normal sphincer tone, no masses, no fissures . PSYCH Alert and oriented to time, place, person, Normal mood and affect . Assessment: Assessment: 1. Uterine fibroid - D25.9 (Primary) 2. Menorrhagia - N92.0 3. Dysmenorrhea - N94.6 4. Back pain - M54.9 5. Encounter to discuss x-ray results - Z71.2 Plan: 1. Uterine fibroid Notes: Scheduled to Total abdominal hyst erectomy with bilateral salpingectomy. Discussed risks/benefits/alternatives to procedure. Discussed risk of pain, infection, bleeding possibly requiring blood tr ansfusion, VTE, , injury to surroun ding structures (nerves, blood vessels, muscles, bowel, bladder, ureters, vagina), risk of ex-lap/open incision infection, wound breakdown, wound seroma,, risk of incision extension due to size of uteru s, vaginal cuff infection, denovo abdominal and vaginal cuff adhesions, postop of dyspareunia. All patient's questions answered; she verbalized understanding and desires to proceed Plan of Care No Data Provided for This Section Social History Social History Date Source Social History TypeResponse 02/14/2019 Medical Bella martinez Alcohol Current, Type Wine. Frequency: 1-2 times per month. 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 Exercise Exercise frequency: 3-4 times/week. Exercise type: Walking, Yoga. Substance Abuse Use: None. Smoking Status Never smoker; Exposure to Tobacco Smoke None; Cigarette Smoking Last 365 Days No; Reg Smoking Cessation Counseling No1 entered on: 12/03/19 1pt denies smoking Social History TypeResponse 02/14/2019 Shweta Alcohol Current, Type Wine. Frequency: 1-2 times per month. 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 Exercise Exercise frequency: 3-4 times/week. Exercise type: Walking, Yoga. Substance Abuse Use: None. Smoking Status Never smoker; Exposure to Tobacco Smoke None; Cigarette Smoking Last 365 Days No; Reg Smoking Cessation Counseling No1 entered on: 05/28/19 1pt denies smoking Social History TypeResponse 05/01/2016 RUTHIE Pear raghav Substance Abuse Use: None. Exercise Exercise frequency: 3-4 times/week. Exercise type: Walking, Yoga. Alcohol Current, Type Wine. Frequency: 1-2 times per month. Smoking Status Never smoker; Exposure to Tobacco Smoke None; Cigarette Smoking Last 365 Days No; Reg Smoking Cessation Counseling No entered on: 09/10/17 Family History No Data Provided for This Section Advance Directives No Data Provided for This Section Functional Status No Data Provided for This Section
--- OUTSIDE RECORDS SUMMARY | 2019-12-24 13:20 | XMS REPORT | Summary of Care ---
:1970 Author Organization [facility] Address [address] [place] [address]- Encounter HQ Raine_jennifer(FIN) [phone] Date(s): 12/09/19 - 12/10/19 [facility] [address] [place] [address] [phone] Vital Signs No data available for this section Problem List Condition Effective Dates Status Health Status Informant Anemia(Confirmed) Resolved Dysfunctional uterine Resolved bleeding(Confirmed) Small bowel obstruction(Confirmed) Resolved Chicken pox(Confirmed) Resolved Allergies, Adverse Reactions, Alerts No Known Allergies Medications No data available for this section Results No data available for this section Immunizations Given and Recorded Vaccine Date Status Refusal Reason influenza virus vaccine, inactivated1 06/05/19 Given influenza virus vaccine, inactivated2 09/10/17 Given influenza virus vaccine, inactivated3 05/01/16 Given 1Result Comment: Patient was given Fluzone 0.5ml IM right deltoid Needle 25Gx1 [facility]:[id number] LOT:[id number] EXP:December Patient showed no reaction at the tiem of visit.2Result Comment: [facility] 08704-891-88 LOT# [id number] EXP 01/12/2018 IM needle 25 G 1" sanofi pasteur left deltoid no adverse reaction at time of [id number] Comment: [facility]: [id number] Procedures Procedure Date Related Diagnosis Body Site Status Hysterectomy 12/03/18 Completed Bilateral tubal ligation Com pleted Caesarean section Completed Social History Social History Type Response Alcohol Current, Type Wine. Frequen cy: 1-2 times per month. 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 Exercise Exercise frequency: 3-4 time s/week. Exercise type: Walking, Yoga. Substance Abuse Use: None. Smoking Status Never smoker; Exposure to To bacco Smoke None; Cigarette Smoking Last 365 Days No; Reg Smoking Cessation Counseling No1 entered on: 12/03/19 1pt denies smoking Assessment and Plan No data available for this section
--- OUTSIDE RECORDS SUMMARY | 2019-12-24 13:20 | XMS REPORT | Summary of Care ---
:1970 Author Organization [facility] Address [address] [place] [address]- Encounter HQ Praveenntr_alidave(FIN) [phone] Date(s): 12/02/19 - 12/02/19 [facility] [address] [place] [address] [place] [address]- [phone] Attending Physician: Wilberto Robin MD Vital Signs [...] Fluzone 0.5ml IM right deltoid Needle 25Gx1 [facility]:[id number] LOT:[id number] EXP:December Patient showed no reaction at the tiem of visit.2Result Comment: [facility] 57471-502-58 LOT# [id number] EXP 01/12/2018 IM needle 25 G 1" sanofi pasteur left deltoid no adverse reaction at time of [id number] Comment: [facility]: [id number] Procedures Procedure Date Related Diagnosis Body Site [...]
--- OUTSIDE RECORDS SUMMARY | 2019-12-24 13:20 | XMS REPORT | Summary of Care ---
:1970 Author Organization [facility] Address [address] [place] [address]- Encounter HQ Encntr_alidave(FIN) [phone] Date(s): 12/03/19 - 12/04/19 [facility] [address] [place] [address] [place] [address] [phone] Vital Signs No data available for this section Problem List Condition Effective Dates Status Health Status Informant Anemia(Confirmed) Resolved Dysfunctional uterine Resolved bleeding(Confirmed) Small bowel obstruction(Confirmed) Resolved Chicken pox(Confirmed) Resolved Allergies, Adverse Reactions, Alerts No Known Allergies Medications sucralfate 1 g oral tablet 1, Suppose every 12 hours but now just taking when needed.., 0 Refill(s) Start Date: 12/03/19 Status: Ordered Results No data available for this section Immunizations Given and Recorded Vaccine Date Status Refusal Reason influenza virus vaccine, inactivated1 06/05/19 Given influenza virus vaccine, inactivated2 09/10/17 Given influenza virus vaccine, inactivated3 05/01/16 Given 1Result Comment: Patient was given Fluzone 0.5ml IM right deltoid Needle 25Gx1 [facility]:[id number] LOT:[id number] EXP:December Patient showed no reaction at the tiem of visit.2Result Comment: [facility] [id number] LOT# [id number] EXP 01/12/2018 IM needle 25 G 1" sanofi pasteur left deltoid no adverse reaction at time of [id number] Comment: [facility]: [id number] Procedures Procedure Date Related Diagnosis Body Site [...]
--- OUTSIDE RECORDS SUMMARY | 2019-12-24 13:20 | XMS REPORT | Summary of Care ---
:1970 Author Organization [facility] Address [address] [place] [address]- Encounter HQ Encntr_alidave(FIN) [phone] Date(s): 12/05/19 - 12/06/19 [facility] [address] [place] [address] [phone] Vital Signs No data available for this [...] Fluzone 0.5ml IM right deltoid Needle 25Gx1 [facility]:[id number] LOT:[id number] EXP:December Patient showed no reaction at the tiem of visit.2Result Comment: [facility] [id number] LOT# [id number] EXP 01/12/2018 IM needle 25 G 1" sanofi pasteur left deltoid no adverse reaction at time of [id number] Comment: [facility]: [id number] Procedures Procedure Date Related Diagnosis Body Site [...]
--- OUTSIDE RECORDS SUMMARY | 2019-12-24 13:26 | XMS REPORT | Continuity of Care Document ---
:1970 Author Organization [facility] t Address [address] [id number] Care Team Providers Name Role Phone Arie Robin Attending Clinician Guillermo Christopher Attending Clinician Robert Boucher Attending Clinician Craig Attending Clinician Skinny Herrera Attending Clinician Darrin Attending Clinician Sae Attending Clinician Skinny Herrera Admitting Clinician Darrin Admitting Clinician Sae Admitting Clinician Problems Condition Condition Condition Status Onset Resolution Last Treating Co mments Source Name Details Category Date Date Treatment Clinician Date LEFT SIDE Diagnosis Active 2018-072019-05-30 Memoria PAIN 1-13 13:57:00 l LEFT 00:00: [place] SIDE PAIN 00 Active 05/28/2019 [facility] [place] UNK Diagnosis Active 2019-02-11 Mem oria 02-05 12:52:00 l UNK 00:00: [place] 00 Active 02/05/2019 [facility] [place] LAPAROSCOP Diagnosis Active 2019-02-14 Memoria Y 02-05 08:05:00 l DIAGNOSTIC 00:00: Myles n LAPAROSCOP 00 Y DIAGNOSTIC Active 02/05/2019 [facility] [place] SBO Diagnosis Active 2019-01-03 Mem oria 12-28 22:17:00 l SBO 00:00: [place] 00 Active 12/28/2018 [facility] [place] HPI Diagnosis Active 2018-12-08 Mem oria 12-07 06:39:00 l HPI 00:00: [place] 00 Active 12/07/2018 [facility] [place] TOTAL ABD Diagnosis Active 2018-12-03 Memoria HYSTERECTO - 05:33:00 l MY TOTAL 00:00: [place] ABD 00 HYSTERECTO MY Active 9 [facility] [place] UTERINE Diagnosis Active 2018-12-04 Me moria FIBROIDE, 10-15 12:34:00 l MEORRHAGIA UTERINE 00:00: Her heath FIBROIDE, 00 MEORRHAGIA Active 10/15/2018 [facility] [place] R92.8 - Diagnosis Active 2017-11-23 Me moria OTH ABN 11-01 18:00:00 l AND R92.8 - 00:01: [place] INCONCLUSI OTH ABN 00 VE FINDI AND INCONCLUSI VE FINDI Active 11/01/2017 [facility] [place] Z12.31 - Diagnosis Active 2017-10-25 M emoria ENCNTR 09-12 14:33:00 l SCREEN Z12.31 - 00:01: Myles n MAMMOGRAM ENCNTR 00 FOR MA SCREEN MAMMOGRAM FOR MA Active 09/12/2017 [facility] [place] Varicella Problem Resolve 2019-12-13 M emoria (disorder) d 00:12:57 l [place] Varicella (disorder) Resolved [facility] [place] Anemia Problem Resolve 2019-12-13 Toribio major (disorder) d 00:12:57 l Anemia [place] (disorder) [facility] D[facility]ct[facility] Problem Resolve 2019-12-13 Memoria nal d 00:12:57 l uterine [place] bleeding Dysfunctio (finding) nal uterine bleeding (finding) Resolved Problem 12/13/2019 [facility] Small Problem Resolve 2019-12-13 Toribio major bowel d 00:12:57 l obstructio Small Jane nn n bowel (disorder) obstructio n (disorder) Resolved Problem 12/13/2019 [facility] LEIOMYOMA Diagnosis Active 2018-12-04 Memoria OF UTERUS, 12:34:00 l UNSPECIFIE Myles n D LEIOMYOMA OF UTERUS, UNSPECIFIE D [facility]CESS[facility] Diagnosis Active 2018-12-04 Memoria AND 12:34:00 l FREQUENT [place] MENSTRUATI EXCESSIVE ON WITH AND FREQUENT MENSTRUATI ON WITH Active [facility] DYSMENORRH Diagnosis Active 2018-12-03 Memoria EA, 05:33:00 l UNSPECIFIE Myles n D DYSMENORRH EA, UNSPECIFIE D Active [facility] OTHER Diagnosis Active 2019-01-03 Mem oria INTESTNL 22:17:00 l OBST UNSP OTHER Myles n TO INTESTNL PARTIAL V OBST UNSP TO PARTIAL V Active [facility] Unspecifie Problem 2018-072019-05-30 2019-05-30 Memoria d -13 23:23:34 23:23:34 l abdominal 18:00: [place] pain Unspecifie 00 d abdominal pain 05/28/2019 05/30/2019 Shweta Encounter Problem 2017-2018-01-31 2018-01-31 Memoria for 4-14 20:33:56 20:33:56 l screening 04:49: [place] mammogram Encounter 04 for for malignant screening neoplasm mammogram of breast for malignant neoplasm of breast 10/27/2017 01/31/2018 [facility] [place] Allergies, Adverse Reactions, Alerts Allergy Allergy Status Severity Reaction(s) Onset Inactive Treating Comm ents Source Name Type Date Date Clinician No Known No Known Active Memori a Medicati Medicati l on on [place] Allergie Allergie s s Social History Social Habit Start Date Stop Date Quantity Comments Source Social History 2016-05-01 2016-05-01 [facility] christoph 20:02:54 20:02:54 Medications Ordered Filled Start Stop Current Ordering Indication Dosage Frequency Signature Comments Components Source Medication Medication Date Date Medication? Clinician (SIG) Name Name sucralfate Yes 1, Suppose M emoria 1 g oral 5-20 every 12 l tablet 20:59: hours but Myles n 00 now just taking when needed.., 0 Refill(s) Carbamide 2018-07 Yes 5 drp, Memori a Peroxide 1-21 BID, 0 l Otic 6.5% 16:25: Refill(s) Her heath solution 00 Acetaminoph 2018-07 Yes 1 tab, PO, Memoria en 300 MG / 1-13 Q6H, PRN l Codeine 23:37: Pain, X 3 Jane nn Phosphate 00 day, # 9 30 MG Oral tab, 0 Tablet Refill(s) morphine 2018-07 No Notes: Memoria 0.5 mg/mL 07-28 (Same l preservativ 22:08: as:MORPhin [place] e-free 00 e Sulfate) injectable solution Saline 2018-07 No Notes: Memoria Flush 0.9% 07-28 (Same as: l 18:57: BD [place] Posiflush) Dilaudid No Notes: Memoria 02-14 Same as: l 19:23: Dilaudid Ondansetron No Notes: Toribio major 02-14 (Same as: l 19:22: Zofran) [place] MEDICATION WASTE Product Size: 4 mg Product Wasted: ___ mg Fentanyl No Notes: Memoria 02-14 (Same as: l 19:22: Sublimaze) Preservat annette free. Ketorolac No 4 days Memor ia 02-14 l 19:22: MEDICATION [place] 00 WASTE Product Size: 30 mg Product Wasted: ___ mg Flumazenil No Notes: Memor ia 02-14 (Same as: l 19:22: Romazicon) Naloxone No Notes: Memoria 02-14 Same as l 19:22: Narcan [place] 00 Oxycodone No Notes: Memori a Hydrochlori 02-14 (Same as: l de 5 MG 19:22: Roxicodone Herm erum Oral Tablet 00 ) ketOROLAC No IV, ONCE Toribio major (ANES) 02-14 l 18:29: [place] 00 tramadol Yes 50 mg = 1 Toribio major hydrochlori 02-14 tab, PO, l de 50 MG 18:27: Q6H, PRN Jane nn Oral Tablet 00 Pain, X 5 day, # 20 tab, 0 Refill(s) ibuprofen Yes 600 mg = 1 Me moria 600 mg oral 02-14 tab, PO, l tablet 18:27: Q6H, X 14 Myles n 00 day, # 56 tab, 1 Refill(s) dexamethaso No Route: IV, Memoria ne (ANES) 02-14 Drug form: l 16:31: INJ, ONCE, Stop date: 02/14/19 11:31:00 CDT glycopyrrol 2019-0 No Route: IV, Memoria ate (ANES) 02-14 Drug form: l 16:31: INJ, ONCE, Stop date: 02/14/19 11:31:00 CDT lidocaine 2019-0 No Route: IV, Me moria (ANES) 02-14 Drug form: l 16:21: INJ, ONCE, Stop date: 02/14/19 11:21:00 CDT acetaminoph 2019-0 No Route: IV, Memoria en (ANES) 02-14 Drug form: l 16:21: INJ, ONCE, Stop date: 02/14/19 11:21:00 CDT ondansetron 2018-0 No Route: IV, Memoria (ANES) 02-14 Drug form: l 16:21: INJ, ONCE, Stop date: 02/14/19 11:21:00 CDT rocuronium 2018-0 No Route: IV, M emoria (ANES) 02-14 Drug form: l 16:16: INJ, ONCE, Stop date: 02/14/19 11:16:00 CDT ePHEDrine 2018-0 No Route: IV, Me moria (ANES) 02-14 Drug form: l 16:11: INJ, ONCE, Stop date: 02/14/19 11:11:00 CDT ceFAZolin 2018-0 No Route: IV, Me moria (ANES) 02-14 Drug form: l 16:01: INJ, ONCE, Stop date: 02/14/19 11:01:00 CDT propofol 2019-0 No Route: IV, Mem oria (ANES) 02-14 Drug form: l 16:01: INJ, ONCE, Stop date: 02/14/19 11:01:00 CDT midazolam 2019-0 No Route: IV, Me moria (ANES) 02-14 Drug form: l 16:01: SOLN, 00 ONCE, Stop date: 02/14/19 11:01:00 CDT fentaNYL 2019-0 No Route: IV, Mem oria (ANES) 02-14 Drug form: l 16:01: INJ, ONCE, Patrick 00 Stop date: 02/14/19 11:01:00 CDT Lactated No Route: IV, Mem oria Ringers 02-14 Total l Injection 15:24: Volume: Jane nn IV (ANES) 00 1,000, 1000 mL Start date: 02/14/19 10:24:00 CDT, Stop date: 02/14/19 11:24:00 CDT Calcium 2019 No 1,000 mL, Memor ia Chloride 02-14 Rate: 75 l 0.0014 12:53: ml/hr, Patrick MEQ/ML / 00 Infuse Potassium over: 13.3 Chloride hr, Route: 0.004 IV, Dosing MEQ/ML / Weight Sodium 46.818 kg, Chloride Total 0.103 Volume: MEQ/ML / 1,000, Sodium Start Lactate date: 0.028 02/14/19 MEQ/ML 7:53:00 Injectable CDT, Solution Duration: 30 day, Stop date: 03/16/19 7:52:00 CDT, 1.44, m2, 0 Vitamin C 20190 Yes Daily, 0 Toribio major 7-30 Refill(s) l 18:45: [place] 00 Iron 100 2019-0 Yes PO, Daily, Mem oria Plus 7-30 0 l 18:45: Refill(s) [place] 00 Premarin 2019-0 Yes PO, Daily, Mem oria 7-30 0 l 18:45: Refill(s) Amoxicillin 0 Yes See Memori a 400 MG / 6-28 Instructio l Clavulanate 18:26: ns, 400 mg Patrick 57 MG 00 CHEW and Chewable swallow Tablet one tablet by mouth three times a day until all taken, 0 Refill(s) Ondansetron 2019-0 Yes 4 mg = 1 Me moria 4 MG Oral 6-18 tab, PO, l Tablet 18:45: Q8H, PRN [place] [Zofran] 00 Nausea/vom iting, # 30 tab, 0 Refill(s), Pharmacy: [place] [id number] POLYETHYLEN 2019-0 Yes 17 gm, PO, Memoria E GLYCOL 6-18 BID, l 3350 142 15:16: Dissolve Jane nn MG/ML Oral 40 in 8 oz. Solution of water, [Miralax] X 14 day, # 476 gm, 1 Refill(s), Pharmacy: [place] [id number] Cefuroxime 2018- Yes PO, Memoria 500 MG Oral 6-18 PACW16M, 0 l Tablet 15:16: Refill(s) Myles n 00 Metronidazo No Notes: Toribio major le 0.0075 6-18 (Same as: l MG/MG 02:00: Metrotop [place] Vaginal Gel 00 GEL-Vagina l) Cefuroxime No Notes: (Do M emoria 500 MG Oral 6-17 Not Crush) l Tablet 16:00: With [place] 00 food. (Same As: Ceftin) Miralax No Notes: Memoria 6-16 Dissolve l 22:00: in 8 oz of [place] 00 water or juice. (Same as: Miralax) Reglan No Notes: Memoria 6-16 (Same as: l 14:34: Reglan) [place] 00 Pepcid No Notes: Memoria 6-16 (Same as: l 14:00: Pepcid) [place] 00 Can be dilute in 5-10cc NS IVP: Slow IV push over at least 2 minutes. Lovenox No Notes: Memoria 6-16 (Same as: l 03:00: Lovenox) [place] 00 Dextrose No 12.5 gm, Memor ia 50% Syringe 6-16 25 mL, l 02:08: Route: IVP, Drug Form: INJ, Dosing Weight 53.182, kg, PRN, PRN Blood Glucose Results, Start date: 12/28/18 21:08:00 CDT, Duration: 30 day, Stop date: 01/27/19 21:07:00 CDT Glucagon No 1 mg, Memoria 6-16 Route: IM, l 02:08: Drug form: [place] 00 PDR/INJ, PRN, Dosing Weight 53.182, kg, PRN Blood Glucose Results, Start date: 12/28/18 21:08:00 CDT, Duration: 30 day, Stop date: 01/27/19 21:07:00 CDT Ondansetron No Notes: Toribio major 6-16 (Same as: l 02:08: Zofran) MEDICATION WASTE Product Size: 4 mg Product Wasted: ___ mg Bisacodyl No Notes: Memori a 6-16 (Same As: l 02:08: Dulcolax, Bisco-Lax) Melatonin No Notes: Memori a 6-16 (Same as: l 02:08: Melatonin) Acetaminoph No Notes: Do M emoria en 12-29 not exceed l 02:08: 4 gm/day. (Same as: Tylenol) Hydromorpho No Notes: Toribio major ne 12-29 Same as: l 02:08: Dilaudid Tramadol No Notes: Not Mem oria 16 to exceed l 02:08: 400mg/day. (Same As: Ultram) Calcium No Notes: Memoria Gluconate 12-29 WASTE: F/P l 02:06: - Sink; E - Municipal Trash Bin potassium No Notes: Memori a phosphate-s 12-29 (Same as: l odium 02:06: Phos-NaK) Each 1.5 250 mg-280 gm pkt has mg-160 mg 250mg oral powder phosphorou for s. Mix reconstitut w/2.5oz ion water and stir. potassium No Notes: Memori a phosphate 16 (Same as: l 02:06: K Phosphate. ) Do not infuse phosphorou s concurrent ly in the same line as TPN or IVF that contains calcium. For double lumen central lines, phosphorou s may be infused in a separate lumen from TPN. 1 mMol phoshate has 1.47 mEq potassium Infuse over 4 hours sodium No Notes: Memoria phosphate 6-16 Infuse l 02:06: over 4 00 hour. Do not infuse phosphorou s concurrent ly in the same line as TPN or IVF that contains calcium. For double lumen central lines, phosphorou s may be infused in a separate lumen from TPN. Magnesium No Notes: Memori a Sulfate 12-29 WASTE: F/P l 02:06: - Sink; E - Municipal Trash Bin Magnesium No Notes: Memori a Oxide -16 (Same as: l 02:06: Mag-Ox 400) Magnesium oxide 765xe=084l g elemental magnesium Dose=____m g magnesium oxide (___mg elemental magnesium) Potassium No Notes: Memori a Chloride 16 (Same as: l 02:06: Potassium Chloride) LR IV 1,000 20190 No 1,000 mL, M emoria mL -16 Rate: 80 l 02:05: ml/hr, Infuse over: 12.5 hr, Route: IV, Dosing Weight 53.182 kg, Total Volume: 1,000, Start date: 12/28/18 21:05:00 CDT, Duration: 30 day, Stop date: 01/27/19 21:05:00 CDT, 1.54, m2 NS 1000 mL No 1,000 mL, Me moria 6-16 Rate: 100 l 02:04: ml/hr, Infuse over: 10 hr, Route: IV, Dosing Weight 53.182 kg, Total Volume: 1,000, Start date: 12/28/18 21:04:00 CDT, Duration: 30 day, Stop date: 01/27/19 21:03:00 CDT, 1.54, m2 NS (Bolus) No 1,000 mL, Me moria IV 6-16 1000 l 02:02: ml/hr, Infuse Over: 1 hr, Route: IV, 1,000, Drug form: INJ, ONCE, Dosing Weight 53.182 kg, Start date: 12/28/18 21:02:00 CDT, Stop date: 12/28/18 21:02:00 CDT Axetil Yes Axetil, Memoria 6-15 500 mg =, l 23:23: PO, BID, Refill(s) 0 Morphine 0 No 2 mg, 1 Memori a 6-15 mL, Route: l 23:18: IVP, Drug form: SOLN, Q4H, Dosing Weight 53.182, kg, PRN Pain Score 7-10, Start date: 12/28/18 18:18:00 CDT, Duration: 30 day, Stop date: 01/27/19 18:17:00 CDT simethicone Yes 80 mg = 1 M emoria 80 mg oral 6-15 tab, CHEW, l tablet, 23:11: QID, # 48 Jane nn chewable 00 tab, 0 Refill(s) Docusate Yes 100 mg = 1 Mem oria Sodium 100 6-08 cap, PO, l MG Oral 23:53: BID, # 60 Jane nn Capsule 40 cap, 0 Refill(s), Pharmacy: [place] [address] POLYETHYLEN Yes 17 gm, PO, Memoria E GLYCOL 6-08 BID, l 3350 142 23:53: Dissolve Jane nn MG/ML Oral 00 in 8 oz. Solution of water, [Miralax] X 7 day, # 255 gm, 1 Refill(s), Pharmacy: [place] [address] Dicyclomine Yes 20 mg = 1 M emoria Hydrochlori 6-08 tab, PO, l de 20 MG 23:53: QID-Before Her heath Oral Tablet 00 Meals, PRN [Bentyl] Abdominal Pain, # 15 tab, 0 Refill(s), Pharmacy: [place] [address] simethicone Yes 160 mg = 2 Memoria 80 mg oral 6-08 tab, CHEW, l tablet, 23:53: TID, PRN Myles n chewable 00 Gas, X 5 day, # 15 tab, 0 Refill(s), Pharmacy: [place] [address] Bentyl No Notes: Memoria 6-08 (Same as: l 16:10: Bentyl) [place] 00 Simethicone No Notes: Toribio major 6-08 (Same as: l 16:10: Mylicon) [place] Adult No Notes: Memoria Parenteral 6-07 Central l Nutrition 03:00: line only Her heath Custom - 00 Must use Central 1.2 micron (TPN) 1,850 filter AND mL Lipids should not be administer ed to patients who are allergic to soy, fish, egg or peanuts. Protonix No Notes: For Mem oria 6-06 IV push l 22:23: reconstitu Patrick 00 te with 10 ml 0.9% sodium chloride and push over 2 minutes. (Same as: Protonix) Acetaminoph No Notes: Do Arsh geller en 12-19 not exceed l 19:52: 4 gm/day. (Same as: Tylenol) Adult No Notes: Memoria Parenteral 12-19 Central l Nutrition 03:00: line only Her heath Custom - 00 Must use Central 1.2 micron (TPN) 2,050 filter AND mL Lipids should not be administer ed to patients who are allergic to soy, fish, egg or peanuts. Adult No Notes: Memoria Parenteral 12-18 Central l Nutrition 03:00: line only Her heath Custom - 00 Must use Central 1.2 micron (TPN) 2,050 filter AND mL Lipids should not be administer ed to patients who are allergic to soy, fish, egg or peanuts. Adult No Notes: Memoria Parenteral 12-17 Central l Nutrition 03:00: line only Her heath Custom - 00 Must use Central 1.2 micron (TPN) 2,050 filter AND mL Lipids should not be administer ed to patients who are allergic to soy, fish, egg or peanuts. Molasses LA No Molasses Me moria 12-16 LA, 240 l 17:21: mL, Drug form: MISC, Route: LA, ONCE, 12/16/18 12:21:00 CDT, Stop date: 12/16/18 12:21:00 CDT molasses No 240 mL, Memori a 12-16 Route: LA, l 17:08: Dosing Weight 50, kg, ONCE, Milk of Molasses Enema, Start date: 12/16/18 12:08:00 CDT, Stop date: 12/16/18 12:08:00 CDT Adult No Notes: Memoria Parenteral 12-16 Central l Nutrition 03:00: line only Her heath Custom - 00 Must use [place] 1.2 micron (TPN) 1 mL filter AND Lipids should not be administer ed to patients who are allergic to soy, fish, egg or peanuts. Adult No Notes: Memoria Parenteral - Central l Nutrition 03:00: line only Her heath Custom - 00 Must use Central 1.2 micron (TPN) 2,050 filter AND mL Lipids should not be administer ed to patients who are allergic to soy, fish, egg or peanuts. Potassium No Notes: Memori a Chloride - (Same as: l 13:00: KCL) [place] Infuse no faster than 10 mEq/hr if given peripheral ly. Adult No Notes: Memoria Parenteral 12-14 Central l Nutrition 03:00: line only Her heath Custom - 00 Must use Central 1.2 micron (TPN) 2,050 filter AND mL Lipids should not be administer ed to patients who are allergic to soy, fish, egg or peanuts. tramadol No Notes: Not Mem oria hydrochlori 12-14 to exceed l de 50 MG 02:50: 400mg/day. Her heath Oral Tablet 00 (Same As: [Ultram] Ultram) Protonix No Notes: For Mem oria - IV push l 21:30: reconstitu te with 10 ml 0.9% sodium chloride and push over 2 minutes. (Same as: Protonix) Nexium No 40 mg, Memoria 5-31 Route: l 17:00: IVP, [place] 00 Daily, Dosing Weight 50, kg, Start date: 12/13/18 12:00:00 CDT, Duration: 7 day, Stop date: 12/20/18 9:00:00 CDT acetaminoph No Notes: Toribio major en - Infuse l 13:00: over 15 [place] 00 minutes Do not exceed 4gm/day of acetaminop hen MEDICATION WASTE Product Size: 1000 mg Product Wasted: ___ mg Potassium No Notes: Memori a Chloride - (Same as: l 13:00: KCL) [place] Infuse no faster than 10 mEq/hr if given peripheral ly. Phenergan No Notes: Do Mem oria 5-30 not give l 23:52: IV push. [place] (Same as: Phenergan) Phenergan No Notes: Do Mem oria 5-30 not give l 23:03: IV push. Patrick (Same as: Phenergan) Saline No Notes: Memoria Flush 0.9% 5-30 Same as: l 21:00: BD [place] Posiflush Sterile Lidocaine No Notes: Memori a Hydrochlori 5-30 Preservati l de 10 MG/ML 19:00: ve free. He rmann Injectable 00 (Same as: Solution Xylocaine MPF) Saline No Notes: Memoria Flush 0.9% 5-30 preservati l 18:57: ve free. [place] Lovenox No Notes: Memoria 5-30 (Same as: l 18:00: Lovenox) [place] 00 potassium No 40 mEq, 2 Mem oria chloride 20 5-30 tab, l mEq oral 13:00: Route: PO, Her heath tablet, 00 Drug form: extended ERTAB, release Q4H, Dosing Weight 50, kg, Start date: 12/12/18 8:00:00 CDT, Duration: 2 doses or times, Stop date: 12/12/18 12:00:00 CDT Potassium No Notes: Memori a Chloride 5-30 Infuse at l 11:00: a rate of Patrick 00 10 mEq/hr. (Same as: KCL) potassium No Notes: Memori a phosphate-s 5-29 (Same as: l odium 13:02: Phos-NaK) phosphate 00 Each 1.5 250 mg-280 gm pkt has mg-160 mg 250mg oral powder phosphorou for s. Mix reconstitut w/2.5oz ion water and stir. potassium No Notes: Memori a phosphate 5-29 (Same as: l 13:02: K [place] 00 Phosphate. ) Do not infuse phosphorou s concurrent ly in the same line as TPN or IVF that contains calcium. For double lumen central lines, phosphorou s may be infused in a separate lumen from TPN. 1 mMol phoshate has 1.47 mEq potassium Infuse over 4 hours sodium No Notes: Memoria phosphate 5-29 Infuse l 13:02: over 4 Patrick 00 hour. Do not infuse phosphorou s concurrent ly in the same line as TPN or IVF that contains calcium. For double lumen central lines, phosphorou s may be infused in a separate lumen from TPN. Magnesium No Notes: Memori a Sulfate 12-11 WASTE: F/P l 13:02: - Sink; E [place] 00 - Municipal Trash Bin Magnesium No Notes: Memori a Oxide 12-11 (Same as: l 13:02: Mag-Ox [place] 00 400) Magnesium oxide 090yw=617g g elemental magnesium Dose=____m g magnesium oxide (___mg elemental magnesium) Calcium No Notes: Memoria Gluconate 12-11 WASTE: F/P l 13:02: - Sink; E [place] 00 - Municipal Trash Bin Potassium No Notes: Memori a Chloride 12-11 (Same as: l 13:02: K-Dur 20) "Do Not Crush" Give with food and full glass of water For patients unable to swallow tablet, dissolve in one half glass of water. Allow about 2 minutes for the tablets to disintegra te. Stir before giving to prepare slurry and administer . Please exclude Patient s with feeding tube less than 14 [place] (Dobhoff, J-tube etc) and pediatric and patients. Dextrose No 50 mL, Memoria 50% in 12-11 Route: l Water IV 11:44: IVP, Start Her heath 00 date: 12/11/18 6:44:00 CDT, Stop date: 12/11/18 6:44:00 CDT Dextrose 5% No 1,000 mL, M emoria with 0.9% 5-29 Rate: 125 l NaCl IV 11:38: ml/hr, Patrick 1,000 mL 00 Infuse over: 8 hr, Route: IV, Dosing Weight 50 kg, Total Volume: 1,000, Start date: 12/11/18 6:38:00 CDT, Duration: 30 day, Stop date: 01/10/19 6:37:00 CDT, 1.49, m2 Dextrose No 25 gm, Memoria 5-29 Route: l 11:38: IVPB, Patrick 00 ONCE, Dosing Weight 50, kg, Start date: 12/11/18 6:38:00 CDT, Stop date: 12/11/18 6:38:00 CDT D50W No 25 gm, 50 Memoria (bolus) IV 5-29 mL, Route: l 11:38: IVP, Drug Form: INJ, Dosing Weight 50, kg, PRN, PRN Blood Glucose Results, Start date: 12/11/18 6:38:00 CDT, Duration: 30 day, Stop date: 01/10/19 6:37:00 CDT, Pediatric dosing Acetaminoph No Notes: Toribio major en 12-10 Infuse l 19:00: over 15 [place] 00 minutes Do not exceed 4gm/day of acetaminop hen MEDICATION WASTE Product Size: 1000 mg Product Wasted: ___ mg Acetaminoph No 1,000 mg, M emoria en 12-10 Route: IV, l 15:10: Drug form: [place] 00 INJ, Q8Hnow, Dosing Weight 50, kg, Priority: NOW, Start date: 12/10/18 10:10:00 CDT, Duration: 3 day, Stop date: 12/13/18 2:10:00 CDT Morphine No 2 mg, 1 Memori a 5-27 mL, Route: l 16:21: IV, Drug form: SOLN, Q4H, Dosing Weight 50, kg, PRN Pain Score 7-10, Start date: 12/09/18 11:21:00 CDT, Duration: 30 day, Stop date: 01/08/19 11:20:00 CDT Acetaminoph No Notes: Toribio major en 12-09 Infuse l 16:00: over 15 [place] 00 minutes Do not exceed 4gm/day of acetaminop hen MEDICATION WASTE Product Size: 1000 mg Product Wasted: ___ mg Miralax No Notes: Memoria 5-27 Dissolve l 02:00: in 8 oz of [place] water or juice. (Same as: Miralax) Dulcolax No Notes: Memoria Laxative 5-27 (Same As: l 02:00: Dulcolax, [place] Bisco-Lax) Xylocaine No Notes: Memori a Viscous 2% 5-26 (Same as: l mucous 16:04: Xylocaine) Jane nn membrane 00 solution Al No Notes: Memoria hydroxide/M 5-26 (aluminum l g 16:03: hydroxide- Patrick hydroxide/s 00 magnesium imethicone hyd-simeth icone 200-200-20 mg/5ml 30 ml ud REMBERTO) GI cocktail No 30 ml, Toribio major (aluminum 5-26 Route: PO, l hydroxide/m 15:52: Drug Form: [place] agnesium 00 SUSP, hydroxide/l Dosing idocaine/si Weight 50, methicone) kg, Q4H, PRN Sore Throat, Routine, Start date: 12/08/18 10:52:00 CDT, Duration: 30 day, Stop date: 01/07/19 10:51:00 CDT phenol No Notes: Memoria 12-08 Chlorasept l 15:52: ic [place] (Same as: Chlorasept ic, Sore Throat [place]) WASTE: F/P - Black; E - Municipal Trash Bin Morphine No 2 mg, 1 Memori a 5-26 mL, Route: l 12:56: IVP, Drug Patrick 00 form: SOLN, Q4H, Dosing Weight 53.182, kg, PRN Pain Score 7-10, Start date: 12/08/18 7:56:00 CDT, Duration: 30 day, Stop date: 01/07/19 7:55:00 CDT Sodium No 1,000 mL, Memori a Chloride 12-08 Rate: 125 l 0.9% IV 12:56: ml/hr, Patrick 1,000 mL 00 Infuse over: 8 hr, Route: IV, Dosing Weight 53.182 kg, Total Volume: 1,000, Start date: 12/08/18 7:56:00 CDT, Duration: 30 day, Stop date: 01/07/19 7:55:00 CDT, 1.54, m2 Ondansetron No Notes: Toribio major - (Same as: l 12:56: Zofran) [place] 00 MEDICATION WASTE Product Size: 4 mg Product Wasted: ___ mg Acetaminoph No Notes: Max Memoria en - acetaminop l 12:56: hen = 4000 [place] 00 mg/day (4 gm/day). (Same as: Tylenol) Acetaminoph No Notes: Toribio major en 325 MG / 5-26 (Same as: l Hydrocodone 12:56: [place] Jane nn Bitartrate 00 325/5) Do 5 MG Oral not exceed Tablet 4gm/day of acetaminop hen. ibuprofen Yes 600 mg = 1 Me moria 600 mg oral 5-23 tab, PO, l tablet 13:18: Q6H, PRN [place] 00 Pain Score 1-3, # 30 tab, 0 Refill(s) Docusate Yes 100 mg = 1 Mem oria Sodium 100 5-23 cap, PO, l MG Oral 13:18: BID, PRN Myles n Capsule 00 Constipati on, # 60 cap, 0 Refill(s) Acetaminoph Yes 100.4 F, M emoria en 300 MG / 5-23 # 28 tab, l Codeine 13:18: 0 [place] Phosphate 00 Refill(s) 30 MG Oral Tablet [Tylenol with Codeine #3] sennosides, Yes 17.2 mg = M emoria RESIDENTIAL 8.6 MG 5-23 2 tab, PO, l Oral Tablet 13:18: Bedtime, He rmann 00 PRN Constipati on, X 10 day, # 20 tab, 0 Refill(s) Simethicone No Notes: Toribio major 5-22 (Same as: l 13:29: Mylicon) Patrick 00 Docusate No Notes: Memoria 5-22 (Same as: l 13:29: Colace) [place] 00 (Do Not Crush) Acetaminoph No Notes: Do M emoria en 300 MG / -22 not exceed l Codeine 13:22: 4gm/day of Herm erum Phosphate 00 acetaminop 30 MG Oral hen. Tablet (Same as: [Tylenol Tylenol with with Codeine #3] Codeine # 3) Ibuprofen No Notes: Memori a 5-22 (Same as: l 13:22: Motrin) [place] 00 "Do Not Crush" Take with food. acetaminoph No Notes: Max Memoria en 5-22 acetaminop l 09:00: hen 4000 [place] 00 mg/day (4 gm/day). (Same as: Tylenol Extra Strength) Saline No Notes: Memoria Flush 0.9% 12-04 Same as: l 02:00: BD Posiflush Sterile Zofran No Notes: Memoria 12-03 (Same as: l 21:06: Zofran) Ofirmev No Notes: Memoria - Infuse l 17:00: over 15 00 minutes Do not exceed 4gm/day of acetaminop hen MEDICATION WASTE Product Size: 1000 mg Product Wasted: ___ mg Acetaminoph No Notes: Toribio major en 12-03 Infuse l 15:00: over 15 00 minutes Do not exceed 4gm/day of acetaminop hen MEDICATION WASTE Product Size: 1000 mg Product Wasted: ___ mg Ketorolac Yes 4 days Memor ia 12-03 l 15:00: MEDICATION WASTE Product Size: 30 mg Product Wasted: ___ mg neostigmine No Route: IV, Memoria (ANES) 12-03 Drug form: l 14:36: INJ, ONCE, Stop date: 12/03/18 9:36:00 CDT ketOROLAC No IV, ONCE Toribio major (ANES) 12-03 l 14:36: glycopyrrol No Route: IV, Memoria ate (ANES) 12-03 Drug form: l 14:36: INJ, ONCE, Stop date: 12/03/18 9:36:00 CDT ondansetron No Route: IV, Memoria (ANES) 12-03 Drug form: l 14:30: INJ, ONCE, Stop date: 12/03/18 9:30:00 CDT Dilaudid No Route: IV, Mem oria (ANES) 12-03 Drug form: l 14:30: INJ, ONCE, Stop date: 12/03/18 9:30:00 CDT Oxycodone No Notes: Memori a Hydrochlori 12-03 (Same as: l de 5 MG 14:07: Roxicodone Herm erum Oral Tablet 00 ) Morphine 2018-0 No Notes: Memoria 5-21 Dose: l 14:07: [place] 00 Delay: Basal rate: 4hr limit: (Same as:Marcela ct) Naloxone 0 No Notes: Memoria 5-21 Same as l 14:07: Narcan Saline 0 No Notes: [facility]oria Flush 0.9% -21 Same as: l 14:07: BD Posiflush Sterile Calcium 2018-0 No 1,000 mL, Memor ia Chloride - Rate: 125 l 0.002 14:07: ml/hr, Patrick MEQ/ML / 00 Infuse Glucose 50 over: 8 MG/ML / hr, Route: Potassium IV, Dosing Chloride Weight 0.004 53.324 kg, MEQ/ML / Total Sodium Volume: Chloride 1,000, 0.147 Start MEQ/ML date: Injectable 12/03/18 Solution 9:07:00 CDT, Duration: 30 day, Stop date: 01/02/19 9:06:00 CDT, 1.54, m2 Meperidine 2018-0 No 12.5 mg, Mem oria 5-21 Route: l 13:44: IVP, Q30Min, Dosing Weight 53.324, kg, PRN Other -See Comment, For shivering, Start date: 12/03/18 8:44:00 CDT, Duration: 2 doses or times, Stop date: Limited # of times Naloxone 2018-0 No 0.1 mg, Memori a 5-21 Route: l 13:44: SUB-Q, Q6H, Dosing Weight 53.324, kg, PRN Itching, Start date: 12/03/18 8:44:00 CDT, Duration: 30 day, Stop date: 01/02/19 8:43:00 CDT Promethazin 2018-0 No 6.25 mg, Me moria e 5-21 Route: l 13:44: IVPB, [place] 00 ONCE, Dosing Weight 53.324, kg, PRN Nausea & Vomiting, Start date: 12/03/18 8:44:00 CDT Ondansetron 2018-0 No 4 mg, Memor ia 5-21 Route: l 13:44: IVP, ONCE, Patrick 00 Dosing Weight 53.324, kg, PRN Nausea & Vomiting, Start date: 12/03/18 8:44:00 CDT Diphenhydra 2019-0 No 12.5 mg, Me moria mine 12-03 Route: l 13:44: IVP, Drug [place] 00 form: INJ, Q6H, Dosing Weight 53.324, kg, PRN Itching, Start date: 12/03/18 8:44:00 CDT, Duration: 30 day, Stop date: 01/02/19 8:43:00 CDT Albuterol 2019-0 No 2.49 mg, Toribio major 0.83 MG/ML 12-03 Route: l Inhalant 13:44: NEB, [place] Solution 00 Q20Min, Dosing Weight 53.324, kg, PRN Wheezing, Priority: Routine, Start date: 12/03/18 8:44:00 CDT, Duration: 30 day, Stop date: 01/02/19 8:43:00 CDT Hydromorpho 2019-0 No 0.5 mg, Mem oria ne 12-03 Route: l 13:44: IVP, Patrick 00 Q5Min, Dosing Weight 53.324, kg, PRN Pain Score 7-10, Start date: 12/03/18 8:44:00 CDT, Duration: 4 doses or times, Stop date: Limited # of times Flumazenil 2019-0 No 0.2 mg, Toribio major 12-03 Route: l 13:44: IVP, PRN, Dosing Weight 53.324, kg, PRN Benzodiaze pine Reversal, Initial dose, Start date: 12/03/18 8:44:00 CDT, Duration: 30 day, Stop date: 01/02/19 8:43:00 CDT Fentanyl 2019-0 No 50 Memoria - microgram, l 13:44: Route: Patrick 00 IVP, Q5Min, Dosing Weight 53.324, kg, PRN Pain Score 7-10, Priority: Routine, Start date: 12/03/18 8:44:00 CDT, Duration: 2 doses or times, Stop date: Limited # of times Acetaminoph 2019-0 No 1,000 mg, M emoria en 12-03 Route: PO, l 13:44: Drug form: [place] 00 TAB, ONCE, Dosing Weight 53.324, kg, PRN Pain Score 1-3, Start date: 12/03/18 8:44:00 CDT Oxycodone 2019-0 No 5 mg, Memoria 5-21 Route: PO, l 13:44: Drug form: [place] 00 TAB, Q4H, Dosing Weight 53.324, kg, PRN Pain Score 4-6, Start date: 12/03/18 8:44:00 CDT, Duration: 30 day, Stop date: 01/02/19 8:43:00 CDT Labetalol 2019-0 No 10 mg, Memori a 5- Route: l 13:44: IVP, Patrick 00 Q5Min, Dosing Weight 53.324, kg, PRN Elevated BP, Start date: 12/03/18 8:44:00 CDT, Duration: 5 doses or times, Stop date: Limited # of times Hydralazine 2019-0 No 10 mg, Toribio major 5- Route: l 13:44: IVP, Patrick 00 Q20Min, Dosing Weight 53.324, kg, PRN Elevated BP, Start date: 12/03/18 8:44:00 CDT, Duration: 2 doses or times, Stop date: Limited # of times Ketorolac 2019-0 No 30 mg, Memori a 5- Route: l 13:44: IVP, ONCE, Dosing Weight 53.324, kg, Start date: 12/03/18 8:44:00 CDT, Stop date: 12/03/18 8:44:00 CDT ceFAZolin 2018-0 No Route: IV, Me moria (ANES) 5- Drug form: l 13:21: INJ, ONCE, Stop date: 12/03/18 8:21:00 CDT dexamethaso 2018-0 No Route: IV, Memoria ne (ANES) 5- Drug form: l 13:21: INJ, ONCE, Stop date: 12/03/18 8:21:00 CDT propofol 2019-0 No Route: IV, Mem oria (ANES) 5- Drug form: l 13:15: INJ, ONCE, Stop date: 12/03/18 8:15:00 CDT rocuronium No Route: IV, M emoria (ANES) 12-03 Drug form: l 13:15: INJ, ONCE, Patrick Stop date: 12/03/18 8:15:00 CDT fentaNYL No Route: IV, Mem oria (ANES) 12-03 Drug form: l 13:15: INJ, ONCE, Patrick Stop date: 12/03/18 8:15:00 CDT midazolam No Route: IV, Me moria (ANES) 12-03 Drug form: l 13:10: SOLN, [place] 00 ONCE, Stop date: 12/03/18 8:10:00 CDT ceFAZolin + No Notes: Toribio major sterile 12-03 (Same As: l water 10 mL 12:00: Ancef, Herm erum 00 Kefzol) MEDICATION WASTE Product Size: 1000 mg Product Wasted: ___ mg Lactated No Route: IV, Mem oria Ringers 12-03 Total l Injection 11:15: Volume: Jane nn IV (ANES) 00 1,000, 1000 mL Start date: 12/03/18 6:15:00 CDT, Stop date: 12/03/18 7:15:00 CDT Sodium No 1,000 mL, Memori a Chloride 12-03 Rate: 25 l 0.9% IV 10:42: ml/hr, Patrick 1,000 mL 00 Infuse over: 40 hr, Route: IV, Dosing Weight 53.835 kg, Total Volume: 1,000, Start date: 12/03/18 5:42:00 CDT, Duration: 30 day, Stop date: 01/02/19 5:41:00 CDT, 1.55, m2 Calcium No 1,000 mL, Memor ia Chloride 12-03 Rate: 25 l 0.0014 10:42: ml/hr, [place] MEQ/ML / 00 Infuse Potassium over: 40 Chloride hr, Route: 0.004 IV, Dosing MEQ/ML / Weight Sodium 53.835 kg, Chloride Total 0.103 Volume: MEQ/ML / 1,000, Sodium Start Lactate date: 0.028 12/03/18 MEQ/ML 5:42:00 Injectable CDT, Solution Duration: 30 day, Stop date: 01/02/19 5:41:00 CDT, 1.55, m2 Vitamin C 2019-0 Yes Daily, 0 Toribio major 5-15 Refill(s) l 16:20: Patrick 00 Iron Chews 2019-0 Yes 15 mg, PO, M emoria 5-15 Daily, 0 l 16:20: Refill(s) Patrick 00 Vital Signs Vital Name Observation Time Observation Value Comments Source Systolic (mm Hg) 2019-06-05 16:21:00 Toribio rial [place] Diastolic (mm Hg) 2019-06-05 16:21:00 Mem o[facility] [place] Heart Rate 2019-06-05 16:21:00 [facility] [place] Temperature Oral (F) 2019-06-05 16:21:00 97.8 F [facility] [place] Height 2019-06-05 16:21:00 154.94 cm [facility] Weight 2019-06-05 16:21:00 [facility] BMI Calculated 2019-06-05 16:21:00 Memori al [place] Temperature Oral (F) 2019-05-28 23:46:00 98.0 F [facility] [place] Heart Rate 2019-05-28 23:46:00 [facility] [place] Respitory Rate 2019-05-28 23:46:00 Memori al [place] Systolic (mm Hg) 2019-05-28 23:46:00 Toribio rial [place] Diastolic (mm Hg) 2019-05-28 23:46:00 [facility] o[facility] [place] Systolic (mm Hg) 2019-05-28 18:45:00 Toribio rial [place] Diastolic (mm Hg) 2019-05-28 18:45:00 [facility] [place] Heart Rate 2019-05-28 18:45:00 [facility] [place] Respitory Rate 2019-05-28 18:45:00 [facility] al [place] Temperature Oral (F) 2019-05-28 18:45:00 97.8 F [facility] [place] Weight 2019-05-28 18:45:00 [facility] [place] Systolic (mm Hg) 2019-03-10 14:24:00 Toribio rial [place] Diastolic (mm Hg) 2019-03-10 14:24:00 [facility] [place] Heart Rate 2019-03-10 14:24:00 [facility] [place] Temperature Oral (F) 2019-03-10 14:24:00 98.4 F [facility] [place] Height 2019-03-10 14:24:00 154.94 cm [facility] Weight 2019-03-10 14:24:00 [facility] [place] BMI Calculated 2019-03-10 14:24:00 [facility] [place] Respitory Rate 2019-02-14 21:30:00 [facility] [place] Systolic (mm Hg) 2019-02-14 21:30:00 Toribio rial [place] Diastolic (mm Hg) 2019-02-14 21:30:00 [facility] o[facility] [place] Respitory Rate 2019-02-14 21:00:00 [facility] [place] Systolic (mm Hg) 2019-02-14 21:00:00 Toribio rial [place] Diastolic (mm Hg) 2019-02-14 21:00:00 Mem orial [place] Systolic (mm Hg) 2019-02-14 20:30:00 Toribio rial [place] Diastolic (mm Hg) 2019-02-14 20:30:00 [facility] o[facility] [place] Respitory Rate 2019-02-14 20:30:00 [facility] al [place] Height 2019-02-11 21:42:00 157.48 cm [facility] [place] Weight 2019-02-11 21:42:00 [facility] BMI Calculated 2019-02-11 21:42:00 [facility] [place] Temperature Oral (F) 2019-02-11 18:42:00 98.7 F [facility] [place] Heart Rate 2019-02-11 18:42:00 [facility] [place] Weight 2019-02-11 18:19:00 [facility] BMI Calculated 2019-02-11 18:19:00 [facility] [place] Height 2019-02-11 18:19:00 157.48 cm [facility] [place] Weight 2019-01-14 18:13:00 [facility] [place] BMI Calculated 2019-01-14 18:13:00 [facility] [place] Height 2019-01-14 18:13:00 157.48 cm [facility] [place] Heart Rate 2019-01-14 18:13:00 [facility] [place] Temperature Oral (F) 2019-01-14 18:13:00 98.7 F [facility] [place] Systolic (mm Hg) 2019-01-14 18:13:00 Toribio rial [place] Diastolic (mm Hg) 2019-01-14 18:13:00 [facility] o[facility] [place] BMI Calculated 2019-01-10 18:19:00 [facility] [place] Weight 2019-01-10 18:19:00 [facility] [place] Height 2019-01-10 18:19:00 154.94 cm [facility] [place] Systolic (mm Hg) 2019-01-10 18:19:00 Toribio rial [place] Diastolic (mm Hg) 2019-01-10 18:19:00 [facility] [place] Temperature Oral (F) 2019-01-10 18:19:00 98.5 F [facility] [place] Heart Rate 2019-01-10 18:19:00 [facility] [place] Systolic (mm Hg) 2018-12-31 13:21:00 Toribio rial [place] Diastolic (mm Hg) 2018-12-31 13:21:00 Mem o[facility] [place] Respitory Rate 2018-12-31 13:21:00 [facility]ori al [place] Heart Rate 2018-12-31 13:21:00 [facility] [place] Temperature Oral (F) 2018-12-31 13:21:00 98.0 F [facility] [place] Systolic (mm Hg) 2018-12-31 09:22:00 Toribio rial [place] Diastolic (mm Hg) 2018-12-31 09:22:00 Mem o[facility] [place] Respitory Rate 2018-12-31 09:22:00 [facility]ori al [place] Heart Rate 2018-12-31 09:22:00 [facility] [place] Temperature Oral (F) 2018-12-31 09:22:00 98.5 F [facility] [place] Systolic (mm Hg) 2018-12-31 04:12:00 Toribio rial [place] Diastolic (mm Hg) 2018-12-31 04:12:00 [facility] [place] Temperature Oral (F) 2018-12-31 04:12:00 98.5 F [facility] [place] Respitory Rate 2018-12-31 04:12:00 [facility]ori al [place] Heart Rate 2018-12-31 04:12:00 [facility] BMI Calculated 2018-12-28 22:59:00 [facility] [place] Weight 2018-12-28 22:59:00 [facility] [place] Height 2018-12-28 22:59:00 157.48 cm [facility] [place] Respitory Rate 2018-12-22 00:14:00 [facility] al [place] Systolic (mm Hg) 2018-12-22 00:14:00 Toribio rial [place] Diastolic (mm Hg) 2018-12-22 00:14:00 [facility] o[facility] [place] Heart Rate 2018-12-22 00:14:00 [facility] [place] Temperature Oral (F) 2018-12-22 00:14:00 98.2 F [facility] Temperature Oral (F) 2018-12-21 21:24:00 98.7 F [facility] Systolic (mm Hg) 2018-12-21 21:24:00 Toribio rial [place] Diastolic (mm Hg) 2018-12-21 21:24:00 Mem orial [place] Heart Rate 2018-12-21 21:24:00 [facility] [place] Respitory Rate 2018-12-21 21:24:00 [facility] al [place] Temperature Oral (F) 2018-12-21 17:29:00 98.2 F [facility] [place] Systolic (mm Hg) 2018-12-21 17:29:00 Toribio rial [place] Diastolic (mm Hg) 2018-12-21 17:29:00 Mem orial [place] Heart Rate 2018-12-21 17:29:00 [facility] [place] Respitory Rate 2018-12-21 17:29:00 Memori al [place] Height 2018-12-08 15:06:00 157.48 cm [facility] [place] Weight 2018-12-08 15:06:00 [facility] BMI Calculated 2018-12-08 15:06:00 [facility] al [place] Respitory Rate 2018-12-05 12:49:00 [facility]ori al [place] Systolic (mm Hg) 2018-12-05 12:49:00 Toribio rial [place] Diastolic (mm Hg) 2018-12-05 12:49:00 Mem orial [place] Temperature Oral (F) 2018-12-05 12:49:00 98.0 F [facility] [place] Heart Rate 2018-12-05 12:49:00 [facility] [place] Respitory Rate 2018-12-05 12:45:00 Memori al [place] Systolic (mm Hg) 2018-12-05 08:15:00 Toribio rial [place] Diastolic (mm Hg) 2018-12-05 08:15:00 Mem o[facility] [place] Respitory Rate 2018-12-05 08:15:00 [facility] al [place] Temperature Oral (F) 2018-12-05 08:15:00 98.1 F [facility] [place] Heart Rate 2018-12-05 08:15:00 [facility] [place] Systolic (mm Hg) 2018-12-05 04:27:00 Toribio rial [place] Diastolic (mm Hg) 2018-12-05 04:27:00 [facility] o[facility] [place] Heart Rate 2018-12-05 04:27:00 [facility] [place] Temperature Oral (F) 2018-12-05 04:27:00 98.7 F [facility] [place] BMI Calculated 2018-12-03 22:55:00 [facility] al [place] Height 2018-12-03 22:55:00 157.48 cm [facility] [place] Weight 2018-12-03 22:55:00 [facility] [place] BMI Calculated 2018-12-03 11:00:00 [facility] al [place] Weight 2018-12-03 11:00:00 [facility] [place] Height 2018-11-27 16:09:00 157.48 cm [facility] [place] Systolic (mm Hg) 2018-04-04 20:23:00 Toribio rial [place] Diastolic (mm Hg) 2018-04-04 20:23:00 Mem o[facility] [place] Heart Rate 2018-04-04 20:23:00 [facility] BMI Calculated 2018-04-04 20:23:00 [facility] al [place] Weight 2018-04-04 20:23:00 [facility] [place] Temperature Oral (F) 2018-04-04 20:23:00 98.2 F [facility] [place] Height 2018-04-04 20:23:00 154.94 cm [facility] [place] Height 2017-09-10 16:39:00 157.48 cm [facility] Weight 2017-09-10 16:39:00 [facility] BMI Calculated 2017-09-10 16:39:00 Memori al [place] Temperature Oral (F) 2017-09-10 16:39:00 98.0 F [facility] [place] Heart Rate 2017-09-10 16:39:00 [facility] [place] Systolic (mm Hg) 2017-09-10 16:39:00 Toribio rial [place] Diastolic (mm Hg) 2017-09-10 16:39:00 Mem o[facility] [place] Procedures Procedure Date / Time Performed Performing Clinician Sour e Removal impacted cerumen 2019-06-05 17:32:00 [facility] [place] using irrigation/lavage, unilateral Hysterectomy 2018-12-03 05:00:00 [facility] Bilateral tubal ligation Memoria l [place] Caesarean section Lorelei Lara nn Encounters Start End Encounter Admission Attending Care Care Encounter Source Date/Time Date/Time Type Type Clinicians Facility Department ID 2018-12-28 Inpatient U [facility] MED [id number] [facility]HB L 17:06:00 2018-12-08 Inpatient U [facility] MED [id number] MHB L 06:40:00 2018-12-03 Inpatient [facility]BL [facility]BL [id number] [id number] L 05:30:00 2019-12-09 2019-12-10 Outpatient [facility] [id number] 14:11:21 23:59:59 00 2019-12-05 2019-12-06 Outpatient [facility] [id number] 10:48:53 10:48:53 11 2019-12-03 2019-12-04 Outpatient [facility] [id number] 08:22:34 08:22:34 10 2019-12-02 2019-12-02 Outpatient Lobito, MHMG MHMG [id number] 14:00:00 14:00:00 Wilberto Sargent 2019-06-25 2019-06-25 Outpatient Lobito, MHMG MHMG [id number] 11:15:00 11:15:00 Wilberto 09 Arie 2019-06-05 2019-06-05 Outpatient SABINE RobinMG MHMG [id number] 10:15:00 23:59:59 Wilberto Norma Arie 2019-05-28 2019-05-28 Outpatient Candi MHPL MHPL [id number] 12:11:44 17:48:00 [facility] 2019-[facility]-28 2019-05-28 Emergency E MHBL MHBL [id number] MHBL 12:11:00 12:11:00 2019-03-11 2019-03-12 Outpatient MHMG MHMG [id number] 17:25:25 17:25:25 08 2019-03-10 2019-03-10 Outpatient Lobito, MHMG MHMG [id number] 09:15:00 23:59:59 Wilberto Sargent 2019-02-14 2019-02-14 Outpatient Sander MHPL MHPL [id number] 08:04:00 16:43:00 Starr Jones 2019-02-14 2019-02-14 Outpatient MHBL MHBL [id number] MHBL 08:04:00 08:04:00 2019-01-14 2019-01-14 Outpatient Craig, MHMG MHMG [id number] 13:15:00 23:59:59 Barbie 2019-01-10 2019-01-10 Outpatient Lobito, MHMG MHMG [id number] 13:30:00 23:59:59 Wilberto [place] 2019-01-02 2019-01-02 Outpatient Craig, MHMG MHMG [id number] 13:15:00 13:15:00 Barbie 2018-12-28 2018-12-31 Outpatient Dhabrearan MHPL MHPL [id number] 17:06:00 15:10:00 Deepak 2018-12-08 2018-12-21 Outpatient Darrin, MHPL MHPL [id number] 06:40:00 20:38:00 Damian 46 2018-12-03 2018-12-05 Outpatient Sae, MHPL MHPL [id number] 05:30:00 11:26:00 Christal 2018-04-04 2018-04-04 Outpatient Lobito, MHMG MHMG [id number] 15:15:00 23:59:59 Wilberto [place] 2017-11-13 2017-11-13 Outpatient Janneryk, MHOIP MHOIP [id number] 10:36:00 23:59:00 Wilberto [place] 2017-10-25 2017-10-25 Outpatient Janecek, MHOIP MHOIP [id number] 14:25:00 23:59:00 Wilberto [place] 2017-10-25 2017-10-25 Outpatient Janecek, MHOIP MHOIP [id number] 14:25:00 23:59:00 Wilberto [place] 2017-09-10 2017-09-10 Outpatient Janneryk, MHMG MHMG [id number] 10:30:00 23:59:59 Wilberto [place] 2017-08-01 2017-08-01 Outpatient Janecek, MHMG MHMG [id number] 14:30:00 14:30:00 Wilberto [place] Results Test Description Test Time Test Comments Results Result Comments Source CHEM PANEL 2019-05-28 130 [facility] Jane nn 21:57:00 CHEM PANEL 2019-05-28 7 [facility] Jane nn 21:57:00 CHEM PANEL 2019-05-28 0.83 [facility] Jane nn 21:57:00 CHEM PANEL 2019-05-28 139 [facility] Jane nn 21:57:00 CHEM PANEL 2019-05-28 4.0 [facility] Jane nn 21:57:00 CHEM PANEL 2019-05-28 105 [facility] Jane nn 21:57:00 CHEM PANEL 2019-05-28 28 [facility] nn 21:57:00 CHEM PANEL 2019-05-28 9.3 [facility] nn 21:57:00 CHEM PANEL 2019-05-28 7.6 [facility] nn 21:57:00 CHEM PANEL 2019-05-28 3.8 [facility] Jane nn 21:57:00 CHEM PANEL 2019-05-28 20 [facility] nn 21:57:00 CHEM PANEL 2019-05-28 21 [facility] nn 21:57:00 CHEM PANEL 2019-05-28 53 [facility] [place] nn 21:57:00 CHEM PANEL 2019-05-28 1.0 [facility] Jane nn 21:57:00 CHEM PANEL 2019-05-28 84 [facility] nn 21:57:00 CHEM PANEL 2019-05-28 10.0 [facility] Jane nn 21:57:00 CHEM PANEL 2019-05-28 21:57:00 Test Item Value Reference Range Interpretation Comme nts B/C Ratio (test code = B/C Ratio) 8 1 6-25 [facility] HermannCHEM [id number] 21:57:003.8[facility] HermannCHEM PANEL 2019-05-28 21:57:00 Test Item Value Reference Range Interpretation Comments A/G Ratio (test code = A/G Ratio) 1.0 1 0.7-1.6 [facility] HermannCHEM [id number] 21:57:11665Pjufkvtz HermannHEMATOLOGY 2019-05-28 21:57:004.5[facility] RybejncNAMQYZGCLD9210-78-37 21:57:004.82[facility] PxvzxvvZWMSONZEGU8588-31-35 21:57:0014.4[facility] XsnxwjgDSSQSABDAI4568-97-43 21:57:0042.2[facility] MlawukkVAYFWAHOPY8736-87-93 21:57:0087.5[facility] [place] DFJXSYLNNH1813-40-17 21:57:00 Test Item Value Reference Range Interpretation Comments MCH (test code = MCH) 29.9 pg 27.0-31.0 [facility] QnjugjqBNZHWGEBQJ1945-00-01 21:57:0034.1[facility] HermannHEMATOLOGY 2019-05-28 21:57:0014.7[facility] NmhjpsrCEFVJTRRZP2244-52-33 21:57:02815Pmhurufz YbjnmhkQKPEIUOAXN4151-50-51 21:57:008.2[facility] NqnczcdQLEZRNMOTT0426-67-19 21:57:0062.3[facility] KhxkfdtMKYDEHNJRO3289-45-26 21:57:0028.3[facility] WOOBEXVXDJ5280-72-30 21:57:007.5[facility] DmdjaxjKSSHZCMIRB8563-59-53 21:57:000.8 [facility] McdofakQVLMLNQMDA6238-42-49 21:57:001.1[facility] HermannHEMATOLOGY 2019-05-28 21:57:002.8[facility] HmvgfexWGFECAZTCN5094-83-33 21:57:001.3[facility] YknsevzFMKRTZYAKC6439-02-63 21:57:000.3[facility] SfldtydEBTAWOLSOZ2459-68-27 21:57:000.1[facility] HermannURINE AND TGKWL1804-05-35 19:29:00Yellow *NA*(05/28/19 1:29 PM)[facility] AND [id number] 19:29:00Clear (05/28/19 1:29 PM)[facility] AND [id number] 19:29:00 Test Item Value Reference Range Interpretation Comments UA Spec Grav (test code = UA Spec 1.005 1 Grav) [facility] AND [id number] 19:29:00 Test Item Value Reference Range Interpretation Comments UA pH (test code = UA pH) 6.0 1 5.0-8.0 [facility] [id number] 19:29:00Negative *NA*(05/28/19 1:29 PM)[facility] AND [id number] 19:29:00Negative (05/28/19 1:29 PM) [facility] [id number] 19:29:00Negative (05/28/19 1:29 PM) [facility] [id number] 19:29:00Negative (05/28/19 1:29 PM) [facility] [id number] 19:29:00<1[facility]annUR[facility] AND [id number] 19:29:004[facility] HermannBLOOD BANK LONMPQB0380-26-31 18:28:00 Negative (02/11/19 1:28 PM)[facility] LafnfkdOKSKMWWSUPIR2221-99-49 18:28:0011.1 [facility] NidipxxLZMBRNKSIAQI3742-12-14 18:28:25703Cfbdbdbc HermannELECTROLYTES 2019-02-11 18:28:009.4[facility] DjomdnuTQOOGCEWPBYQ2012-19-93 18:28:05179Ydmipwwy LybomswZLHECCRKIIXB4896-96-27 18:28:004.1[facility] XlfpdaiKDWGYDAIGJZS2624-52-35 18:28:0026[facility] FbgotgvHJCTXWMSNKXW7180-67-27 18:28:52292Xshktknf Patrick WQPYDPKAODCZ1429-99-63 18:28:000.57[facility] AbtocqbYFSJHSTETLSP9031-41-48 18:28:007[facility] QgjhkvfUPCTBYWBTZAE0030-00-66 18:28:0091[facility] [place] UVPQSNTZAG5722-73-77 18:28:008.2[facility] SegfgrxKRNQPQQKDZ8467-29-72 18:28:41042 [facility] GjeldbkIRYEBJCCGV4973-29-94 18:28:0017.1[facility] HermannHEMATOLOGY 2019-02-11 18:28:0033.9[facility] LituablWYLHQLMQYY3207-05-76 18:28:0012.2[facility] HlzpzspCUOIAMECJR2907-48-08 18:28:003.6[facility] WrjymutZSHQJXHHJQ7223-03-69 18:28:004.51[facility] JuqrthbBBGDMYNHST3675-53-48 18:28:00 Test Item Value Reference Range Interpretation Comments MCH (test code = MCH) 27.1 pg 27.0-31.0 [facility] IbqoqioFCYCWIUOAO5132-75-63 18:28:0080.0[facility] HermannHEMATOLOGY 2019-02-11 18:28:0036.1[facility] GjhgwfbZPCYOXAVEO0329-47-65 18:28:000.1[facility] OaaixzdTGOVDHNPXK3829-89-25 18:28:001.2[facility] AkcxljiYIMCBJSSDC0504-14-56 18:28:000.4[facility] HujmitmRZOPLYAKZL7075-38-88 18:28:001.9[facility] PGIKKSBGUE7498-75-52 18:28:001.4[facility] JykvkyjGRKUIZYNUO6478-72-56 18:28:000.9 [facility] WxucjiaGLCZMDUUZV6943-94-89 18:28:0032.9[facility]annHE[facility]Y 2019-02-11 18:28:0011.7[facility] PmsyzgzLQKJBYBNNX5280-19-08 18:28:0053.1[facility]annCHEM FPKXR6612-69-32 09:21:001.7[facility]annCHEM NGZTS9897-42-99 09:21:04764Xuzxggxd HermannCHEM UJOSS1660-17-51 09:21:0076[facility]annCHE[facility] GOZCR2966-73-88 09:21:003.7[facility]annCHEM DACNX7941-24-65 09:21:22893 [facility] ZBHKO3875-73-66 09:21:000.58[facility]annCHEM PANEL 2018-12-31 09:21:42452Yipuwzzi HermannCHEM GRFUY2247-36-55 09:21:0029[facility]annCHE[facility] UVYFW3560-83-03 09:21:002.8[facility]annCHEM OIPEJ4636-51-54 09:21:006.1[facility]annCHE[facility] SFWDM3679-22-50 09:21:008.6[facility]annCHE[facility] RGOVP8153-99-05 09:21:0015[facility]annCHE[facility] XDDAO3827-30-48 09:21:0054 [facility] RARCL1672-76-27 09:21:000.5[facility]annCHEM PANEL 2018-12-31 09:21:004[facility]annCHE[facility] HTPGO4371-50-56 09:21:0018[facility]annCHE[facility] MHIFR8904-71-33 09:21:008.7[facility]annCHEM QUXAK3856-10-34 09:21:00 Test Item Value Reference Range Interpretation Comments A/G Ratio (test code = A/G Ratio) 0.8 1 0.7-1.6 [facility] RJBFU7169-77-58 09:21:003.3[facility]annCHEM PANEL 2018-12-31 09:21:00 Test Item Value Reference Range Interpretation Comments B/C Ratio (test code = B/C Ratio) 7 1 6-25 [facility] TZXZO7023-26-40 09:21:002.5[facility]annHEMATOLOGY 2018-12-31 09:21:0012.1[facility] WeuxcbeWTLEUJTPFH8863-96-28 09:21:0010.1[facility] McqxqtzVOELBPPTLM1155-81-80 09:21:001.0[facility] UxengfwGDNIRVTOUQ8372-09-40 09:21:001.4[facility] IbweklrBISLRBSUCO5259-18-75 09:21:001.4[facility] ZXNCCYWFSJ1093-43-21 09:21:000.5[facility] CnkfrzvKKWKFPTZQK0683-22-10 09:21:000.4 [facility] YeuxpttQMJVNLMOUA5547-25-28 09:21:0038.3[facility]annHE[facility]OLOGY 2018-12-31 09:21:0038.5[facility] CrzbmfnQDJGBVQUZS4008-96-45 09:21:008.4[facility] HmoyvuxLARSWOOXKN2965-94-29 09:21:0028.6[facility] IzpbrswTXSJUWZMTH1634-89-45 09:21:009.5[facility] VrnibomUMBZHSVROF4276-85-68 09:21:0014.3[facility] SYWAOBRIGR8005-83-59 09:21:0033.2[facility] QmyuuhwRPCUYBDLEM4962-26-13 09:21:00 Test Item Value Reference Range Interpretation Comments MCH (test code = MCH) 26.5 pg 27.0-31.0 [facility] OoovmdeKZPCJELQCT9974-11-67 09:21:003.57[facility]annHEMATOLOGY 2018-12-31 09:21:24090Jfwujwqg QejnczxCQFPTXRNXI3706-01-91 09:21:003.7[facility] UobjvsmWVXYUWTRJI7077-95-04 09:21:0080.0[facility]annCHEM GLXVI3926-41-23 08:43:002.2[facility]annCHEM MGERL6008-83-18 08:43:36249Nzhfbgow HermannCHEM SRLBV6944-69-01 08:43:0023[facility]CHEM WPRTP7876-35-06 08:43:008.5 [facility] YMPSM3662-22-43 08:43:003.7[facility]ann[facility] PANEL 2018-12-30 08:43:33001Ffhagpvu HermannCHEM QCUGK2395-84-24 08:43:78265Vnhulorx HermannCHEM QQAEC9147-71-86 08:43:000.58[facility] QMMBC6431-91-83 08:43:006[facility] LMHAP5610-59-09 08:43:0061[facility] KCNTV7119-40-45 08:43:0013[facility] WDAAC6018-17-73 08:43:002.8 [facility] YLEUZ0808-47-67 08:43:0018[facility]annCHE[facility] PANEL 2018-12-30 08:43:006.4[facility] ZCDRL5130-79-34 08:43:000.8[facility] PBRVA1696-65-81 08:43:0064[facility] ILMCO9312-92-09 08:43:003.6[facility] GYKIR9048-40-74 08:43:00 Test Item Value Reference Range Interpretation Comments A/G Ratio (test code = A/G Ratio) 0.8 1 0.7-1.6 [facility] AHMNK3627-72-25 08:43:00 Test Item Value Reference Range Interpretation Comments B/C Ratio (test code = B/C Ratio) 10 1 6-25 [facility] QWHNB6759-70-87 08:43:0014.7[facility]annCHEM PANEL 2018-12-30 08:43:001.8[facility] SpodpliTYLWBMHIZS7837-80-52 08:43:000.1[facility] UdjzgooYFAGWIFNNQ6674-72-09 08:43:001.9[facility] CchguzxOFNQBGSPTX3692-60-68 08:43:001.5[facility] EfniwmuWKPOWKGDOX0773-36-16 08:43:001.6[facility] LCZVCMPEDF6186-80-19 08:43:000.4[facility] AuesvucVKPMJHFZYN0473-42-02 08:43:000.2 [facility] MjxlxgeDTLMTCFAAA2284-14-89 08:43:0040.0[facility]annHEMATOLOGY 2018-12-30 08:43:0043.9[facility] EvfejwtCAQYJAIRJE5796-61-49 08:43:004.3[facility] PzmmvxfNHQKOOJTWJ6777-90-74 08:43:009.9[facility] IfyhpiaAKLBAZLESC5895-27-41 08:43:0014.4[facility] VasprmvXTANHSEMJJ0563-84-79 08:43:0032.6[facility] ZBDQBOGKYR9649-71-02 08:43:008.5[facility] BnzcmuzRYKLEENTGW8792-75-38 08:43:07609 [facility] AangyakKSIURLEPQP7464-77-99 08:43:0080.3[facility]annHEMATOLOGY 2018-12-30 08:43:0030.2[facility] BlmsqxwEYGHRRCADT6830-22-59 08:43:003.6[facility] ZgtuvsfPQLWKZCMWB6646-05-06 08:43:00 Test Item Value Reference Range Interpretation Comments MCH (test code = MCH) 26.2 pg 27.0-31.0 [facility] IvotmyxRNEPINUNQP6205-59-21 08:43:009.9[facility]annHEMATOLOGY 2018-12-30 08:43:003.76[facility]annCHE[facility] XAGXG4475-17-28 09:04:56576Denmdvps HermannCHEM HFFTY0733-15-38 09:04:0063[facility] WXBOW9719-08-78 09:04:000.7[facility] KOEMR3086-29-56 09:04:000.62[facility] YRVSN9968-52-25 09:04:008[facility] PIGWU8479-64-65 09:04:004.0 [facility] NXWXC7671-04-81 09:04:60032Qutlneav HermannCHEM PANEL 2018-12-29 09:04:0073[facility] YCDXU9765-63-02 09:04:0019[facility]CHE[facility] OUICL8653-24-22 09:04:006.5[facility] REKQO0011-55-41 09:04:008.7[facility] HCRIB3062-91-98 09:04:002.9[facility] GMLDH9193-54-35 09:04:41805Wqfrxooo HermannCHEM QRLYS3255-98-14 09:04:0014 [facility] YAFMD0298-82-27 09:04:0023[facility]annCHE[facility] PANEL 2018-12-29 09:04:0014.0[facility]CHE[facility] UDVAH3543-35-60 09:04:00 Test Item Value Reference Range Interpretation Comments B/C Ratio (test code = B/C Ratio) 13 1 6-25 [facility] IGXQS5247-50-81 09:04:003.6[facility]annCHE[facility] PANEL 2018-12-29 09:04:00 Test Item Value Reference Range Interpretation Comments A/G Ratio (test code = A/G Ratio) 0.8 1 0.7-1.6 [facility] HermannCHEM TQAQW7874-13-95 09:04:001.9[facility]annHEMATOLOGY 2018-12-29 09:04:00 Test Item Value Reference Range Interpretation Comments MCH (test code = MCH) 26.4 pg 27.0-31.0 [facility] MtogkhpZZJDLDWYUR3618-79-86 09:04:0030.4[facility]annHEMATOLOGY 2018-12-29 09:04:009.9[facility] IaiibleLZEVHRJVHP2279-40-49 09:04:0080.8[facility] ChxfsolEKJSNNPKZF5672-26-70 09:04:008.4[facility] NrxqyeuJXUSQZCECP5093-40-96 09:04:71275Efxcgsin TcquedwELZIKNWSMT6484-08-31 09:04:0032.6[facility] LOAXXUMPTV7293-32-01 09:04:0014.4[facility] AepawuxWPPMCABZIS4645-02-99 09:04:00 3.76[facility] WqhlfdsKWOFAIKPJA2288-86-12 09:04:005.8[facility]annHEMATOLOGY 2018-12-29 09:04:00 Test Item Value Reference Range Interpretation Comments PTT (test code = PTT) 32.5 s 22.9-35.8 [facility] AhdhzeaTXUXKOPMOZ2116-06-22 09:04:00 Test Item Value Reference Range Interpretation Comments PT (test code = PT) 15.5 s 12.0-14.7 [facility] HuinwdtANIIUPKIMC6923-58-85 09:04:00 Test Item Value Reference Range Interpretation Comments INR (test code = INR) 1.25 1 0.85-1.17 [facility] OpuiicqPEGMPXUWKH0978-64-88 09:04:001.1[facility]annHEMATOLOGY 2018-12-29 09:04:009.4[facility] NkcawarHWETZSGGIX4844-92-50 09:04:003.8[facility] TgpmswpSMBHKHUWJC6054-96-84 09:04:000.8[facility] VzcdqpvTJKHWRQTWD5033-94-55 09:04:000.1[facility] VydxgtfUOAIZLOTKG5726-76-12 09:04:000.5[facility] KKNRSOBHRU7465-70-33 09:04:001.3[facility] XskgigrPOPYJCENMD1007-48-75 09:04:00 23.2[facility] ZqjayvzUFOGKTHVJF6336-34-22 09:04:0065.5[facility]annHEMATOLOGY 2018-12-29 02:21:00 Test Item Value Reference Range Interpretation Comments PT (test code = PT) 14.3 s 12.0-14.7 [facility] EpvtxgsXRBYAYWCWW2515-15-24 02:21:00 Test Item Value Reference Range Interpretation Comments PTT (test code = PTT) 32.3 s 22.9-35.8 [facility] AublgukGIYTOAVRLA7314-60-39 02:21:00 Test Item Value Reference Range Interpretation Comments INR (test code = INR) 1.13 1 0.85-1.17 [facility] CZWXM5288-90-16 09:33:002.9[facility] HermannCHEM PANEL 2018-12-20 09:33:002.1[facility] JrlshjoFMMGSWPRWERJ2883-28-10 09:33:009.6[facility] LlayfcjNESRLWOJOJUW5926-06-65 09:33:78171Omikcoow XczmlxrWTOSJSDQMHKK1137-33-65 09:33:0028[facility] DfjygzcCIQVPTUQHREV0751-93-68 09:33:009.1[facility] LZDMWHNFZQBL2474-77-22 09:33:0012[facility] MfjcebpSXNEBSZGGAAU4335-98-88 09:33:00 105[facility] IjtmtggYEFRYOFBHPPD6352-92-84 09:33:003.6[facility] AFWMWWEXUXXW6114-55-24 09:33:99921Agbkiylx ZvbgnrfFAYVAQXWITHE1460-24-46 09:33:000.57[facility] YgbkyswZNNOAGWDWZFY6474-65-54 09:33:15872Qdzclugm [facility] IDRPOAKJHY9003-88-09 09:33:0081.3[facility] JkezxbnZMWVEJLMHN1407-45-44 09:33:00 Test Item Value Reference Range Interpretation Comments MCH (test code = MCH) 26.5 pg 27.0-31.0 [facility] AwdibzeLWFQXOGHUN1198-52-78 09:33:007.9[facility] HermannHEMATOLOGY 2018-12-20 09:33:0032.7[facility] MwqfqgaAFKZNFZWAU0046-71-06 09:33:86672Iommjjzq CtcrnucUTNHRMMFLO3459-78-90 09:33:0014.3[facility] GpqgezgXZKXSDKIDN7187-56-80 09:33:003.61[facility] TcvfoxnMNHDCGHFEA7713-91-56 09:33:009.6[facility] JLIDFBBKXU9460-65-62 09:33:0029.4[facility] TwvckhdLLBHSVPSFZ5785-85-93 09:33:00 5.2[facility] QneqvzzGCQXJGPLYA0017-49-81 09:33:000.3[facility]annHEMATOLOGY 2018-12-20 09:33:000.1[facility] KzkvmydJZHCVZGNXL8539-80-88 09:33:0060.2[facility] YtlsdavKVBLPDKFUM5720-85-47 09:33:000.7[facility] NyfgftnCEZIQTPCJH2171-77-54 09:33:003.1[facility] LsxpxbvUVUFTFNNKU3242-56-63 09:33:0020.0[facility] NRMKSDVLWM0266-16-89 09:33:001.0[facility] IkcldfkDKICEAQRXH1639-34-92 09:33:002.1 [facility] AjwcowmMKQAZFYXPQ9838-83-09 09:33:0012.8[facility]annHEMATOLOGY 2018-12-20 09:33:004.9[facility]annCHEM RFPNV7195-07-72 09:36:002.2[facility]annCHEM IWAUO4376-65-75 09:36:21293Slqizlpn HermannCHEM MHARF5754-11-86 09:36:0026[facility]annCHEM ZYPTG8621-07-29 09:36:00551Kcfvwoif HermannCHEM BIWUC2372-58-15 09:36:003.8[facility]annCHE[facility] GLTLK4125-83-19 09:36:99821 [facility] TUXYZ7179-02-96 09:36:000.61[facility]annCHEM PANEL 2018-12-19 09:36:009.7[facility]annCHE[facility] LBUPC5757-91-49 09:36:0016[facility]annCHE[facility] AUTBL2140-90-41 09:36:32077Rwrokjtl HermannCHEM QQFQS7061-67-18 09:36:0012.8[facility]annCHE[facility] GBNLM2830-08-34 09:36:004.4[facility] NYKAXQIBWI3271-70-74 09:36:006.7[facility] KacoghoMVZZEKYNSB3254-30-16 09:36:007.7 [facility] UrplwcoWFKLAKVGBL4998-23-77 09:36:003.81[facility]annHEMATOLOGY 2018-12-19 09:36:0010.2[facility] OqulkztKTRMECDWAS4340-96-63 09:36:00 Test Item Value Reference Range Interpretation Comments MCH (test code = MCH) 26.8 pg 27.0-31.0 [facility] SnuoaqlOYHLOWAXZP0957-02-33 09:36:0030.7[facility]annHEMATOLOGY 2018-12-19 09:36:0080.6[facility] IweyukzHYRLEWEJGC4104-05-33 09:36:0033.3[facility] SrtmpijUFSIXFLOIN2134-04-67 09:36:0014.7[facility] XmnlascDEELLDYUOK3665-84-57 09:36:32911Ebscnxch CkfuxjnQREDVTRILL7203-36-51 09:36:004.5[facility] UMERGAWSKS6205-78-23 09:36:001.1[facility] XmcoxtjBYGYYCPTQF1736-75-88 09:36:000.8 [facility] MxujkbiWRXSDYWEMR1424-15-05 09:36:000.2[facility]annHEMATOLOGY 2018-12-19 09:36:000.1[facility] YladmsdRABEILRBJM1227-28-05 09:36:0066.7[facility] QdseaziOJTLGRYQYT4610-52-94 09:36:0011.8[facility] WvbksaqRDVIBJCBAQ7872-37-08 09:36:003.7[facility] FirmyeaOXVMQNKAFI9191-85-53 09:36:001.4[facility] ATBOVNBHWC0909-66-47 09:36:0016.4[facility]annCHEM OLZPH9474-34-78 11:27:00 101[facility]annCHEM WJQKA0263-97-56 11:27:0011[facility]annCHEM PANEL 2018-12-18 11:27:000.60[facility]annCHEM XTQLW2635-03-54 11:27:69308Oepkajxr HermannCHEM WIIAI1646-16-89 11:27:0027[facility]CHE[facility] BXBTJ6276-83-30 11:27:009.2[facility]annCHE[facility] ONNTB4441-39-61 11:27:003.9[facility]CHE[facility] HIRQS4694-25-53 11:27:15361Drdzykve HermannCHEM LBFNW4190-69-34 11:27:82225 [facility] WJKUG4048-14-77 11:27:009.9[facility]annHEMATOLOGY 2018-12-18 11:27:000.1[facility] WlmbvwdDAYWREPDTR4590-58-82 11:27:000.2[facility] YbhruekTTBGVYFGZA0340-79-63 11:27:000.7[facility] PyweubzOLXRRWMZTQ7574-17-87 11:27:000.8[facility] DftejqiTKMAOTZNPZ3572-76-50 11:27:004.1[facility] WBCCVYFSVZ3544-56-14 11:27:001.3[facility] YvpojruHZSXODXLUK8540-38-22 11:27:003.9 [facility] OyydwbgQTRVBXWXNU1709-21-83 11:27:0014.1[facility]annHEMATOLOGY 2018-12-18 11:27:0068.9[facility] DligplfMFBZLBUZAE5682-52-10 11:27:0011.8[facility] YknahiyOTDLYZLHKZ8501-35-60 11:27:00 Test Item Value Reference Range Interpretation Comments MCH (test code = MCH) 27.4 pg 27.0-31.0 [facility] YqqgwobLEUSZLWJMA9806-83-49 11:27:0080.5[facility]annHEMATOLOGY 2018-12-18 11:27:0028.0[facility] PaoqoqdFYLXJXNQVB7167-81-03 11:27:0034.0[facility] AnjwdswZPZKYCZUGH2625-39-98 11:27:0014.4[facility] MnbhoafXBWAHKAGFY0171-44-64 11:27:009.5[facility] CmhpxbtFOYBFGAFDC9112-94-74 11:27:80880Pgiwfplp Patrick YEVBENKBDM2983-32-11 11:27:007.9[facility] JideszjUTDBNOYKIT7916-73-89 11:27:006.0 [facility] FvbcssvBVKTWAAPUD9082-34-37 11:27:003.47[facility] HermannCHEM PANEL 2018-12-17 09:25:002.2[facility]annCHEM OXZCA4339-58-79 09:25:003.5[facility] TlpeqbmUPQHAJ1969-14-17 10:25:70443Qhqwxnft NvegzokSVXZSRTBVL5877-30-10 08:51:00 Test Item Value Reference Range Interpretation Comments PT (test code = PT) 15.7 s 12.0-14.7 [facility] WpkvdiwYMFAPXODTU3154-00-60 08:51:00 Test Item Value Reference Range Interpretation Comments INR (test code = INR) 1.28 1 0.85-1.17 [facility] HermannCHEM GCIQO9404-65-59 08:44:91329Ivuhndwm HermannCHEM PANEL 2018-12-11 08:44:0040[facility]annCHEM HJKPU5480-28-94 09:23:0094[facility]annCHE[facility] YEWPG7538-62-16 09:23:0034[facility]annCHE[facility] LNREB9979-87-60 09:23:00 Test Item Value Reference Range Interpretation Comments A/G Ratio (test code = A/G Ratio) 0.7 1 0.7-1.6 [facility] HermannCHEM QTQKJ7775-98-89 09:23:003.5[facility]annCHEM PANEL 2018-12-10 09:23:00 Test Item Value Reference Range Interpretation Comments B/C Ratio (test code = B/C Ratio) 19 1 6-25 [facility] WCDVN7779-80-54 09:23:000.4[facility]annCHEM PANEL 2018-12-10 09:23:005.9[facility]annCHEM ORNBC1245-94-28 09:23:0042[facility]annCHEM BGRXH8717-16-35 09:23:0011[facility]annCHEM WNOYS0802-38-44 09:23:002.4[facility]annCHEM XDPGI1521-99-69 09:23:009[facility]annCHE[facility] XEBJN8294-72-45 09:50:0050[facility]annCHE[facility] MZGHC1400-18-67 09:50:003.6 [facility]CHE[facility] JCAXS8611-87-24 09:50:00 Test Item Value Reference Range Interpretation Comments A/G Ratio (test code = A/G Ratio) 0.6 1 0.7-1.6 [facility] HermannCHEM BROSK4677-70-21 09:50:00 Test Item Value Reference Range Interpretation Comments B/C Ratio (test code = B/C Ratio) 17 1 6-25 [facility] HermannCHEM PVDMT6371-51-79 09:50:0046[facility]annCHEM PANEL 2018-12-09 09:50:0011[facility]annCHEM AKALE5306-75-89 09:50:000.4[facility]annCHE[facility] KXEAW2683-26-06 09:50:005.9[facility]annCHEM XQZFY0774-80-10 09:50:0013[facility]annCHEM TZDAB2149-60-31 09:50:002.3[facility]annCHEM KKFQD9219-21-09 09:50:0024[facility] SjstbcrGKRJLZRHPM2021-43-88 15:29:00 Test Item Value Reference Range Interpretation Comments PTT (test code = PTT) 35.7 s 22.9-35.8 [facility]IfjxytfXGQCKXAGRU3698-42-44 15:29:00 Test Item Value Reference Range Interpretation Comments PT (test code = PT) 14.4 s 12.0-14.7 [facility] RyhoyjzAWFQJLYOSB3465-62-08 15:29:00 Test Item Value Reference Range Interpretation Comments INR (test code = INR) 1.14 1 0.85-1.17 [facility] XmykyjhLMAOXKHMNZ2482-28-42 08:20:007.4[facility]annHEMATOLOGY 2018-12-04 08:20:009.8[facility] ToolhnuBOEZMWWGVJ0150-82-20 08:20:003.51[facility] TeumdqoLFOAHJAHRE1971-63-69 08:20:0029.2[facility] XztrupeYBXSILIISB3189-07-74 08:20:12939Yqcbygwn UogfnwlFEEVRFNOXW4580-60-35 08:20:009.1[facility] BUILUMGAOE3507-67-71 08:20:0033.4[facility] XfddevxATBANXJURV8329-17-55 08:20:00 Test Item Value Reference Range Interpretation Comments MCH (test code = MCH) 27.8 pg 27.0-31.0 [facility] MzwamlgHNKRNFVLCI6179-15-60 08:20:0013.9[facility]annHEMATOLOGY 2018-12-04 08:20:0083.2[facility] EigarahNLPRVSCDRO2210-60-89 08:20:0014.5[facility] XqbkjveCKSRQVYVSZ8639-77-45 08:20:000.7[facility] HizllxoHUDKYMSLAD2242-98-15 08:20:005.6[facility] KazlkmkOMLSJESTGY8276-26-77 08:20:000.4[facility] UHQAGPPLWY3313-70-04 08:20:008.8[facility] BntryenFFVCRIGMAM1082-38-56 08:20:000.7 [facility] AwqmwarZWBUKMPXTO4585-25-71 08:20:001.1[facility]annHEMATOLOGY 2018-12-04 08:20:000.1[facility] BokxxaeVJLRNOHAPU4734-77-31 08:20:0075.6[facility] TtekwskUSGOKBFIPK9597-17-65 12:07:0013.6[facility] QbujjlbJMGUSLNVJX8891-02-13 12:07:97314Mtroiasp MdcjlblZOQSNLBIOD2039-33-93 12:07:009.0[facility] XGMQTCFRVJ9202-35-89 12:07:005.0[facility] RmbcddgMWQNHVSUDX1664-63-42 12:07:00 11.2[facility] OcqigqwOKEXQUUYAM1457-49-06 12:07:004.02[facility]annHEMATOLOGY 2018-12-03 12:07:0081.5[facility] UumddxzPXHLFNHUAR5291-78-76 12:07:0032.8[facility] WgkuinfFBBTFMRMXP9316-39-03 12:07:00 Test Item Value Reference Range Interpretation Comments MCH (test code = MCH) 27.7 pg 27.0-31.0 [facility] PlcxhwcOWDHLVVSJA9578-22-75 12:07:0034.0[facility]annHEMATOLOGY 2018-12-03 12:07:000.1[facility] CtfbgqtQKUVCOVYLB9032-67-64 12:07:000.4[facility] DhiokjdYLNZCAWGOB4621-62-50 12:07:001.1[facility] LjjknqqPBHOPOPUJU7442-87-37 12:07:000.1[facility] HsiudplCWZWMKZBXJ2471-52-32 12:07:0021.5[facility] NJKMWWLYZK0198-64-56 12:07:0066.5[facility] DulgmthLWWMILKAYJ8658-22-73 12:07:00 9.0[facility] KmxsvydVPKUGDRJKW0121-43-19 12:07:001.9[facility]annHEMATOLOGY 2018-12-03 12:07:001.1[facility] LrnhnavQURNYSEQFT2506-85-70 12:07:003.3[facility] HermannURINE MRPH2058-30-27 10:45:00Negative (12/03/18 5:45 AM)[facility] BLOOD BANK MXOGCOR3577-46-68 16:13:00Negative (11/27/18 11:13 AM)[facility] CKVEXHPHUAXBW3384-18-68 16:13:00Negative *NA*(11/27/18 11:13 AM)[facility]
[2019-12-24 13:56] LABS: Basophils % 1.3 % (0-1.3); Hematocrit 40.8 % (36.0-45.0); Lymphocytes % 26.9 % (15.3-44.8); RBC Red Blood Cell Count 4.56 M/uL (3.86-4.86)
[2019-12-24 14:12] LABS: Albumin 3.6 g/dL (3.4-5.0); Bilirubin Direct 0.2 mg/dL (0-0.2); Bilirubin Total 1.2 mg/dL (0.2-1.0); Potassium 3.8 mmol/L (3.5-5.1); Protein, Total 7.3 g/dL (6.4-8.2)
[2019-12-24] MEDS ORDERED: MAGNE/ALUM HYDROXD 30 ML UCUP ONE (14:26)
[2019-12-24] MEDS ORDERED: LIDOCAINE VISCOUS 2% SOLN 15 ML UDC ONE (14:26)
[2019-12-24 14:52] LABS: Urine Blood TRACE (NEG); Urine Glucose NEGATIVE (NEG); Urine Protein NEGATIVE (NEG); Urine Specific Gravity 1.015 (1.005-1.030)
--- NOTE | 2019-12-24 15:38 | ER ---
Nurse's Notes [facility] Name: Marcela Jamison Age: 49 yrs Sex: Female : 1970 Arrival Date: 12/24/2019 Time: 13:21 Bed 8 Private MD: Diagnosis: Gastritis, unspecified;Peptic ulcer, site unspecified Presentation: 12/23 13:21 Chief complaint: Patient states: i am having abdominal pain, it started this morning, tw2 its right in the center and its painful and burning, i have it before but it wasn't that bad, i have been diagnosed with peptic ulcers, i tried to sulcrafate. Coronavirus screen: Patient denies a cough. Patient denies shortness of breath or difficulty breathing. Patient denies measured and/or subjective temperature greater than 100.4F prior to today's visit. Patient denies travel on a cruise ship or to a country the [facility] currently lists as an affected area. Patient denies contact with known and/or suspected case of COVID-19. Ebola Screen: Patient denies travel to an Ebola-affected area in the 21 days before illness onset. Initial Sepsis Screen: Does the patient meet any 2 criteria? No. Patient's initial sepsis screen is negative. Does the patient have a suspected source of infection? No. Patient's initial sepsis screen is negative. Risk Assessment: Do you want to hurt yourself or someone else? Patient reports no desire to harm self or others. Onset of symptoms was December 24, 2019. 13:21 Method Of Arrival: Ambulatory tw2 13:21 Acuity: KAMI 3 tw2 13:23 Note pt states "i did get nauseous this morning and i threw up and it had a tiny bit of tw2 blood in it". Triage Assessment: 13:21 General: Appears uncomfortable, slender, well groomed, Behavior is calm, cooperative, tw2 appropriate for age. Pain: Complains of pain in epigastric area. GI: Reports lower abdominal pain, upper abdominal pain, nausea. 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 - Social history:: Smoking status: Patient/guardian denies using. Screenin:25 Abuse screen: Denies threats or abuse. Denies injuries from another. Nutritional sv screening: No deficits noted. Tuberculosis screening: No symptoms or risk factors identified. Fall Risk None identified. Assessment: 13:25 General: Appears in no apparent distress. uncomfortable, slender, well groomed, well sv developed, Behavior is calm, cooperative, appropriate for age. Pain: Complains of pain in epigastric area Pain currently is 9 out of 10 on a pain scale. Quality of pain is described as burning, Is intermittent, Alleviated by massage. Neuro: Level of Consciousness is awake, alert, obeys commands, Oriented to person, place, time, situation, Moves all extremities. Full function Gait is steady, Speech is normal. Respiratory: Airway is patent Respiratory effort is even, unlabored, Respiratory pattern is regular, symmetrical. GI: Abdomen is flat, Reports epigastric pain. Derm: Skin is intact, Skin is pink, warm \\T\\ dry. Musculoskeletal: Range of motion: intact in all extremities. 14:20 Reassessment: Patient appears in no apparent distress at this time. No changes from sv previously documented assessment. Patient and/or family updated on plan of care and expected duration. Pain level reassessed. Patient is alert, oriented x 3, equal unlabored respirations, skin warm/dry/pink. 16:00 Reassessment: Patient appears in no apparent distress at this time. Patient and/or sv family updated on plan of care and expected duration. Pain level reassessed. Patient is alert, oriented x 3, equal unlabored respirations, skin warm/dry/pink. Patient states feeling better. Patient states symptoms have improved. Vital Signs: 13:21 BP 133 / 80; Pulse 79; Resp 18; Temp 97.7(TE); Pulse Ox 100% on R/A; Weight 48.53 kg tw2 (R); Height 5 ft. 2 in. (157.48 cm); Pain 9/10; 14:00 BP 113 / 79; Pulse 52; Resp 16; Pulse Ox 100% ; sv 14:45 BP 122 / 86; Pulse 51; Resp 16; Pulse Ox 100% ; sv 13:21 Body Mass Index 19.57 (48.53 kg, 157.48 cm) tw2 ED Course: 13:21 Patient arrived in ED. mr 13:23 Triage completed. tw2 13:23 Arm band placed on. tw2 13:25 Patient has correct armband on for positive identification. Bed in low position. Call sv light in reach. Pulse ox on. NIBP on. Door closed. Head of bed elevated. 13:26 Toshia Evans, ROBERT is Primary Nurse. sv 13:30 Saul Newell PA is PHCP. jr8 13:30 Shahid Chew MD is Attending Physician. jr8 13:30 Inserted saline lock: 20 gauge in right antecubital area, using aseptic technique. sv Blood collected. Flushed right antecubital with 2 ml normal saline. 15:37 David Robledo MD is Referral Physician. jr8 16:00 No provider procedures requiring assistance completed. IV discontinued, intact, sv bleeding controlled, No redness/swelling at site. Pressure dressing applied. Administered Medications: 14:20 Drug: GI Cocktail without - (Maalox Suspension 30 ml, Lidocaine Liquid 2 % 15 sv ml) Route: PO; 15:00 Follow up: Response: No adverse reaction; Marked relief of symptoms; Pain is decreased sv Outcome: 15:38 Discharge ordered by . jr8 16:00 Discharged to home ambulatory. sv 16:00 Condition: stable 16:00 Condition: improved 16:00 Discharge instructions given to patient, Instructed on discharge instructions, follow up and referral plans. medication usage, Demonstrated understanding of instructions, follow-up care, medications, Prescriptions given X 1. 16:21 Patient left the ED. sv Signatures: Toshia Evans RN RN sv Gabriela Peterson mr Saul Newell PA PA jr8 Melissa Aguilar RN RN tw2
--- NOTE | 2019-12-24 15:38 | EDPHYS ---
Physician Documentation [facility] Name: Marcela Jamison Age: 49 yrs Sex: Female : 1970 Arrival Date: 12/24/2019 Time: 13:21 Bed 8 Private MD: ED Physician Shahid Chew HPI: 12/23 14:22 This 49 yrs old Female presents to ER via Ambulatory with complaints of jr8 Abdominal Pain. 14:22 The patient presents with abdominal pain in the epigastric area, in the upper abdomen. jr8 Onset: The symptoms/episode began/occurred acutely, today. The symptoms do not radiate. Associated signs and symptoms: none. The symptoms are described as burning. Modifying factors: The symptoms are alleviated by nothing, the symptoms are aggravated by food. Severity of pain: At its worst the pain was moderate in the emergency department the pain is unchanged. The patient has experienced a previous episode. The patient has not recently seen a physician. Patient stated that she has history of PUD. Takes her sucralfate as needed but nothing on consistent basis. Started to have mild symptoms about 2 weeks ago but today after having morning breakfast and coffee; had sudden onset burning pain to epigastric region of stomach that has not been relieved . 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 - Social history:: Smoking status: Patient/guardian denies using. ROS: 14:22 Eyes: Negative for injury, pain, redness, and discharge, ENT: Negative for injury, jr8 pain, and discharge, Neck: Negative for injury, pain, and swelling, Cardiovascular: Negative for chest pain, palpitations, and edema, Respiratory: Negative for shortness of breath, cough, wheezing, and pleuritic chest pain, Back: Negative for injury and pain, MS/Extremity: Negative for injury and deformity, Skin: Negative for injury, rash, and discoloration, Neuro: Negative for headache, weakness, numbness, tingling, and seizure. 14:22 Abdomen/GI: Positive for abdominal pain, Negative for nausea, vomiting, and diarrhea, constipation, abdominal cramps, abdominal distension. Exam: 14:22 Eyes: Pupils equal round and reactive to light, extra-ocular motions intact. Lids and jr8 lashes normal. Conjunctiva and sclera are non-icteric and not injected. Cornea within normal limits. Periorbital areas with no swelling, redness, or edema. ENT: Nares patent. No nasal discharge, no septal abnormalities noted. Tympanic membranes are normal and external auditory canals are clear. Oropharynx with no redness, swelling, or masses, exudates, or evidence of obstruction, uvula midline. Mucous membranes moist. Neck: Trachea midline, no thyromegaly or masses palpated, and no cervical lymphadenopathy. Supple, full range of motion without nuchal rigidity, or vertebral point tenderness. No Meningismus. Cardiovascular: Regular rate and rhythm with a normal S1 and S2. No gallops, murmurs, or rubs. Normal PMI, no JVD. No pulse deficits. Respiratory: Lungs have equal breath sounds bilaterally, clear to auscultation and percussion. No rales, rhonchi or wheezes noted. No increased work of breathing, no retractions or nasal flaring. Back: No spinal tenderness. No costovertebral tenderness. Full range of motion. Skin: Warm, dry with normal turgor. Normal color with no rashes, no lesions, and no evidence of cellulitis. MS/ Extremity: Pulses equal, no cyanosis. Neurovascular intact. Full, normal range of motion. Neuro: Awake and alert, GCS 15, oriented to person, place, time, and situation. Cranial nerves II-XII grossly intact. Motor strength 5/5 in all extremities. Sensory grossly intact. Cerebellar exam normal. Normal gait. 14:22 Abdomen/GI: Inspection: abdomen appears normal, Bowel sounds: active, all quadrants, Palpation: soft, in all quadrants, moderate abdominal tenderness, in the epigastric area, mass, is not appreciated, rebound tenderness, is not appreciated, voluntary guarding, is not appreciated, involuntary guarding, is not appreciated, no appreciated organomegaly, Indicators: McBurney's point is not tender, Izaguirre's sign is negative, Rovsing's sign is negative, Liver: tenderness, is not appreciated. Vital Signs: 13:21 BP 133 / 80; Pulse 79; Resp 18; Temp 97.7(TE); Pulse Ox 100% on R/A; Weight 48.53 kg tw2 (R); Height 5 ft. 2 in. (157.48 cm); Pain 9/10; 14:00 BP 113 / 79; Pulse 52; Resp 16; Pulse Ox 100% ; sv 14:45 BP 122 / 86; Pulse 51; Resp 16; Pulse Ox 100% ; sv 13:21 Body Mass Index 19.57 (48.53 kg, 157.48 cm) tw2 MDM: 13:31 Patient medically screened. jr8 15:37 Data reviewed: vital signs, nurses notes, lab test result(s). Data interpreted: Pulse jr8 oximetry: on room air is 100 %. Interpretation: normal. 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 Response to treatment: the patient's symptoms have resolved after treatment. 12/23 13:31 Order name: Basic Metabolic Panel; Complete Time: 14:15 [facility] 12/23 13:31 Order name: CBC with Diff; Complete Time: 14:15 [facility] 12/23 13:31 Order name: Hepatic Function; Complete Time: 14:15 [facility] 12/23 13:31 Order name: Lipase; Complete Time: 14:15 [facility] 12/23 14:41 Order name: Urine Dipstick--Ancillary (enter results); Complete Time: 15:33 12/23 13:31 Order name: IV Saline Lock; Complete Time: 13:54 [facility] 12/23 13:31 Order name: Labs collected and sent; Complete Time: 13:54 [facility] 12/23 13:31 Order name: Urine Dipstick-Ancillary (obtain specimen); Complete Time: 14:45 jr8 Administered Medications: 14:20 Drug: GI Cocktail without - (Maalox Suspension 30 ml, Lidocaine Liquid 2 % 15 sv ml) Route: PO; 15:00 Follow up: Response: No adverse reaction; Marked relief of symptoms; Pain is decreased sv Disposition: 12/24/19 15:38 Discharged to Home. Impression: Gastritis, unspecified, Peptic ulcer, site unspecified. - Condition is Stable. - Discharge Instructions: Gastritis, Adult, Peptic Ulcer. - Prescriptions for omeprazole 40 mg Oral capsule,delayed release(DR/EC) - take 1 capsule by ORAL route once daily before a meal; 30 capsule. - Medication Reconciliation Form, Thank You Letter, Antibiotic Education, Prescription Opioid Use form. - Follow up: David Robledo MD; When: 2 - 3 days; Reason: Recheck today's complaints, Continuance of care, Re-evaluation by your physician. - Problem is new. - Symptoms have improved. Addendum: 12/25/2019 18:40 Co-signature as Attending Physician, Shahid Chew MD I agree with the assessment and c calabrese plan of care. Signatures: Dispatcher [employer] Toshia Barnhart RN RN sv Anderson, Corey, MD MD cha Roszak, Josh, PA PA jr8 Melissa Aguilar RN RN tw2 Corrections: (The following items were deleted from the chart) 12/23 13:34 13:31 Urine Test ordered. jr8 16:21 15:38 12/24/2019 15:38 Discharged to Home. Impression: Gastritis, unspecified; Peptic sv ulcer, site unspecified. Condition is Stable. Forms are Medication Reconciliation Form, Thank You Letter, Antibiotic Education, Prescription Opioid Use. Follow up: David Robledo; When: 2 - 3 days; Reason: Recheck today's complaints, Continuance of care, Re-evaluation by your physician. Problem is new. Symptoms have improved. jr8
[2019-12-24 16:28] VITALS: TEMP 97.7; O2SAT 100
[2019-12-24 16:31] VITALS: BP 122/86
== END 2019-12-24 16:21 | disposition home or self-care (01) ==
LOC: ER 13:07
DX: K29.70 Gastritis, unspecified, without bleeding (principal); K27.9 Peptic ulcer, site unspecified, unspecified as acute or chronic, without hemorrhage or perforation
CPT/HCPCS: 36415; 80048; 80076; 81003; 83690; 85025; 99284